=== PATIENT | female | born 1935 | race Caucasian/White ===

== ENCOUNTER 2019-11-02 12:41 | Inpatient (IN) | payer MEDICARE, MEDICAID, SELFPAY ==
[2019-11-02] VITALS (22 sets, daily range): BP systolic 107–141; BP diastolic 46–95; PULSE 81–92; RESP 18–42; TEMP 36.8–39.3; O2SAT 95–98; BMI 26.5
--- NOTE | ~2019-11-02 | XR_ITS ---
EXAMINATION: XR chest 1V portable DATE: 11/04/2019 06:08 INDICATION: Pneumonia TECHNIQUE: frontal view of the chest was obtained. COMPARISON: Chest radiograph dated 11/02/2019 FINDINGS: Airspace opacities in the right mid and lower and left lower lung zones which appear increased in ext ent on the right although this may be related to more kyphotic positioning. No pleural effusion or pn eumothorax. The cardiomediastinal silhouette is normal. Left internal jugular central venous port cat heter with distal tip at the caudal superior vena cava. IMPRESSION: 1. Bilateral airspace disease, right greater than left with possible worsening on the right which is concerning for pneumonia. Reviewed, dictated and finalized at location A.
--- NOTE | ~2019-11-02 | XR_ITS ---
XR chest 1V portable DATE: 11/02/2019 13:34 INDICATION: Fever, cough TECHNIQUE: Portable upright AP view on 11/02/2019 at 1336 hours COMPARISON: 04/07/2019 AP and lateral chest FINDINGS: There is patchy consolidating infiltrate in the right mid and lower lung zone and mild patc hy infiltrate in the left lower lung. There is minimal right pleural effusion. No left pleural effusion. No pulmonary vascular congestion o r pneumothorax. Normal heart size. Mild aortic unfolding. Left internal jugular vein Port-A-Cath catheter tip overlies the superior vena cava near the superior cavoatrial junction. No pneumothorax. Diffuse osteopenia. IMPRESSION: Patchy consolidating infiltrates in the right mid and lower lung zone and mild patchy inf iltrate in the left lower lung. The infiltrates appear to involve primarily the lower lobes Reviewed, dictated and finalized at location B. IMPRESSION: Patchy consolidating infiltrates in the right mid and lower lung zo ne and mild patchy infiltrate in the left lower lung. The infiltrates appear to involve primarily the lower lobes
--- NOTE | 2019-11-02 12:55 | ECG_ITS ---
Measurements Intervals [place] Rate: 94 P: 62 [place]: 154 QRS: 30 QRSD: 85 T: 30 QT: 346 QTc: 435 Interpretive Statements SINUS RHYTHM ATRIAL PREMATURE COMPLEX BORDERLINE ST ABNORMALITY- ANTEROLATERAL LEADS BASELINE ARTIFACT- I, II, III, AVL, AVF, V4-V6 BORDERLINE ECG Electronically Signed On 11-02-2019 13:15:29 CDT by Dwain Gonzales D.O.
[2019-11-02 13:27] LABS: Basophils Absolute Auto 0.1 K/mm3 (0.0-0.1); Basophils Percent Auto 0.3 % (0.2-1.2); Hematocrit 25.5 % (37.0-47.0); Hemoglobin 8.3 g/dL (12.0-15.0); Immature Granulocyte Percent A 0.3 % (0-0.5); Immature Platelet Fraction Pct 5.6 % (0.9-11.2); Lymphocytes Absolute Auto 26.13 K/mm3 (0.9-3.2); Lymphocytes Percent Auto 82.9 % (18.3-44.2); Mean Corpuscular HGB Conc 32.5 g/dl (32-36); Mean Corpuscular Hemoglobin 35.9 pg (26-34); Mean Corpuscular Volume 110.4 fl (80-100); Mean Platelet Volume 11.8 fl (7.4-10.4); Monocytes Absolute Auto 0.1 K/mm3 (0.1-0.6); Monocytes Percent Auto 0.4 % (2.6-8.5); Neutrophils Absolute Auto 5.1 K/mm3 (1.3-6.7); Neutrophils Percent Auto 16.1 % (45.5-73.1); Platelet Count Result 62 k/mm3 (150-375); Red Blood Count 2.31 M/mm3 (4.2-5.4); Red Cell Distribution Width 17.4 % (11.5-14.5); White Blood Count 31.5 K/mm3 (4.5-10.0)
[2019-11-02 13:36] LABS: Alanine Aminotransferase 7 U/L (4-35); Albumin Level 3.6 g/dL (3.5-5.1); Alkaline Phosphatase 73 U/L (38-126); Aspartate Amino Transferase 30 U/L (14-36); Bilirubin,Total 2.1 mg/dL (0.2-1.3); Blood Urea Nitrogen 30 mg/dL (7-17); Calcium 8.4 mg/dL (8.4-10.2); Carbon Dioxide 23 mmol/L (22-30); Chloride 96 mmol/L (98-107); Estimated CRCL calculation 29 ml/min; Estimated Glomerular Filt Rate 39; Glucose 169 mg/dL (65-105); Potassium 3.7 mmol/L (3.4-5.0); Sodium 131 mmol/L (137-145)
[2019-11-02 13:37] LABS: INR 1.2
[2019-11-02 13:38] LABS: Partial Thromboplastin Time 26.9 SECONDS (22.3-36.8)
--- NOTE | 2019-11-02 13:47 | ED.GENADULT ---
HPI - General Adult General Chief complaint: Fever Stated complaint: Fever, cough Time Seen by Provider: 11/02/19 12:47 History of Present Illness HPI narrative: Patient is a 84 y/o female complaining of fever starting last night. Fever was up to 103 at [place]. There is no known alleviating or exacerbating factor. She is not sure whether she received any antipyretics. She also has cough and SOB for 2 weeks. She has some chest pain with cough. 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 Related Data Home Medications Medication Instructions Recorded Confirmed acetaminophen 650 mg PO Q4H PRN 02/16/19 11/02/19 allopurinol 300 mg PO DAILY 02/16/19 11/02/19 carbidopa-levodopa 1 tablet PO TID 02/16/19 11/02/19 omeprazole 20 mg PO DAILY 02/16/19 10/23/19 ondansetron HCl 4 mg PO Q6H PRN 02/16/19 10/23/19 furosemide 20 mg PO DAILY 04/07/19 10/23/19 levothyroxine 50 mcg PO DAILY 04/07/19 10/23/19 lidocaine-prilocaine 1 applic TOPICAL ONCE 04/07/19 10/23/19 ferrous sulfate 325 mg PO DAILY 10/22/19 10/23/19 losartan-hydrochlorothiazide 1 tablet PO DAILY 10/22/19 10/23/19 magnesium hydroxide [Milk of 15 ml PO DAILY 11/02/19 11/02/19 Magnesia] sertraline 25 mg PO DAILY 11/02/19 11/02/19 Allergies Allergy/AdvReac Type Severity Reaction Status Date / Time quinapril Allergy Unknown Unknown Verified 04/07/19 14:59 rituximab Allergy Unknown Dyspnea / Verified 04/07/19 14:59 SOB cyclobenzaprine AdvReac Mild Unknown Verified 04/07/19 14:59 diclofenac AdvReac Mild Unknown Verified 04/07/19 14:59 zolpidem AdvReac Mild Unknown Verified 04/07/19 14:59 Review of Systems Constitutional: Constitutional: Reports chills, Reports fever(s), Denies headache(s) and Reports weakness Eyes: Eyes: Denies blurry vision ENT: Denies headache(s) and Denies neck pain Cardiovascular: Cardiovascular: Reports chest pain and Reports dyspnea Respiratory: Respiratory: Reports cough and Reports dyspnea Gastrointestinal: Gastrointestinal: Denies abdominal pain, Denies diarrhea, Denies nausea and Denies vomiting Genitourinary: Genitourinary: Denies hematuria and Denies dysuria Musculoskeletal: Musculoskeletal: Denies back pain and Denies neck pain Neurologic: Denies headache(s) and Denies weakness [facility] Past Medical History Medical History Arthritis DDD (degenerative disc disease) Dementia Depression GERD (gastroesophageal reflux disease) Gout HLD (hyperlipidemia) HTN (hypertension) Hypothyroid Leukemia Osteoporosis Pacemaker Parkinson's disease Pleural abscess Pneumonia Tuberculosis Ulcer UTI (urinary tract infection) Surgical History Surgical History H/O bilateral cataract extraction H/O: hysterectomy Family History Family History (Updated 11/02/19 @ 16:44 by Julio Wood RN) Father Heart failure Mother Unknown family medical history Social History Social History Gender identity (if verbalized by the patient): Female Exam Const: General: no acute distress, well developed, in distress and ill appearing Orientation/consciousness: oriented to person, oriented to place, oriented to time and patient oriented x3 HENMT: Head: normocephalic Ears: external ears normal General nose exam: Normal external nose present Eyes: General: appearance normal, both eyes and all related structures Conjunctivae: conjunctivae normal Neck: Neck: normal visual inspection and full ROM Chest: Chest palpation & inspection: normal inspection of the chest and no tenderness Resp: Effort & Inspection: retractions and tachypneic Cardio: Rate: regular rate Rhythm: regular rhythm GI: GI Palp: No abdominal tenderness and Yes Soft to palpation Skin: General skin exam: normal color and turgor normal Neuro: General: oriented to person, oriented to place, oriented to time and
[2019-11-02] MEDS: ACETAMINOPHEN 325 MG TABLET 650 MG PO ×2 (14:00→23:21)
[2019-11-02 14:05] LABS: Lactic Acid Reflex 1.7 mmol/L (0.7-2.1)
[2019-11-02 14:12] LABS: CRP 41.4 mg/dL (<1.0)
[2019-11-02 14:27] LABS: Troponin I 0.039 ng/mL (0.000-0.034)
[2019-11-02 14:46] LABS: Add Urine Microscopic? YES; Amorphous Sediment Urine Moderate; Appearance Urine Clear (Clear); Bacteria Urine 1+ /hpf; Bilirubin Urine Negative (Negative); Blood Urine 1+ (Negative); Color Urine Yellow (Yellow); Glucose Urine UA Negative (Negative); Ketones Urine Negative (Negative); Leukocyte Esterase Ur Negative LEU/UL (Negative); Mucus Urine Rare /lpf; Nitrate Urine Negative (Negative); Protein Urine 2+ mg/dL (Negative); RBC Urine 0-2 /hpf (0-2); Specific Grav Ur 1.015 (1.001-1.035); Urobilinogen Urine Negative mg/dL (<2.0); WBC Urine 0-3 /hpf
--- NOTE | 2019-11-02 15:20 | PC.NURSE ---
Dinner tray ordered.
[2019-11-02] MEDS: SODIUM CHLORIDE 0.9% IV 1,000 ML 125 ML IV CONT (17:21)
[2019-11-02 17:50] LABS: Troponin I 0.033 ng/mL (0.000-0.034)
[2019-11-02 20:46] LABS: Troponin I 0.023 ng/mL (0.000-0.034)
--- NOTE | 2019-11-02 22:37 | PM.IMHP ---
H&P: HPI History of Present Illness Chief complaint: pneumonia/sepsis Narrative: Diana Crawford is a 84 year old female who resides at [facility]. The patient stated that she has been coughing for many days. She stated she was not able to sleep because of her cough. Chest x-ray was read as patchy consolidating infiltrates in the right mid and lower lung zones and mild patchy infiltrate in the left lower lung. Patient has CLL. Patient was started on azithromycin and Rocephin. She has a dry nonproductive cough. Creatinine 1.3. Glucose 169. Patient was checked for covid 19. She was afebrile she had a 101.1 temperature when she came to the hospital. Tylenol for the fever. Date of service 11/02/2019 Review of Systems Review of Systems: All systems reviewed & are unremarkable except as noted in HPI and below Constitutional: Constitutional: Reports as per HPI and Reports no additional constitutional complaints Eyes: Eyes: Reports as per HPI and Reports no additional eye complaints ENT: Reports system reviewed and no additional complaints, except as documented and Reports Normal hearing present Cardiovascular: Cardiovascular: Reports no additional cardiovascular complaints Respiratory: Respiratory: Reports no additional respiratory complaints and Reports no additional respiratory complaints Gastrointestinal: Gastrointestinal: Reports as per HPI and Reports no additional gastrointestinal complaints Musculoskeletal: Musculoskeletal: Reports no additional musculoskeletal complaints Integumentary/Breasts: Skin/Breast: Reports system reviewed and no additional complaints, except as docu and Reports as per HPI Neurologic: Reports system reviewed and no additional complaints, except as documented, Reports as per HPI and Reports Normal hearing present Psychiatric: Psychiatric: Reports no additional psychiatric complaints and Reports as per HPI Endocrine: Endocrine: Reports no additional endocrine complaints Hematologic/Lymphatic: Hematologic/Lymphatic: Reports no additional hematologic/lymphatic complaints Allergic/Immunologic: Allergic/Immunologic: Reports no additional allergic/immunologic complaints [facility] Past Medical History Medical History (Updated 11/02/19 @ 23:12 by Emy Johnson NP) Arthritis DDD (degenerative disc disease) Dementia Depression GERD (gastroesophageal reflux disease) Gout HLD (hyperlipidemia) HTN (hypertension) Hypothyroid Leukemia cll Osteoporosis Parkinson's disease Pleural abscess Pneumonia Port-A-Cath in place Tuberculosis Ulcer UTI (urinary tract infection) Surgical History Surgical History H/O bilateral cataract extraction H/O: hysterectomy Family History Family History Father Heart failure Mother Unknown family medical history Social History Social History (Updated 11/02/19 @ 22:58 by Emy Johnson NP) Social History: The patient is and she is at the [employer] [facility]. She is a full code. Daina Stallworth is her child who is the durable power traffic law attorney for healthcare. Her daughter Angelo is a durable power traffic law attorney for healthcare. She never smoked. Smoking status: Never smoker Alcohol intake: never Substance use: never Substance use type: does not use Living arrangements: usp Gender identity (if verbalized by the patient): Female Spiritual care concerns: No Meds Home Medications and Allergies Home Medications Medication Instructions Recorded Confirmed Type acetaminophen 650 mg PO Q4H PRN 02/16/19 11/02/19 History allopurinol 300 mg PO DAILY 02/16/19 11/02/19 History carbidopa-levodopa 1 tablet PO TID 02/16/19 11/02/19 History omeprazole 20 mg PO DAILY 02/16/19 11/02/19 History ondansetron HCl 4 mg PO Q6H PRN 02/16/19 11/02/19 History furosemide 20 mg PO DAILY 04/07/19 11/02/19 History levothyroxine 50
[2019-11-02] MEDS: guaiFENesin/DEXTROMETHORPHAN 10 ML UDC PO (23:20)
[2019-11-03] VITALS (24 sets, daily range): BP systolic 95–161; BP diastolic 38–77; PULSE 74–179; RESP 19–41; TEMP 36.8–38.5; O2SAT 93–98
--- NOTE | 2019-11-03 | ECHO_ITS ---
Patient Info Name: Diana Crawford Age: 84 years : 1935 Gender: Female Ht: 64 in Wt: 160 lbs BSA: 1.83 m2 HR: 80 bpm BP: 116 / 54 mmHg Heart Rhythm: Sinus Rhythm Technical Quality: Good Exam Date: 11/03/2019 3:55 PM Exam Location: [facility] Patient Status: Inpatient Admit Date: 11/02/2019 Staff Ordering Physician: Mannie Rucker MD Programmer Numerical Control: Micky Dalton RDCS Attending Provider: Mannie Rucker MD Exam Type: CA echo doppler color flow Study Info Indications I47.1 - Supraventricular tachycardia Complete two-dimensional, color flow and Doppler transthoracic echocardiogram is performed. Strain analysis performed. History/Risk Factors Supraventricular tachycardia; PNA, Sepsis, HTN. Summary 1. Left ventricular systolic function is normal, estimated at 60-65%. 2. There is no increased left ventricular wall thickness. 3. The left ventricular diastolic function is grade I diastolic dysfunction. 4. Global longitudinal strain is normal at -21 %. 5. There is no aortic valve stenosis. 6. There is trace mitral valve regurgitation. 7. There is mild to moderate tricuspid valve regurgitation. 8. Moderate pulmonary hypertension, estimated pulmonary arterial systolic pressure is 50 mmHg. 9. Sinus rhythm with frequent premature atrial contractions. Left Ventricle Left ventricular chamber dimension is normal. Left ventricular systolic function is normal, estimated at 60-65%. There is no increased left ventricular wall thickness. The left ventricular diastolic function is grade I diastolic dysfunction. Global longitudinal strain is normal at -21 %. Right Ventricle Right ventricular chamber dimension is normal. Right ventricular systolic function is normal. Left Atria Left atrial chamber dimension is mildly enlarged. Right Atria Right atrial chamber dimension is mildly enlarged. Aortic Valve The aortic valve is not well visualized. There is mild aortic valve sclerosis. There is no aortic valve stenosis. There is no aortic valve regurgitation. Pulmonic Valve The pulmonic valve is not well visualized. There is trace pulmonic regurgitation. Mitral Valve The mitral valve has normal leaflets. There is trace mitral valve regurgitation. Tricuspid Valve The tricuspid valve leaflets are normal. There is mild to moderate tricuspid valve regurgitation. Moderate pulmonary hypertension, estimated pulmonary arterial systolic pressure is 50 mmHg. Pericardium/Pleural The pericardium appears normal. There is no pericardial effusion. Inferior Vena Cava Normal inferior vena cava with >50% collapse upon inspiration consistent with normal right atrial pressure, 5 mmHg. Aorta The aortic root size at the sinus of Valsalva is normal. Left Ventricular Outflow Tract Name Value Normal LVOT 2D LVOT Diameter 1.9 cm LVOT Doppler LVOT Peak Gradient 11 mmHg LVOT Mean Gradient 5 mmHg LVOT VTI 31 cm LVOT VTI/AV VTI Ratio 0.8 LVOT Stroke Volume
--- NOTE | 2019-11-03 01:08 | ECG_ITS ---
Measurements Intervals [place] Rate: 88 P: 64 [place]: 150 QRS: 28 QRSD: 85 T: 46 QT: 402 QTc: 488 Interpretive Statements SINUS RHYTHM SUPRAVENTRICULAR BIGEMINY ABNORMAL ECG Electronically Signed On 11-03-2019 7:05:29 CDT by Dwain Gonzales D.O.
[2019-11-03] MEDS: SODIUM CHLORIDE 0.9% IV 1,000 ML 125 ML IV CONT (01:11)
[2019-11-03 01:41] LABS: Blood Urea Nitrogen 29 mg/dL (7-17); Calcium 7.8 mg/dL (8.4-10.2); Carbon Dioxide 23 mmol/L (22-30); Chloride 100 mmol/L (98-107); Estimated CRCL calculation 27 ml/min; Estimated Glomerular Filt Rate 43; Glucose 152 mg/dL (65-105); Magnesium 1.8 mg/dL (1.6-2.3); Potassium 3.1 mmol/L (3.4-5.0); Sodium 132 mmol/L (137-145)
[2019-11-03] MEDS: guaiFENesin/DEXTROMETHORPHAN 10 ML UDC PO (06:11)
[2019-11-03] MEDS: LEVOTHYROXINE SODIUM 50 MCG TABLET PO (06:11)
[2019-11-03 07:00] LABS: Basophils Percent Auto 0.3 % (0.2-1.2); Eosinophils Percent Auto 0.1 % (0-4.4); Immature Granulocyte Absolute 0.11 K/mm3 (0.00-0.031); Immature Granulocyte Percent A 0.7 % (0-0.5); Immature Platelet Fraction Pct 5.8 % (0.9-11.2); Lymphocytes Absolute Auto 11.66 K/mm3 (0.9-3.2); Lymphocytes Percent Auto 76.6 % (18.3-44.2); Mean Corpuscular HGB Conc 31.9 g/dl (32-36); Mean Corpuscular Hemoglobin 35.4 pg (26-34); Mean Corpuscular Volume 111.1 fl (80-100); Mean Platelet Volume 11.7 fl (7.4-10.4); Monocytes Absolute Auto 0.1 K/mm3 (0.1-0.6); Monocytes Percent Auto 0.9 % (2.6-8.5); Neutrophils Absolute Auto 3.3 K/mm3 (1.3-6.7); Neutrophils Percent Auto 21.4 % (45.5-73.1); Platelet Count Result 44 k/mm3 (150-375); Red Blood Count 1.89 M/mm3 (4.2-5.4); Red Cell Distribution Width 17.3 % (11.5-14.5); White Blood Count 15.2 K/mm3 (4.5-10.0)
[2019-11-03 07:09] LABS: Lactic Acid 1.5 mmol/L (0.7-2.1)
[2019-11-03 07:13] LABS: Hemoglobin 6.7 g/dL (12.0-15.0)
[2019-11-03 07:15] LABS: Anisocytosis 1+ (NORMAL); Hypochromasia 1+ (NORMAL); Ovalocytes 1+ (NORMAL); Platelet Estimate Decreased (Adequate); Poikilocytosis 1+ (NORMAL)
[2019-11-03 07:20] LABS: Alanine Aminotransferase 17 U/L (4-35); Alkaline Phosphatase 74 U/L (38-126); Aspartate Amino Transferase 30 U/L (14-36); Bilirubin,Total 1.1 mg/dL (0.2-1.3); Blood Urea Nitrogen 28 mg/dL (7-17); Calcium 7.9 mg/dL (8.4-10.2); Carbon Dioxide 24 mmol/L (22-30); Chloride 100 mmol/L (98-107); Estimated CRCL calculation 31 ml/min; Estimated Glomerular Filt Rate 43; Glucose 173 mg/dL (65-105); Magnesium 1.9 mg/dL (1.6-2.3); Potassium 3.9 mmol/L (3.4-5.0); Sodium 132 mmol/L (137-145)
[2019-11-03 07:47] LABS: CRP > 45.0 mg/dL (<1.0)
[2019-11-03] MEDS: allopurinoL 300 MG TABLET PO (09:03)
[2019-11-03] MEDS: MULTIVITAMINS THERAPEUTIC TAB (*BKC) 1 TABLET PO (09:03)
[2019-11-03] MEDS: SERTRALINE HCL 25 MG TABLET PO (09:04)
[2019-11-03] MEDS: CARBIDOPA/LEVODOPA 25/100 MG CR TABLET 1 TABLET PO ×3 (09:04→18:50)
[2019-11-03] MEDS: FERROUS SULFATE 324 MG TABLET PO (09:04)
[2019-11-03] MEDS: PANTOPRAZOLE SOD SESQUIHYDRATE 20 MG TAB PO (09:04)
[2019-11-03] MEDS: FUROSEMIDE 20 MG TABLET PO (09:04)
[2019-11-03] MEDS: MAGNESIUM HYDROXIDE SUSP 30 ML UDC 15 ML PO (09:04)
[2019-11-03] MEDS: ACETAMINOPHEN 325 MG TABLET 650 MG PO (09:09)
--- NOTE | 2019-11-03 11:04 | PM.IMPN ---
Progress Note: A&P Assessment and Plan (1) Sepsis: Qualifiers: Sepsis acute organ dysfunction status: unspecified Sepsis type: sepsis due to unspecified organism Qualified Code(s): A41.9 - Sepsis, unspecified organism Code(s): A41.9 - Sepsis, unspecified organism Status: Acute Assessment and Plan: Present on admission with leukocytosis, fever, elevated CRP. Temperature improved. Continue close observation. Continue IV antibiotics. (2) Pneumonia: Qualifiers: Laterality: bilateral Lung location: unspecified part of lung Pneumonia type: due to unspecified organism Qualified Code(s): J18.9 - Pneumonia, unspecified organism Code(s): J18.9 - Pneumonia, unspecified organism Status: Acute Assessment and Plan: Chest x-ray showing bilateral lower lobe infiltrates. White count elevated with fever and cough. Blood culture No growth to date. COVID pending. Continue with a Zithromax and Rocephin. Hold on albuterol given her SVT. Check sputum culture COVID negative but concern high so will retest. Repeat CXR in the morning. (3) SVT (supraventricular tachycardia): Code(s): I47.1 - Supraventricular tachycardia Status: Acute Assessment and Plan: Episodes of regular, narrow complex tachycardia. Probably SVT but cannot exclude atrial flutter. Not on a beta-ashley at home. TSH okay. Will check echocardiogram. Hold albuterol. Give Mag IV. (4) Suspected COVID-19 virus infection: Code(s): Z20.828 - Contact with and (suspected) exposure to other viral communicable diseases Status: Acute Assessment and Plan: Chest x-ray was reviewed. Patient was tested and results are pending. The patient is on isolation. She is on room at air at this time but is tachypneic. Monitor closely. (5) Anemia: Code(s): D64.9 - Anemia, unspecified Status: Acute Assessment and Plan: Patient's hemoglobin was normal last year but has been low this year in the 9-10 range. She takes ferrous sulfate and receives B12 injections. No evidence of active bleeding. Hemoglobin dropped to 6.7 probably related to IV fluids. Given that she has leukemia, would want to avoid auto antibodies so transfusion was held. Will track H&H every 6 hours to monitor closely. Discussed with Hematology about possible transfusion Hgb drifting down. Transfusion ordered. Stool dark so will check guaiac. (6) Leukemia: Code(s): C95.90 - Leukemia, unspecified not having achieved remission Status: Chronic Assessment and Plan: Patient has refractory CLL/lymphoma with history of chemotherapy. Patient has elevated leukocytes on admission at 31K but better today. 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 Platelet count currently At baseline. No evidence of active bleeding. Hematology/oncology has been consulted. (7) Hypothyroid: Code(s): E03.9 - Hypothyroidism, unspecified Status: Chronic Assessment and Plan: TSH normal Continue with levothyroxine. (8) HTN (hypertension): Code(s): I10 - Essential (primary) hypertension Status: Chronic Assessment and Plan: Blood pressure reviewed on 11/03/2019. Blood pressure well controlled. Losartan/HCTZ on hold. She is still has Lasix ordered. Continue to monitor for now. (9) Parkinson's disease: Code(s): G20 - Parkinson's disease Status: Chronic Assessment and Plan: Stable. Continue with carbidopa levodopa. (10) Depression: Code(s): F32.9 - Major depressive disorder, single episode, unspecified Status: Chronic Assessment and Plan: Mood stable. Continue Zoloft. Subjective Date/time seen: 11/03/19 11:04 Interval history: 84yo female with leukemia here for fever and cough. Assuming care. Chart reviewed. Patient states she has been having low-grade fever prior to admission b
[2019-11-03] MEDS: MAGNESIUM SULF 1 GM/D5W 100 ML 1 GM/100 ML BAG IVPB (12:48)
[2019-11-03 12:49] LABS: Iron 24 ug/dL (37-170); Lactate Dehydrogenase 420 U/L (313-618)
[2019-11-03 12:55] LABS: Immature Reticulocyte Fraction 3.8 % (3.0-15.9); Reticulocyte Hemoglobin Conten 27.7 pg (28.2-35.7); Reticulocyte Percent 1.97 % (0.7-4.3); Reticulocytes Absolute 0.03 B/L (32.2-175.7)
[2019-11-03 12:58] LABS: Percent Iron Saturation 13 % (20-50)
[2019-11-03 13:00] LABS: Hematocrit 19.4 % (37.0-47.0); Hemoglobin 6.3 g/dL (12.0-15.0)
[2019-11-03 13:40] LABS: Vitamin B12 > 1000.0 pg/mL (239-931)
[2019-11-03] MEDS: SODIUM CHLORIDE 0.9% IV 1,000 ML 100 ML IV CONT (14:07)
[2019-11-03 14:57] LABS: SARS-CoV-2 RNA PCR Negative
--- NOTE | 2019-11-03 17:20 | PDONCCN ---
HPI - Date of Consult Date/Time: 11/03/19 17:20 Requesting Physician: Jori Rucker MD Primary Care Provider: Maurisio Vernon MD - Consult Narrative Reason for consult: Chronic lymphocytic leukemia Narrative: Diana Crawford is a 84 year old female This is the pleasant 83-year-old female with diagnosis of chronic lymphocytic leukemia in 2013. She received weekly treatment with Rituxan completed in January 2018. Rituxan treatment was restarted 2 weeks ago due to worsening of thrombocytopenia and anemia. She received week 2 of Rituxan on October 29, 2019. Patient now came into the office with cough iron shortness of breath for 3-4 days duration. She denies any fevers and chills. She has been feeling poorly and complain of tiredness and fatigue. She denies any bleeding and bruising. Denies any other new complaint. Review of Systems - Review of Systems all systems reviewed & are unremarkable except as noted in History - Neurologic Reports no additional neurologic complaints, Reports as per HPI, Denies headache(s), Denies weakness PMFSH Medical History: Medical History (Last Reviewed 11/03/19 @ 17:22 by Stephen Acosta MD) Arthritis DDD (degenerative disc disease) Dementia Depression GERD (gastroesophageal reflux disease) Gout HLD (hyperlipidemia) HTN (hypertension) Hypothyroid Leukemia cll Osteoporosis Parkinson's disease Pleural abscess Pneumonia Port-A-Cath in place Tuberculosis Ulcer UTI (urinary tract infection) Surgical History: Surgical History (Last Reviewed 11/03/19 @ 17:23 by Stephen Acosta MD) H/O bilateral cataract extraction H/O: hysterectomy Family History: Family History (Last Reviewed 11/03/19 @ 17:23 by Stephen Acosta MD) Father Heart failure Mother Unknown family medical history - Social History Social History: Social History (Last Reviewed 11/03/19 @ 17:23 by Stephen Acosta MD) Gender Identity: Gender identity (if verbalized by the patient): Female Alcohol Use: Alcohol intake: never Substance Use: Substance use: never Substance use type: does not use Others: Spiritual care concerns: No Living Arrangements: Living arrangements: intermediate Smoking Status: Smoking status: Never smoker Meds Home Medications Medication Instructions Recorded Confirmed Type acetaminophen 650 mg PO Q4H PRN 02/16/19 11/02/19 History allopurinol 300 mg PO DAILY 02/16/19 11/02/19 History carbidopa-levodopa 1 tablet PO TID 02/16/19 11/02/19 History omeprazole 20 mg PO DAILY 02/16/19 11/02/19 History ondansetron HCl 4 mg PO Q6H PRN 02/16/19 11/02/19 History furosemide 20 mg PO DAILY 04/07/19 11/02/19 History levothyroxine 50 mcg PO DAILY 04/07/19 11/02/19 History lidocaine-prilocaine 1 applic TOPICAL ONCE 04/07/19 11/02/19 History ferrous sulfate 325 mg PO DAILY 10/22/19 11/02/19 History losartan-hydrochlorothiazide 1 tablet PO DAILY 10/22/19 11/02/19 History cyanocobalamin (vitamin B-12) 1,000 mcg IM MONTHLY 11/02/19 11/02/19 History magnesium hydroxide [Milk of 15 ml PO DAILY 11/02/19 11/02/19 History Magnesia] multivitamin [Daily-Amy] 1 tablet PO DAILY 11/02/19 11/02/19 History polyvinyl alcohol [Artificial 1 drp OPHTHALMIC (EYE) TID 11/02/19 11/02/19 History Tears (polyvin alc)] sertraline 25 mg PO DAILY 11/02/19 11/02/19 History Allergies Allergy/AdvReac Type Severity Reaction Status Date / Time quinapril Allergy Unknown Unknown Verified 04/07/19 14:59 rituximab Allergy Unknown Dyspnea / Verified 04/07/19 14:59 SOB cyclobenzaprine AdvReac Mild Unknown Verified 04/07/19 14:59 diclofenac AdvReac Mild Unknown Verified 04/07/19 14:59 zolpidem AdvReac Mild Unknown Verified 04/07/19 14:59 Results - Labs CBC & Chem 7: 11/03/19 12:32 11/03/19 06:49 Labs: Short CBC 11/03/19 11/03/19 Range/Units 06:49 12:32 WBC 15.2 H (4.5-10.0) K/mm3 Hgb 6.7 L* 6.3 L* (12.0-15.0
[2019-11-03 17:54] LABS: Hematocrit 21.8 % (37.0-47.0)
[2019-11-03 18:42] LABS: Immunoglobulin A < 40 mg/dL (70-400); Immunoglobulin G < 270 mg/dL (700-1600); Immunoglobulin M < 25 mg/dL (40-230)
[2019-11-03 19:12] LABS: Immunochemical Fecal Occult Bl Negative (N)
[2019-11-03 19:13] LABS: IFOB Positive Control Positive
[2019-11-03] MEDS: METOPROLOL TARTRATE INJ 5 MG/5 ML VIAL IV PUSH (21:05)
[2019-11-04] VITALS (22 sets, daily range): BP systolic 116–146; BP diastolic 46–80; PULSE 66–132; RESP 22–33; TEMP 36.6–37.8; O2SAT 94–97
[2019-11-04] MEDS: SODIUM CHLORIDE 0.9% IV 250 ML 30 ML IV CONT (00:12)
[2019-11-04] MEDS: FUROSEMIDE INJ 40 MG/4 ML VIAL 20 MG IV PUSH ×2 (02:22)
[2019-11-04] MEDS: LEVOTHYROXINE SODIUM 50 MCG TABLET PO (05:34)
[2019-11-04 05:57] LABS: Basophils Percent Auto 0.2 % (0.2-1.2); Hematocrit 29.1 % (37.0-47.0); Hemoglobin 9.7 g/dL (12.0-15.0); Immature Granulocyte Absolute 0.11 K/mm3 (0.00-0.031); Immature Granulocyte Percent A 0.5 % (0-0.5); Immature Platelet Fraction Pct 5.7 % (0.9-11.2); Lymphocytes Absolute Auto 16.94 K/mm3 (0.9-3.2); Lymphocytes Percent Auto 77.5 % (18.3-44.2); Mean Corpuscular HGB Conc 33.3 g/dl (32-36); Mean Corpuscular Hemoglobin 33.1 pg (26-34); Mean Corpuscular Volume 99.3 fl (80-100); Mean Platelet Volume 11.6 fl (7.4-10.4); Monocytes Absolute Auto 0.1 K/mm3 (0.1-0.6); Monocytes Percent Auto 0.6 % (2.6-8.5); Neutrophils Absolute Auto 4.6 K/mm3 (1.3-6.7); Neutrophils Percent Auto 21.2 % (45.5-73.1); Platelet Count Result 54 k/mm3 (150-375); Red Blood Count 2.93 M/mm3 (4.2-5.4); Red Cell Distribution Width 22.2 % (11.5-14.5); White Blood Count 21.9 K/mm3 (4.5-10.0)
[2019-11-04 06:03] LABS: Hemoglobin A1C 6.9 % (<5.7)
[2019-11-04 06:08] LABS: Blood Urea Nitrogen 28 mg/dL (7-17); Carbon Dioxide 25 mmol/L (22-30); Chloride 101 mmol/L (98-107); Estimated CRCL calculation 31 ml/min; Estimated Glomerular Filt Rate 43; Glucose 126 mg/dL (65-105); Phosphorus 3.6 mg/dL (2.5-4.5); Potassium 3.4 mmol/L (3.4-5.0); Sodium 134 mmol/L (137-145)
[2019-11-04 06:27] LABS: Platelet Estimate Decreased (Adequate)
[2019-11-04 06:28] LABS: Anisocytosis 2+ (NORMAL)
[2019-11-04] MEDS: ACETAMINOPHEN 325 MG TABLET 650 MG PO ×2 (08:22→20:14)
[2019-11-04] MEDS: PANTOPRAZOLE SOD SESQUIHYDRATE 20 MG TAB PO (08:23)
[2019-11-04] MEDS: FUROSEMIDE 20 MG TABLET PO (08:23)
[2019-11-04] MEDS: FERROUS SULFATE 324 MG TABLET PO (08:23)
[2019-11-04] MEDS: SERTRALINE HCL 25 MG TABLET PO (08:23)
[2019-11-04] MEDS: CARBIDOPA/LEVODOPA 25/100 MG CR TABLET 1 TABLET PO ×3 (08:23→18:48)
[2019-11-04] MEDS: MULTIVITAMINS THERAPEUTIC TAB (*BKC) 1 TABLET PO (08:23)
[2019-11-04] MEDS: allopurinoL 300 MG TABLET PO (08:24)
--- NOTE | 2019-11-04 09:23 | PM.IMPN ---
Progress Note: A&P Assessment and Plan (1) Sepsis: Qualifiers: Sepsis acute organ dysfunction status: unspecified Sepsis type: sepsis due to unspecified organism Qualified Code(s): A41.9 - Sepsis, unspecified organism Code(s): A41.9 - Sepsis, unspecified organism Status: Acute Assessment and Plan: Present on admission with leukocytosis, fever, elevated CRP. Temperature improved but still with fevers. Continue close observation. Continue IV antibiotics but add flagyl for possible aspiration. Consider MRSA PNA as well. Will change to Doxy from Azithro (2) Pneumonia: Qualifiers: Laterality: bilateral Lung location: unspecified part of lung Pneumonia type: due to unspecified organism Qualified Code(s): J18.9 - Pneumonia, unspecified organism Code(s): J18.9 - Pneumonia, unspecified organism Status: Acute Assessment and Plan: Chest x-ray showing bilateral lower lobe infiltrates. White count elevated with fever and cough. Blood culture No growth to date. COVID negative. Currenlt on Zithromax and Rocephin. Hold on albuterol given her SVT/AFib. Sputum culture ordered. CXR looks worse in the right lower lobe. COnsider aspiration so sirena have ST evalate. Repeat COVID test ordered. Consider MRSA as well. MRSA nasal swab as well. Change to Levaquin and Kamrano (3) SVT (supraventricular tachycardia): Code(s): I47.1 - Supraventricular tachycardia Status: Acute Assessment and Plan: Episodes of regular, narrow complex tachycardia. Appears to have AFib. No plans for anti-coagulation. Not on a beta-ashley at home. TSH okay. Echo showing EF 60-65% with Grade I diastolic dysfunction and moderate pulmonary HTN. Albuterol on hold. Add low dose metoprolol. Cards consult (4) Suspected COVID-19 virus infection: Code(s): Z20.828 - Contact with and (suspected) exposure to other viral communicable diseases Status: Acute Assessment and Plan: Chest x-ray was reviewed. Patient was tested and results are negative. The patient is still having fevers. Will keep her on isolation and re-test. She is on room at air but is persistently tachypneic. Monitor closely. (5) Anemia: Code(s): D64.9 - Anemia, unspecified Status: Acute Assessment and Plan: Patient's hemoglobin was normal last year but has been low this year in the 9-10 range. She takes ferrous sulfate and receives B12 injections. No evidence of active bleeding with negtaive stool guaiac. Hemoglobin dropped to 6.3 probably related to IV fluids. Hem/Onc ordered transfusion and Hgb better today at 9.7. Will stop IVF. Follow H&H. (6) Leukemia: Code(s): C95.90 - Leukemia, unspecified not having achieved remission Status: Chronic Assessment and Plan: Patient has refractory CLL/lymphoma with history of chemotherapy. Patient has elevated leukocytes on admission at 31K. WBC still elevated but better today at 21K. 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 Platelet count currently at baseline. No evidence of active bleeding. Stool guaiac negative. Hematology/oncology following (7) Hypothyroid: Code(s): E03.9 - Hypothyroidism, unspecified Status: Chronic Assessment and Plan: TSH normal. Continue with levothyroxine. (8) HTN (hypertension): Code(s): I10 - Essential (primary) hypertension Status: Chronic Assessment and Plan: Blood pressure reviewed on 11/04/2019. Blood pressure well controlled. Losartan/HCTZ on hold. She is still has Lasix ordered. Continue to monitor for now. (9) Parkinson's disease: Code(s): G20 - Parkinson's disease Status: Chronic Assessment and Plan: Stable. Continue with carbidopa levodopa. (10) Depression: Code(s): F32.9 - Major depressive disorder, single episode, unspecified Status: Chronic Assessme
[2019-11-04] MEDS: SODIUM CHLORIDE 0.9% IV 1,000 ML 100 ML IV CONT (09:54)
--- NOTE | 2019-11-04 11:06 | PM.CNCAR ---
Assessment and Plan Assessment and plan (1) Paroxysmal atrial fibrillation: Code(s): I48.0 - Paroxysmal atrial fibrillation Status: Acute Assessment and Plan: Brief intermittent episodes, asymptomatic. Agree with low-dose metoprolol. Patient with isolated probable atrial flutter as well. Patient is not an anticoagulation candidate given thrombocytopenia, anemia and bleeding risk. Replete potassium. Magnesium stable. TSH within normal limits. Anticipate stabilization with regards to atrial tachyarrhythmias with further improvement in her clinical condition. Conservative management the time being. 2D echocardiogram personally reviewed EF 60-65%, trace MR, no , moderate pulmonary hypertension RVSP 50 mm Hg, [id number] tricuspid regurgitation. (2) PSVT (paroxysmal supraventricular tachycardia): Code(s): I47.1 - Supraventricular tachycardia Status: Acute Assessment and Plan: Metoprolol. Monitor tolerance. (3) Pneumonia: Qualifiers: Laterality: bilateral Lung location: unspecified part of lung Pneumonia type: due to unspecified organism Qualified Code(s): J18.9 - Pneumonia, unspecified organism Code(s): J18.9 - Pneumonia, unspecified organism Status: Acute Assessment and Plan: Per primary service. Continue intravenous antibiotics. (4) Anemia: Code(s): D64.9 - Anemia, unspecified Status: Acute Assessment and Plan: Follow H&H closely. Patient transfused by Oncology. (5) Leukemia: Code(s): C95.90 - Leukemia, unspecified not having achieved remission Status: Chronic Assessment and Plan: Per oncology. (6) Dementia: Code(s): F03.90 - Unspecified dementia without behavioral disturbance Status: Chronic Assessment and Plan: Stable. History of Present Illness History of Present Illness Consult date/time: date of service:11/04/19 11:06 This is a cardiology consultation at the request of Emy Johnson of the [facility] for our opinion regarding A.Fib and SVT. Requesting physician: Emy Johnson NP Consult reason: atrial fibrillation Reason For Visit: pneumonia/sepsis Narrative: Patient is an 84-year-old female with a resident at [facility] with past medical history significant for hypertension, dyslipidemia, CLL, Parkinson's, dementia who was admitted November 01 with incessant coughing for several days which was dry and nonproductive. Chest x-ray revealed patchy consolidation right middle and lower lung zones and patchy infiltrate left lower lung for which she was started on intravenous antibiotics. COVID-19 negative. She was admitted with a fever of 101.1. She was in sinus rhythm initially, however, overnight she had an episode of atrial fibrillation with RVR and probable transient atrial flutter. She has had occasional episodes of brief PSVT as well. She is asymptomatic in this regard. She has no prior known diagnosis history of atrial fibrillation. She has had progressive anemia and thrombocytopenia for which she received a unit of packed red blood cells by Oncology. She states she is feeling better and denies shortness of breath or chest pain. She initially stated she had experienced palpitations in the past but denies any at this time. She indicates she wants to go home today. She has been treated for sepsis and is improving on azithromycin and Rocephin. Albuterol bronchodilators have been held secondary to recurrent SVT. Review of Systems Review of Systems: All systems reviewed & are unremarkable except as noted in HPI and below Constitutional: Constitutional: Reports as per HPI, Reports no additional constitutional complaints, Reports fatigue and Reports weakness Eyes: Eyes: Reports as per HPI and Reports no additional eye complaints ENT: Reports system reviewed and no additional complaints, except as documented and Reports as per HPI Card
[2019-11-04] MEDS: METOPROLOL TARTRATE 12.5 MG TABLET PO ×2 (12:21→20:04)
[2019-11-04 13:29] LABS: SARS-CoV-2 RNA PCR Negative
--- NOTE | 2019-11-04 13:30 | PC.NURSE ---
Notified Dr. Rucker of negative Covid-19 results
--- NOTE | 2019-11-04 14:03 | PCSTNOTE ---
Please refer to the Bedside Swallow Evaluation in the EMR. ST-- bedside swallow evaluation was performed today; patient is functioning at her prior level (re swallow) thus skilled ST services are not required at this time.
[2019-11-04] MEDS: CENTRAL LINE FLUSH 10 ML IV PUSH ×2 (15:01→20:05)
--- NOTE | 2019-11-04 15:04 | PC.NURSE ---
This patient, Diana Crawford, was transferred to [ [id number]] on 11/04/19 at 1504. Personal belongings sent with patient. Belongings list checked and signed with receiving [ ]. Report given to [ VIRGINIA Jacobs @ 150]. Appropriate documentation sent with patient. Pt transferred via wheelchair w/ no issues noted.
--- NOTE | 2019-11-04 17:25 | WPDONCPN ---
Progress Note: A/P - Additional Plan Chronic lymphocytic leukemia. Will hold 3rd weekly treatment of Rituxan until next week. Multifactorial anemia. Workup for hemolytic anemia came back unremarkable. She has received 2 units of packed red blood cells with improvement in hemoglobin. She is clinically feeling much better. Right middle and lower lobe pneumonia. Patient is on antibiotic. She is afebrile. 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 I will start her on IV IgG treatment. - Time Spent With Patient Total time spent is greater than 50% in coordination of care (as documented) at patient's floor/unit and/or counseling patient: 25 - 35 minutes Subjective Interval history: Chronic lymphocytic leukemia Anemia secondary to CLL Right lower lobe pneumonia Review of Systems - Review of Systems Patient is feeling better and stronger today. She denies any bleeding and bruising. She denies any fevers and chills. Denies any other new complaints. Twelve point of systems reviewed and as above otherwise negative. - Neurologic Reports system reviewed and no additional complaints, except as documented, Denies headache(s), Denies weakness Exam Vital signs: Temp Pulse Resp BP Pulse Ox 37.0 C 75 22 H 146/80 H 97 11/04/19 16:00 11/04/19 16:00 11/04/19 16:00 11/04/19 16:00 11/04/19 16:00 Narrative: Lungs are clear to auscultation bilaterally Cardiovascular regular rate rhythm no murmurs Abdomen soft nontender nondistended bowel sounds are positive Extremities no edema PN: Objective Data - Labs CBC & Chem 7: 11/04/19 05:40 11/04/19 05:40 Labs: Laboratory Results - last 24 hr 11/03/19 11/03/19 11/03/19 17:46 17:46 18:22 WBC RBC Hgb 7.0 L Hct 21.8 L MCV MCH MCHC RDW Plt Count MPV Immature Gran % (Auto) Neut % (Auto) Lymph % (Auto) [place] % (Auto) Eos % (Auto) Baso % (Auto) Lymph # (Auto) [place] # (Auto) Eos # (Auto) Baso # (Auto) Abs Immat Gran (auto) Absolute Neuts (auto) Absolute Nucleated RBC Nucleated RBC % Platelet Estimate % Immature Plt Fraction Anisocytosis Sodium Potassium Chloride Carbon Dioxide BUN Creatinine Estim Creat Clear Calc Estimated GFR Glucose Hemoglobin A1c Calcium Phosphorus Magnesium Albumin Stl Occult Blood (IFOB) IgG < 270 L IgA < 40 L IgM < 25 L SARS-CoV-2 RNA (RT-PCR) Blood Type A Positive Antibody Screen Negative Crossmatch See Detail 11/03/19 11/03/19 11/04/19 18:47 22:10 05:40 WBC 21.9 H RBC 2.93 L Hgb 9.7 L Hct 29.1 L MCV 99.3 D MCH 33.1 D MCHC 33.3 RDW 22.2 H Plt Count 54 L MPV 11.6 H Immature Gran % (Auto) 0.5 Neut % (Auto) 21.2 L Lymph % (Auto) 77.5 H [place] % (Auto) 0.6 L Eos % (Auto) 0.0 Baso % (Auto) 0.2 Lymph # (Auto) 16.94 H [place] # (Auto) 0.1 Eos # (Auto) 0.0 Baso # (Auto) 0.0 Abs Immat Gran (auto) 0.11 H Absolute Neuts (auto) 4.6 Absolute Nucleated RBC 0.0 Nucleated RBC % 0.0 Platelet Estimate Decreased % Immature Plt Fraction 5.7 Anisocytosis 2+ Sodium Potassium Chloride Carbon Dioxide BUN Creatinine Estim Creat Clear Calc Estimated GFR Glucose Hemoglobin A1c Calcium Phosphorus Magnesium Albumin Stl Occult Blood (IFOB) Negative IgG IgA IgM SARS-CoV-2 RNA (RT-PCR) Negative Blood Type Antibody Screen Crossmatch 11/04/19 11/04/19 05:40 05:40 WBC RBC Hgb Hct MCV MCH MCHC RDW Plt Count MPV Immature Gran % (Auto) Neut % (Auto) Lymph % (Auto) [place] % (Auto) Eos % (Auto) Baso % (Auto) Lymph # (Auto) [place] # (Auto) Eos # (Auto) Baso # (Auto) Abs Immat Gran (auto) Absolute Neuts (auto)
[2019-11-04] MEDS: guaiFENesin/DEXTROMETHORPHAN 10 ML UDC PO (18:49)
[2019-11-05] VITALS (17 sets, daily range): BP systolic 111–151; BP diastolic 47–59; PULSE 62–79; RESP 12–24; TEMP 35.7–37.2; O2SAT 94–97
[2019-11-05] MEDS: CENTRAL LINE FLUSH 10 ML IV PUSH ×3 (05:49→20:59)
[2019-11-05] MEDS: LEVOTHYROXINE SODIUM 50 MCG TABLET PO (05:49)
[2019-11-05 06:02] LABS: Hematocrit 24.1 % (37.0-47.0); Immature Platelet Fraction Pct 4.1 % (0.9-11.2); Mean Corpuscular HGB Conc 33.2 g/dl (32-36); Mean Corpuscular Hemoglobin 33.2 pg (26-34); Mean Platelet Volume 11.5 fl (7.4-10.4); Platelet Count Result 41 k/mm3 (150-375); Red Blood Count 2.41 M/mm3 (4.2-5.4); White Blood Count 10.2 K/mm3 (4.5-10.0)
[2019-11-05 06:18] LABS: Albumin Level 2.6 g/dL (3.5-5.1); Blood Urea Nitrogen 29 mg/dL (7-17); Calcium 7.7 mg/dL (8.4-10.2); Carbon Dioxide 24 mmol/L (22-30); Chloride 100 mmol/L (98-107); Estimated CRCL calculation 32 ml/min; Estimated Glomerular Filt Rate 43; Glucose 120 mg/dL (65-105); Magnesium 1.9 mg/dL (1.6-2.3); Phosphorus 3.3 mg/dL (2.5-4.5); Potassium 3.4 mmol/L (3.4-5.0); Sodium 132 mmol/L (137-145)
[2019-11-05 07:09] LABS: Band Neutrophils Percent 2 % (0-6); Lymphocytes Absolute Manual 5.91 K/mm3 (1.1-4.5); Neutrophils Absolute Manual 4.28 K/mm3 (1.7-7.2); Neutrophils Percent Manual 40 % (46-73); Platelet Estimate Decreased (Adequate); Total Cells Counted 100
[2019-11-05 07:12] LABS: Atypical Lymphocytes Present; Hypochromasia 2+ (NORMAL); Ovalocytes 1+ (NORMAL); Polychromasia 1+ (NORMAL); Smudge Cells PRESENT; Tear Drop Cells 2+ (NORMAL)
[2019-11-05] MEDS: MAGNESIUM HYDROXIDE SUSP 30 ML UDC 15 ML PO (08:35)
[2019-11-05] MEDS: guaiFENesin/DEXTROMETHORPHAN 10 ML UDC PO ×3 (08:35→18:05)
[2019-11-05] MEDS: SERTRALINE HCL 25 MG TABLET PO (08:37)
[2019-11-05] MEDS: CARBIDOPA/LEVODOPA 25/100 MG CR TABLET 1 TABLET PO ×3 (08:37→18:06)
[2019-11-05] MEDS: PANTOPRAZOLE SOD SESQUIHYDRATE 20 MG TAB PO (08:37)
[2019-11-05] MEDS: METOPROLOL TARTRATE 12.5 MG TABLET PO ×2 (08:37→19:55)
[2019-11-05] MEDS: FERROUS SULFATE 324 MG TABLET PO (08:38)
[2019-11-05] MEDS: MULTIVITAMINS THERAPEUTIC TAB (*BKC) 1 TABLET PO (08:38)
[2019-11-05] MEDS: allopurinoL 300 MG TABLET PO (08:38)
[2019-11-05] MEDS: FUROSEMIDE 20 MG TABLET PO (08:38)
[2019-11-05 11:58] LABS: Haptoglobin 336 mg/dL (43-212)
--- NOTE | 2019-11-05 14:33 | PM.PNCARD ---
Progress Note: A&P Assessment and Plan (1) Paroxysmal atrial fibrillation: Code(s): I48.0 - Paroxysmal atrial fibrillation Status: Acute Assessment and Plan: Brief intermittent episodes, asymptomatic. Continue low-dose metoprolol. Also with isolated probable atrial flutter as well. No further sustained episodes. She is not an anticoagulation candidate given thrombocytopenia, anemia and bleeding risk. Replete potassium. Magnesium stable. TSH within normal limits. Conservative management the time being. 2D echocardiogram personally reviewed EF 60-65%, trace MR, no , moderate pulmonary hypertension RVSP 50 mm Hg, [id number] tricuspid regurgitation. (2) PSVT (paroxysmal supraventricular tachycardia): Code(s): I47.1 - Supraventricular tachycardia Status: Acute Assessment and Plan: Continue low-dose metoprolol. Blood pressures and heart rates have been stable. (3) Pneumonia: Qualifiers: Laterality: bilateral Lung location: unspecified part of lung Pneumonia type: due to unspecified organism Qualified Code(s): J18.9 - Pneumonia, unspecified organism Code(s): J18.9 - Pneumonia, unspecified organism Status: Acute Assessment and Plan: Per primary service. (4) Anemia: Code(s): D64.9 - Anemia, unspecified Status: Acute Assessment and Plan: Follow H&H closely. Transfused by Oncology. (5) Leukemia: Code(s): C95.90 - Leukemia, unspecified not having achieved remission Status: Chronic Assessment and Plan: Per oncology. (6) Dementia: Code(s): F03.90 - Unspecified dementia without behavioral disturbance Status: Chronic Assessment and Plan: Stable. Additional Plan No further cardiac recommendations. Will follow-up p.r.n.. Plan discussed with Dr Fleming [id number] 11/05/2019 Time Spent With Patient Time with patient: less than 15 minutes Subjective Date/time seen: 11/05/19 14:33 Interval history: Follow-up for: Paroxysmal atrial fibrillation, PSVT, pneumonia/sepsis Date of service: 11/05/2019 Subjective: Denied any discomfort. Shortness of breath with exertional activities. Lightheaded it when she first gets up. Review of Systems Review of Systems: All systems reviewed & are unremarkable except as noted in HPI and below Constitutional: Constitutional: Denies excessive sweating, Reports fatigue and Reports weakness Eyes: Eyes: Denies blurry vision ENT: Reports hearing loss and Denies epistaxis Cardiovascular: Cardiovascular: Denies chest pain, Denies leg edema, Denies lightheadedness, Denies palpitations, Reports dyspnea and Reports dyspnea on exertion Respiratory: Respiratory: Reports cough, Reports dyspnea and Reports dyspnea on exertion Gastrointestinal: Gastrointestinal: Denies abdominal pain and Denies nausea Genitourinary: Genitourinary: Denies hematuria and Denies dysuria Musculoskeletal: Musculoskeletal: Reports no additional musculoskeletal complaints and Reports as per HPI Integumentary/Breasts: Skin/Breast: Denies rash Neurologic: Denies Abnormal speech present and Reports weakness Psychiatric: Psychiatric: Denies anxiety Endocrine: Endocrine: Denies excessive sweating, Reports fatigue and Denies palpitations Hematologic/Lymphatic: Hematologic/Lymphatic: Denies easy bleeding Allergic/Immunologic: Allergic/Immunologic: Denies GI upset with certain foods Exam Narrative: Exam Narrative: General: Elderly female lying in bed, Well developed, alert and oriented x2-3. No apparent distress, comfortable, pleasant, and cooperative. Head: atraumatic, normocephalic Eyes: EOM intact, sclerae anicteric, conjunctivae unremarkable Ears/Nose: external inspection of e
--- NOTE | 2019-11-05 16:30 | PM.IMPN ---
Progress Note: A&P Assessment and Plan (1) Sepsis: Qualifiers: Sepsis acute organ dysfunction status: unspecified Sepsis type: sepsis due to unspecified organism Qualified Code(s): A41.9 - Sepsis, unspecified organism Code(s): A41.9 - Sepsis, unspecified organism Status: Acute Assessment and Plan: Present on admission with leukocytosis, fever, elevated CRP. Fever resolving. Continue close observation. Continue IV antibiotics with Levaquin and vancomycin. (2) Pneumonia: Qualifiers: Laterality: bilateral Lung location: unspecified part of lung Pneumonia type: due to unspecified organism Qualified Code(s): J18.9 - Pneumonia, unspecified organism Code(s): J18.9 - Pneumonia, unspecified organism Status: Acute Assessment and Plan: Chest x-ray showing bilateral lower lobe infiltrates. White count elevated with fever and cough. Blood culture No growth to date. COVID negative. Currenlt on Zithromax and Rocephin. Hold on albuterol given her SVT/AFib. Sputum culture ordered. CXR looks worse in the right lower lobe. Speech therapy evaluated patietn and low risk for aspiration. MRSA nasal swab as well. Fever resolving. Continue Levaquin and Vanco. (3) SVT (supraventricular tachycardia): Code(s): I47.1 - Supraventricular tachycardia Status: Acute Assessment and Plan: Episodes of regular, narrow complex tachycardia. Appears to have AFib. Discussed with Cardiology. No plans for anti-coagulation. Not on a beta-ashley at home but added here. TSH okay. Echo showing EF 60-65% with Grade I diastolic dysfunction and moderate pulmonary HTN. Albuterol on hold. Appreciate Cardiology input. (4) Paroxysmal atrial fibrillation: Code(s): I48.0 - Paroxysmal atrial fibrillation Status: Acute Assessment and Plan: As above. (5) Anemia: Code(s): D64.9 - Anemia, unspecified Status: Acute Assessment and Plan: Patient's hemoglobin was normal last year but has been low this year in the 9-10 range. She takes ferrous sulfate and receives B12 injections. No evidence of active bleeding with negative stool guaiac. Hemoglobin dropped to 6.3 on 11/03/2019 probably related to IV fluids. Hem/Onc ordered transfusion and Hgb climbed to 9.7. Repeat Hgb 8.0 this morning. Continue to follow H&H. (6) Leukemia: Code(s): C95.90 - Leukemia, unspecified not having achieved remission Status: Chronic Assessment and Plan: Patient has refractory CLL/lymphoma with history of chemotherapy. Patient has elevated leukocytes on admission at 31K. WBC much better at 10K today. 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 Platelet count currently at baseline. No evidence of active bleeding. Stool guaiac negative. Discussed with Hematology/oncology and they plan to hold her Rituxan treatment for now. Her immunoglobulins are very low. Plan for IVIG therapy while hospitalized. Appreciate Hematology/Oncology input. (7) Hypothyroid: Code(s): E03.9 - Hypothyroidism, unspecified Status: Chronic Assessment and Plan: TSH normal. Continue with levothyroxine. (8) HTN (hypertension): Code(s): I10 - Essential (primary) hypertension Status: Chronic Assessment and Plan: Blood pressure reviewed on 11/05/2019. Blood pressure well controlled. Losartan/HCTZ on hold. She is still has Lasix ordered. Metoprolol ordered. Continue to monitor for now. (9) Parkinson's disease: Code(s): G20 - Parkinson's disease Status: Chronic Assessment and Plan: Stable. Continue with carbidopa levodopa. (10) Depression: Code(s): F32.9 - Major depressive disorder, single episode, unspecified Status: Chronic Assessment and Plan: Patient with crying episode the other day but modd stable today. Continue Zoloft. Continue to monitor. (11
--- NOTE | 2019-11-05 17:41 | WPDONCPN ---
Progress Note: A/P - Additional Plan Chronic lymphocytic leukemia. Plan to resume Rituxan therapy as an outpatient next week. Multifactorial anemia. Hemoglobin has improved. No need for blood transfusion. Clinically patient is feeling better. Continue vitamin B12 and iron. Right middle and lower lobe pneumonia. Patient is on Levaquin. She is afebrile. Atrial fibrillation. Due to thrombocytopenia we would not recommend anticoagulation therapy.Cardiology is following. Immunoglobulin deficiency. Patient is on IV IgG infusion. - Time Spent With Patient Total time spent is greater than 50% in coordination of care (as documented) at patient's floor/unit and/or counseling patient: 15 - 25 minutes Subjective Interval history: Chronic lymphocytic leukemia Anemia secondary to CLL Right lower lobe pneumonia Review of Systems - Review of Systems Patient looks much more comfortable. She denies any bleeding and bruising. Denies any fevers and chills. No other new complaints. - Neurologic Reports system reviewed and no additional complaints, except as documented, Reports weakness, Denies abnormal speech, Denies headache(s) Exam Narrative: Lungs are clear to auscultation bilaterally Cardiovascular regular rate rhythm no murmurs Abdomen soft nontender nondistended bowel sounds are positive Extremities mild edema PN: Objective Data - Labs CBC & Chem 7: 11/05/19 05:54 11/05/19 05:54 Labs: Laboratory Results - last 24 hr 11/03/19 11/05/19 11/05/19 06:49 05:54 05:54 WBC 10.2 H RBC 2.41 L Hgb 8.0 L Hct 24.1 L MCV 100.0 MCH 33.2 MCHC 33.2 RDW 22.0 H Plt Count 41 L MPV 11.5 H Immature Gran % (Auto) Not Reportable Neut % (Auto) Not Reportable Lymph % (Auto) Not Reportable [place] % (Auto) Not Reportable Eos % (Auto) Not Reportable Baso % (Auto) Not Reportable Lymph # (Auto) Not Reportable [place] # (Auto) Not Reportable Eos # (Auto) Not Reportable Baso # (Auto) Not Reportable Abs Immat Gran (auto) Not Reportable Absolute Neuts (auto) Not Reportable Absolute Nucleated RBC Not Reportable Total Counted 100 Neutrophils % (Manual) 40 L Band Neutrophils % 2 Lymphocytes % (Manual) 58.0 H Nucleated RBC % Not Reportable Abs Neuts (Manual) 4.28 Abs Lymphs (Manual) 5.91 H Atypical Lymphocytes Present Smudge Cells Present Platelet Estimate Decreased % Immature Plt Fraction 4.1 Polychromasia 1+ Hypochromasia 2+ Tear Drop Cells 2+ Ovalocytes 1+ Haptoglobin 336 H Sodium 132 L Potassium 3.4 Chloride 100 Carbon Dioxide 24 BUN 29 H Creatinine 1.20 H Estim Creat Clear Calc 32 Estimated GFR 43 L Glucose 120 H Calcium 7.7 L Phosphorus 3.3 Magnesium 1.9 Albumin 2.6 L
[2019-11-05] MEDS: POTASSIUM CHLORIDE 20 MEQ TABLET 40 MEQ PO (18:10)
[2019-11-05] MEDS: ACETAMINOPHEN 325 MG TABLET 650 MG PO (19:54)
[2019-11-05 22:40] LABS: Pneumococcal Antigen Urine Not Detected (Not Detected)
[2019-11-06] VITALS (12 sets, daily range): BP systolic 125–147; BP diastolic 52–68; PULSE 62–74; RESP 12–20; TEMP 36.2–36.7; O2SAT 95–97
[2019-11-06] MEDS: guaiFENesin/DEXTROMETHORPHAN 10 ML UDC PO (00:41)
[2019-11-06] MEDS: CENTRAL LINE FLUSH 10 ML IV PUSH ×2 (05:46→13:49)
[2019-11-06] MEDS: LEVOTHYROXINE SODIUM 50 MCG TABLET PO (05:47)
[2019-11-06 06:00] LABS: Basophils Percent Auto 0.1 % (0.2-1.2); Eosinophils Percent Auto 0.1 % (0-4.4); Hematocrit 24.4 % (37.0-47.0); Hemoglobin 8.1 g/dL (12.0-15.0); Immature Granulocyte Absolute 0.04 K/mm3 (0.00-0.031); Immature Granulocyte Percent A 0.4 % (0-0.5); Immature Platelet Fraction Pct 4.8 % (0.9-11.2); Lymphocytes Absolute Auto 7.13 K/mm3 (0.9-3.2); Lymphocytes Percent Auto 79.2 % (18.3-44.2); Mean Corpuscular HGB Conc 33.2 g/dl (32-36); Mean Corpuscular Hemoglobin 33.5 pg (26-34); Mean Corpuscular Volume 100.8 fl (80-100); Mean Platelet Volume 11.7 fl (7.4-10.4); Monocytes Absolute Auto 0.1 K/mm3 (0.1-0.6); Monocytes Percent Auto 1.1 % (2.6-8.5); Neutrophils Absolute Auto 1.7 K/mm3 (1.3-6.7); Neutrophils Percent Auto 19.1 % (45.5-73.1); Platelet Count Result 40 k/mm3 (150-375); Red Blood Count 2.42 M/mm3 (4.2-5.4); Red Cell Distribution Width 21.2 % (11.5-14.5)
[2019-11-06 06:13] LABS: Albumin Level 2.6 g/dL (3.5-5.1); Blood Urea Nitrogen 31 mg/dL (7-17); Carbon Dioxide 24 mmol/L (22-30); Chloride 101 mmol/L (98-107); Estimated CRCL calculation 38 ml/min; Estimated Glomerular Filt Rate 53; Glucose 111 mg/dL (65-105); Magnesium 2.1 mg/dL (1.6-2.3); Phosphorus 3.6 mg/dL (2.5-4.5); Potassium 3.6 mmol/L (3.4-5.0); Sodium 130 mmol/L (137-145)
[2019-11-06 06:33] LABS: Platelet Estimate Decreased (Adequate)
[2019-11-06 06:34] LABS: Anisocytosis 2+ (NORMAL)
--- NOTE | 2019-11-06 09:30 | PM.PNCARD ---
Progress Note: A&P Assessment and Plan (1) Paroxysmal atrial fibrillation: Code(s): I48.0 - Paroxysmal atrial fibrillation Status: Acute Assessment and Plan: Brief intermittent episodes, asymptomatic. Continue low-dose metoprolol. Also with isolated probable atrial flutter as well. No further sustained episodes. She is not an anticoagulation candidate given thrombocytopenia, anemia and bleeding risk. TSH normal. Potassium and magnesium supplemented Conservative management. 2D echocardiogram personally reviewed EF 60-65%, trace MR, no , moderate pulmonary hypertension RVSP 50 mm Hg, [id number] tricuspid regurgitation. (2) PSVT (paroxysmal supraventricular tachycardia): Code(s): I47.1 - Supraventricular tachycardia Status: Acute Assessment and Plan: Continue low-dose metoprolol. Blood pressures and heart rates have been stable. (3) Pneumonia: Qualifiers: Laterality: bilateral Lung location: unspecified part of lung Pneumonia type: due to unspecified organism Qualified Code(s): J18.9 - Pneumonia, unspecified organism Code(s): J18.9 - Pneumonia, unspecified organism Status: Acute Assessment and Plan: Per primary service. (4) Anemia: Code(s): D64.9 - Anemia, unspecified Status: Acute Assessment and Plan: H&H stable (5) Leukemia: Code(s): C95.90 - Leukemia, unspecified not having achieved remission Status: Chronic Assessment and Plan: Per oncology. (6) Dementia: Code(s): F03.90 - Unspecified dementia without behavioral disturbance Status: Chronic Assessment and Plan: Stable. Additional Plan No further cardiac recommendations. Cardiology signing off. Please do not hesitate to call if we can be of further assistance. Plan discussed with Dr. Chavarria 0915 11/06/2019 Subjective Date/time seen: 11/06/19 09:30 Interval history: Follow-up for: Paroxysmal atrial fibrillation, PSVT, pneumonia/sepsis Date of service: 11/06/2019 Subjective: Denied any discomfort. Shortness of breath with exertional activities. Bothered by a cough. No lightheadedness or palpitations. Review of Systems Review of Systems: All systems reviewed & are unremarkable except as noted in HPI and below Constitutional: Constitutional: Denies excessive sweating, Reports fatigue and Reports weakness Eyes: Eyes: Denies blurry vision ENT: Reports hearing loss and Denies epistaxis Cardiovascular: Cardiovascular: Denies chest pain, Denies leg edema, Denies lightheadedness, Denies palpitations, Reports dyspnea and Reports dyspnea on exertion Respiratory: Respiratory: Reports cough, Reports dyspnea and Reports dyspnea on exertion Gastrointestinal: Gastrointestinal: Denies abdominal pain and Denies nausea Genitourinary: Genitourinary: Denies hematuria and Denies dysuria Musculoskeletal: Musculoskeletal: Reports no additional musculoskeletal complaints and Reports as per HPI Integumentary/Breasts: Skin/Breast: Denies rash Neurologic: Denies Abnormal speech present and Reports weakness Psychiatric: Psychiatric: Denies anxiety Endocrine: Endocrine: Denies excessive sweating, Reports fatigue and Denies palpitations Hematologic/Lymphatic: Hematologic/Lymphatic: Denies easy bleeding Allergic/Immunologic: Allergic/Immunologic: Denies GI upset with certain foods Exam Narrative: Exam Narrative: General: Elderly female working with PT. Up in chair. Walked in [place]. Well developed, alert and oriented x2-3. No apparent distress. comfortable, pleasant, and cooperative. Head: atraumatic, normocephalic Eyes: EOM intact, sclerae anicteric, conjunctivae unremarkable Ears/Nose: external inspection of ears and nose
[2019-11-06] MEDS: METOPROLOL TARTRATE 12.5 MG TABLET PO (09:40)
[2019-11-06] MEDS: PANTOPRAZOLE SOD SESQUIHYDRATE 20 MG TAB PO (09:40)
[2019-11-06] MEDS: allopurinoL 300 MG TABLET PO (09:41)
[2019-11-06] MEDS: FERROUS SULFATE 324 MG TABLET PO (09:41)
[2019-11-06] MEDS: CARBIDOPA/LEVODOPA 25/100 MG CR TABLET 1 TABLET PO ×3 (09:41→18:12)
[2019-11-06] MEDS: MULTIVITAMINS THERAPEUTIC TAB (*BKC) 1 TABLET PO (09:41)
[2019-11-06] MEDS: SERTRALINE HCL 25 MG TABLET PO (09:42)
[2019-11-06] MEDS: FUROSEMIDE 20 MG TABLET PO (09:42)
--- NOTE | 2019-11-06 16:19 | WPDONCPN ---
Progress Note: A/P - Additional Plan Chronic lymphocytic leukemia. WBC count has improved after Rituxan therapy. Plan is to resume Rituxan therapy as an outpatient hopefully next week. Multifactorial anemia. Hemoglobin is stable. No need for blood transfusion. Continue oral vitamin B12 and iron. Right middle and lower lobe pneumonia. Patient is afebrile on Levaquin. Immunoglobulin deficiency. Patient has completed IVIG infusion. Atrial fibrillation. Cardiology input noted. Patient is to follow up with me next week to resume treatment with Rituxan. 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 She denies any bleeding and bruising. She denies any fevers and chills. She wanted to go home today. She has no other new complaints. - Neurologic Reports system reviewed and no additional complaints, except as documented, Reports weakness, Denies abnormal speech, Denies headache(s) Exam Vital signs: [place]. Assessment of coma and impaired consciousness. A practical scale. Lancet 1974; 2:81-4. Narrative: Lungs are clear to auscultation bilaterally Cardiovascular regular rate rhythm no murmurs Abdomen soft nontender nondistended bowel sounds are positive Extremities mild bilateral lower extremity edema PN: Objective Data - Labs CBC & Chem 7: 11/06/19 05:46 11/06/19 05:46 Labs: Laboratory Results - last 24 hr 11/03/19 11/06/19 11/06/19 22:10 05:46 05:46 WBC 9.0 RBC 2.42 L Hgb 8.1 L Hct 24.4 L MCV 100.8 H MCH 33.5 MCHC 33.2 RDW 21.2 H Plt Count 40 L MPV 11.7 H Immature Gran % (Auto) 0.4 Neut % (Auto) 19.1 L Lymph % (Auto) 79.2 H [place] % (Auto) 1.1 L Eos % (Auto) 0.1 Baso % (Auto) 0.1 L Lymph # (Auto) 7.13 H [place] # (Auto) 0.1 Eos # (Auto) 0.0 Baso # (Auto) 0.0 Abs Immat Gran (auto) 0.04 H Absolute Neuts (auto) 1.7 Absolute Nucleated RBC 0.0 Nucleated RBC % 0.0 Platelet Estimate Decreased % Immature Plt Fraction 4.8 Anisocytosis 2+ Sodium 130 L Potassium 3.6 Chloride 101 Carbon Dioxide 24 BUN 31 H Creatinine 1.00 Estim Creat Clear Calc 38 Estimated GFR 53 L Glucose 111 H Calcium 8.0 L Phosphorus 3.6 Magnesium 2.1 Albumin 2.6 L Urine Pneumococcal Ag Not detected
--- NOTE | 2019-11-06 16:27 | PM.DS ---
DS: Admitting Diagnosis Admitting Diagnosis Admitting Diagnosis: Sepsis, unspecified organism DS: Discharge Diagnosis Discharge Diagnosis (1) Sepsis: Qualifiers: Sepsis acute organ dysfunction status: unspecified Sepsis type: sepsis due to unspecified organism Qualified Code(s): A41.9 - Sepsis, unspecified organism Code(s): A41.9 - Sepsis, unspecified organism Status: Acute Assessment and Plan: Present on admission with leukocytosis, fever, elevated CRP. Related to her PNA. Fever resolved. WBC normalized. Treated with IV antibiotics with Levaquin and vancomycin. (2) Pneumonia: Qualifiers: Laterality: bilateral Lung location: unspecified part of lung Pneumonia type: due to unspecified organism Qualified Code(s): J18.9 - Pneumonia, unspecified organism Code(s): J18.9 - Pneumonia, unspecified organism Status: Acute Assessment and Plan: Chest x-ray showing bilateral lower lobe infiltrates. White count elevated to 31K with fever and cough. Blood culture No growth to date. COVID negative. Was on Zithromax and Rocephin but clinically not improving so abx adjusted to Vancomycin and Levaquin. CXR also looked worse in the right lower lobe. We held albuterol given her SVT/AFib. Sputum culture ordered but not collected. Speech therapy evaluated patient and low risk for aspiration. MRSA nasal swab returned positive. Fever resolved. (3) SVT (supraventricular tachycardia): Code(s): I47.1 - Supraventricular tachycardia Status: Acute Assessment and Plan: Episodes of regular, narrow complex tachycardia. Appears to have AFib as well. Discussed with Cardiology. No plans for anti-coagulation. Not on a beta-ashley at home but added here. TSH okay. Echo showing EF 60-65% with Grade I diastolic dysfunction and moderate pulmonary HTN. Albuterol on hold. (4) Paroxysmal atrial fibrillation: Code(s): I48.0 - Paroxysmal atrial fibrillation Status: Acute Assessment and Plan: As above. (5) Anemia: Code(s): D64.9 - Anemia, unspecified Status: Acute Assessment and Plan: Patient's hemoglobin was normal last year but has been low this year in the 9-10 range. She takes ferrous sulfate and receives B12 injections. No evidence of active bleeding with negative stool guaiac. Hemoglobin dropped to 6.3 on 11/03/2019 probably related to IV fluids. Hem/Onc ordered transfusion and Hgb climbed to 9.7. Repeat Hgb 8.01 this morning and stable. (6) Leukemia: Code(s): C95.90 - Leukemia, unspecified not having achieved remission Status: Chronic Assessment and Plan: Patient has refractory CLL/lymphoma with history of chemotherapy. Patient has elevated leukocytes on admission at 31K. WBC normal today. 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 Platelet count currently at baseline. No evidence of active bleeding. Stool guaiac negative. Discussed with Hematology/oncology and they plan to hold her Rituxan treatment for now. Her immunoglobulins are very low. She did receive IVIG therapy while hospitalized. She will follow up with Heme/Onc as outpatient (7) Hypothyroid: Code(s): E03.9 - Hypothyroidism, unspecified Status: Chronic Assessment and Plan: TSH normal. We continued with levothyroxine. (8) HTN (hypertension): Code(s): I10 - Essential (primary) hypertension Status: Chronic Assessment and Plan: Blood pressure monitored and it well controlled. Losartan/HCTZ was kept on hold. She is still has Lasix ordered. Metoprolol ordered. (9) Parkinson's disease: Code(s): G20 - Parkinson's disease Status: Chronic Assessment and Plan: Stable. We continued with carbidopa levodopa. (10) Depression: Code(s): F32.9 - Major depressive disorder, single episode, unspecified Status: Chronic
[2019-11-06] MEDS: HEPARIN SOD FLUSH 500 UNITS/5 ML SYRINGE IV PUSH (17:46)
== END 2019-11-06 18:08 | DRG 871 ==
LOC: ANHED 15:22 → ANHICU 11-03 01:31 → ANHIMU 11-05 09:47 → ANHICU 11-10 14:49 → ANHIMU 11-10 14:49
PROVIDERS: Family Medicine; Internal Medicine Hematology & Oncology; Nurse Practitioner; Admitting Provider Family Medicine; Emergency Provider Emergency Medicine; PCP Family Medicine Adolescent Medicine; Visit Provider Internal Medicine
DX: A41.9 Sepsis, unspecified organism (principal); J18.9 Pneumonia, unspecified organism; I47.1 Supraventricular tachycardia; C91.10 Chronic lymphocytic leukemia of B-cell type not having achieved remission; Z20.828 Contact with and (suspected) exposure to other viral communicable diseases; I48.0 Paroxysmal atrial fibrillation; E03.9 Hypothyroidism, unspecified; I10 Essential (primary) hypertension; G20 Parkinson's disease; F32.9 Major depressive disorder, single episode, unspecified; M19.90 Unspecified osteoarthritis, unspecified site; F03.90 Unspecified dementia, unspecified severity, without behavioral disturbance, psychotic disturbance, mood disturbance, and anxiety; K21.9 Gastro-esophageal reflux disease without esophagitis; D63.1 Anemia in chronic kidney disease; D63.0 Anemia in neoplastic disease; D69.59 Other secondary thrombocytopenia; M10.9 Gout, unspecified; M81.0 Age-related osteoporosis without current pathological fracture; Z22.322 Carrier or suspected carrier of Methicillin resistant Staphylococcus aureus; Z95.0 Presence of cardiac pacemaker; Z86.11 Personal history of tuberculosis; Z98.42 Cataract extraction status, left eye; Z98.41 Cataract extraction status, right eye; Z90.710 Acquired absence of both cervix and uterus
CPT/HCPCS: 36415; 36430; 51701; 71045; 80048; 80053; 80069; 81001; 82274; 82607; 82728; 82784; 83010; 83036; 83540; 83550; 83605; 83615; 83735; 84443; 84484; 85014; 85018; 85025; 85046; 85055; 85610; 85730; 86140; 86850; 86880; 86900; 86901; 86920; 87040; 87081; 87086; 87635; 87899; 92610; 93005; 93306; 96365; 96367; 97110; 97116; 97161; 97165; 97535; 99285; A9270; C9803; J0153; J0456; J0696; J1459; J1940; J1956; J3370; J3475; J3480; J7030; J7050; P9016; U0003

== ENCOUNTER 2020-08-23 11:48 | Emergency (ER) | payer MEDICARE, MEDICAID, SELFPAY ==
[2020-08-23] VITALS (26 sets, daily range): BP systolic 103–157; BP diastolic 52–110; PULSE 52–60; RESP 14–25; TEMP 36.2; O2SAT 95–100
--- NOTE | ~2020-08-23 | XR_ITS ---
EXAMINATION: XR chest 2V EXAM DATE: 08/23/2020 12:42 INDICATION: Midsternal chest pain. TECHNIQUE: Frontal and lateral projections of the chest obtained and reviewed. Comparison is made to prior examination from 11/04/2019. FINDINGS: Left-sided portacatheter with intact line. Resolution of previously seen bilateral airspac e disease except for small amount of right midlung zone scarring. The lungs are otherwise clear. The re are no pleural effusions. The cardiomediastinal silhouette is within normal limits. There is no pneumothorax suspected. There are mild bony degenerative changes. IMPRESSION: No acute cardiopulmonary findings. Reviewed, dictated and finalized at location A.
--- NOTE | 2020-08-23 11:51 | ECG_ITS ---
Measurements Intervals [place] Rate: 54 P: 50 [place]: 170 QRS: 54 QRSD: 90 T: 39 QT: 428 QTc: 409 Interpretive Statements SINUS BRADYCARDIA BASELINE ARTIFACT- I, II, III, AVR, AVL, AVF BORDERLINE ECG Electronically Signed On 08-23-2020 12:20:19 CDT by Dwain Gonzales D.O.
[2020-08-23 12:12] LABS: Hematocrit 38.2 % (37.0-47.0); Hemoglobin 12.9 g/dL (12.0-15.0); Immature Platelet Fraction Pct 5.3 % (0.9-11.2); Mean Corpuscular HGB Conc 33.8 g/dl (32-36); Mean Corpuscular Hemoglobin 35.8 pg (26-34); Mean Corpuscular Volume 106.1 fl (80-100); Mean Platelet Volume 10.5 fl (7.4-10.4); Platelet Count Result 39 k/mm3 (150-375); Red Cell Distribution Width 15.4 % (11.5-14.5); White Blood Count 19.7 K/mm3 (4.5-10.0)
[2020-08-23 12:20] LABS: INR 0.9; Prothrombin Time 13.2 Seconds (11.1-14.7)
[2020-08-23 12:21] LABS: Partial Thromboplastin Time 23.4 SECONDS (22.3-36.8)
[2020-08-23 12:24] LABS: Anion Gap 7 mmol/L (8-16); Blood Urea Nitrogen 27 mg/dL (7-17); Calcium 9.2 mg/dL (8.4-10.2); Carbon Dioxide 25 mmol/L (22-30); Chloride 108 mmol/L (98-107); Estimated CRCL calculation 35 ml/min; Estimated Glomerular Filt Rate 47; Glucose 102 mg/dL (65-105); Potassium 4.1 mmol/L (3.4-5.0); Sodium 140 mmol/L (137-145)
[2020-08-23 12:26] LABS: Lymphocytes Absolute Manual 17.53 K/mm3 (1.1-4.5); Monocytes Absolute Manual 0.19 K/mm3 (0.1-0.90); Monocytes Percent Manual 1 % (3-9); Neutrophils Percent Manual 10 % (46-73); Platelet Estimate Decreased (Adequate); Total Cells Counted 100
[2020-08-23 12:27] LABS: Smudge Cells FEW
[2020-08-23 12:36] LABS: Troponin I < 0.012 ng/mL (0.000-0.034)
--- NOTE | 2020-08-23 13:11 | ED.GENADULT ---
HPI - General Adult General Chief complaint: Chest Pain Stated complaint: chest pain Time Seen by Provider: 08/23/20 12:47 Source: patient History of Present Illness HPI narrative: Patient is a 85 y/o female complaining of intermittent chest pain starting a few days ago. She describes her chest pain as sharp with no radiation. She rates her pain as 5-6/10 when it occurs. However, she has no chest pain at this time. She states that staff at her assisted living facility were concerned and wanted her to come here for evaluation. Related Data Home Medications Medication Instructions Recorded Confirmed acetaminophen 650 mg PO Q4H PRN 02/16/19 05/20/20 allopurinol 300 mg PO DAILY 02/16/19 05/20/20 carbidopa-levodopa 1 tablet PO TID 02/16/19 05/20/20 omeprazole 20 mg PO DAILY 02/16/19 05/20/20 ondansetron HCl 4 mg PO Q6H PRN 02/16/19 05/20/20 furosemide 20 mg PO DAILY 04/07/19 05/20/20 levothyroxine 50 mcg PO DAILY 04/07/19 05/20/20 lidocaine-prilocaine 1 applic TOPICAL ONCE 04/07/19 05/20/20 ferrous sulfate 325 mg PO DAILY 10/22/19 05/20/20 cyanocobalamin (vitamin B-12) 1,000 mcg IM MONTHLY 11/02/19 05/20/20 magnesium hydroxide [Milk of 15 ml PO DAILY 11/02/19 05/20/20 Magnesia] multivitamin [Daily-Amy] 1 tablet PO DAILY 11/02/19 05/20/20 polyvinyl alcohol [Artificial 1 drp OPHTHALMIC (EYE) TID 11/02/19 05/20/20 Tears (polyvin alc)] sertraline 25 mg PO DAILY 11/02/19 05/20/20 losartan-hydrochlorothiazide 1 tablet PO DAILY 12/18/19 05/20/20 simvastatin 40 mg PO DAILY 12/18/19 05/20/20 tramadol 50 mg PO Q6H PRN 12/18/19 05/20/20 Allergies Allergy/AdvReac Type Severity Reaction Status Date / Time quinapril Allergy Unknown Unknown Verified 08/23/20 12:48 rituximab AdvReac Intermediate Dyspnea / Verified 08/23/20 12:48 SOB cyclobenzaprine AdvReac Mild Unknown Verified 08/23/20 12:48 diclofenac AdvReac Mild Unknown Verified 08/23/20 12:48 zolpidem AdvReac Mild Unknown Verified 08/23/20 12:48 Review of Systems Constitutional: Constitutional: Denies chills, Denies fever(s), Denies headache(s) and Denies weakness Eyes: Eyes: Denies blurry vision ENT: Denies headache(s) and Denies neck pain Cardiovascular: Cardiovascular: Reports chest pain and Denies dyspnea Respiratory: Respiratory: Denies cough and Denies dyspnea Gastrointestinal: Gastrointestinal: Denies abdominal pain, Denies diarrhea, Denies nausea and Denies vomiting Genitourinary: Genitourinary: Denies hematuria and Denies dysuria Musculoskeletal: Musculoskeletal: Denies back pain and Denies neck pain Neurologic: Denies headache(s) and Denies weakness [facility] Past Medical History Medical History (Updated 08/23/20 @ 16:27 by Lorene Camp MD) Arthritis DDD (degenerative disc disease) Dementia Depression GERD (gastroesophageal reflux disease) Gout HLD (hyperlipidemia) HTN (hypertension) Hypothyroid Leukemia cll Osteoporosis Parkinson's disease Pleural abscess Pneumonia Port-A-Cath in place Tuberculosis Ulcer UTI (urinary tract infection) Surgical History Surgical History H/O bilateral cataract extraction H/O: hysterectomy Family History Family History Father Heart failure Mother Unknown family medical history Social History Social History Social History: The patient is and she is at the [employer]. She is a full code. Diana Stallworth is her child who is the durable power litigation attorney for healthcare. Her daughter Angelo is a durable power litigation attorney for healthcare. She never smoked. Smoking status: Never smoker Alcohol intake: never Substance use: never Substance use type: does not use Gender identity (if verbalized by the patient): Female Spiritual care concerns: No Exam Const: General: no acute distress and well developed Orientation/consciousnes
[2020-08-23 15:23] LABS: Troponin I < 0.012 ng/mL (0.000-0.034)
== END 2020-08-23 16:45 ==
PROVIDERS: Emergency Medicine; Emergency Provider Emergency Medicine; PCP Family Medicine Adolescent Medicine
DX: R07.9 Chest pain, unspecified (principal); C91.10 Chronic lymphocytic leukemia of B-cell type not having achieved remission; F03.90 Unspecified dementia, unspecified severity, without behavioral disturbance, psychotic disturbance, mood disturbance, and anxiety; G20 Parkinson's disease; K21.9 Gastro-esophageal reflux disease without esophagitis; E78.5 Hyperlipidemia, unspecified; I10 Essential (primary) hypertension; E03.9 Hypothyroidism, unspecified; M10.9 Gout, unspecified; M19.90 Unspecified osteoarthritis, unspecified site; M81.0 Age-related osteoporosis without current pathological fracture; F32.9 Major depressive disorder, single episode, unspecified; Z87.440 Personal history of urinary (tract) infections; Z86.11 Personal history of tuberculosis; Z98.42 Cataract extraction status, left eye; Z98.41 Cataract extraction status, right eye; R00.1 Bradycardia, unspecified
CPT/HCPCS: 36415; 71046; 80048; 84484; 85025; 85055; 85610; 85730; 93005; 99284

== ENCOUNTER → 2021-01-05 10:50 | Outpatient (CLI) | payer MEDICARE, MEDICAID, SELFPAY ==
--- NOTE | ~2021-01-05 | XR_ITS ---
EXAMINATION: XR chest 2V EXAM DATE: 01/05/2021 11:37 INDICATION: Dyspnea. TECHNIQUE: Frontal and lateral projections of the chest obtained and reviewed. Comparison is made to prior examination from 08/23/2020. FINDINGS: There is a left-sided portacatheter. Some ill-defined prominent bilateral reticulation with out confluent consolidation. There are no pleural effusions. The cardiomediastinal silhouette is wi thin normal limits. There is no pneumothorax suspected. The bones and soft tissues are unremarkable . IMPRESSION: Prominent interstitial markings could indicate developing edema or infection. No confluen t consolidation. Reviewed, dictated and finalized at location A. IMPRESSION: Prominent interstitial markings could indicate developing edema or infection. No confluent consolidation.
== END ==
PROVIDERS: PCP Family Medicine Adolescent Medicine; Visit Provider Family Medicine Adolescent Medicine
DX: R06.00 Dyspnea, unspecified (principal); R91.8 Other nonspecific abnormal finding of lung field
CPT/HCPCS: 71046

== ENCOUNTER 2021-03-25 20:14 | Inpatient (IN) | payer MEDICARE, MEDICAID, SELFPAY ==
[2021-03-25] VITALS (16 sets, daily range): BP systolic 121–150; BP diastolic 45–61; PULSE 57–66; RESP 18–28; TEMP 36.1–36.2; O2SAT 95–98; BMI 27.1
--- NOTE | ~2021-03-25 | XR_ITS ---
XR chest 1V portable 03/25/2021 20:36 Indication: Shortness of breath. Generalized weakness. Hypertension. Procedure: AP portable chest Comparison: Comparison to multiple prior studies sequentially, with oldest reviewed study dated 09/2019. Findings: Borderline heart size. Portacatheter tip in the SVC. Mild interstitial edema. Small right p leural effusion. No pneumothorax. No acute osseous abnormality. Impression: 1: Mild interstitial edema. 2: Small right pleural effusion. Reviewed, dictated and finalized at location A. HEMICAL DEVELOPMENT ENGINEER Impression: 1: Mild interstitial edema. 2: Small right pleural effusion.
--- NOTE | 2021-03-25 20:17 | ECG_ITS ---
Measurements Intervals [place] Rate: 62 P: 59 CT: 175 QRS: 16 QRSD: 86 T: 40 QT: 434 QTc: 441 Interpretive Statements SINUS RHYTHM EARLY PRECORDIAL R/S TRANSITION BASELINE ARTIFACT- II, III, AVF, V3-V6 BORDERLINE ECG Electronically Signed On 03-26-2021 9:26:12 [employer] by Dwain Gonzales D.O.
--- NOTE | 2021-03-25 20:26 | ED.GENADULT ---
HPI - General Adult General Chief complaint: Weakness Stated complaint: SOB WITH GEN WEAKNESS Time Seen by Provider: 03/25/21 20:17 History of Present Illness HPI narrative: Patient 85-year-old female presents the emergency department with chief complaint of shortness of breath. Patient reports she has history of water on her lungs reports she also has history of leukemia and reports that she is scheduled for treatment on Saturday. The patient reports that this evening she had her blood pressure checked and it read in the 200s and they suggested that she come to the emergency department. The patient states that currently she does not feel bad reports she was a little short of breath but states around her normal level of shortness of breath at this time the patient denies chest pain. Related Data Home Medications Medication Instructions Recorded Confirmed acetaminophen 650 mg PO Q4H PRN 02/16/19 01/27/21 allopurinol 300 mg PO DAILY 02/16/19 01/27/21 carbidopa-levodopa 1 tablet PO TID 02/16/19 01/27/21 omeprazole 20 mg PO DAILY 02/16/19 01/27/21 ondansetron HCl 4 mg PO Q6H PRN 02/16/19 01/27/21 furosemide 20 mg PO DAILY 04/07/19 01/27/21 levothyroxine 50 mcg PO DAILY 04/07/19 01/27/21 lidocaine-prilocaine 1 applic TOPICAL ONCE 04/07/19 01/27/21 ferrous sulfate 325 mg PO DAILY 10/22/19 01/27/21 cyanocobalamin (vitamin B-12) 1,000 mcg IM MONTHLY 11/02/19 01/27/21 magnesium hydroxide [Milk of 15 ml PO DAILY 11/02/19 01/27/21 Magnesia] multivitamin [Daily-Amy] 1 tablet PO DAILY 11/02/19 01/27/21 polyvinyl alcohol [Artificial 1 drp OPHTHALMIC (EYE) TID 11/02/19 01/27/21 Tears (polyvin alc)] sertraline 25 mg PO DAILY 11/02/19 01/27/21 losartan-hydrochlorothiazide 1 tablet PO DAILY 12/18/19 01/27/21 simvastatin 40 mg PO DAILY 12/18/19 01/27/21 tramadol 50 mg PO Q6H PRN 12/18/19 01/27/21 Allergies Allergy/AdvReac Type Severity Reaction Status Date / Time quinapril Allergy Unknown Unknown Verified 02/16/21 12:41 rituximab AdvReac Intermediate Dyspnea / Verified 02/16/21 12:41 SOB cyclobenzaprine AdvReac Mild Unknown Verified 02/16/21 12:41 diclofenac AdvReac Mild Unknown Verified 02/16/21 12:41 zolpidem AdvReac Mild Unknown Verified 02/16/21 12:41 Review of Systems Review of Systems: A 10 system review of systems was completed on the patient and is negative except for what is stated in the HPI. Nursing and ancillary documentation was reviewed. [facility] Past Medical History Medical History Arthritis DDD (degenerative disc disease) Dementia Depression GERD (gastroesophageal reflux disease) Gout HLD (hyperlipidemia) HTN (hypertension) Hypothyroid Leukemia cll Osteoporosis Parkinson's disease Pleural abscess Pneumonia Port-A-Cath in place Tuberculosis Ulcer UTI (urinary tract infection) Surgical History Surgical History H/O bilateral cataract extraction H/O: hysterectomy Family History Family History Father Heart failure Mother Unknown family medical history Social History Social History Social History: The patient is and she is at the [facility]. She is a full code. Diana Stallworth is her child who is the durable power trial attorney for healthcare. Her daughter Angelo is a durable power trial attorney for healthcare. She never smoked. Smoking status: Never smoker Alcohol intake: never Substance use: never Substance use type: does not use Gender identity (if verbalized by the patient): Female Spiritual care concerns: No Exam Narrative: GENERAL: Well-appearing, well-nourished, and in no acute distress. HEAD: Normocephalic, atraumatic. EYES: PERRLA and EOMI. ENT: Nares clear, no rhinorrhea or epistaxis. Mucous membranes moist. NECK:
[2021-03-25] MEDS: FUROSEMIDE INJ 40 MG/4 ML VIAL IV PUSH (21:00)
[2021-03-25 21:05] LABS: Immature Platelet Fraction Pct 9.6 % (0.9-11.2); Mean Corpuscular HGB Conc 33.7 g/dl (32-36); Mean Corpuscular Hemoglobin 42.6 pg (26-34); Mean Corpuscular Volume 126.5 fl (80-100); Mean Platelet Volume 12.2 fl (7.4-10.4); Red Blood Count 1.62 M/mm3 (4.2-5.4); Red Cell Distribution Width 16.3 % (11.5-14.5); White Blood Count 36.6 K/mm3 (4.5-10.0)
[2021-03-25 21:12] LABS: Prothrombin Time 12.8 Seconds (11.1-14.7)
[2021-03-25 21:13] LABS: Partial Thromboplastin Time 24.6 SECONDS (22.3-36.8)
[2021-03-25 21:17] LABS: Alanine Aminotransferase 7 U/L (4-35); Albumin Level 4.2 g/dL (3.5-5.1); Alkaline Phosphatase 68 U/L (38-126); Anion Gap 6 mmol/L (8-16); Aspartate Amino Transferase 26 U/L (14-36); Bilirubin,Total 0.9 mg/dL (0.2-1.3); Blood Urea Nitrogen 34 mg/dL (7-17); Calcium 9.1 mg/dL (8.4-10.2); Carbon Dioxide 27 mmol/L (22-30); Chloride 101 mmol/L (98-107); Estimated CRCL calculation 28 ml/min; Estimated Glomerular Filt Rate 36; Glucose 119 mg/dL (65-110); Sodium 134 mmol/L (137-145)
[2021-03-25 21:29] LABS: NT Pro B Type Natriuretic Pept 1030 pg/mL (5-100); Troponin I < 0.012 ng/mL (0.000-0.034)
[2021-03-25 21:32] LABS: Hematocrit 20.5 % (37.0-47.0); Hemoglobin 6.9 g/dL (12.0-15.0)
[2021-03-25 21:33] LABS: Platelet Count Result 16 k/mm3 (150-375)
[2021-03-25 21:36] LABS: Monocytes Absolute Manual 0.73 K/mm3 (0.1-0.90); Monocytes Percent Manual 2 % (3-9); Neutrophils Percent Manual 1 % (46-73); Total Cells Counted 100
[2021-03-25 21:37] LABS: Anisocytosis 2+ (NORMAL); Platelet Estimate Decreased (Adequate)
[2021-03-25 21:38] LABS: Hypochromasia 1+ (NORMAL)
--- NOTE | 2021-03-25 22:17 | PM.IMHP ---
H&P: HPI History of Present Illness Date/Time: 03/25/21 22:17 Chief Complaint: Fatigue Narrative: This is an 85-year-old female with past medical history significant for chronic lymphocytic leukemia, hypertension, GERD, dyslipidemia, paroxysmal supraventricular tachycardia, chronic kidney disease, degenerative disc disease, osteoporosis, Parkinson's disease. Patient has been started on Rituxan however patient has not been tolerating it well. Most of the history has been obtained from reviewing medical records and daughter who is at bedside patient was brought in today from [facility] after she was found to have a low pulse ox and she has been complaining about fatigue, blood pressure was checked and he was in the 200 she was brought in for further evaluation. In emergency room preliminary workup was significant for CBC with a hemoglobin of 6 hematocrit of 20,a platelet count of 16,000 a chest x-ray shows a right small pleural effusion and interstitial edema. Upon further questioning the patient states that she has been very fatigued has been having shortness of breath, palpitations, denies any lightheadedness dizziness syncope or near syncope. Patient has been admitted for further evaluation management and treatment. Review of Systems Review of Systems: Been a very fatigue, palpitations, shortness of breath, epistaxis. Constitutional: Constitutional: Denies chills, Reports fatigue, Denies fever(s), Reports lethargy and Denies malaise Eyes: Eyes: Denies change in vision ENT: Denies dysphagia, Denies nasal congestion, Denies nasal discharge, Denies nasal obstruction and Denies odynophagia Cardiovascular: Cardiovascular: Denies irregular heart rhythm, Denies claudication, Denies leg edema, Denies lightheadedness, Denies radiating jaw, neck or arm pain, Reports palpitations, Denies dyspnea, Reports dyspnea on exertion and Denies orthopnea Respiratory: Respiratory: Denies cough and Denies excessive phlegm production Gastrointestinal: Gastrointestinal: Denies abdominal pain, Denies dyspepsia, Denies heartburn, Denies diarrhea, Denies nausea and Denies vomiting Genitourinary: Genitourinary: Denies dysuria Musculoskeletal: Musculoskeletal: Denies arthralgias and Denies joint swelling Integumentary/Breasts: Skin/Breast: Denies rash Neurologic: Denies vertigo, Denies syncope, Denies focal weakness and Denies Sensory deficit (Neuro) Psychiatric: Psychiatric: Reports no additional psychiatric complaints and Reports as per HPI Endocrine: Endocrine: Reports no additional endocrine complaints and Reports as per HPI Hematologic/Lymphatic: Hematologic/Lymphatic: Reports no additional hematologic/lymphatic complaints and Reports as per HPI Allergic/Immunologic: Allergic/Immunologic: Reports no additional allergic/immunologic complaints and Reports as per HPI [facility] Past Medical History Medical History (Updated 03/26/21 @ 00:55 by Corin Lovett MD) Arthritis DDD (degenerative disc disease) Dementia Depression GERD (gastroesophageal reflux disease) Gout HLD (hyperlipidemia) HTN (hypertension) Hypothyroid Leukemia cll Osteoporosis Parkinson's disease Pleural abscess Pneumonia Port-A-Cath in place Tuberculosis Ulcer UTI (urinary tract infection) Surgical History Surgical History H/O bilateral cataract extraction H/O: hysterectomy Family History Family History Father Heart failure Mother Unknown family medical history Social History Social History Social History: The patient is and she is at the [employer]. She is a full code. Diana Stallworth is her child who is the durable power patent attorney for healthcare. Her daughter Angelo is a durable power patent attorney for healthcare. She never smoked. Smoking status: Never smoker
[2021-03-26] VITALS (21 sets, daily range): BP systolic 115–150; BP diastolic 42–66; PULSE 55–83; RESP 16–24; TEMP 36.4–36.8; O2SAT 92–97
[2021-03-26 00:57] LABS: Troponin I < 0.012 ng/mL (0.000-0.034)
--- NOTE | 2021-03-26 03:40 | ADMGEN ---
This patient, Diana Castano, was admitted to [facility] Surg Room 317-02. Patient/family oriented to hospital policies and general routines including ID bracelet, bed and alarms, visiting hours, pain management, procedures, bathroom and other care routines, personal items, smoking policy, room service/diet, and visiting hours. Information on how to activate the Rapid Response Team has been discussed. Patient/Family are encouraged to report perceived risks to care and to ask questions if they do not understand what they are told or what they should do.
[2021-03-26 06:50] LABS: Basophils Percent Auto 0.1 % (0.2-1.2); Eosinophils Percent Auto 0.1 % (0-4.4); Immature Granulocyte Absolute 0.04 K/mm3 (0.00-0.031); Immature Granulocyte Percent A 0.1 % (0-0.5); Immature Platelet Fraction Pct 4.9 % (0.9-11.2); Lymphocytes Absolute Auto 24.93 K/mm3 (0.9-3.2); Lymphocytes Percent Auto 81.2 % (18.3-44.2); Mean Corpuscular HGB Conc 33.3 g/dl (32-36); Mean Corpuscular Hemoglobin 41.1 pg (26-34); Mean Corpuscular Volume 123.2 fl (80-100); Mean Platelet Volume 10.9 fl (7.4-10.4); Monocytes Absolute Auto 4.9 K/mm3 (0.1-0.6); Neutrophils Absolute Auto 0.8 K/mm3 (1.3-6.7); Neutrophils Percent Auto 2.5 % (45.5-73.1); Platelet Count Result 30 k/mm3 (150-375); Red Blood Count 1.51 M/mm3 (4.2-5.4); White Blood Count 30.7 K/mm3 (4.5-10.0)
--- NOTE | 2021-03-26 07:30 | P.PNIM_ITS ---
Progress Note: A&P Assessment and Plan (1) Megaloblastic anemia: Code(s): D53.1 - Other megaloblastic anemias, not elsewhere classified Status: Acute Assessment and Plan: * Acute on chronic * H/H 6.2/18.7, 8.5/24.9 after transfusion * MCV 123.7 * 1 unit PRBCs transfused * Trend labs * transfuse if hemoglobin less than 7 (2) Thrombocytopenia: Code(s): D69.6 - Thrombocytopenia, unspecified Status: Acute Assessment and Plan: * Acute on chronic * platelets 13535 on labs, 91127 after transfusion * 2 units of platelets ordered * trend labs * transfuse as needed (3) CLL (chronic lymphocytic leukemia): Code(s): C91.10 - Chronic lymphocytic leukemia of B-cell type not having achieved remission Status: Acute Assessment and Plan: * Patient is undergoing treatment with Rituxan * Hematology-Oncology has been consulted * probably why her white count is greater than 30,000 * continue to trend labs (4) CKD (chronic kidney disease) stage 3, GFR 30-59 ml/min: Code(s): N18.30 - Chronic kidney disease, stage 3 unspecified Status: Acute Assessment and Plan: * BUN/Cr 34/1.40 * Continue to monitor * BUN and creatinine patient's baseline * avoid nephrotoxic medications (5) Paroxysmal atrial fibrillation: Code(s): I48.0 - Paroxysmal atrial fibrillation Status: Acute Assessment and Plan: * Rate controlled * continue home metoprolol 12.5 mg q.12 * Trend rate * adjust medications as needed (6) GERD (gastroesophageal reflux disease): Code(s): K21.9 - Gastro-esophageal reflux disease without esophagitis Status: Chronic Assessment and Plan: * Continue PPI (7) Parkinson's disease: Code(s): G20 - Parkinson's disease Status: Chronic Assessment and Plan: * Continue carbidopa levodopa * PT OT (8) Hypothyroid: Code(s): E03.9 - Hypothyroidism, unspecified Status: Chronic Assessment and Plan: * Continue levothyroxine (9) CHF (congestive heart failure): Code(s): I50.9 - Heart failure, unspecified Status: Acute Assessment and Plan: * chest x-ray indicates interstitial edema * blood pressure is elevated * echo from 2019 shows grade 1 diastolic function with an EF of 60 65% * 1 dose IV Lasix 40 mg * do not think this is acute think it is more chronic diastolic heart failure * will repeat echo * BNP elevated at 1030 * monitor urine output (10) Leukocytosis: Code(s): D72.829 - Elevated white blood cell count, unspecified Status: Acute Assessment and Plan: * WBC elevated currently 35.2 * Could be from rituximab, could be from CLL * Need to trend * Hematology and oncology consulted thank you for your help * Might need antibiotics await oncology for further recommendations (11) Hypertension: Code(s): I10 - Essential (primary) hypertension Status: Acute Assessment and Plan: * BP 146/62 * Probably contributed to fluid overload * Echo in the am * lasix 40mg IV once * Trend BP * Continue losartan and hydrochlorothiazide, and metoprolol * Adjust therapy as indicated Time Spent With Patient Time with patient: Greater than 35 minute
--- NOTE | 2021-03-26 07:30 | PM.IMPN ---
Progress Note: A&P Assessment and Plan (1) Megaloblastic anemia: Code(s): D53.1 - Other megaloblastic anemias, not elsewhere classified Status: Acute Assessment and Plan: Acute on chronic H/H 6.2/18.7, 8.5/24.9 after transfusion MCV 123.7 1 unit PRBCs transfused Trend labs transfuse if hemoglobin less than 7 (2) Thrombocytopenia: Code(s): D69.6 - Thrombocytopenia, unspecified Status: Acute Assessment and Plan: Acute on chronic platelets 74813 on labs, 07326 after transfusion 2 units of platelets ordered trend labs transfuse as needed (3) CLL (chronic lymphocytic leukemia): Code(s): C91.10 - Chronic lymphocytic leukemia of B-cell type not having achieved remission Status: Acute Assessment and Plan: Patient is undergoing treatment with Rituxan Hematology-Oncology has been consulted probably why her white count is greater than 30,000 continue to trend labs (4) CKD (chronic kidney disease) stage 3, GFR 30-59 ml/min: Code(s): N18.30 - Chronic kidney disease, stage 3 unspecified Status: Acute Assessment and Plan: BUN/Cr 34/1.40 Continue to monitor BUN and creatinine patient's baseline avoid nephrotoxic medications (5) Paroxysmal atrial fibrillation: Code(s): I48.0 - Paroxysmal atrial fibrillation Status: Acute Assessment and Plan: Rate controlled continue home metoprolol 12.5 mg q.12 Trend rate adjust medications as needed (6) GERD (gastroesophageal reflux disease): Code(s): K21.9 - Gastro-esophageal reflux disease without esophagitis Status: Chronic Assessment and Plan: Continue PPI (7) Parkinson's disease: Code(s): G20 - Parkinson's disease Status: Chronic Assessment and Plan: Continue carbidopa levodopa PT OT (8) Hypothyroid: Code(s): E03.9 - Hypothyroidism, unspecified Status: Chronic Assessment and Plan: Continue levothyroxine (9) CHF (congestive heart failure): Code(s): I50.9 - Heart failure, unspecified Status: Acute Assessment and Plan: chest x-ray indicates interstitial edema blood pressure is elevated echo from 2019 shows grade 1 diastolic function with an EF of 60 65% 1 dose IV Lasix 40 mg do not think this is acute think it is more chronic diastolic heart failure will repeat echo BNP elevated at 1030 monitor urine output (10) Leukocytosis: Code(s): D72.829 - Elevated white blood cell count, unspecified Status: Acute Assessment and Plan: WBC elevated currently 35.2 Could be from rituximab, could be from CLL Need to trend Hematology and oncology consulted thank you for your help Might need antibiotics await oncology for further recommendations (11) Hypertension: Code(s): I10 - Essential (primary) hypertension Status: Acute Assessment and Plan: BP 146/62 Probably contributed to fluid overload Echo in the am lasix 40mg IV once Trend BP Continue losartan and hydrochlorothiazide, and metoprolol Adjust therapy as indicated Time Spent With Patient Time with patient: Greater than 35 minutes Subjective Date/time seen: 03/26/21 07:30 Interval history: Date/Time: 03/25/21 22:17 Narrative: This is an 85-year-old female with past medical history significant for chronic lymphocytic leukemia, hypertension, GERD, dyslipidemia, paroxysmal supraventricular tachycardia, chronic kidney disease, degenerative disc disease, osteoporosis, Parkinson's disease. Patient has been started on Rituxan however patient has not been tolerating it well. Most of the history has been obtained from reviewing medical records and daughter who is at bedside patient was brought in today from [facility] after she was found to have a low pulse ox and she
[2021-03-26 08:21] LABS: Hematocrit 18.6 % (37.0-47.0)
[2021-03-26 08:25] LABS: Hemoglobin 6.2 g/dL (12.0-15.0)
[2021-03-26 08:26] LABS: Anisocytosis 2+ (NORMAL); Platelet Estimate Decreased (Adequate); Smudge Cells PRESENT
[2021-03-26] MEDS: SODIUM CHLORIDE 0.9% IV 250 ML 30 ML IV CONT (09:37)
[2021-03-26] MEDS: TUBING, BLOOD PLUM PUMP TUBING 1 EACH XX (09:37)
[2021-03-26 09:47] LABS: Hematocrit 18.7 % (37.0-47.0); Hemoglobin 6.2 g/dL (12.0-15.0)
[2021-03-26 14:35] LABS: Basophils Absolute Auto 0.1 K/mm3 (0.0-0.1); Basophils Percent Auto 0.2 % (0.2-1.2); Hematocrit 24.9 % (37.0-47.0); Hemoglobin 8.5 g/dL (12.0-15.0); Immature Granulocyte Absolute 0.03 K/mm3 (0.00-0.031); Immature Granulocyte Percent A 0.1 % (0-0.5); Immature Platelet Fraction Pct 5.3 % (0.9-11.2); Lymphocytes Absolute Auto 25.91 K/mm3 (0.9-3.2); Lymphocytes Percent Auto 73.6 % (18.3-44.2); Mean Corpuscular HGB Conc 34.1 g/dl (32-36); Mean Corpuscular Hemoglobin 38.8 pg (26-34); Mean Corpuscular Volume 113.7 fl (80-100); Mean Platelet Volume 11.4 fl (7.4-10.4); Monocytes Absolute Auto 8.2 K/mm3 (0.1-0.6); Monocytes Percent Auto 23.3 % (2.6-8.5); Neutrophils Percent Auto 2.8 % (45.5-73.1); Nucleated Red Blood Cells Perc 0.1 % (0.0-0.2); Platelet Count Result 58 k/mm3 (150-375); Red Blood Count 2.19 M/mm3 (4.2-5.4); White Blood Count 35.2 K/mm3 (4.5-10.0)
[2021-03-26 14:44] LABS: Alanine Aminotransferase 16 U/L (4-35); Albumin Level 4.4 g/dL (3.5-5.1); Alkaline Phosphatase 71 U/L (38-126); Anion Gap 8 mmol/L (8-16); Aspartate Amino Transferase 28 U/L (14-36); Bilirubin,Total 0.9 mg/dL (0.2-1.3); Blood Urea Nitrogen 27 mg/dL (7-17); Calcium 9.6 mg/dL (8.4-10.2); Carbon Dioxide 27 mmol/L (22-30); Chloride 104 mmol/L (98-107); Estimated CRCL calculation 26 ml/min; Estimated Glomerular Filt Rate 39; Glucose 113 mg/dL (65-110); Potassium 3.8 mmol/L (3.4-5.0); Sodium 139 mmol/L (137-145)
[2021-03-26] MEDS: FUROSEMIDE INJ 40 MG/4 ML VIAL IV PUSH (16:19)
[2021-03-26 16:36] LABS: Hematocrit 23.5 % (37.0-47.0); Hemoglobin 8.1 g/dL (12.0-15.0)
[2021-03-27] VITALS (9 sets, daily range): BP systolic 139–168; BP diastolic 42–61; PULSE 60–69; RESP 14–18; TEMP 36.7–36.9; O2SAT 95–99
--- NOTE | 2021-03-27 | ECHO_ITS ---
Patient Info Name: Diana Castano Age: 85 years : 1935 Gender: Female Ht: 65 in Wt: 163 lbs BSA: 1.86 m2 HR: 62 bpm BP: 147 / 42 mmHg Heart Rhythm: Sinus Rhythm Technical Quality: Good Exam Date: 03/27/2021 9:47 AM Exam Location: [facility] Exam Room: 317 Patient Status: Inpatient Admit Date: 03/26/2021 Staff Ordering Physician: Blake Garduno Bookbinder Apprentice: Ly Maxwell RDCS Attending Provider: Corin Lovett MD Referring Physician: Cassidy Farah ; Exam Type: CA echo doppler color flow Study Info Indications - fluid status Complete two-dimensional, color flow and Doppler transthoracic echocardiogram is performed. Summary 1. Complete two-dimensional, color flow and Doppler transthoracic echocardiogram is performed. 2. Left ventricular chamber dimension is normal. 3. Left ventricular systolic function is normal, estimated at 65-70%. 4. There is mild aortic valve sclerosis. 5. There is trace mitral valve regurgitation. 6. Compared to exam from October of last year there are no changes. Left Ventricle Left ventricular chamber dimension is normal. Left ventricular systolic function is normal, estimated at 65-70%. The left ventricular diastolic function is grade I diastolic dysfunction. Right Ventricle Right ventricular chamber dimension is normal. Left Atria Left atrial chamber dimension is mildly enlarged. Right Atria Right atrial chamber dimension is mildly enlarged. Aortic Valve The aortic valve is trileaflet. There is mild aortic valve sclerosis. Pulmonic Valve The pulmonic valve is not well visualized. Mitral Valve The mitral valve has normal leaflets. There is trace mitral valve regurgitation. Tricuspid Valve The tricuspid valve leaflets are normal. Pericardium/Pleural The pericardium appears normal. Aorta The aortic root size at the sinus of Valsalva is normal. Left Ventricular Outflow Tract Name Value Normal LVOT 2D LVOT Diameter 2.0 cm LVOT Doppler LVOT Peak Gradient 7 mmHg LVOT Mean Gradient 4 mmHg LVOT VTI 30 cm LVOT VTI/AV VTI Ratio 0.9 LVOT Stroke Volume 91 ml LVOT CO 17.0 l/min LVOT CI 9.2 l/min/m2 Pulmonic Valve Name Value Normal PV Doppler PV Peak Gradient 4 mmHg Mitral Valve Name Value Normal MV Doppler MV [place]el [place] 234 cm/s2 MV PHT
[2021-03-27 07:52] LABS: Basophils Absolute Auto 0.1 K/mm3 (0.0-0.1); Basophils Percent Auto 0.2 % (0.2-1.2); Hematocrit 28.7 % (37.0-47.0); Hemoglobin 9.6 g/dL (12.0-15.0); Immature Granulocyte Absolute 0.08 K/mm3 (0.00-0.031); Immature Granulocyte Percent A 0.2 % (0-0.5); Immature Platelet Fraction Pct 6.1 % (0.9-11.2); Lymphocytes Absolute Auto 38.82 K/mm3 (0.9-3.2); Lymphocytes Percent Auto 78.5 % (18.3-44.2); Mean Corpuscular HGB Conc 33.4 g/dl (32-36); Mean Corpuscular Hemoglobin 38.6 pg (26-34); Mean Corpuscular Volume 115.3 fl (80-100); Mean Platelet Volume 11.3 fl (7.4-10.4); Monocytes Absolute Auto 9.1 K/mm3 (0.1-0.6); Monocytes Percent Auto 18.3 % (2.6-8.5); Neutrophils Absolute Auto 1.4 K/mm3 (1.3-6.7); Neutrophils Percent Auto 2.8 % (45.5-73.1); Platelet Count Result 45 k/mm3 (150-375); Red Blood Count 2.49 M/mm3 (4.2-5.4); White Blood Count 49.4 K/mm3 (4.5-10.0)
[2021-03-27 07:59] LABS: Alanine Aminotransferase 18 U/L (4-35); Albumin Level 4.6 g/dL (3.5-5.1); Alkaline Phosphatase 85 U/L (38-126); Anion Gap 8 mmol/L (8-16); Aspartate Amino Transferase 39 U/L (14-36); Bilirubin,Total 1.7 mg/dL (0.2-1.3); Blood Urea Nitrogen 27 mg/dL (7-17); Calcium 9.8 mg/dL (8.4-10.2); Carbon Dioxide 25 mmol/L (22-30); Chloride 104 mmol/L (98-107); Estimated CRCL calculation 26 ml/min; Estimated Glomerular Filt Rate 39; Glucose 102 mg/dL (65-110); Magnesium 2.1 mg/dL (1.6-2.3); Potassium 4.2 mmol/L (3.4-5.0); Sodium 137 mmol/L (137-145)
[2021-03-27 08:16] LABS: Anisocytosis 2+ (NORMAL); Atypical Lymphocytes Present; Platelet Estimate Decreased (Adequate)
--- NOTE | 2021-03-27 08:20 | P.PNIM_ITS ---
Progress Note: A&P Assessment and Plan (1) Megaloblastic anemia: Code(s): D53.1 - Other megaloblastic anemias, not elsewhere classified Status: Acute Assessment and Plan: * Acute on chronic * H/H current 9.6/28.7 * MCV 115.3 * 1 unit PRBCs transfused 03/26/21 * Trend labs * transfuse if hemoglobin less than 7 (2) Thrombocytopenia: Code(s): D69.6 - Thrombocytopenia, unspecified Status: Acute Assessment and Plan: * Acute on chronic * platelets current 45 * 2 units of platelets transfused 03/26/21 * trend labs * transfuse as needed (3) CLL (chronic lymphocytic leukemia): Code(s): C91.10 - Chronic lymphocytic leukemia of B-cell type not having achieved remission Status: Acute Assessment and Plan: * Patient is undergoing treatment with Rituxan * Hematology-Oncology has been consulted * probably why her white count is greater than 30,000, [place] [address] today * looks like this has been trending up since January * Was being treated with Rituxan outpatient with Dr. Acosta * continue to trend labs (4) CKD (chronic kidney disease) stage 3, GFR 30-59 ml/min: Code(s): N18.30 - Chronic kidney disease, stage 3 unspecified Status: Acute Assessment and Plan: * BUN/Cr * Continue to monitor * BUN and creatinine patient's baseline * avoid nephrotoxic medications (5) Paroxysmal atrial fibrillation: Code(s): I48.0 - Paroxysmal atrial fibrillation Status: Acute Assessment and Plan: * Rate controlled * continue home metoprolol 12.5 mg q.12 * Trend rate * adjust medications as needed (6) GERD (gastroesophageal reflux disease): Code(s): K21.9 - Gastro-esophageal reflux disease without esophagitis Status: Chronic Assessment and Plan: * Continue PPI (7) Parkinson's disease: Code(s): G20 - Parkinson's disease Status: Chronic Assessment and Plan: * Continue carbidopa levodopa * PT OT (8) Hypothyroid: Code(s): E03.9 - Hypothyroidism, unspecified Status: Chronic Assessment and Plan: * Continue levothyroxine (9) CHF (congestive heart failure): Code(s): I50.9 - Heart failure, unspecified Status: Acute Assessment and Plan: * chest x-ray indicates interstitial edema * blood pressure is elevated * echo from 2019 shows grade 1 diastolic function with an EF of 60 65% * 1 dose IV Lasix 40 mg * do not think this is acute think it is more chronic diastolic heart failure * will repeat echo * BNP elevated at 1030 * monitor urine output (10) Leukocytosis: Code(s): D72.829 - Elevated white blood cell count, unspecified Status: Acute Assessment and Plan: * WBC elevated and trending up is 49.4 today * Could be from rituximab, could be from CLL * Need to trend * Hematology and oncology consulted thank you for your help * Might need antibiotics await oncology for further recommendations (11) Hypertension: Code(s): I10 - Essential (primary) hypertension Status: Acute Assessment and Plan: * BP 147/42 * Probably contributed to fluid overload * Echo in the am * lasix 40mg IV once 03/26/21 * Trend BP * Continue losartan and hydroc
--- NOTE | 2021-03-27 08:20 | PM.IMPN ---
Progress Note: A&P Assessment and Plan (1) Megaloblastic anemia: Code(s): D53.1 - Other megaloblastic anemias, not elsewhere classified Status: Acute Assessment and Plan: Acute on chronic H/H current 9.6/28.7 MCV 115.3 1 unit PRBCs transfused 03/26/21 Trend labs transfuse if hemoglobin less than 7 (2) Thrombocytopenia: Code(s): D69.6 - Thrombocytopenia, unspecified Status: Acute Assessment and Plan: Acute on chronic platelets current 45 2 units of platelets transfused 03/26/21 trend labs transfuse as needed (3) CLL (chronic lymphocytic leukemia): Code(s): C91.10 - Chronic lymphocytic leukemia of B-cell type not having achieved remission Status: Acute Assessment and Plan: Patient is undergoing treatment with Rituxan Hematology-Oncology has been consulted probably why her white count is greater than 30,000, [place] [address] today looks like this has been trending up since January Was being treated with Rituxan outpatient with Dr. Acosta continue to trend labs (4) CKD (chronic kidney disease) stage 3, GFR 30-59 ml/min: Code(s): N18.30 - Chronic kidney disease, stage 3 unspecified Status: Acute Assessment and Plan: BUN/Cr 25/05.30 Continue to monitor BUN and creatinine patient's baseline avoid nephrotoxic medications (5) Paroxysmal atrial fibrillation: Code(s): I48.0 - Paroxysmal atrial fibrillation Status: Acute Assessment and Plan: Rate controlled continue home metoprolol 12.5 mg q.12 Trend rate adjust medications as needed (6) GERD (gastroesophageal reflux disease): Code(s): K21.9 - Gastro-esophageal reflux disease without esophagitis Status: Chronic Assessment and Plan: Continue PPI (7) Parkinson's disease: Code(s): G20 - Parkinson's disease Status: Chronic Assessment and Plan: Continue carbidopa levodopa PT OT (8) Hypothyroid: Code(s): E03.9 - Hypothyroidism, unspecified Status: Chronic Assessment and Plan: Continue levothyroxine (9) CHF (congestive heart failure): Code(s): I50.9 - Heart failure, unspecified Status: Acute Assessment and Plan: chest x-ray indicates interstitial edema blood pressure is elevated echo from 2019 shows grade 1 diastolic function with an EF of 60 65% 1 dose IV Lasix 40 mg do not think this is acute think it is more chronic diastolic heart failure will repeat echo BNP elevated at 1030 monitor urine output (10) Leukocytosis: Code(s): D72.829 - Elevated white blood cell count, unspecified Status: Acute Assessment and Plan: WBC elevated and trending up is 49.4 today Could be from rituximab, could be from CLL Need to trend Hematology and oncology consulted thank you for your help Might need antibiotics await oncology for further recommendations (11) Hypertension: Code(s): I10 - Essential (primary) hypertension Status: Acute Assessment and Plan: BP 147/42 Probably contributed to fluid overload Echo in the am lasix 40mg IV once 03/26/21 Trend BP Continue losartan and hydrochlorothiazide, and metoprolol Adjust therapy as indicated Home medications need to be restarted still awaiting list to be updated Time Spent With Patient Time with patient: 25 - 35 minutes Subjective Date/time seen: 03/27/21 0820 Interval history: Date/Time: 03/25/21 22:17 Narrative: This is an 85-year-old female with past medical history significant for chronic lymphocytic leukemia, hypertension, GERD, dyslipidemia, paroxysmal supraventricular tachycardia, chronic kidney disease, degenerative disc disease, osteoporosis, Parkinson's disease. Patient has been started on Rituxan however patient has not been tolerating
--- NOTE | 2021-03-27 09:53 | PC.NURSE ---
[facility] called for medication list this morning, awaiting fax.
--- NOTE | 2021-03-27 12:45 | PDONCCN ---
HPI - Date of Consult Date/Time: 03/27/21 12:45 Requesting Physician: Corin Lovett MD Primary Care Provider: Maurisio Vernon MD - Consult Narrative Reason for consult: Chronic lymphocytic leukemia Narrative: Diana Castano is a 85 year old female with diagnosis of chronic lymphocytic leukemia, hypertension GERD, dyslipidemia and paroxysmal supraventricular tachycardia came into the hospital with generalized tiredness and fatigue. Labs showed hemoglobin of 6.2 [place] [address]. Patient received 1 unit of packed red blood cell and 1 unit of platelet with improvement in hemoglobin. She is feeling better with more energy. She denies any bleeding including melena hematochezia. She has been eating better. Denies any fever chills. No other new complaints. Review of Systems - Review of Systems All systems reviewed & are unremarkable except as noted in HPI and bel - Neurologic Denies vertigo, Denies syncope, Denies focal weakness, Denies sensory deficit PMFSH Medical History: Medical History (Last Reviewed 03/25/21 @ 20:29 by Mannie Rothman MD) Arthritis DDD (degenerative disc disease) Dementia Depression GERD (gastroesophageal reflux disease) Gout HLD (hyperlipidemia) HTN (hypertension) Hypothyroid Leukemia cll Osteoporosis Parkinson's disease Pleural abscess Pneumonia Port-A-Cath in place Tuberculosis Ulcer UTI (urinary tract infection) Surgical History: Surgical History (Last Reviewed 03/25/21 @ 20:29 by Mannie Rothman MD) H/O bilateral cataract extraction H/O: hysterectomy Family History: Family History (Last Reviewed 03/25/21 @ 20:29 by Mannie Rothman MD) Father Heart failure Mother Unknown family medical history - Social History Social History: Social History (Last Reviewed 03/25/21 @ 20:29 by Mannie Rothman MD) Gender Identity: Gender identity (if verbalized by the patient): Female Alcohol Use: Alcohol intake: unknown Substance Use: Substance use: unknown Substance use type: does not use Others: Spiritual care concerns: No Smoking Status: Smoking status: Never smoker Second hand tobacco smoke exposure: No Meds Home Medications Medication Instructions Recorded Confirmed Type acetaminophen 650 mg PO Q4H PRN 02/16/19 03/27/21 History allopurinol 300 mg PO DAILY 02/16/19 03/27/21 History carbidopa-levodopa 1 tablet PO TID 02/16/19 03/27/21 History omeprazole 20 mg PO DAILY 02/16/19 03/27/21 History ondansetron HCl 4 mg PO Q6H PRN 02/16/19 03/27/21 History furosemide 20 mg PO DAILY 04/07/19 01/27/21 History levothyroxine 50 mcg PO DAILY 04/07/19 03/27/21 History lidocaine-prilocaine 1 applic TOPICAL ONCE 04/07/19 03/27/21 History ferrous sulfate 325 mg PO DAILY 10/22/19 03/27/21 History cyanocobalamin (vitamin B-12) 1,000 mcg IM MONTHLY 11/02/19 03/27/21 History magnesium hydroxide [Milk of 15 ml PO DAILY 11/02/19 03/27/21 History Magnesia] multivitamin [Daily-Amy] 1 tablet PO DAILY 11/02/19 03/27/21 History polyvinyl alcohol [Artificial 1 drp OPHTHALMIC (EYE) TID 11/02/19 03/27/21 History Tears (polyvin alc)] sertraline 25 mg PO DAILY 11/02/19 03/27/21 History doxycycline hyclate 100 mg PO BID #8 cap 11/06/19 01/27/21 Rx metoprolol tartrate 12.5 mg PO Q12HR #30 tablet 11/06/19 03/27/21 Rx losartan-hydrochlorothiazide 1 tablet PO DAILY 12/18/19 01/27/21 History simvastatin 40 mg PO DAILY 12/18/19 01/27/21 History tramadol 50 mg PO Q6H PRN 12/18/19 01/27/21 History donepezil 10 mg PO HS 03/27/21 03/27/21 History Allergies Allergy/AdvReac Type Severity Reaction Status Date / Time quinapril Allergy Unknown Unknown Verified 03/25/21 21:03 rituximab AdvReac Intermediate Dyspnea / Verified 03/25/21 21:03 SOB cyclobenzaprine AdvReac Mild Unknown Verified 03/25/21 21:03 diclofenac AdvReac Mild Unknown Verified 03/25/21 21:03 zolpidem AdvReac Mild Unkn
[2021-03-27 15:07] LABS: Folic Acid > 20.0 ng/mL (2.76->20)
--- NOTE | 2021-03-27 16:01 | PCOTNOTE ---
On 03/27/21, the student, [Barbara OLEA ], provided care and completed [facility] documentation on this patient. I have reviewed the student's documentation and agree with the findings.
[2021-03-28] VITALS: PULSE 69
[2021-03-28 04:00] VITALS: PULSE 67
[2021-03-28 06:00] VITALS: BP 143/41; PULSE 66; RESP 18; TEMP 36.9; O2SAT 93
[2021-03-28 06:49] LABS: Basophils Absolute Auto 0.1 K/mm3 (0.0-0.1); Basophils Percent Auto 0.2 % (0.2-1.2); Hematocrit 26.7 % (37.0-47.0); Immature Granulocyte Absolute 0.06 K/mm3 (0.00-0.031); Immature Granulocyte Percent A 0.1 % (0-0.5); Immature Platelet Fraction Pct 5.7 % (0.9-11.2); Lymphocytes Absolute Auto 35.76 K/mm3 (0.9-3.2); Lymphocytes Percent Auto 73.3 % (18.3-44.2); Mean Corpuscular HGB Conc 33.7 g/dl (32-36); Mean Corpuscular Hemoglobin 38.6 pg (26-34); Mean Corpuscular Volume 114.6 fl (80-100); Mean Platelet Volume 11.1 fl (7.4-10.4); Monocytes Absolute Auto 11.2 K/mm3 (0.1-0.6); Monocytes Percent Auto 23.1 % (2.6-8.5); Neutrophils Absolute Auto 1.6 K/mm3 (1.3-6.7); Neutrophils Percent Auto 3.3 % (45.5-73.1); Platelet Count Result 46 k/mm3 (150-375); Red Blood Count 2.33 M/mm3 (4.2-5.4); Red Cell Distribution Width 25.5 % (11.5-14.5); White Blood Count 48.8 K/mm3 (4.5-10.0)
[2021-03-28 06:57] LABS: Alanine Aminotransferase 17 U/L (4-35); Albumin Level 4.4 g/dL (3.5-5.1); Alkaline Phosphatase 79 U/L (38-126); Anion Gap 10 mmol/L (8-16); Aspartate Amino Transferase 29 U/L (14-36); Bilirubin,Total 1.2 mg/dL (0.2-1.3); Blood Urea Nitrogen 32 mg/dL (7-17); Calcium 9.6 mg/dL (8.4-10.2); Carbon Dioxide 23 mmol/L (22-30); Chloride 104 mmol/L (98-107); Estimated CRCL calculation 24 ml/min; Estimated Glomerular Filt Rate 36; Glucose 112 mg/dL (65-110); Magnesium 1.9 mg/dL (1.6-2.3); Potassium 4.2 mmol/L (3.4-5.0); Sodium 137 mmol/L (137-145)
[2021-03-28 08:00] VITALS: PULSE 73; O2SAT 94
--- NOTE | 2021-03-28 08:40 | PM.DS ---
DS: Admitting Diagnosis Discharge Date Date of service 03/28/2021 at 8:40 a.m. Admitting Diagnosis Megaloblastic anemia/ CLL exacerbation DS: Discharge Diagnosis Discharge Diagnosis (1) Megaloblastic anemia: Code(s): D53.1 - Other megaloblastic anemias, not elsewhere classified Status: Acute Assessment and Plan: Acute on chronic H/H current 9.0/26.7 MCV 115.3 1 unit PRBCs transfused 03/26/21 Trend labs transfuse if hemoglobin less than 7 (2) Thrombocytopenia: Code(s): D69.6 - Thrombocytopenia, unspecified Status: Acute Assessment and Plan: Acute on chronic platelets current 45 2 units of platelets transfused 03/26/21 trend labs transfuse as needed (3) CLL (chronic lymphocytic leukemia): Code(s): C91.10 - Chronic lymphocytic leukemia of B-cell type not having achieved remission Status: Acute Assessment and Plan: Patient is undergoing treatment with Rituxan Hematology-Oncology has been consulted probably why her white count is greater than 30,000, [place] [address] today looks like this has been trending up since January Was being treated with Rituxan outpatient with Dr. Acosta continue to trend labs. Probably acute exacerbation Will need to follow up with Dr. Acosta and 3 4 weeks (4) CKD (chronic kidney disease) stage 3, GFR 30-59 ml/min: Code(s): N18.30 - Chronic kidney disease, stage 3 unspecified Status: Acute Assessment and Plan: BUN/Cr 32/1.40 Continue to monitor BUN and creatinine patient's baseline avoid nephrotoxic medications (5) Paroxysmal atrial fibrillation: Code(s): I48.0 - Paroxysmal atrial fibrillation Status: Acute Assessment and Plan: Rate controlled continue home metoprolol 12.5 mg q.12 Trend rate adjust medications as needed (6) GERD (gastroesophageal reflux disease): Code(s): K21.9 - Gastro-esophageal reflux disease without esophagitis Status: Chronic Assessment and Plan: Continue PPI (7) Parkinson's disease: Code(s): G20 - Parkinson's disease Status: Chronic Assessment and Plan: Continue carbidopa levodopa PT OT (8) Hypothyroid: Code(s): E03.9 - Hypothyroidism, unspecified Status: Chronic Assessment and Plan: Continue levothyroxine (9) CHF (congestive heart failure): Code(s): I50.9 - Heart failure, unspecified Status: Acute Assessment and Plan: chest x-ray indicates interstitial edema blood pressure is elevated echo from 2019 shows grade 1 diastolic function with an EF of 60 65% 1 dose IV Lasix 40 mg do not think this is acute think it is more chronic diastolic heart failure will repeat echo BNP elevated at 1030 monitor urine output (10) Leukocytosis: Code(s): D72.829 - Elevated white blood cell count, unspecified Status: Acute Assessment and Plan: WBC elevated and trending up is 48.8 today Could be from rituximab, could be from CLL Need to trend Hematology and oncology consulted thank you for your help Might need antibiotics await oncology for further recommendations (11) Hypertension: Code(s): I10 - Essential (primary) hypertension Status: Acute Assessment and Plan: BP 143/41 Probably contributed to fluid overload Echo in the am lasix 40mg IV once 03/26/21 Trend BP Continue losartan and hydrochlorothiazide, and metoprolol Adjust therapy as indicated Home medications need to be restarted still awaiting list to be updated DS: Summary Hospital Course Hospital Course: Patient is a 5-year-old female with a past medical history of Parkinson's, CLL, hypertension who presented to the hospital with low phos ox a and fatigue at [facility]. Upon admission to the ED patient was noted to keyshawn
--- NOTE | 2021-03-28 08:40 | P.DS_ITS ---
DS: Admitting Diagnosis Discharge Date Date of service 03/28/2021 at 8:40 a.m. Admitting Diagnosis Megaloblastic anemia/ CLL exacerbation DS: Discharge Diagnosis Discharge Diagnosis (1) Megaloblastic anemia: Code(s): D53.1 - Other megaloblastic anemias, not elsewhere classified Status: Acute Assessment and Plan: * Acute on chronic * H/H current 9.0/26.7 * MCV 115.3 * 1 unit PRBCs transfused 03/26/21 * Trend labs * transfuse if hemoglobin less than 7 (2) Thrombocytopenia: Code(s): D69.6 - Thrombocytopenia, unspecified Status: Acute Assessment and Plan: * Acute on chronic * platelets current 45 * 2 units of platelets transfused 03/26/21 * trend labs * transfuse as needed (3) CLL (chronic lymphocytic leukemia): Code(s): C91.10 - Chronic lymphocytic leukemia of B-cell type not having achieved remission Status: Acute Assessment and Plan: * Patient is undergoing treatment with Rituxan * Hematology-Oncology has been consulted * probably why her white count is greater than 30,000, [place] [address] [place] * looks like this has been trending up since January * Was being treated with Rituxan outpatient with Dr. Acosta * continue to trend labs. * Probably acute exacerbation Will need to follow up with Dr. Acosta and 3 4 weeks (4) CKD (chronic kidney disease) stage 3, GFR 30-59 ml/min: Code(s): N18.30 - Chronic kidney disease, stage 3 unspecified Status: Acute Assessment and Plan: * BUN/Cr 32/1.40 * Continue to monitor * BUN and creatinine patient's baseline * avoid nephrotoxic medications (5) Paroxysmal atrial fibrillation: Code(s): I48.0 - Paroxysmal atrial fibrillation Status: Acute Assessment and Plan: * Rate controlled * continue home metoprolol 12.5 mg q.12 * Trend rate * adjust medications as needed (6) GERD (gastroesophageal reflux disease): Code(s): K21.9 - Gastro-esophageal reflux disease without esophagitis Status: Chronic Assessment and Plan: * Continue PPI (7) Parkinson's disease: Code(s): G20 - Parkinson's disease Status: Chronic Assessment and Plan: * Continue carbidopa levodopa * PT OT (8) Hypothyroid: Code(s): E03.9 - Hypothyroidism, unspecified Status: Chronic Assessment and Plan: * Continue levothyroxine (9) CHF (congestive heart failure): Code(s): I50.9 - Heart failure, unspecified Status: Acute Assessment and Plan: * chest x-ray indicates interstitial edema * blood pressure is elevated * echo from 2019 shows grade 1 diastolic function with an EF of 60 65% * 1 dose IV Lasix 40 mg * do not think this is acute think it is more chronic diastolic heart failure * will repeat echo * BNP elevated at 1030 * monitor urine output (10) Leukocytosis: Code(s): D72.829 - Elevated white blood cell count, unspecified Status: Acute Assessment and Plan: * WBC elevated and trending up is 48.8 today * Could be from rituximab, could be from CLL * Need to trend * Hematology and oncology consulted thank you for your help * Might need antibiotics await oncology for further recommendations (11) Hypertension: Cod
== END 2021-03-28 11:10 | DRG 812 ==
LOC: ANHED 22:24 → ANH3MEDSUR 22:51
PROVIDERS: Internal Medicine Hematology & Oncology; Admitting Provider Internal Medicine; Emergency Provider Emergency Medicine; PCP Family Medicine Adolescent Medicine; Visit Provider Nurse Practitioner
DX: D53.1 Other megaloblastic anemias, not elsewhere classified (principal); C91.10 Chronic lymphocytic leukemia of B-cell type not having achieved remission; I13.0 Hypertensive heart and chronic kidney disease with heart failure and stage 1 through stage 4 chronic kidney disease, or unspecified chronic kidney disease; I50.32 Chronic diastolic (congestive) heart failure; I47.1 Supraventricular tachycardia; N18.30 Chronic kidney disease, stage 3 unspecified; I48.0 Paroxysmal atrial fibrillation; G20 Parkinson's disease; F02.80 Dementia in other diseases classified elsewhere, unspecified severity, without behavioral disturbance, psychotic disturbance, mood disturbance, and anxiety; M10.9 Gout, unspecified; D69.6 Thrombocytopenia, unspecified; E03.9 Hypothyroidism, unspecified; K21.9 Gastro-esophageal reflux disease without esophagitis; E78.5 Hyperlipidemia, unspecified; Z28.21 Immunization not carried out because of patient refusal; Z79.899 Other long term (current) drug therapy; Z98.42 Cataract extraction status, left eye; Z98.41 Cataract extraction status, right eye
CPT/HCPCS: 36415; 36430; 71045; 80053; 82607; 82746; 83605; 83735; 83880; 84443; 84484; 85014; 85018; 85025; 85055; 85610; 85730; 86850; 86900; 86901; 86920; 93005; 93306; 96374; 97110; 97161; 97165; 97530; 97535; 99285; G0378; J1940; J7050; P9016; P9034

== ENCOUNTER 2021-05-04 07:32 | Outpatient (RCR) | payer OTHER, SELFPAY ==
[2021-05-04] VITALS (12 sets, daily range): BP systolic 122–143; BP diastolic 40–52; PULSE 55–72; RESP 16–24; TEMP 36.9–37.6; O2SAT 93–97
[2021-05-04] MEDS: ACETAMINOPHEN 325 MG TABLET 650 MG PO (08:28)
[2021-05-04] MEDS: diphenhydrAMINE HCl CAP 25 MG CAPSULE PO (08:29)
[2021-05-04] MEDS: SODIUM CHLORIDE 0.9% IV 250 ML 30 ML IV CONT (08:35)
[2021-05-04] MEDS: FUROSEMIDE INJ 40 MG/4 ML VIAL 20 MG IV PUSH (12:02)
[2021-05-04] MEDS: HEPARIN SODIUM LOCK FLUSH 500 UNITS/5 ML VIAL (14:51)
== END 2021-08-02 23:59 | disposition home or self-care (01) ==
LOC: ANHCPCTRAN 07:32
PROVIDERS: PCP Family Medicine Adolescent Medicine; Visit Provider Internal Medicine Hematology & Oncology
DX: C91.12 Chronic lymphocytic leukemia of B-cell type in relapse (principal); D63.8 Anemia in other chronic diseases classified elsewhere
CPT/HCPCS: 36415; 36430; 86850; 86900; 86901; 86920; 96374; A9270; J1642; J1940; J7050; P9016

== ENCOUNTER 2021-10-06 10:05 | Outpatient (CLI) | payer OTHER, SELFPAY ==
--- NOTE | ~2021-10-06 | XR_ITS ---
XR chest 2V 10/06/2021 10:34 Indication: Pleural effusion. Procedure: 2 view chest Comparison: 03/25/2021 Findings: Heart size normal. Portacatheter tip in the SVC. There is right basilar atelectasis. No foc al pneumonia, edema, pleural effusion or pneumothorax. There is atherosclerosis. Impression: 1: Right basilar atelectasis. Reviewed, dictated and finalized at location B. Impression: 1: Right basilar atelectasis.
== END 2021-10-06 10:06 | disposition home or self-care (01) ==
PROVIDERS: PCP Family Medicine Adolescent Medicine; Visit Provider Family Medicine Adolescent Medicine
DX: J90 Pleural effusion, not elsewhere classified (principal); J98.11 Atelectasis
CPT/HCPCS: 71046

== ENCOUNTER 2022-04-19 20:58 | Inpatient (IN) | payer OTHER, SELFPAY ==
--- NOTE | ~2022-04-19 | XR_ITS ---
EXAMINATION: XR chest 1V portable DATE: 04/21/2022 09:32 INDICATION: Pneumonia TECHNIQUE: frontal view of the chest was obtained. COMPARISON: Chest radiograph dated 04/19/2022 FINDINGS: Mild airspace opacities in the bilateral mid and lower lung zones. Small bilateral pleural effusions. No pneumothorax. The heart size is normal. Left internal jugular central venous port catheter with d istal tip at the caudal superior vena cava. Bilateral rotator cuff calcific tendinitis. IMPRESSION: 1. Persistent mild opacities in the bilateral mid and lower lung zones which could be due to pneumoni a or mild pulmonary edema. 2. Small bilateral pleural effusions. Reviewed, dictated and finalized at location A. NOOR OPERATOR IMPRESSION: 1. Persistent mild opacities in the bilateral mid and lower lung zones which co uld be due to pneumonia or mild pulmonary edema. 2. Small bilateral pleural effusions.
--- NOTE | ~2022-04-19 | XR_ITS ---
XR chest 1V portable DATE: 04/19/2022 21:25 INDICATION: Cough, shortness of breath TECHNIQUE: Portable AP chest on 04/19/2022 at 2112 hours COMPARISON: 10/06/2021 PA and lateral chest FINDINGS: Left Port-A-Cath catheter is again noted. Heart size appears within normal range. Is mild aortic unfolding. There is patchy infiltrate in the right mid and lower lung zones and to a lesser extent left lower keisha ng, suggesting bilateral pneumonia. Small right pleural effusion. Diffuse osteopenia. IMPRESSION: New patchy bilateral infiltrates, right greater than left, since 10/06/2021 Reviewed, dictated and finalized at location A. STICS TEAM LEAD IMPRESSION: New patchy bilateral infiltrates, right greater than left, since 01/2022
[2022-04-19 21:01] VITALS: BP 164/37; PULSE 75; RESP 24; TEMP 36.8; O2SAT 95
--- NOTE | 2022-04-19 21:01 | ECG_ITS ---
Measurements Intervals [place] Rate: 71 P: 51 TX: 163 QRS: 28 QRSD: 85 T: 38 QT: 407 QTc: 443 Interpretive Statements SINUS RHYTHM NONSPECIFIC ST DEPRESSION [0.05+ mV ST DEPRESSION] BORDERLINE ECG COMPARED TO ECG 03/25/2021 20:19:41 NO SIGNIFICANT CHANGE Electronically Signed On 04-20-2022 19:56:51 PAPER BALING MACHINE OPERATOR by Adria Chavarria M.D.
[2022-04-19 21:14] LABS: Basophils Percent Auto 0.1 % (0.2-1.2); Immature Granulocyte Absolute 0.02 K/mm3 (0.00-0.031); Immature Granulocyte Percent A 0.1 % (0-0.5); Lymphocytes Absolute Auto 30.73 K/mm3 (0.9-3.2); Lymphocytes Percent Auto 90.6 % (18.3-44.2); Mean Corpuscular Hemoglobin 40.7 pg (26-34); Mean Corpuscular Volume 127.1 fl (80-100); Mean Platelet Volume 10.9 fl (7.4-10.4); Monocytes Absolute Auto 2.7 K/mm3 (0.1-0.6); Monocytes Percent Auto 8.1 % (2.6-8.5); Neutrophils Absolute Auto 0.4 K/mm3 (1.3-6.7); Neutrophils Percent Auto 1.1 % (45.5-73.1); Platelet Count Result 27 k/mm3 (150-375); Red Blood Count 1.18 M/mm3 (4.2-5.4); Red Cell Distribution Width 19.4 % (11.5-14.5); White Blood Count 33.9 K/mm3 (4.5-10.0)
[2022-04-19 21:22] LABS: Alanine Aminotransferase 9 U/L (6-35); Albumin Level 3.8 g/dL (3.5-5.1); Alkaline Phosphatase 74 U/L (38-126); Anion Gap 9 mmol/L (8-16); Aspartate Amino Transferase 23 U/L (14-36); Bilirubin,Total 2.1 mg/dL (0.2-1.3); Blood Urea Nitrogen 35 mg/dL (7-17); Calcium 8.6 mg/dL (8.4-10.2); Carbon Dioxide 21 mmol/L (22-30); Chloride 108 mmol/L (98-107); Estimated CRCL calculation 26 ml/min; Estimated Glomerular Filt Rate 39; Glucose 114 mg/dL (65-110); Potassium 3.9 mmol/L (3.4-5.0); Sodium 138 mmol/L (137-145)
[2022-04-19 21:28] VITALS: PULSE 69
[2022-04-19 21:29] VITALS: O2SAT 99
[2022-04-19 21:33] LABS: Hemoglobin 4.8 g/dL (12.0-15.0)
[2022-04-19 21:34] LABS: Macrocytosis 2+ (NORMAL); Platelet Estimate Decreased (Adequate)
[2022-04-19 21:35] LABS: Anisocytosis 1+ (NORMAL); Schistocytes None Seen (NORMAL); Smudge Cells PRESENT
[2022-04-19 21:43] LABS: INR 1.2; Prothrombin Time 14.6 Seconds (11.1-14.7)
[2022-04-19 21:44] LABS: Partial Thromboplastin Time 30.4 SECONDS (22.3-36.8)
--- NOTE | 2022-04-19 21:44 | ED.WEAKNESS ---
HPI - Weakness General Chief complaint: Weakness Stated complaint: SOB, WEAKNESS Time Seen by Provider: 04/19/22 21:44 Source: patient and EMS Mode of arrival: EMS History of Present Illness HPI Narrative: 86 years old white female came from senior living with a increased weakness over the last few days/weeks. Patient tested positive for COVID 1 week ago and been on Paxilovid. History of CLL, Lewy body dementia, CHF, CKD, hypertension, Parkinson. Patient on iron supplement, patient does not have her hearing aids, severe hearing impairment. Patient is DNR Related Data Home Medications Medication Instructions Recorded Confirmed acetaminophen 650 mg 650 mg PO Q4H PRN Pain 02/16/19 09/27/21 tablet,extended release carbidopa ER 50 mg-levodopa 200 mg 1 tablet PO TID 02/16/19 09/27/21 tablet,extended release ondansetron HCl 4 mg tablet 4 mg PO Q6H PRN Nausea And Vomiting 02/16/19 09/27/21 levothyroxine 50 mcg capsule 50 mcg PO DAILY 04/07/19 09/27/21 lidocaine-prilocaine 2.5 %-2.5 % 1 applic topical ONCE 04/07/19 09/27/21 topical cream ferrous sulfate 325 mg (65 mg 325 mg PO DAILY 10/22/19 09/27/21 iron) tablet magnesium hydroxide 400 mg/5 mL 15 ml PO DAILY 11/02/19 09/27/21 oral suspension (Milk of Magnesia) multivitamin (Daily-Amy tablet) 1 tablet PO DAILY 11/02/19 09/27/21 polyvinyl alcohol 1.4 % eye drops 1 drp ophthalmic (eye) TID 11/02/19 09/27/21 (Artificial Tears (polyvinyl alcohol)) sertraline 25 mg tablet 25 mg PO DAILY 11/02/19 09/27/21 donepezil 10 mg tablet 10 mg PO HS 03/27/21 09/27/21 Allergies Allergy/AdvReac Type Severity Reaction Status Date / Time quinapril Allergy Unknown Unknown Verified 12/13/21 09:37 rituximab AdvReac Intermediate Dyspnea / Verified 12/13/21 09:37 SOB cyclobenzaprine AdvReac Mild Unknown Verified 12/13/21 09:37 diclofenac AdvReac Mild Unknown Verified 12/13/21 09:37 zolpidem AdvReac Mild Unknown Verified 12/13/21 09:37 Review of Systems Review of Systems: ROS unobtainable: Yes unobtainable due to medical condition [facility] Past Medical History Medical History (Updated 04/19/22 @ 22:25 by Ashly Win MD) Aortic atherosclerosis Arthritis Benign hypertension with CKD (chronic kidney disease) stage IV Chronic anemia CKD (chronic kidney disease) stage 4, GFR 15-29 ml/min CLL (chronic lymphocytic leukemia) DDD (degenerative disc disease) Dementia Depression DJD (degenerative joint disease) Generalized anxiety disorder GERD (gastroesophageal reflux disease) GERD (gastroesophageal reflux disease) Gout HLD (hyperlipidemia) HTN (hypertension) Hypothyroid Hypothyroidism, unspecified Leukemia cll Lewy body dementia Major depressive disorder, recurrent, moderate Osteoporosis Parkinson's disease Parkinsons disease Peripheral neuropathy Pleural abscess Pneumonia Port-A-Cath in place Pure hypercholesterolemia, unspecified Thrombocytopenia 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 She is a full code. Diana Stallworth is her child who is the durable power insurance attorney for healthcare. Her daughter Angelo is a durable power insurance attorney for healthcare. She never smoked. Smoking status: Never smoker Second hand tobacco smoke exposure: No Alcohol intake: unknown Substance use: unknown Substance use type: does not use Gender identity (if verbalized by the patient): Female
[2022-04-19] MEDS: SODIUM CHLORIDE 0.9% IV 250 ML 30 ML IV CONT (22:27)
[2022-04-19 23:32] LABS: Lactate Dehydrogenase 230 U/L (120-246)
[2022-04-19 23:36] LABS: SARS-CoV-2 RNA PCR Positive
[2022-04-19 23:44] LABS: Iron 126 ug/dL (37-170)
[2022-04-20] VITALS (96 sets, daily range): BP systolic 118–162; BP diastolic 37–118; PULSE 59–87; RESP 12–40; TEMP 36.1–37.7; O2SAT 36–100; BMI 23.3; BMI 28.4
[2022-04-20 00:25] LABS: Vitamin B12 > 1000.0 pg/mL (239-931)
--- NOTE | 2022-04-20 00:46 | PC.NURSE ---
Pt's respiratory rate 38-42. Dr. Win notified.
[2022-04-20 00:50] LABS: Hematocrit 13.9 % (37.0-47.0); Hemoglobin 4.4 g/dL (12.0-15.0)
[2022-04-20 01:19] LABS: Influenza A QL RT-PCR Negative (Negative); Influenza B QL RT-PCR Negative (Negative); SARS-CoV-2 RNA PCR Positive
--- NOTE | 2022-04-20 01:44 | PM.IMHP ---
H&P: HPI History of Present Illness Date/Time: 04/20/22 01:30 Chief Complaint: Increasing weakness Narrative: 86-year-old female with past medical history of Lewy body dementia, Parkinson's disease, hypothyroidism, CLL and essential hypertension who presented to the ER from [facility] via EMS due to increased weakness and cough. The patient tested positive for COVID 1 week ago. The patient is oriented to self but I am otherwise unable to get a review of systems from the patient. She is severely hard of hearing and has dementia. Was at the bedside the patient is actively coughing. She has a dry mouth noted on exam. She had a T-max of 99.9? in the ER. She as marked work of breathing at the time of my evaluation with a respiratory rate in the mid 30s. She has 2 L nasal cannula in place that the nurse states she placed on the patient for comfort. The patient has marked wheezing on exam and had not received any nebulizers prior to my evaluation. The patient was evaluated in the ER as she is being boarded in the ER due to critical census. CBC demonstrated [place] [address] and hemoglobin of 4.4 down from a prior value of 11.3 and December and 9.1 in February. The patient was noted to have black diarrheal stools in the ER. Guaiac was positive but patient is unknown iron supplementation. Patient has chronic [place] [address]. After an hour long nebulizer with albuterol and Atrovent patient's respiratory rate decreased down to 19. She also received Decadron and Remdesivir after my evaluation. Review of Systems Review of Systems: ROS unobtainable: Yes unobtainable due to medical condition (Hearing loss and dementia) and unobtainable due to mental status [facility] Past Medical History Medical History (Updated 04/20/22 @ 04:38 by Jasmyne Espinal DO) Aortic atherosclerosis Arthritis Chronic anemia CKD (chronic kidney disease) stage 4, GFR 15-29 ml/min CLL (chronic lymphocytic leukemia) DDD (degenerative disc disease) Depression DJD (degenerative joint disease) Essential hypertension Generalized anxiety disorder GERD (gastroesophageal reflux disease) Gout HLD (hyperlipidemia) Hypothyroid Lewy body dementia Osteoporosis Parkinson's disease Peripheral neuropathy Pleural abscess Pneumonia Port-A-Cath in place Pure hypercholesterolemia, unspecified 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 Diana Stallworth is her child who is the durable power privacy attorney for healthcare. She never smoked. Code status: DNR/DNI Smoking status: Never smoker Second hand tobacco smoke exposure: No Alcohol intake: unknown Substance use: unknown Substance use type: does not use Gender identity (if verbalized by the patient): Female Spiritual care concerns: No Meds Home Medications and Allergies Home Medications Medication Instructions Recorded Confirmed Type acetaminophen 650 mg 650 mg PO Q4H PRN Pain 02/16/19 09/27/21 History tablet,extended release carbidopa ER 50 mg-levodopa 200 mg 1 tablet PO TID 02/16/19 09/27/21 History tablet,extended release ondansetron HCl 4 mg tablet 4 mg PO Q6H PRN Nausea And Vomiting 02/16/19 09/27/21 History levothyroxine 50 mcg capsule 50 mcg PO DAILY 04/07/19 09/27/21 History lidocaine-prilocaine 2.5 %-2.5 % 1 appli
[2022-04-20] MEDS: SODIUM CHLORIDE 0.9% IV 500 ML 125 ML (02:52)
[2022-04-20] MEDS: TUBING, BLOOD PLUM PUMP TUBING 1 EACH XX ×4 (02:52→13:38)
--- NOTE | 2022-04-20 02:53 | PC.NURSE ---
Addendum entered by Alejandra Concepcion RN 04/20/22 03:07: Dr. Espinal notified of intense itching. She gave telephone order to stop azithromycin. Original Note: Pt c/o intense itching to right forearm while azithromycin is infusing. Azithromycin stopped and IV flushed. Dr. Win notified.
--- NOTE | 2022-04-20 03:07 | PC.NURSE ---
Nurse report given to Marcy COLEMAN
[2022-04-20] MEDS: REMDESIVIR 200 MG/NS 250 ML 200 MG/250 ML BAG 250 MG IVPB (03:41)
[2022-04-20] MEDS: FUROSEMIDE INJ 40 MG/4 ML VIAL IV PUSH (05:02)
[2022-04-20] MEDS: IPRATROPIUM BR 0.02% INH SOLN 0.5 MG/2.5 ML VIAL 1.5 MG INHALATION (05:07)
[2022-04-20] MEDS: ALBUTEROL SULFATE NEB 2.5 MG/3 ML INH 1.25 MG INHALATION (05:08)
[2022-04-20] MEDS: SODIUM CHLORIDE 0.9% IV 250 ML (06:13)
[2022-04-20] MEDS: DOXYCYCLINE 100 MG/NS 100 ML 100 MG/100 ML BAG IVPB ×2 (06:31→18:09)
[2022-04-20 06:34] LABS: Basophils Percent Auto 0.1 % (0.2-1.2); Hematocrit 21.6 % (37.0-47.0); Immature Granulocyte Absolute 0.04 K/mm3 (0.00-0.031); Immature Granulocyte Percent A 0.3 % (0-0.5); Immature Platelet Fraction Pct 5.9 % (0.9-11.2); Lymphocytes Absolute Auto 12.58 K/mm3 (0.9-3.2); Lymphocytes Percent Auto 91.2 % (18.3-44.2); Mean Corpuscular HGB Conc 32.9 g/dl (32-36); Mean Corpuscular Hemoglobin 33.6 pg (26-34); Mean Corpuscular Volume 102.4 fl (80-100); Mean Platelet Volume 10.5 fl (7.4-10.4); Neutrophils Absolute Auto 0.2 K/mm3 (1.3-6.7); Neutrophils Percent Auto 1.4 % (45.5-73.1); Red Blood Count 2.11 M/mm3 (4.2-5.4); Red Cell Distribution Width 26.5 % (11.5-14.5); White Blood Count 13.8 K/mm3 (4.5-10.0)
[2022-04-20 06:46] LABS: Hemoglobin 7.1 g/dL (12.0-15.0)
[2022-04-20 06:47] LABS: Platelet Count Result 15 k/mm3 (150-375)
--- NOTE | 2022-04-20 09:08 | PC.NURSE ---
Fran Castano-primary contact [phone].
--- NOTE | 2022-04-20 09:16 | PM.IMPN ---
Progress Note: A&P Assessment and Plan (1) Megaloblastic anemia: Code(s): D53.1 - Other megaloblastic anemias, not elsewhere classified Status: Acute (2) Thrombocytopenia: Code(s): D69.6 - Thrombocytopenia, unspecified Status: Acute Assessment and Plan: Acute on chronic platelets currently worsening 27->15->13. Most recently 2 units of platelets transfused 03/26/21 Transfuse single donor 2 units platelets (3) CLL (chronic lymphocytic leukemia): Code(s): C91.10 - Chronic lymphocytic leukemia of B-cell type not having achieved remission Status: Acute Assessment and Plan: Patient is undergoing treatment with Rituxan Hematology-Oncology has been consulted Was being treated with Rituxan outpatient with Dr. Acosta continue to trend labs (4) CKD (chronic kidney disease) stage 3, GFR 30-59 ml/min: Code(s): N18.30 - Chronic kidney disease, stage 3 unspecified Status: Acute Assessment and Plan: Creatinine in the 1.2-1.3 went which appear to be are baseline. Avoid nephrotoxic medication. Monitor electrolytes. (5) Paroxysmal atrial fibrillation: Code(s): I48.0 - Paroxysmal atrial fibrillation Status: Acute Assessment and Plan: Rate controlled continue home metoprolol 12.5 mg q.12 Trend rate adjust medications as needed (6) GERD (gastroesophageal reflux disease): Code(s): K21.9 - Gastro-esophageal reflux disease without esophagitis Status: Chronic Assessment and Plan: Continue PPI (7) Parkinson's disease: Code(s): G20 - Parkinson's disease Status: Chronic Assessment and Plan: Continue carbidopa levodopa PT OT (8) Hypothyroid: Code(s): E03.9 - Hypothyroidism, unspecified Status: Chronic Assessment and Plan: Continue levothyroxine (9) CHF (congestive heart failure): Code(s): I50.9 - Heart failure, unspecified Status: Acute Assessment and Plan: Currently asymptomatic; patient is a able to lay flat. Avoid fluid overload. Monitor respiratory status. Patchy infiltrate on chest x-ray suggests bilateral pneumonia. Antibiotics were ordered. (10) Leukocytosis: Code(s): D72.829 - Elevated white blood cell count, unspecified Status: Acute Assessment and Plan: Likely related to heal her pneumonia; may be sequela of CLL. (11) Hypertension: Code(s): I10 - Essential (primary) hypertension Status: Acute Assessment and Plan: BP 145/50 Continue losartan and hydrochlorothiazide, and metoprolol (12) Healthcare-associated pneumonia: Code(s): J18.9 - Pneumonia, unspecified organism Status: Acute Assessment and Plan: Patient will really started on ceftriaxone and azithromycin on admission. Continue same regimen. Time Spent With Patient Time with patient: 15 - 25 minutes Subjective Date/time seen: 04/20/22 18:32 Interval history: Narrative: Diana Castano is a 86 year old female with history of chronic lymphocytic leukemia diagnosed in 2013 and hypogammaglobulinemia.? She came into the hospital with generalized weakness.? She is a [facility] assisted living resident.? She was tested positive for COVID week prior to the ER visit.? She has been getting more forgetful.? She denies any bleeding including melena hematochezia.? Patient was noted to have black diarrheal stool in the ER and guaiac was positive.? Patient received last weekly treatment with Rituxan in June 2021 due to worsening of thrombocytopenia and anemia.? Plan was to restart another round of Rituxan due to worsening of thrombocytopenia and anemia as she was evaluated last in March 12, 2022 in the office.? Rituxan was not approved by her insurance.? She was also getting vitamin B12 injection at a monthly basis as assisted living. S:Diego
--- NOTE | 2022-04-20 09:16 | P.PNIM_ITS ---
Progress Note: A&P Assessment and Plan (1) Megaloblastic anemia: Code(s): D53.1 - Other megaloblastic anemias, not elsewhere classified Status: Acute (2) Thrombocytopenia: Code(s): D69.6 - Thrombocytopenia, unspecified Status: Acute Assessment and Plan: * Acute on chronic * platelets currently worsening 27->15->13. Most recently 2 units of platelets transfused 03/26/21 Transfuse single donor 2 units platelets * (3) CLL (chronic lymphocytic leukemia): Code(s): C91.10 - Chronic lymphocytic leukemia of B-cell type not having achieved remission Status: Acute Assessment and Plan: * Patient is undergoing treatment with Rituxan * Hematology-Oncology has been consulted * Was being treated with Rituxan outpatient with Dr. Acosta * continue to trend labs (4) CKD (chronic kidney disease) stage 3, GFR 30-59 ml/min: Code(s): N18.30 - Chronic kidney disease, stage 3 unspecified Status: Acute Assessment and Plan: Creatinine in the 1.2-1.3 went which appear to be are baseline. Avoid nephrotoxic medication. Monitor electrolytes. (5) Paroxysmal atrial fibrillation: Code(s): I48.0 - Paroxysmal atrial fibrillation Status: Acute Assessment and Plan: * Rate controlled * continue home metoprolol 12.5 mg q.12 * Trend rate * adjust medications as needed (6) GERD (gastroesophageal reflux disease): Code(s): K21.9 - Gastro-esophageal reflux disease without esophagitis Status: Chronic Assessment and Plan: * Continue PPI (7) Parkinson's disease: Code(s): G20 - Parkinson's disease Status: Chronic Assessment and Plan: * Continue carbidopa levodopa * PT OT (8) Hypothyroid: Code(s): E03.9 - Hypothyroidism, unspecified Status: Chronic Assessment and Plan: * Continue levothyroxine (9) CHF (congestive heart failure): Code(s): I50.9 - Heart failure, unspecified Status: Acute Assessment and Plan: * Currently asymptomatic; patient is a able to lay flat. Avoid fluid overload. Monitor respiratory status. Patchy infiltrate on chest x-ray suggests bilateral pneumonia. Antibiotics were ordered. (10) Leukocytosis: Code(s): D72.829 - Elevated white blood cell count, unspecified Status: Acute Assessment and Plan: * Likely related to heal her pneumonia; may be sequela of CLL. (11) Hypertension: Code(s): I10 - Essential (primary) hypertension Status: Acute Assessment and Plan: * BP 145/50 * Continue losartan and hydrochlorothiazide, and metoprolol * (12) Healthcare-associated pneumonia: Code(s): J18.9 - Pneumonia, unspecified organism Status: Acute Assessment and Plan: Patient will really started on ceftriaxone and azithromycin on admission. Continue same regimen. Time Spent With Patient Time with patient: 15 - 25 minutes Subjective Date/time seen: 04/20/22 18:32 Interval history: Narrative: Diana Castano is a 86 year old female with history of chronic lymphocytic leukemia diagnosed in 2013 and hypogammaglobulinemia.? She came into the hospital with generalized weakness.? She is a [facility] assisted living resident.? She was tested positive for COVID week prior to the ER visit.?
[2022-04-20 09:18] LABS: Platelet Estimate Decreased (Adequate)
[2022-04-20 09:19] LABS: Anisocytosis 2+ (NORMAL); Hypochromasia 2+ (NORMAL); Schistocytes None Seen (NORMAL)
--- NOTE | 2022-04-20 09:51 | PC.NURSE ---
Breakfast tray ordered.
[2022-04-20 10:10] LABS: Platelet Count Result 13 k/mm3 (150-375)
[2022-04-20] MEDS: ALBUTEROL SULFATE NEB 2.5 MG/3 ML INH 5 MG INHALATION ×3 (10:13→20:00)
[2022-04-20] MEDS: IPRATROPIUM BR 0.02% INH SOLN 0.5 MG/2.5 ML VIAL INHALATION ×3 (10:13→20:00)
[2022-04-20 10:47] LABS: Uric Acid 5.4 mg/dL (2.5-7.5)
[2022-04-20 11:10] LABS: Alanine Aminotransferase 14 U/L (6-35); Albumin Level 3.5 g/dL (3.5-5.1); Alkaline Phosphatase 66 U/L (38-126); Anion Gap 9 mmol/L (8-16); Bilirubin,Total 1.2 mg/dL (0.2-1.3); Blood Urea Nitrogen 34 mg/dL (7-17); Carbon Dioxide 21 mmol/L (22-30); Chloride 109 mmol/L (98-107); Estimated CRCL calculation 26 ml/min; Estimated Glomerular Filt Rate 39; Glucose 191 mg/dL (65-110); Potassium 3.7 mmol/L (3.4-5.0); Sodium 139 mmol/L (137-145)
[2022-04-20 11:12] LABS: Aspartate Amino Transferase 22 U/L (14-36)
--- NOTE | 2022-04-20 12:10 | PC.NURSE ---
Dr. Win made the two consults he ordered, GI and Hematology on 04.19.22 at 2220 per his report.
[2022-04-20] MEDS: FAMOTIDINE 20 MG/2 ML VIAL IV PUSH ×2 (13:38→22:21)
--- NOTE | 2022-04-20 13:40 | PC.NURSE ---
pt. given Heart health tray with ensure supplement
--- NOTE | 2022-04-20 16:14 | PDONCCN ---
HPI - Date of Consult Date/Time: 04/20/22 16:14 Requesting Physician: Jasmyne Espinal DO Primary Care Provider: Stephen Acosta MD - Consult Narrative Reason for consult: Chronic lymphocytic leukemia Narrative: Diana Castano is a 86 year old female with history of chronic lymphocytic leukemia diagnosed in 2013 and hypogammaglobulinemia. She came into the hospital with generalized weakness. She is a [facility] assisted living resident. She was tested positive for COVID week prior to the ER visit. She has been getting more forgetful. She denies any bleeding including melena hematochezia. Patient was noted to have black diarrheal stool in the ER and guaiac was positive. Patient received last weekly treatment with Rituxan in June 2021 due to worsening of thrombocytopenia and anemia. Plan was to restart another round of Rituxan due to worsening of thrombocytopenia and anemia as she was evaluated last in March 12, 2022 in the office. Rituxan was not approved by her insurance. She was also getting vitamin B12 injection at a monthly basis as assisted living. Review of Systems - Review of Systems All systems reviewed & are unremarkable except as noted in HPI and [facility] Medical History: Medical History (Last Updated 04/20/22 @ 04:38 by Jasmyne Espinal DO) Aortic atherosclerosis Arthritis Chronic anemia CKD (chronic kidney disease) stage 4, GFR 15-29 ml/min CLL (chronic lymphocytic leukemia) DDD (degenerative disc disease) Depression DJD (degenerative joint disease) Essential hypertension Generalized anxiety disorder GERD (gastroesophageal reflux disease) Gout HLD (hyperlipidemia) Hypothyroid Lewy body dementia Osteoporosis Parkinson's disease Peripheral neuropathy Pleural abscess Pneumonia Port-A-Cath in place Pure hypercholesterolemia, unspecified 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 Tuberculosis Ulcer Urge incontinence UTI (urinary tract infection) Surgical History: Surgical History (Last Updated 04/20/22 @ 04:38 by Jasmyne Espinal DO) H/O bilateral cataract extraction History of total hysterectomy with bilateral salpingo-oophorectomy (BSO) Family History: Family History (Last Reviewed 04/20/22 @ 04:38 by Jasmyen Espinal DO) Father Heart failure Mother Unknown family medical history - Social History Social History: Social History (Last Updated 04/20/22 @ 04:54 by Jasmyne Espinal DO) Gender Identity: Gender identity (if verbalized by the patient): Female Alcohol Use: Alcohol intake: unknown Substance Use: Substance use: unknown Substance use type: does not use Others: Spiritual care concerns: No Smoking Status: Smoking status: Never smoker Second hand tobacco smoke exposure: No Social Determinants of Health: Has the Lack of Transportation Kept You From Medical Appointments or From Getting Medications?: No Within the Past 12 Months, Were You Worried Whether Your Food Would Run Out Before You Got Money to Buy More?: Never True What is Your Housing Situation Today?: I Have Housing Are You Worried That in the Next 2 Months, You May Not Have Your Own Housing to Live In?: No Do You Have Trouble Paying Your Heating Or Electricity Bill?: No Do You Have Trouble Paying For Medicines?: No Are You Currently Unemployed and Looking for Work?: No Highest Level of Education Completed: High School Diploma/GED Do You Have Trouble With Childcare or the Care of a Family Member?: No Exam - Vital Signs Vital Signs - 24 hr 04/19/22 21:01 04/19/22 21:28 04/19/22 21:29 Temperature 36.8 C Pulse Rate 75 69 Respiratory Rate 24 H Blood Pressure 164/37 H Pulse Oximetry 95 99 Oxygen Delivery Room Air Nasal Cannula Oxygen Flow Rate 2 04/20/22 00:24 04/20/22 00:33 04/20/22 00:43 Temperature 37.6 C H 37.6 C H 37.7 C H Pulse Rate 70 68 70 Respiratory Rate 28 H 38 H 4
--- NOTE | 2022-04-20 16:53 | ADMGEN ---
This patient, Diana Castano, was admitted to IMU Room 203-01. Patient/family oriented to hospital policies and general routines including ID bracelet, bed and alarms, visiting hours, pain management, procedures, bathroom and other care routines, personal items, smoking policy, room service/diet, and visiting hours. Information on how to activate the Rapid Response Team has been discussed. Patient/Family are encouraged to report perceived risks to care and to ask questions if they do not understand what they are told or what they should do.
[2022-04-20 17:04] LABS: Hematocrit 21.6 % (37.0-47.0); Hemoglobin 7.2 g/dL (12.0-15.0)
[2022-04-20] MEDS: CENTRAL LINE FLUSH 10 ML IV PUSH ×2 (17:12→21:56)
[2022-04-20 19:28] LABS: Immature Platelet Fraction Pct 3.5 % (0.9-11.2); Platelet Count Result 42 k/mm3 (150-375)
[2022-04-20] MEDS: methylPREDNISolone SOD SUCC 125 MG VIAL IV PUSH (21:56)
[2022-04-21] VITALS (30 sets, daily range): BP systolic 141–156; BP diastolic 40–89; PULSE 60–85; RESP 14–26; TEMP 36.1–36.8; O2SAT 95–98
[2022-04-21] MEDS: IPRATROPIUM BR 0.02% INH SOLN 0.5 MG/2.5 ML VIAL INHALATION ×4 (03:05→20:53)
[2022-04-21] MEDS: ALBUTEROL SULFATE NEB 2.5 MG/3 ML INH 5 MG INHALATION ×4 (03:05→20:53)
[2022-04-21] MEDS: DOXYCYCLINE 100 MG/NS 100 ML 100 MG/100 ML BAG IVPB ×2 (05:35→17:31)
[2022-04-21] MEDS: methylPREDNISolone SOD SUCC 125 MG VIAL IV PUSH ×3 (05:37→21:52)
[2022-04-21] MEDS: CENTRAL LINE FLUSH 10 ML IV PUSH ×3 (05:38→21:52)
[2022-04-21 06:07] LABS: Mean Corpuscular HGB Conc 32.2 g/dl (32-36); Mean Corpuscular Hemoglobin 32.5 pg (26-34); Mean Platelet Volume 10.3 fl (7.4-10.4); Platelet Count Result 33 k/mm3 (150-375); Red Blood Count 2.03 M/mm3 (4.2-5.4); Red Cell Distribution Width 26.9 % (11.5-14.5); White Blood Count 8.5 K/mm3 (4.5-10.0)
[2022-04-21 06:18] LABS: Hemoglobin 6.6 g/dL (12.0-15.0)
[2022-04-21 06:19] LABS: Hematocrit 20.5 % (37.0-47.0); INR 1.3; Prothrombin Time 15.4 Seconds (11.1-14.7)
[2022-04-21 06:24] LABS: Alanine Aminotransferase 18 U/L (6-35); Anion Gap 8 mmol/L (8-16); Blood Urea Nitrogen 44 mg/dL (7-17); Calcium 8.3 mg/dL (8.4-10.2); Carbon Dioxide 23 mmol/L (22-30); Chloride 108 mmol/L (98-107); Estimated CRCL calculation 26 ml/min; Estimated Glomerular Filt Rate 39; Glucose 170 mg/dL (65-110); Potassium 3.7 mmol/L (3.4-5.0); Sodium 139 mmol/L (137-145)
--- NOTE | 2022-04-21 08:23 | P.PNIM_ITS ---
Progress Note: A&P Assessment and Plan (1) Megaloblastic anemia: Code(s): D53.1 - Other megaloblastic anemias, not elsewhere classified Status: Acute Assessment and Plan: severe microcytic normochromic anemia with hemoglobin at 6.6 today. Plan to transfuse 1 unit PRBC today. Repeat CBC after transfusion. (2) Thrombocytopenia: Code(s): D69.6 - Thrombocytopenia, unspecified Status: Acute Assessment and Plan: * Acute on chronic * platelets currently Improving 13-> 42->33. Most recently 2 units of platelets transfused 04/20/2022. Transfuse single donor 1 units platelets if platelets less than 30. * (3) CLL (chronic lymphocytic leukemia): Code(s): C91.10 - Chronic lymphocytic leukemia of B-cell type not having achieved remission Status: Acute Assessment and Plan: * Patient is undergoing treatment with Rituxan * Hematology-Oncology has been consulted * Was being treated with Rituxan outpatient with Dr. Acosta . Did not receive her last dose of Rituxan due to Insurance denial. * continue to trend labs . Interestingly white count normal at 8.5 today. (4) CKD (chronic kidney disease) stage 3, GFR 30-59 ml/min: Code(s): N18.30 - Chronic kidney disease, stage 3 unspecified Status: Acute Assessment and Plan: Creatinine in the 1.2-1.3 went which appear to be are baseline. Avoid nephrotoxic medication. Monitor electrolytes. (5) Paroxysmal atrial fibrillation: Code(s): I48.0 - Paroxysmal atrial fibrillation Status: Acute Assessment and Plan: * Rate controlled * continue home metoprolol 12.5 mg q.12 * Trend rate * adjust medications as needed (6) GERD (gastroesophageal reflux disease): Code(s): K21.9 - Gastro-esophageal reflux disease without esophagitis Status: Chronic Assessment and Plan: * Continue PPI (7) Parkinson's disease: Code(s): G20 - Parkinson's disease Status: Chronic Assessment and Plan: * Continue carbidopa levodopa * PT OT (8) Hypothyroid: Code(s): E03.9 - Hypothyroidism, unspecified Status: Chronic Assessment and Plan: * Continue levothyroxine Supplementation. (9) CHF (congestive heart failure): Code(s): I50.9 - Heart failure, unspecified Status: Acute Assessment and Plan: * Currently asymptomatic; patient is a able to lay flat. Avoid fluid overload. Monitor respiratory status. Patchy infiltrate on chest x-ray suggests bilateral pneumonia. Continue ceftriaxone and Zithromax. (10) Leukocytosis: Code(s): D72.829 - Elevated white blood cell count, unspecified Status: Acute Assessment and Plan: Resolved. (11) Hypertension: Code(s): I10 - Essential (primary) hypertension Status: Acute Assessment and Plan: * BP Moderately controlled. 141/47-156/79 * Continue losartan and hydrochlorothiazide, and metoprolol * (12) Healthcare-associated pneumonia: Code(s): J18.9 - Pneumonia, unspecified organism Status: Acute Assessment and Plan: continue ceftriaxone and azithromycin on admission. Time Spent With Patient Time with patient: 15 - 25 minutes Subjective Date/time seen: 04/21/22 08:23 Interval history: Patient was seen
--- NOTE | 2022-04-21 08:23 | PM.IMPN ---
Progress Note: A&P Assessment and Plan (1) Megaloblastic anemia: Code(s): D53.1 - Other megaloblastic anemias, not elsewhere classified Status: Acute Assessment and Plan: severe microcytic normochromic anemia with hemoglobin at 6.6 today. Plan to transfuse 1 unit PRBC today. Repeat CBC after transfusion. (2) Thrombocytopenia: Code(s): D69.6 - Thrombocytopenia, unspecified Status: Acute Assessment and Plan: Acute on chronic platelets currently Improving 13-> 42->33. Most recently 2 units of platelets transfused 04/20/2022. Transfuse single donor 1 units platelets if platelets less than 30. (3) CLL (chronic lymphocytic leukemia): Code(s): C91.10 - Chronic lymphocytic leukemia of B-cell type not having achieved remission Status: Acute Assessment and Plan: Patient is undergoing treatment with Rituxan Hematology-Oncology has been consulted Was being treated with Rituxan outpatient with Dr. Acosta . Did not receive her last dose of Rituxan due to Insurance denial. continue to trend labs . Interestingly white count normal at 8.5 today. (4) CKD (chronic kidney disease) stage 3, GFR 30-59 ml/min: Code(s): N18.30 - Chronic kidney disease, stage 3 unspecified Status: Acute Assessment and Plan: Creatinine in the 1.2-1.3 went which appear to be are baseline. Avoid nephrotoxic medication. Monitor electrolytes. (5) Paroxysmal atrial fibrillation: Code(s): I48.0 - Paroxysmal atrial fibrillation Status: Acute Assessment and Plan: Rate controlled continue home metoprolol 12.5 mg q.12 Trend rate adjust medications as needed (6) GERD (gastroesophageal reflux disease): Code(s): K21.9 - Gastro-esophageal reflux disease without esophagitis Status: Chronic Assessment and Plan: Continue PPI (7) Parkinson's disease: Code(s): G20 - Parkinson's disease Status: Chronic Assessment and Plan: Continue carbidopa levodopa PT OT (8) Hypothyroid: Code(s): E03.9 - Hypothyroidism, unspecified Status: Chronic Assessment and Plan: Continue levothyroxine Supplementation. (9) CHF (congestive heart failure): Code(s): I50.9 - Heart failure, unspecified Status: Acute Assessment and Plan: Currently asymptomatic; patient is a able to lay flat. Avoid fluid overload. Monitor respiratory status. Patchy infiltrate on chest x-ray suggests bilateral pneumonia. Continue ceftriaxone and Zithromax. (10) Leukocytosis: Code(s): D72.829 - Elevated white blood cell count, unspecified Status: Acute Assessment and Plan: Resolved. (11) Hypertension: Code(s): I10 - Essential (primary) hypertension Status: Acute Assessment and Plan: BP Moderately controlled. 141/47-156/79 Continue losartan and hydrochlorothiazide, and metoprolol (12) Healthcare-associated pneumonia: Code(s): J18.9 - Pneumonia, unspecified organism Status: Acute Assessment and Plan: continue ceftriaxone and azithromycin on admission. Time Spent With Patient Time with patient: 15 - 25 minutes Subjective Date/time seen: 04/21/22 08:23 Interval history: Patient was seen examined at bedside. She looks very weak. She denies any complaints. Review of Systems Review of Systems: ROS unobtainable: Yes unobtainable due to medical condition and unobtainable due to mental status Exam Narrative: Weight 63.6 kg BMI 23.3 Const: Other: Acutely ill-appearing, elderly, respiratory distress HENMT: Other: Mucous membranes are dry, tongue is peeling and cracked Eyes: Other: Pupils are equal and reactive, marked conjunctival pallor, mild scleral icterus Neck: Other: Supple, nontender, trachea midline Resp: Other: Coarse breath sounds
[2022-04-21] MEDS: SODIUM CHLORIDE 0.9% IV 250 ML 30 ML IV CONT ×2 (08:42→12:17)
[2022-04-21] MEDS: TUBING, BLOOD PLUM PUMP TUBING 1 EACH XX (08:43)
[2022-04-21] MEDS: FAMOTIDINE 20 MG/2 ML VIAL IV PUSH ×2 (08:43→21:51)
[2022-04-21] MEDS: REMDESIVIR 100 MG/NS 250 ML 100 MG/250 ML BAG 250 MG IVPB (08:47)
--- NOTE | 2022-04-21 11:05 | WPDGICN ---
Assessment and Plan Assessment and plan (1) Acute on chronic anemia: Code(s): D64.9 - Anemia, unspecified Status: Acute Assessment and Plan: I think anemia could be from underlying CLL and hematological condition, also severe thrombocytopenia (patient did not get rituxan because insurance denial) I prefer conservative approach since she had respiratory symptoms with covid, will be risky to undergo anesthesia monitor for any obvious sign of bleeding (RN says that no BM since arrival) trend h/h hem-oncology on board (2) COVID: Code(s): U07.1 - COVID-19 Status: Acute Assessment and Plan: by primary team (3) Thrombocytopenia: Code(s): D69.6 - Thrombocytopenia, unspecified Status: Acute Assessment and Plan: this probably also is driving anemia (4) CLL (chronic lymphocytic leukemia): Code(s): C91.10 - Chronic lymphocytic leukemia of B-cell type not having achieved remission Status: Acute (5) Dementia: Code(s): F03.90 - Unspecified dementia, unspecified severity, without behavioral disturbance, psychotic disturbance, mood disturbance, and anxiety Status: Chronic (6) Dark stools: Code(s): R19.5 - Other fecal abnormalities Status: Acute GI Consult Note Consult date/time: 04/21/22 11:05 Reason for consult: acute on chronic anemia, CLL HPI: Diana Castano is a 86 year old female with history of chronic lymphocytic leukemia diagnosed in 2013 and hypogammaglobulinemia seeing hematology-oncology. Also history of Parkinson, dementia from a local alf. History is obtained from records because she can not participate in history due to confusion. She also was tested positive for COVID few days ago. Dr Acosta saw her in March 12, 2022 in the office when noticed worsening thrombocytopenia and anemia, he ordered Rituxan however was not approved by her insurance. She came here with worsening anemia, fatigue, cough and more shortness of breath, also noted dark stool but she is on iron. She has not had any bowel movement since admission based on nurse.?She received Decadron and Remdesivir because of COVID and respiratory status. Review of Systems Review of Systems: ROS unobtainable: Yes unobtainable due to mental status PMFSH Past Medical History Medical History (Updated 04/21/22 @ 11:11 by Tone Xiao MD) Acute on chronic anemia Aortic atherosclerosis Arthritis Chronic anemia CKD (chronic kidney disease) stage 4, GFR 15-29 ml/min CLL (chronic lymphocytic leukemia) COVID Dark stools DDD (degenerative disc disease) Depression DJD (degenerative joint disease) Essential hypertension Generalized anxiety disorder GERD (gastroesophageal reflux disease) Gout HLD (hyperlipidemia) Hypothyroid Lewy body dementia Osteoporosis Parkinson's disease Peripheral neuropathy Pleural abscess Pneumonia Port-A-Cath in place Pure hypercholesterolemia, unspecified 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. Diana Stallworth is her child who is the durable power immigration attorney for healthcare. She never smoked. Code status: DNR/DNI Smoking status: Never smoker Second hand tobacco smoke exposure: No Alcohol intake: unknown Substance use: unknown Substance use type: does not use Lack of Transportation: No Lack of Food: Never True
[2022-04-21 15:25] LABS: Basophils Percent Auto 0.1 % (0.2-1.2); Hematocrit 29.8 % (37.0-47.0); Hemoglobin 10.1 g/dL (12.0-15.0); Immature Granulocyte Absolute 0.01 K/mm3 (0.00-0.031); Immature Granulocyte Percent A 0.1 % (0-0.5); Immature Platelet Fraction Pct 3.5 % (0.9-11.2); Lymphocytes Absolute Auto 11.08 K/mm3 (0.9-3.2); Lymphocytes Percent Auto 88.8 % (18.3-44.2); Mean Corpuscular HGB Conc 33.9 g/dl (32-36); Mean Corpuscular Hemoglobin 32.6 pg (26-34); Mean Corpuscular Volume 96.1 fl (80-100); Mean Platelet Volume 10.1 fl (7.4-10.4); Monocytes Percent Auto 7.9 % (2.6-8.5); Neutrophils Absolute Auto 0.4 K/mm3 (1.3-6.7); Neutrophils Percent Auto 3.1 % (45.5-73.1); Platelet Count Result 37 k/mm3 (150-375); Red Cell Distribution Width 23.9 % (11.5-14.5); White Blood Count 12.5 K/mm3 (4.5-10.0)
[2022-04-22] VITALS (20 sets, daily range): BP systolic 142–154; BP diastolic 49–76; PULSE 68–100; RESP 18–28; TEMP 36.2–36.9; O2SAT 90–97
[2022-04-22] MEDS: ALBUTEROL SULFATE NEB 2.5 MG/3 ML INH 5 MG INHALATION ×4 (02:26→21:41)
[2022-04-22] MEDS: IPRATROPIUM BR 0.02% INH SOLN 0.5 MG/2.5 ML VIAL INHALATION ×4 (02:26→21:41)
[2022-04-22] MEDS: DOXYCYCLINE 100 MG/NS 100 ML 100 MG/100 ML BAG IVPB ×2 (06:33→17:35)
[2022-04-22] MEDS: methylPREDNISolone SOD SUCC 125 MG VIAL IV PUSH ×3 (06:33→21:09)
[2022-04-22] MEDS: CENTRAL LINE FLUSH 10 ML IV PUSH ×3 (06:34→21:09)
[2022-04-22 06:48] LABS: Hematocrit 28.8 % (37.0-47.0); Hemoglobin 9.7 g/dL (12.0-15.0); Immature Platelet Fraction Pct 4.4 % (0.9-11.2); Mean Corpuscular HGB Conc 33.7 g/dl (32-36); Mean Corpuscular Hemoglobin 31.6 pg (26-34); Mean Corpuscular Volume 93.8 fl (80-100); Mean Platelet Volume 10.3 fl (7.4-10.4); Red Blood Count 3.07 M/mm3 (4.2-5.4); Red Cell Distribution Width 24.2 % (11.5-14.5); White Blood Count 9.8 K/mm3 (4.5-10.0)
[2022-04-22 06:53] LABS: Platelet Count Result 25 k/mm3 (150-375)
[2022-04-22 06:56] LABS: INR 1.3; Prothrombin Time 15.5 Seconds (11.1-14.7)
[2022-04-22 07:10] LABS: Alanine Aminotransferase 24 U/L (6-35); Anion Gap 10 mmol/L (8-16); Blood Urea Nitrogen 49 mg/dL (7-17); Calcium 8.4 mg/dL (8.4-10.2); Carbon Dioxide 19 mmol/L (22-30); Chloride 113 mmol/L (98-107); Estimated CRCL calculation 28 ml/min; Estimated Glomerular Filt Rate 43; Glucose 179 mg/dL (65-110); Potassium 3.5 mmol/L (3.4-5.0); Sodium 142 mmol/L (137-145)
[2022-04-22 08:31] LABS: Phosphorus 4.8 mg/dL (2.5-4.5)
[2022-04-22] MEDS: POTASSIUM CHLORIDE 20 MEQ PACKET (FOR LIQUID) PO (08:34)
[2022-04-22] MEDS: FAMOTIDINE 20 MG/2 ML VIAL IV PUSH (08:34)
[2022-04-22] MEDS: REMDESIVIR 100 MG/NS 250 ML 100 MG/250 ML BAG 250 MG IVPB (09:58)
--- NOTE | 2022-04-22 13:37 | WPDGIPROGNO ---
Progress Note: A&P Assessment and Plan (1) Acute on chronic anemia: Code(s): D64.9 - Anemia, unspecified Status: Acute Assessment and Plan: probably multifactorial and from underlying CLL (also thrombocytopenia) continue medical treatment, iv protonix conservative treatment unless obvious overt GIB (2) Thrombocytopenia: Code(s): D69.6 - Thrombocytopenia, unspecified Status: Acute Assessment and Plan: hematology on board (3) Dark stools: Code(s): R19.5 - Other fecal abnormalities Status: Acute Assessment and Plan: continue to monitor iv protonix (4) CLL (chronic lymphocytic leukemia): Code(s): C91.10 - Chronic lymphocytic leukemia of B-cell type not having achieved remission Status: Acute (5) COVID: Code(s): U07.1 - COVID-19 Status: Acute Assessment and Plan: on supportive care and s/p remdesivir (6) Healthcare-associated pneumonia: Code(s): J18.9 - Pneumonia, unspecified organism Status: Acute (7) Dementia: Code(s): F03.90 - Unspecified dementia, unspecified severity, without behavioral disturbance, psychotic disturbance, mood disturbance, and anxiety Status: Chronic Subjective Date/time seen: 04/22/22 13:37 Interval history: she is participating more in conversation but she is confused and poor historian, she is eating. No overt gib per nurse Review of Systems Review of Systems: All systems reviewed & are unremarkable except as noted in HPI and below Exam Const: Other: Acutely ill-appearing, elderly, more comfortable today HENMT: Other: Mucous membranes are dry Eyes: Other: Pupils are equal and reactive Neck: Other: Supple, nontender Resp: Other: more clear today, no distress Cardio: Other: Regular rate, regular rhythm GI: Other: Soft, nontender, nondistended, positive bowel sounds : Other: Incontinent of urine Skin: Other: no jaundice Neuro: Other: Alert oriented to self, exam limited due to the patient's severe hearing loss,confused Extrem: Other: No cyanosis, no clubbing Psych: Other: Pleasantly confused, cooperative Objective Data Vital Signs Vital Signs: Vital Signs - 24 hr 04/21/22 14:16 04/21/22 14:43 04/21/22 15:02 Temperature 98.2 F Pulse Rate 73 73 74 Respiratory Rate 18 20 20 Blood Pressure 148/62 H Pulse Oximetry 95 Oxygen Delivery 04/21/22 16:00 04/21/22 14:00 04/21/22 16:00 Temperature 97 F L Pulse Rate 74 75 75 Respiratory Rate 26 H Blood Pressure 153/50 H Pulse Oximetry 97 Oxygen Delivery 04/21/22 16:00 04/21/22 18:00 04/21/22 20:00 Temperature 98.0 F Pulse Rate 69 75 77 Respiratory Rate 22 H 22 H Blood Pressure 151/57 H Pulse Oximetry 95 95 Oxygen Delivery Room Air 04/21/22 20:53 04/21/22 20:55 04/21/22 21:09 Temperature Pulse Rate 70 72 Respiratory Rate 18 18 Blood Pressure Pulse Oximetry 95 Oxygen Delivery Room Air 04/21/22 20:00 04/21/22 20:00 04/21/22 22:00 Temperature Pulse Rate 72 79 84 Respiratory Rate 18 Blood Pressure Pulse Oximetry 95 Oxygen Delivery Room Air 04/22/22 00:00 04/22/22 00:00 04/22/22 00:00 Temperature 98.2 F Pulse Rate 83 83 73 Respiratory Rate 18 20 Blood Pressure 143/65 H Pulse Oximetry 95 95 Oxygen Delivery Room Air 04/22/22 02:26 04/22/22 02:39 04/22/22 02:00 Temperature Pulse Rate 71 73 79 Respiratory Rate 18 18 Blood Pressure Pulse Oximetry Oxygen Delivery 04/22/22 04:00 04/22/22 04:00 04/22/22 04:00 Temperature 98.5 F Pulse Rate 74 74 77 Respiratory Rate 18 20 Blood Pressure 154/51 H Pulse Oximetry 95 95 Oxygen Delivery Room Air 04/22/22 06:00 04/22/22 07:46 04/22/22 08:02 Temperature Pulse Rate 76 78 79 Respiratory Rate 24 H 24 H Blood Pressure Pulse Oximetry Oxygen Delivery 04/22/22 08:00 04/22/22 08:00 04/22/22 08:00
--- NOTE | 2022-04-22 13:47 | P.PNIM_ITS ---
Progress Note: A&P Assessment and Plan (1) Megaloblastic anemia: Code(s): D53.1 - Other megaloblastic anemias, not elsewhere classified Status: Acute Assessment and Plan: severe microcytic normochromic anemia with hemoglobin at 6.6 today. Plan to transfuse 1 unit PRBC today. Repeat CBC after transfusion. (2) Thrombocytopenia: Code(s): D69.6 - Thrombocytopenia, unspecified Status: Acute Assessment and Plan: * Acute on chronic * platelets currently Improving 13-> 42->33. Most recently 2 units of platelets transfused 04/20/2022. Transfuse single donor 1 units platelets if platelets less than 30. * (3) CLL (chronic lymphocytic leukemia): Code(s): C91.10 - Chronic lymphocytic leukemia of B-cell type not having achieved remission Status: Acute Assessment and Plan: * Patient is undergoing treatment with Rituxan * Hematology-Oncology has been consulted * Was being treated with Rituxan outpatient with Dr. Acosta . Did not receive her last dose of Rituxan due to Insurance denial. * continue to trend labs . Interestingly white count normal at 8.5 today. (4) CKD (chronic kidney disease) stage 3, GFR 30-59 ml/min: Code(s): N18.30 - Chronic kidney disease, stage 3 unspecified Status: Acute Assessment and Plan: Creatinine in the 1.2-1.3 went which appear to be are baseline. Avoid nephrotoxic medication. Monitor electrolytes. (5) Paroxysmal atrial fibrillation: Code(s): I48.0 - Paroxysmal atrial fibrillation Status: Acute Assessment and Plan: * Rate controlled * continue home metoprolol 12.5 mg q.12 * Trend rate * adjust medications as needed (6) GERD (gastroesophageal reflux disease): Code(s): K21.9 - Gastro-esophageal reflux disease without esophagitis Status: Chronic Assessment and Plan: * Continue PPI (7) Parkinson's disease: Code(s): G20 - Parkinson's disease Status: Chronic Assessment and Plan: * Continue carbidopa levodopa * PT OT (8) Hypothyroid: Code(s): E03.9 - Hypothyroidism, unspecified Status: Chronic Assessment and Plan: * Continue levothyroxine Supplementation. (9) CHF (congestive heart failure): Code(s): I50.9 - Heart failure, unspecified Status: Acute Assessment and Plan: * Currently asymptomatic; patient is a able to lay flat. Avoid fluid overload. Monitor respiratory status. Patchy infiltrate on chest x-ray suggests bilateral pneumonia. Continue ceftriaxone and Zithromax. (10) Leukocytosis: Code(s): D72.829 - Elevated white blood cell count, unspecified Status: Acute Assessment and Plan: Resolved. (11) Hypertension: Code(s): I10 - Essential (primary) hypertension Status: Acute Assessment and Plan: * BP Moderately controlled. 141/47-156/79 * Continue losartan and hydrochlorothiazide, and metoprolol * (12) Healthcare-associated pneumonia: Code(s): J18.9 - Pneumonia, unspecified organism Status: Acute Assessment and Plan: continue ceftriaxone and azithromycin on admission. Subjective Date/time seen: 04/22/22 13:47 Breathing better. No chest pain. Exam Narrative: Weight 63.6 kg BMI 23.3 C
--- NOTE | 2022-04-22 13:47 | PM.IMPN ---
Progress Note: A&P Assessment and Plan (1) Megaloblastic anemia: Code(s): D53.1 - Other megaloblastic anemias, not elsewhere classified Status: Acute Assessment and Plan: severe microcytic normochromic anemia with hemoglobin at 6.6 today. Plan to transfuse 1 unit PRBC today. Repeat CBC after transfusion. (2) Thrombocytopenia: Code(s): D69.6 - Thrombocytopenia, unspecified Status: Acute Assessment and Plan: Acute on chronic platelets currently Improving 13-> 42->33. Most recently 2 units of platelets transfused 04/20/2022. Transfuse single donor 1 units platelets if platelets less than 30. (3) CLL (chronic lymphocytic leukemia): Code(s): C91.10 - Chronic lymphocytic leukemia of B-cell type not having achieved remission Status: Acute Assessment and Plan: Patient is undergoing treatment with Rituxan Hematology-Oncology has been consulted Was being treated with Rituxan outpatient with Dr. Acosta . Did not receive her last dose of Rituxan due to Insurance denial. continue to trend labs . Interestingly white count normal at 8.5 today. (4) CKD (chronic kidney disease) stage 3, GFR 30-59 ml/min: Code(s): N18.30 - Chronic kidney disease, stage 3 unspecified Status: Acute Assessment and Plan: Creatinine in the 1.2-1.3 went which appear to be are baseline. Avoid nephrotoxic medication. Monitor electrolytes. (5) Paroxysmal atrial fibrillation: Code(s): I48.0 - Paroxysmal atrial fibrillation Status: Acute Assessment and Plan: Rate controlled continue home metoprolol 12.5 mg q.12 Trend rate adjust medications as needed (6) GERD (gastroesophageal reflux disease): Code(s): K21.9 - Gastro-esophageal reflux disease without esophagitis Status: Chronic Assessment and Plan: Continue PPI (7) Parkinson's disease: Code(s): G20 - Parkinson's disease Status: Chronic Assessment and Plan: Continue carbidopa levodopa PT OT (8) Hypothyroid: Code(s): E03.9 - Hypothyroidism, unspecified Status: Chronic Assessment and Plan: Continue levothyroxine Supplementation. (9) CHF (congestive heart failure): Code(s): I50.9 - Heart failure, unspecified Status: Acute Assessment and Plan: Currently asymptomatic; patient is a able to lay flat. Avoid fluid overload. Monitor respiratory status. Patchy infiltrate on chest x-ray suggests bilateral pneumonia. Continue ceftriaxone and Zithromax. (10) Leukocytosis: Code(s): D72.829 - Elevated white blood cell count, unspecified Status: Acute Assessment and Plan: Resolved. (11) Hypertension: Code(s): I10 - Essential (primary) hypertension Status: Acute Assessment and Plan: BP Moderately controlled. 141/47-156/79 Continue losartan and hydrochlorothiazide, and metoprolol (12) Healthcare-associated pneumonia: Code(s): J18.9 - Pneumonia, unspecified organism Status: Acute Assessment and Plan: continue ceftriaxone and azithromycin on admission. Subjective Date/time seen: 04/22/22 13:47 Breathing better. No chest pain. Exam Narrative: Weight 63.6 kg BMI 23.3 Const: Other: Acutely ill-appearing, elderly, respiratory distress HENMT: Other: Mucous membranes are dry, tongue is peeling and cracked Eyes: Other: Pupils are equal and reactive, marked conjunctival pallor, mild scleral icterus Neck: Other: Supple, nontender, trachea midline Resp: Other: Coarse breath sounds with diffuse wheezing, respiratory rate 30 to 40, accessory muscle use, frequent cough Cardio: Other: Regular rate, regular rhythm, distant heart sounds GI: Other: Soft, nontender, nondistended, positive bowel sounds : Other: Incontinent of urine Skin: Other:
[2022-04-23] VITALS (28 sets, daily range): BP systolic 130–172; BP diastolic 40–93; PULSE 58–140; RESP 16–35; TEMP 36.2–36.6; O2SAT 92–97
--- NOTE | 2022-04-23 00:31 | ECG_ITS ---
Measurements Intervals Carlotta Rate: 78 P: 37 AL: 140 QRS: 25 QRSD: 86 T: 53 QT: 413 QTc: 471 Interpretive Statements SINUS RHYTHM NORMAL ECG COMPARED TO ECG 04/19/2022 21:17:00 NO SIGNIFICANT CHANGES Electronically Signed On 04-23-2022 16:50:16 TASTE TESTER by Bo Fleming M.D.
[2022-04-23] MEDS: METOPROLOL TARTRATE 12.5 MG TABLET PO ×3 (00:56→22:11)
[2022-04-23] MEDS: IPRATROPIUM BR 0.02% INH SOLN 0.5 MG/2.5 ML VIAL INHALATION ×4 (03:00→20:07)
[2022-04-23] MEDS: ALBUTEROL SULFATE NEB 2.5 MG/3 ML INH 5 MG INHALATION ×4 (03:00→20:08)
[2022-04-23] MEDS: DOXYCYCLINE 100 MG/NS 100 ML 100 MG/100 ML BAG IVPB ×2 (05:22→18:16)
[2022-04-23] MEDS: methylPREDNISolone SOD SUCC 125 MG VIAL IV PUSH ×3 (05:22→22:11)
[2022-04-23] MEDS: CENTRAL LINE FLUSH 10 ML IV PUSH ×3 (05:23→22:12)
[2022-04-23] MEDS: LEVOTHYROXINE SODIUM 50 MCG TABLET PO (05:23)
[2022-04-23 05:39] LABS: Hemoglobin 9.2 g/dL (12.0-15.0); Immature Platelet Fraction Pct 5.4 % (0.9-11.2); Mean Corpuscular HGB Conc 32.9 g/dl (32-36); Mean Corpuscular Hemoglobin 32.3 pg (26-34); Mean Corpuscular Volume 98.2 fl (80-100); Mean Platelet Volume 10.7 fl (7.4-10.4); Red Blood Count 2.85 M/mm3 (4.2-5.4); Red Cell Distribution Width 24.1 % (11.5-14.5); White Blood Count 4.8 K/mm3 (4.5-10.0)
[2022-04-23 05:44] LABS: Alanine Aminotransferase 25 U/L (6-35)
[2022-04-23 05:48] LABS: Platelet Count Result 20 k/mm3 (150-375)
[2022-04-23 05:51] LABS: INR 1.5; Prothrombin Time 17.3 Seconds (11.1-14.7)
[2022-04-23 05:56] LABS: Anion Gap 8 mmol/L (8-16); Blood Urea Nitrogen 51 mg/dL (7-17); Calcium 8.6 mg/dL (8.4-10.2); Carbon Dioxide 19 mmol/L (22-30); Chloride 116 mmol/L (98-107); Estimated CRCL calculation 31 ml/min; Estimated Glomerular Filt Rate 47; Glucose 240 mg/dL (65-110); Potassium 3.7 mmol/L (3.4-5.0); Sodium 143 mmol/L (137-145)
[2022-04-23] MEDS: allopurinoL 300 MG TABLET PO (08:16)
[2022-04-23] MEDS: SIMVASTATIN 20 MG TABLET 40 MG PO (08:16)
[2022-04-23] MEDS: SERTRALINE HCL 25 MG TABLET PO (08:16)
[2022-04-23] MEDS: FERROUS SULFATE 324 MG TABLET PO (08:17)
[2022-04-23] MEDS: PANTOPRAZOLE 40 MG TABLET PO (08:17)
[2022-04-23] MEDS: MULTIVITAMINS THERAPEUTIC TAB (*BKC) 1 TABLET PO (08:17)
[2022-04-23] MEDS: FUROSEMIDE 20 MG TABLET PO (08:19)
[2022-04-23] MEDS: CARBIDOPA/LEVODOPA 25/100 MG CR TABLET 1 TABLET PO ×3 (08:19→18:15)
--- NOTE | 2022-04-23 08:38 | WPDGIPROGNO ---
Progress Note: A&P Assessment and Plan (1) Acute on chronic anemia: Code(s): D64.9 - Anemia, unspecified Status: Acute Assessment and Plan: probably multifactorial and from underlying CLL (also thrombocytopenia) continue medical treatment, ok to switch to oral protonix conservative treatment unless obvious overt GIB h/h responded to blood transfusion will follow from [place], call if questions (2) Thrombocytopenia: Code(s): D69.6 - Thrombocytopenia, unspecified Status: Acute Assessment and Plan: hematology on board (3) Dark stools: Code(s): R19.5 - Other fecal abnormalities Status: Acute Assessment and Plan: continue to monitor on protonix (4) CLL (chronic lymphocytic leukemia): Code(s): C91.10 - Chronic lymphocytic leukemia of B-cell type not having achieved remission Status: Acute (5) COVID: Code(s): U07.1 - COVID-19 Status: Acute Assessment and Plan: on supportive care and s/p remdesivir (6) Healthcare-associated pneumonia: Code(s): J18.9 - Pneumonia, unspecified organism Status: Acute (7) Dementia: Code(s): F03.90 - Unspecified dementia, unspecified severity, without behavioral disturbance, psychotic disturbance, mood disturbance, and anxiety Status: Chronic Subjective Date/time seen: 04/23/22 08:39 Interval history: she has not had a BM, she is confused but eating breakfast, no report of GIB by industrial staff nurse Review of Systems Review of Systems: All systems reviewed & are unremarkable except as noted in HPI and below Exam Const: Other: comfortable, chronically ill appearing, elderly HENMT: Face/Nose/Sinus: Normal nares present Eyes: Other: Pupils are equal and reactive Neck: Other: Supple, nontender Resp: Other: no distress Cardio: Other: Regular rate, regular rhythm GI: Other: Soft, nontender, nondistended, positive bowel sounds : Other: Incontinent of urine Skin: Other: no jaundice Neuro: Other: Alert oriented to self, exam limited due to the patient's severe hearing loss,confused Extrem: Other: No cyanosis, no clubbing Psych: Other: Pleasantly confused, cooperative Objective Data Vital Signs Vital Signs: Vital Signs - 24 hr 04/22/22 10:00 04/22/22 12:00 04/22/22 12:00 Temperature Pulse Rate 79 69 Respiratory Rate Blood Pressure Pulse Oximetry Oxygen Delivery Room Air 04/22/22 12:00 04/22/22 13:21 04/22/22 13:34 Temperature 97.1 F L Pulse Rate 69 71 72 Respiratory Rate 28 H 24 H 24 H Blood Pressure 146/49 H Pulse Oximetry 96 Oxygen Delivery 04/22/22 14:00 04/22/22 16:00 04/22/22 16:00 Temperature 97.8 F Pulse Rate 70 74 Respiratory Rate 24 H Blood Pressure 149/76 H Pulse Oximetry 95 Oxygen Delivery Room Air 04/22/22 16:00 04/22/22 18:00 04/22/22 20:00 Temperature 97.7 F Pulse Rate 69 77 73 Respiratory Rate 20 Blood Pressure 142/68 H Pulse Oximetry 90 Oxygen Delivery 04/22/22 20:00 04/22/22 21:48 04/22/22 21:49 Temperature Pulse Rate 73 73 Respiratory Rate 20 18 Blood Pressure Pulse Oximetry 90 92 Oxygen Delivery Room Air Room Air 04/22/22 22:00 04/22/22 20:00 04/22/22 22:00 Temperature Pulse Rate 77 68 81 Respiratory Rate 18 Blood Pressure Pulse Oximetry Oxygen Delivery 04/23/22 00:00 04/23/22 00:00 04/23/22 00:56 Temperature 97.6 F Pulse Rate 134 H 139 H 66 Respiratory Rate 18 20 Blood Pressure 152/71 H Pulse Oximetry 92 94 Oxygen Delivery Room Air 04/23/22 00:00 04/23/22 00:30 04/23/22 02:00 Temperature Pulse Rate 140 H 78 80 Respiratory Rate Blood Pressure Pulse Oximetry Oxygen Delivery 04/23/22 03:04 04/23/22 03:20 04/23/22 04:00 Temperature Pulse Rate 82 71 71 Respiratory Rate 18 18 18 Blood Pressure Pulse Oximetry 94 Oxygen Delivery Room Air 04/23/22 04:00
[2022-04-23] MEDS: REMDESIVIR 100 MG/NS 250 ML 100 MG/250 ML BAG 250 MG IVPB (10:41)
--- NOTE | 2022-04-23 12:46 | PM.IMPN ---
Progress Note: A&P Assessment and Plan (1) Megaloblastic anemia: Code(s): D53.1 - Other megaloblastic anemias, not elsewhere classified Status: Acute Assessment and Plan: severe microcytic normochromic anemia with hemoglobin at 6.6 in past. Hemoglobin stable at 9.2 today. (2) Thrombocytopenia: Code(s): D69.6 - Thrombocytopenia, unspecified Status: Acute Assessment and Plan: Platelet count did drop again today. Transfuse 2units. Continue methylprednisolone. hematology following (3) CLL (chronic lymphocytic leukemia): Code(s): C91.10 - Chronic lymphocytic leukemia of B-cell type not having achieved remission Status: Acute Assessment and Plan: Patient is undergoing treatment with Rituxan Hematology-Oncology has been consulted Was being treated with Rituxan outpatient with Dr. Acosta . Did not receive her last dose of Rituxan due to Insurance denial. continue to trend labs . Monitor labs. (4) CKD (chronic kidney disease) stage 3, GFR 30-59 ml/min: Code(s): N18.30 - Chronic kidney disease, stage 3 unspecified Status: Acute Assessment and Plan: Creatinine 1.1. Stable. (5) Paroxysmal atrial fibrillation: Code(s): I48.0 - Paroxysmal atrial fibrillation Status: Acute Assessment and Plan: Rate controlled continue home metoprolol 12.5 mg q.12 Trend rate adjust medications as needed (6) GERD (gastroesophageal reflux disease): Code(s): K21.9 - Gastro-esophageal reflux disease without esophagitis Status: Chronic Assessment and Plan: Continue PPI (7) Parkinson's disease: Code(s): G20 - Parkinson's disease Status: Chronic Assessment and Plan: Continue carbidopa levodopa PT OT (8) Hypothyroid: Code(s): E03.9 - Hypothyroidism, unspecified Status: Chronic Assessment and Plan: Continue levothyroxine Supplementation. (9) CHF (congestive heart failure): Code(s): I50.9 - Heart failure, unspecified Status: Acute Assessment and Plan: Currently asymptomatic; patient is a able to lay flat. Avoid fluid overload. Monitor respiratory status. Patchy infiltrate on chest x-ray suggests bilateral pneumonia. Continue ceftriaxone and Zithromax. (10) Leukocytosis: Code(s): D72.829 - Elevated white blood cell count, unspecified Status: Acute Assessment and Plan: Resolved. (11) Hypertension: Code(s): I10 - Essential (primary) hypertension Status: Acute Assessment and Plan: BP Moderately controlled. 141/47-156/79 Continue losartan and hydrochlorothiazide, and metoprolol (12) Healthcare-associated pneumonia: Code(s): J18.9 - Pneumonia, unspecified organism Status: Acute Assessment and Plan: continue ceftriaxone and azithromycin on admission. Subjective Date/time seen: 04/23/22 12:46 No new complaints. Exam Narrative: Weight 63.6 kg BMI 23.3 Const: Other: Acutely ill-appearing, elderly, respiratory distress HENMT: Other: Mucous membranes are dry, tongue is peeling and cracked Eyes: Other: Pupils are equal and reactive, marked conjunctival pallor, mild scleral icterus Neck: Other: Supple, nontender, trachea midline Resp: Other: Coarse breath sounds with diffuse wheezing, respiratory rate 30 to 40, accessory muscle use, frequent cough Cardio: Other: Regular rate, regular rhythm, distant heart sounds GI: Other: Soft, nontender, nondistended, positive bowel sounds : Other: Incontinent of urine Skin: Other: Marked pallor, non jaundice, warm to touch Neuro: Other: Alert oriented to self, exam limited due to the patient's severe hearing loss, no obvious facial asymmetry, patient has difficulty following commands due to hearing loss Extrem: Other: No cyanosis, no
[2022-04-23] MEDS: TUBING, BLOOD PLUM PUMP TUBING 1 EACH XX (17:43)
[2022-04-23] MEDS: SODIUM CHLORIDE 0.9% IV 250 ML 30 ML IV CONT (17:43)
[2022-04-23] MEDS: DONEPEZIL HCL 10 MG TABLET PO (22:10)
[2022-04-24] VITALS (27 sets, daily range): BP systolic 108–160; BP diastolic 41–81; PULSE 52–89; RESP 16–24; TEMP 36.1–37.1; O2SAT 94–96
[2022-04-24] MEDS: IPRATROPIUM BR 0.02% INH SOLN 0.5 MG/2.5 ML VIAL INHALATION ×4 (01:53→20:00)
[2022-04-24] MEDS: ALBUTEROL SULFATE NEB 2.5 MG/3 ML INH 5 MG INHALATION ×4 (01:53→20:00)
[2022-04-24] MEDS: DOXYCYCLINE 100 MG/NS 100 ML 100 MG/100 ML BAG IVPB ×2 (05:48→18:18)
[2022-04-24] MEDS: CENTRAL LINE FLUSH 10 ML IV PUSH ×3 (05:49→20:20)
[2022-04-24] MEDS: methylPREDNISolone SOD SUCC 125 MG VIAL IV PUSH ×3 (05:49→22:12)
[2022-04-24] MEDS: LEVOTHYROXINE SODIUM 50 MCG TABLET PO (05:49)
[2022-04-24 06:05] LABS: Hematocrit 29.5 % (37.0-47.0); Hemoglobin 9.5 g/dL (12.0-15.0); Immature Granulocyte Absolute 0.01 K/mm3 (0.00-0.031); Immature Granulocyte Percent A 0.1 % (0-0.5); Immature Platelet Fraction Pct 5.6 % (0.9-11.2); Lymphocytes Absolute Auto 6.24 K/mm3 (0.9-3.2); Lymphocytes Percent Auto 91.1 % (18.3-44.2); Mean Corpuscular HGB Conc 32.2 g/dl (32-36); Mean Corpuscular Hemoglobin 32.1 pg (26-34); Mean Corpuscular Volume 99.7 fl (80-100); Mean Platelet Volume 11.8 fl (7.4-10.4); Monocytes Absolute Auto 0.1 K/mm3 (0.1-0.6); Monocytes Percent Auto 1.5 % (2.6-8.5); Neutrophils Absolute Auto 0.5 K/mm3 (1.3-6.7); Neutrophils Percent Auto 7.3 % (45.5-73.1); Platelet Count Result 38 k/mm3 (150-375); Red Blood Count 2.96 M/mm3 (4.2-5.4); White Blood Count 6.9 K/mm3 (4.5-10.0)
[2022-04-24 06:13] LABS: INR 1.5; Prothrombin Time 17.3 Seconds (11.1-14.7)
[2022-04-24 06:14] LABS: Alanine Aminotransferase 13 U/L (6-35); Anion Gap 8 mmol/L (8-16); Blood Urea Nitrogen 53 mg/dL (7-17); Calcium 8.9 mg/dL (8.4-10.2); Carbon Dioxide 22 mmol/L (22-30); Chloride 115 mmol/L (98-107); Estimated CRCL calculation 26 ml/min; Estimated Glomerular Filt Rate 47; Glucose 201 mg/dL (65-110); Potassium 4.6 mmol/L (3.4-5.0); Sodium 145 mmol/L (137-145)
[2022-04-24 06:54] LABS: Anisocytosis 1+ (NORMAL); Atypical Lymphocytes Present; Macrocytosis 2+ (NORMAL); Platelet Estimate Decreased (Adequate); Schistocytes None Seen (NORMAL)
[2022-04-24 06:55] LABS: Ovalocytes 1+ (NORMAL)
[2022-04-24 07:00] LABS: Poikilocytosis 1+ (NORMAL)
[2022-04-24] MEDS: SIMVASTATIN 20 MG TABLET 40 MG PO (09:40)
[2022-04-24] MEDS: PANTOPRAZOLE 40 MG TABLET PO (09:41)
[2022-04-24] MEDS: SERTRALINE HCL 25 MG TABLET PO (09:41)
[2022-04-24] MEDS: MULTIVITAMINS THERAPEUTIC TAB (*BKC) 1 TABLET PO (09:42)
[2022-04-24] MEDS: FUROSEMIDE 20 MG TABLET PO (09:42)
[2022-04-24] MEDS: METOPROLOL TARTRATE 12.5 MG TABLET PO ×2 (09:42→20:19)
[2022-04-24] MEDS: FERROUS SULFATE 324 MG TABLET PO (09:43)
[2022-04-24] MEDS: CARBIDOPA/LEVODOPA 25/100 MG CR TABLET 1 TABLET PO ×3 (09:43→17:28)
[2022-04-24] MEDS: allopurinoL 300 MG TABLET PO (09:43)
[2022-04-24] MEDS: REMDESIVIR 100 MG/NS 250 ML 100 MG/250 ML BAG 250 MG IVPB (10:11)
[2022-04-24 10:42] LABS: Haptoglobin 163 mg/dL (43-212)
--- NOTE | 2022-04-24 10:51 | P.PNIM_ITS ---
Progress Note: A&P Assessment and Plan (1) Megaloblastic anemia: Code(s): D53.1 - Other megaloblastic anemias, not elsewhere classified Status: Acute Assessment and Plan: severe microcytic normochromic anemia with hemoglobin at 6.6 in past. Hemoglobin stable today. (2) Thrombocytopenia: Code(s): D69.6 - Thrombocytopenia, unspecified Status: Acute Assessment and Plan: Platelet count did drop again today. Transfuse 2units. Continue methylprednisolone. hematology following (3) CLL (chronic lymphocytic leukemia): Code(s): C91.10 - Chronic lymphocytic leukemia of B-cell type not having achieved remission Status: Acute Assessment and Plan: * Patient is undergoing treatment with Rituxan * Hematology-Oncology has been consulted * Was being treated with Rituxan outpatient with Dr. Acosta . Did not receive her last dose of Rituxan due to Insurance denial. * continue to trend labs . Monitor labs. (4) CKD (chronic kidney disease) stage 3, GFR 30-59 ml/min: Code(s): N18.30 - Chronic kidney disease, stage 3 unspecified Status: Acute Assessment and Plan: Creatinine 1.1. Stable. (5) Paroxysmal atrial fibrillation: Code(s): I48.0 - Paroxysmal atrial fibrillation Status: Acute Assessment and Plan: * Rate controlled * continue home metoprolol 12.5 mg q.12 * Trend rate * adjust medications as needed (6) GERD (gastroesophageal reflux disease): Code(s): K21.9 - Gastro-esophageal reflux disease without esophagitis Status: Chronic Assessment and Plan: * Continue PPI (7) Parkinson's disease: Code(s): G20 - Parkinson's disease Status: Chronic Assessment and Plan: * Continue carbidopa levodopa * PT OT (8) Hypothyroid: Code(s): E03.9 - Hypothyroidism, unspecified Status: Chronic Assessment and Plan: * Continue levothyroxine Supplementation. (9) CHF (congestive heart failure): Code(s): I50.9 - Heart failure, unspecified Status: Acute Assessment and Plan: * Currently asymptomatic; patient is a able to lay flat. Avoid fluid overload. Monitor respiratory status. Patchy infiltrate on chest x-ray suggests bilateral pneumonia. Continue ceftriaxone and Zithromax. (10) Leukocytosis: Code(s): D72.829 - Elevated white blood cell count, unspecified Status: Acute Assessment and Plan: Resolved. (11) Hypertension: Code(s): I10 - Essential (primary) hypertension Status: Acute Assessment and Plan: * BP Moderately controlled. 141/47-156/79 * Continue losartan and hydrochlorothiazide, and metoprolol * (12) Healthcare-associated pneumonia: Code(s): J18.9 - Pneumonia, unspecified organism Status: Acute Assessment and Plan: continue ceftriaxone and azithromycin on admission. Subjective Date/time seen: 04/24/22 10:51 No New complaints Exam Narrative: Weight 63.6 kg BMI 23.3 Const: Other: Acutely ill-appearing, elderly, respiratory distress HENMT: Other: Mucous membranes are dry, tongue is peeling and cracked Eyes: Other: Pupils are equal and reactive, marked conjunctival pallor, mild scleral icterus Neck:
[2022-04-24 13:42] LABS: Heparin Induced Platelet Antib Negative (Negative)
[2022-04-24 17:18] LABS: Soluble Transferrin Receptor 2.06 mg/L (0.76-1.76)
[2022-04-24] MEDS: DONEPEZIL HCL 10 MG TABLET PO (20:19)
[2022-04-24] MEDS: traMADol HCL (*CRX) 50 MG TABLET PO (20:40)
--- NOTE | 2022-04-24 22:02 | PC.NURSE ---
This patient, Diana Castano, was transferred to [facility] from [facility] on 04/24/22 at 2100. Personal belongings sent with patient. Report given to VIRGINIA Glez. Appropriate documentation sent with patient.
--- NOTE | 2022-04-24 22:08 | PC.NURSE ---
2100 PT RECEIVED PER BED FROM IMU
[2022-04-25] VITALS (13 sets, daily range): BP systolic 137–148; BP diastolic 44–73; PULSE 62–124; RESP 16–24; TEMP 36.3–37.1; O2SAT 92–95
[2022-04-25] MEDS: IPRATROPIUM BR 0.02% INH SOLN 0.5 MG/2.5 ML VIAL INHALATION ×3 (02:14→22:22)
[2022-04-25] MEDS: ALBUTEROL SULFATE NEB 2.5 MG/3 ML INH 5 MG INHALATION ×3 (02:14→22:22)
[2022-04-25 04:54] LABS: Hematocrit 28.2 % (37.0-47.0); Hemoglobin 9.1 g/dL (12.0-15.0); Immature Platelet Fraction Pct 4.5 % (0.9-11.2); Mean Corpuscular HGB Conc 32.3 g/dl (32-36); Mean Corpuscular Hemoglobin 32.5 pg (26-34); Mean Corpuscular Volume 100.7 fl (80-100); Mean Platelet Volume 10.4 fl (7.4-10.4); Platelet Count Result 45 k/mm3 (150-375); Red Cell Distribution Width 23.6 % (11.5-14.5); White Blood Count 5.3 K/mm3 (4.5-10.0)
[2022-04-25 05:04] LABS: Anion Gap 8 mmol/L (8-16); Blood Urea Nitrogen 49 mg/dL (7-17); Calcium 8.8 mg/dL (8.4-10.2); Carbon Dioxide 21 mmol/L (22-30); Chloride 115 mmol/L (98-107); Estimated CRCL calculation 26 ml/min; Estimated Glomerular Filt Rate 47; Glucose 307 mg/dL (65-110); Potassium 4.4 mmol/L (3.4-5.0); Sodium 144 mmol/L (137-145)
[2022-04-25] MEDS: methylPREDNISolone SOD SUCC 125 MG VIAL IV PUSH ×3 (05:54→21:08)
[2022-04-25] MEDS: DOXYCYCLINE 100 MG/NS 100 ML 100 MG/100 ML BAG IVPB ×2 (05:55→17:32)
[2022-04-25] MEDS: CENTRAL LINE FLUSH 10 ML IV PUSH ×3 (05:55→21:09)
[2022-04-25] MEDS: LEVOTHYROXINE SODIUM 50 MCG TABLET PO (05:59)
[2022-04-25] MEDS: CARBIDOPA/LEVODOPA 25/100 MG CR TABLET 1 TABLET PO ×3 (08:33→17:32)
[2022-04-25] MEDS: FERROUS SULFATE 324 MG TABLET PO (08:33)
[2022-04-25] MEDS: FUROSEMIDE 20 MG TABLET PO (08:33)
[2022-04-25] MEDS: SIMVASTATIN 20 MG TABLET 40 MG PO (08:33)
[2022-04-25] MEDS: SERTRALINE HCL 25 MG TABLET PO (08:33)
[2022-04-25] MEDS: MULTIVITAMINS THERAPEUTIC TAB (*BKC) 1 TABLET PO (08:33)
[2022-04-25] MEDS: METOPROLOL TARTRATE 12.5 MG TABLET PO ×2 (08:33→21:06)
[2022-04-25] MEDS: allopurinoL 300 MG TABLET PO (08:33)
[2022-04-25] MEDS: PANTOPRAZOLE 40 MG TABLET PO (08:33)
--- NOTE | 2022-04-25 11:09 | PM.IMPN ---
Progress Note: A&P Assessment and Plan (1) Megaloblastic anemia: Code(s): D53.1 - Other megaloblastic anemias, not elsewhere classified Status: Acute Assessment and Plan: severe microcytic normochromic anemia with hemoglobin at 6.6 in past. Hemoglobin stable today. (2) Thrombocytopenia: Code(s): D69.6 - Thrombocytopenia, unspecified Status: Acute Assessment and Plan: Platelet count did drop again today. Transfuse 2units. Continue methylprednisolone. hematology following (3) CLL (chronic lymphocytic leukemia): Code(s): C91.10 - Chronic lymphocytic leukemia of B-cell type not having achieved remission Status: Acute Assessment and Plan: Patient is undergoing treatment with Rituxan Hematology-Oncology has been consulted Was being treated with Rituxan outpatient with Dr. Acosta . Did not receive her last dose of Rituxan due to Insurance denial. continue to trend labs . Monitor labs. (4) CKD (chronic kidney disease) stage 3, GFR 30-59 ml/min: Code(s): N18.30 - Chronic kidney disease, stage 3 unspecified Status: Acute Assessment and Plan: Creatinine 1.1. Stable. (5) Paroxysmal atrial fibrillation: Code(s): I48.0 - Paroxysmal atrial fibrillation Status: Acute Assessment and Plan: Rate controlled continue home metoprolol 12.5 mg q.12 Trend rate adjust medications as needed (6) GERD (gastroesophageal reflux disease): Code(s): K21.9 - Gastro-esophageal reflux disease without esophagitis Status: Chronic Assessment and Plan: Continue PPI (7) Parkinson's disease: Code(s): G20 - Parkinson's disease Status: Chronic Assessment and Plan: Continue carbidopa levodopa PT OT (8) Hypothyroid: Code(s): E03.9 - Hypothyroidism, unspecified Status: Chronic Assessment and Plan: Continue levothyroxine Supplementation. (9) CHF (congestive heart failure): Code(s): I50.9 - Heart failure, unspecified Status: Acute Assessment and Plan: Currently asymptomatic; patient is a able to lay flat. Avoid fluid overload. Monitor respiratory status. Patchy infiltrate on chest x-ray suggests bilateral pneumonia. Continue ceftriaxone and Zithromax. (10) Leukocytosis: Code(s): D72.829 - Elevated white blood cell count, unspecified Status: Acute Assessment and Plan: Resolved. (11) Hypertension: Code(s): I10 - Essential (primary) hypertension Status: Acute Assessment and Plan: BP Moderately controlled. 141/47-156/79 Continue losartan and hydrochlorothiazide, and metoprolol (12) Healthcare-associated pneumonia: Code(s): J18.9 - Pneumonia, unspecified organism Status: Acute Assessment and Plan: continue ceftriaxone and azithromycin on admission. Subjective Date/time seen: 04/25/22 11:09 Patient denies any new complaints Exam Narrative: Weight 63.6 kg BMI 23.3 Const: Other: Acutely ill-appearing, elderly, respiratory distress HENMT: Other: Mucous membranes are dry, tongue is peeling and cracked Eyes: Other: Pupils are equal and reactive, marked conjunctival pallor, mild scleral icterus Neck: Other: Supple, nontender, trachea midline Resp: Other: Coarse breath sounds with diffuse wheezing, respiratory rate 30 to 40, accessory muscle use, frequent cough Cardio: Other: Regular rate, regular rhythm, distant heart sounds GI: Other: Soft, nontender, nondistended, positive bowel sounds : Other: Incontinent of urine Skin: Other: Marked pallor, non jaundice, warm to touch Neuro: Other: Alert oriented to self, exam limited due to the patient's severe hearing loss, no obvious facial asymmetry, patient has difficulty following commands due to hearing loss Extrem: Other: No cyan
--- NOTE | 2022-04-25 16:05 | PDONCFUV ---
Follow Up Note - Date/Time 04/25/22 16:05 - Interval History CBC is stable on Steroids would consider d/c of steroids and follow plt count H&P - Exam - Vital Signs Vital Signs - 24 hr 04/24/22 16:20 04/24/22 16:50 04/24/22 17:50 Temperature 36.3 C L 36.4 C L 36.5 C Pulse Rate 66 64 63 Respiratory Rate 20 20 20 Blood Pressure 145/41 H 148/50 H 153/54 H Pulse Oximetry 96 96 94 Oxygen Delivery 04/24/22 20:19 04/24/22 20:00 04/24/22 20:00 Temperature Pulse Rate 74 74 88 Respiratory Rate 20 18 Blood Pressure Pulse Oximetry 94 Oxygen Delivery Room Air 04/24/22 20:15 04/24/22 20:00 04/25/22 02:13 Temperature Pulse Rate 89 67 Respiratory Rate 20 16 Blood Pressure 160/50 H Pulse Oximetry Oxygen Delivery 04/25/22 04:12 04/25/22 06:00 04/25/22 08:33 Temperature 36.3 C L Pulse Rate 70 124 H 70 Respiratory Rate 16 16 Blood Pressure 145/73 H Pulse Oximetry 95 Oxygen Delivery 04/25/22 08:46 04/25/22 08:40 04/25/22 09:42 Temperature 37.1 C Pulse Rate 68 65 Respiratory Rate 24 H 18 Blood Pressure 148/52 H Pulse Oximetry 95 Oxygen Delivery Room Air 04/25/22 10:06 04/25/22 15:27 04/25/22 15:24 Temperature 37.1 C Pulse Rate 67 62 Respiratory Rate 16 20 Blood Pressure 137/44 L Pulse Oximetry 95 Oxygen Delivery Room Air - Exam HEENT: EOMI Lungs: decrease breath sounds Abdomen: abdomen soft - Lab Results Laboratory Last Values WBC 5.3 K/mm3 (4.5-10.0) 04/25/22 04:42 RBC 2.80 M/mm3 (4.2-5.4) L 04/25/22 04:42 Hgb 9.1 g/dL (12.0-15.0) L 04/25/22 04:42 Hct 28.2 % (37.0-47.0) L 04/25/22 04:42 MCV 100.7 fl (80-100) H 04/25/22 04:42 MCH 32.5 pg (26-34) 04/25/22 04:42 MCHC 32.3 g/dl (32-36) 04/25/22 04:42 RDW 23.6 % (11.5-14.5) H 04/25/22 04:42 Plt Count 45 k/mm3 (150-375) L 04/25/22 04:42 MPV 10.4 fl (7.4-10.4) 04/25/22 04:42 Immature Gran % (Auto) 0.1 % (0-0.5) 04/24/22 05:47 Neut % (Auto) 7.3 % (45.5-73.1) L 04/24/22 05:47 Lymph % (Auto) 91.1 % (18.3-44.2) H 04/24/22 05:47 Davie % (Auto) 1.5 % (2.6-8.5) L 04/24/22 05:47 Eos % (Auto) 0.0 % (0-4.4) 04/24/22 05:47 Baso % (Auto) 0.0 % (0.2-1.2) L 04/24/22 05:47 Lymph # (Auto) 6.24 K/mm3 (0.9-3.2) H 04/24/22 05:47 Davie # (Auto) 0.1 K/mm3 (0.1-0.6) 04/24/22 05:47 Eos # (Auto) 0.0 K/mm3 (0-0.3) 04/24/22 05:47 Baso # (Auto) 0.0 K/mm3 (0.0-0.1) 04/24/22 05:47 Abs Immat Gran (auto) 0.01 K/mm3 (0.00-0.031) 04/24/22 05:47 Absolute Neuts (auto) 0.5 K/mm3 (1.3-6.7) L 04/24/22 05:47 Absolute Nucleated RBC 0.0 K/mm3 (0.0-0.012) 04/24/22 05:47 Nucleated RBC % 0.0 % (0.0-0.2) 04/24/22 05:47 Atypical Lymphocytes Present 04/24/22 05:47 Smudge Cells Present 04/19/22 21:06 Platelet Estimate Decreased (Adequate) 04/24/22 05:47 % Immature Plt Fraction 4.5 % (0.9-11.2) 04/25/22 04:42 Hypochromasia 2+ (NORMAL) 04/20/22 06:28 Poikilocytosis 1+ (NORMAL) 04/24/22 05:47 Anisocytosis 1+ (NORMAL) 04/24/22 05:47 Macrocytosis 2+ (NORMAL) 04/24/22 05:47 Ovalocytes 1+ (NORMAL) 04/24/22 05:47 Schistocytes None seen (NORMAL) 04/24/22 05:47 Haptoglobin 163 mg/dL (43-212) 04/19/22 23:13 PT 17.3 Seconds (11.1-14.7) H 04/24/22 05:47 INR 1.5 04/24/22 05:47 APTT 30.4 SECONDS (22.3-36.8) 04/19/22 21:06 Sodium 144 mmol/L (137-145) 04/25/22 04:42 Potassium 4.4 mmol/L (3.4-5.0) 04/25/22 04:42 Chloride 115 mmol/L (98-107) H 04/25/22 04:42 Carbon Dioxide 21 mmol/L (22-30) L 04/25/22 04:42 Anion Gap 8 mmol/L (8-16) 04/25/22 04:42 BUN 49 mg/dL (7-17) H 04/25/22 04:42 Creatinine 1.10 mg/dL (0.7-1.0) H 04/25/22 04:42 Estim Creat Clear Calc 26 ml/min 04/25/22 04:42 Estimate
[2022-04-25] MEDS: BENZONATATE 100 MG CAPSULE PO (17:52)
[2022-04-25] MEDS: DONEPEZIL HCL 10 MG TABLET PO (21:05)
[2022-04-25 23:52] LABS: Platelet Antibody, Direct IgG NEGATIVE (NEGATIVE)
[2022-04-26] VITALS (11 sets, daily range): BP systolic 129–152; BP diastolic 51–78; PULSE 64–98; RESP 16–23; TEMP 36.5–36.6; O2SAT 92–94
[2022-04-26] MEDS: BENZONATATE 100 MG CAPSULE PO (00:20)
[2022-04-26] MEDS: IPRATROPIUM BR 0.02% INH SOLN 0.5 MG/2.5 ML VIAL INHALATION ×3 (02:50→13:41)
[2022-04-26] MEDS: ALBUTEROL SULFATE NEB 2.5 MG/3 ML INH 5 MG INHALATION ×3 (02:50→13:41)
[2022-04-26] MEDS: DOXYCYCLINE 100 MG/NS 100 ML 100 MG/100 ML BAG IVPB ×2 (05:32→17:13)
[2022-04-26] MEDS: LEVOTHYROXINE SODIUM 50 MCG TABLET PO (05:33)
[2022-04-26] MEDS: methylPREDNISolone SOD SUCC 125 MG VIAL IV PUSH ×2 (05:33→13:14)
[2022-04-26] MEDS: CENTRAL LINE FLUSH 10 ML IV PUSH ×2 (05:33→13:15)
[2022-04-26] MEDS: SALINE LOCK FLUSH 2 ML IV PUSH (05:33)
[2022-04-26 05:37] LABS: Hematocrit 27.8 % (37.0-47.0); Immature Platelet Fraction Pct 5.1 % (0.9-11.2); Mean Corpuscular HGB Conc 32.4 g/dl (32-36); Mean Corpuscular Hemoglobin 32.3 pg (26-34); Mean Corpuscular Volume 99.6 fl (80-100); Mean Platelet Volume 10.7 fl (7.4-10.4); Platelet Count Result 32 k/mm3 (150-375); Red Blood Count 2.79 M/mm3 (4.2-5.4); Red Cell Distribution Width 23.1 % (11.5-14.5); White Blood Count 4.9 K/mm3 (4.5-10.0)
[2022-04-26 05:46] LABS: Anion Gap 3 mmol/L (8-16); Blood Urea Nitrogen 40 mg/dL (7-17); Calcium 8.4 mg/dL (8.4-10.2); Carbon Dioxide 24 mmol/L (22-30); Chloride 108 mmol/L (98-107); Estimated CRCL calculation 37 ml/min; Estimated Glomerular Filt Rate 60; Glucose 271 mg/dL (65-110); Sodium 135 mmol/L (137-145)
[2022-04-26] MEDS: allopurinoL 300 MG TABLET PO (10:03)
[2022-04-26] MEDS: PANTOPRAZOLE 40 MG TABLET PO (10:04)
[2022-04-26] MEDS: METOPROLOL TARTRATE 12.5 MG TABLET PO (10:04)
[2022-04-26] MEDS: MULTIVITAMINS THERAPEUTIC TAB (*BKC) 1 TABLET PO (10:04)
[2022-04-26] MEDS: FERROUS SULFATE 324 MG TABLET PO (10:05)
[2022-04-26] MEDS: CARBIDOPA/LEVODOPA 25/100 MG CR TABLET 1 TABLET PO ×3 (10:06→16:22)
[2022-04-26] MEDS: SERTRALINE HCL 25 MG TABLET PO (10:06)
[2022-04-26] MEDS: SIMVASTATIN 20 MG TABLET 40 MG PO (10:06)
[2022-04-26] MEDS: FUROSEMIDE 20 MG TABLET PO (10:06)
--- NOTE | 2022-04-26 12:39 | PCNFU ---
Nutrition Follow-Up Complete: Increased Energy Needs as related to COVID + as evidenced by energy needs 1500. Meet estimanted nutritional needs - progressing toward goal Goal: Pt current nutrition is heart healthy diet. Average intakes 50%. Ensure Compact ordered BID. Nutrition recommendation: Continue current diet and supplement orders. Agree with orders Last recorded weight is 72 kg. Bowel Motility: +1 BM 04/25 Labs Reviewed: Hgb 9.0, Hct 27.8, Na 135, BUN 40, Glu 179-271 Meds Noted: Rocephin, Lasix, protonix, Solumedrol (steroid induced hyperglycemia) Skin: WNL Additional Notes: Intakes have improved to 50-75% Will monitor every 5 days.
--- NOTE | 2022-04-26 12:43 | PM.DS ---
DS: Admitting Diagnosis Discharge Date April 26, 2022 Admitting Diagnosis Pneumonia, ITP DS: Discharge Diagnosis Discharge Diagnosis (1) Megaloblastic anemia: Code(s): D53.1 - Other megaloblastic anemias, not elsewhere classified Status: Acute Assessment and Plan: severe microcytic normochromic anemia with hemoglobin at 6.6 in past. Hemoglobin stable today. (2) Thrombocytopenia: Code(s): D69.6 - Thrombocytopenia, unspecified Status: Acute Assessment and Plan: Platelet count did drop again today. Transfuse 2units. Continue methylprednisolone. hematology following (3) CLL (chronic lymphocytic leukemia): Code(s): C91.10 - Chronic lymphocytic leukemia of B-cell type not having achieved remission Status: Acute Assessment and Plan: Patient is undergoing treatment with Rituxan Hematology-Oncology has been consulted Was being treated with Rituxan outpatient with Dr. Acosta . Did not receive her last dose of Rituxan due to Insurance denial. continue to trend labs . Monitor labs. (4) CKD (chronic kidney disease) stage 3, GFR 30-59 ml/min: Code(s): N18.30 - Chronic kidney disease, stage 3 unspecified Status: Acute Assessment and Plan: Creatinine 1.1. Stable. (5) Paroxysmal atrial fibrillation: Code(s): I48.0 - Paroxysmal atrial fibrillation Status: Acute Assessment and Plan: Rate controlled continue home metoprolol 12.5 mg q.12 Trend rate adjust medications as needed (6) GERD (gastroesophageal reflux disease): Code(s): K21.9 - Gastro-esophageal reflux disease without esophagitis Status: Chronic Assessment and Plan: Continue PPI (7) Parkinson's disease: Code(s): G20 - Parkinson's disease Status: Chronic Assessment and Plan: Continue carbidopa levodopa PT OT (8) Hypothyroid: Code(s): E03.9 - Hypothyroidism, unspecified Status: Chronic Assessment and Plan: Continue levothyroxine Supplementation. (9) CHF (congestive heart failure): Code(s): I50.9 - Heart failure, unspecified Status: Acute Assessment and Plan: Currently asymptomatic; patient is a able to lay flat. Avoid fluid overload. Monitor respiratory status. Patchy infiltrate on chest x-ray suggests bilateral pneumonia. Continue ceftriaxone and Zithromax. (10) Leukocytosis: Code(s): D72.829 - Elevated white blood cell count, unspecified Status: Acute Assessment and Plan: Resolved. (11) Hypertension: Code(s): I10 - Essential (primary) hypertension Status: Acute Assessment and Plan: BP Moderately controlled. 141/47-156/79 Continue losartan and hydrochlorothiazide, and metoprolol (12) Healthcare-associated pneumonia: Code(s): J18.9 - Pneumonia, unspecified organism Status: Acute Assessment and Plan: continue ceftriaxone and azithromycin on admission. DS: Summary Hospital Course Hospital Course: Patient is a 6-year-old female came in with pneumonia anemia and low platelet count. Oncology and Hematology were consulted recommended treatment for ITP. She will be discharged on prednisone taper. Will need follow-up with Hematology-Oncology. Otherwise she treated for 7 days of doxy and ceftriaxone for pneumonia. She did have a drop in hemoglobin required transfusion hemoglobin has remained stable. No GI workup recommended Time Spent with Patient Time attestation: Total time spent providing and/or coordinating discharge services: Exam Narrative: Weight 63.6 kg BMI 23.3 Const: Other: Acutely ill-appearing, elderly, respiratory distress HENMT: Other: Mucous membranes are dry, tongue is peeling and cracked Eyes: Other: Pupils are equal and reactive, marked conjunctival pallor, mild scleral icterus Neck:
--- NOTE | 2022-04-26 14:42 | PCOTNOTE ---
Attempted occupational therapy evaluation, patient refused at this time. RN notified and reports she is being discharged around 18:00. Following.
== END 2022-04-26 19:10 | DRG 811 ==
LOC: ANHED 22:25 → ANHIMU 04-20 16:11 → ANH2MED 04-26 12:43 → ANHIMU 04-27 12:19
PROVIDERS: Emergency Medicine; Internal Medicine; Admitting Provider Internal Medicine; Emergency Provider Emergency Medicine; PCP Internal Medicine Hematology & Oncology; Visit Provider Chiropractor
DX: D53.1 Other megaloblastic anemias, not elsewhere classified (principal); J18.9 Pneumonia, unspecified organism; U07.1 COVID-19; C91.10 Chronic lymphocytic leukemia of B-cell type not having achieved remission; I13.0 Hypertensive heart and chronic kidney disease with heart failure and stage 1 through stage 4 chronic kidney disease, or unspecified chronic kidney disease; D80.1 Nonfamilial hypogammaglobulinemia; D63.0 Anemia in neoplastic disease; D69.6 Thrombocytopenia, unspecified; I48.0 Paroxysmal atrial fibrillation; I50.9 Heart failure, unspecified; N18.30 Chronic kidney disease, stage 3 unspecified; E80.6 Other disorders of bilirubin metabolism; E78.00 Pure hypercholesterolemia, unspecified; I70.0 Atherosclerosis of aorta; L27.1 Localized skin eruption due to drugs and medicaments taken internally; T36.3X5A Adverse effect of macrolides, initial encounter; E78.5 Hyperlipidemia, unspecified; E03.9 Hypothyroidism, unspecified; K21.9 Gastro-esophageal reflux disease without esophagitis; M10.9 Gout, unspecified; M19.90 Unspecified osteoarthritis, unspecified site; M81.0 Age-related osteoporosis without current pathological fracture; Y95 Nosocomial condition; G62.9 Polyneuropathy, unspecified; G20 Parkinson's disease; G31.83 Neurocognitive disorder with Lewy bodies; F02.80 Dementia in other diseases classified elsewhere, unspecified severity, without behavioral disturbance, psychotic disturbance, mood disturbance, and anxiety; F32.A Depression, unspecified; F41.1 Generalized anxiety disorder; Z86.11 Personal history of tuberculosis
CPT/HCPCS: 36415; 36430; 71045; 80048; 80053; 82607; 83010; 83540; 83615; 83735; 84100; 84238; 84460; 84550; 85014; 85018; 85025; 85027; 85049; 85055; 85610; 85730; 86022; 86023; 86850; 86880; 86900; 86901; 86923; 87636; 93005; 94640; 97161; 99285; A9270; J0248; J0456; J0696; J1100; J1642; J1940; J2930; J7040; J7050; P9016; P9034; U0003; U0005

== ENCOUNTER 2022-04-27 11:08 | Inpatient (IN) | payer OTHER, SELFPAY ==
[2022-04-27] VITALS (13 sets, daily range): BP systolic 122–141; BP diastolic 49–72; PULSE 62–67; RESP 15–34; TEMP 36–36.4; O2SAT 95–100; BMI 29.5
--- NOTE | ~2022-04-27 | CT_ITS ---
CT Abdomen and Pelvis with contrast. History: Abdominal pain. Spiral CT of the abdomen and pelvis was performed after the administration of intravenous contrast. 1 00 cc of Omnipaque 350 was administered intravenously without complication. Dose reduction technique was used on this scan by utilizing automated exposure control and iterative reconstruction technique. The dose-length product (DLP) was 831.40 mGy-cm. COMPARISON: 12/30/2018 Findings: Scans through the lung bases demonstrate partially imaged [id number] left pleural ef fusion with left basilar atelectatic change. The liver, pancreas, adrenals and kidneys are within normal limits. Small gallstones are present. Spl een is enlarged, several probable small inferior splenic cysts. No evidence of aortic aneurysm. No l ymphadenopathy is seen. There is no evidence of bowel obstruction. There is no evidence to suggest acute appendicitis or dive rticulitis. Images through the pelvis were performed. Urinary bladder unremarkable. Patient is post hysterectomy. No pelvic mass identified. Trace free fluid present in the pelvis. No ascites is seen. Impression: [id number] left pleural effusion with left basilar atelectatic change. Splenomegaly, similar to prior exam. Cholelithiasis. Trace ascites. Reviewed, dictated and finalized at location . ICATION MANAGER Impression: [id number] left pleural effusion with left basilar atelectatic change. Splenomegaly, similar to prior exam. Cholelithiasis. Trace ascites.
--- NOTE | ~2022-04-27 | CT_ITS ---
EXAMINATION: CT brain wo con DATE: 04/27/2022 13:23 INDICATION: Altered mental status. TECHNIQUE: Computed tomography (CT) of the head was performed without intravenous contrast. Sagittal and coronal reconstructions were performed. The mA was adjusted according to patient size. Iterative reconstruction technique was employed. The dose-length product was 605.33 mGy-cm. COMPARISON: head CT and brain MR dated 08/02/2018 FINDINGS: No interval change in size of a 2.1 x 1.3 x 1.1 cm extra-axial dural based mass overlying the anterio r left frontal lobe which is of high attenuation in the adjacent fischer matter and most consistent with a meningioma. There is moderate scattered white matter hypoattenuation consistent with chronic small vessel ischemic disease. No acute intracranial hemorrhage, acute infarction or abnormal extra axial fluid collection. Symmetric prominence of the sulci and ventricles consistent with mild age-appropri ate diffuse cerebral volume loss. Changes of bilateral intraocular lens replacement. The orbits and m astoid air cells are normal. Mucosal thickening throughout the paranasal sinuses with dependently lay ering air-fluid levels in the right maxillary, bilateral sphenoid and bilateral ethmoid sinuses consi stent with acute sinusitis. Intracranial calcified cerebral atherosclerosis is noted. IMPRESSION: 1. No acute intracranial process. 2. No interval change in a 2.1 x 1.3 x 1.1 cm extra-axial dural based mass overlying the anterior lef t frontal lobe most consistent with a meningioma. 3. Chronic age-related changes including mild diffuse volume loss and moderate scattered white matter hypoattenuation consistent with chronic small vessel ischemic disease. 4. Dependently layering fluid throughout the paranasal sinuses which can be seen with acute sinusitis . Reviewed, dictated and finalized at location A. OENGRAVING APPRENTICE IMPRESSION: 1. No acute intracranial process. 2. No interval change in a 2.1 x 1.3 x 1.1 cm extra-axial dural based mass over lying the anterior left frontal lobe most consistent with a meningioma. 3. Chronic age-related changes including mild diffuse volume loss and moderate scattered white matter hypoattenuation consistent with chronic small vessel isc hemic disease. 4. Dependently layering fluid throughout the paranasal sinuses which can be see n with acute sinusitis.
--- NOTE | ~2022-04-27 | XR_ITS ---
EXAMINATION: XR chest 1V portable DATE: 04/27/2022 14:02 INDICATION: Pneumonia. Cough. TECHNIQUE: A single frontal view of the chest was obtained. COMPARISON: Chest single view 04/21/2022, CT abdomen and pelvis 04/27/2022 FINDINGS: There are airspace opacities in the mid and lower lung zones. There is a small left pleural effusion. No pneumothorax. Cardiomegaly is noted. There is a left internal jugular port with tip at superior cavoatrial junction. IMPRESSION: 1. Small left pleural effusion. 2. Airspace opacities in the mid and lower lung zones, consistent with atelectasis versus pneumonia. 3. Cardiomegaly. Reviewed, dictated and finalized at location A. Y DEPARTMENT MANAGER IMPRESSION: 1. Small left pleural effusion. 2. Airspace opacities in the mid and lower lung zones, consistent with atelecta sis versus pneumonia. 3. Cardiomegaly.
--- NOTE | 2022-04-27 11:15 | ECG_ITS ---
Measurements Intervals [place] Rate: 65 P: 43 FL: 140 QRS: 34 QRSD: 89 T: 59 QT: 413 QTc: 431 Interpretive Statements SINUS RHYTHM NORMAL ELECTROCARDIOGRAM COMPARED TO ECG 04/23/2022 00:31:25 NO SIGNIFICANT CHANGES Electronically Signed On 04-27-2022 14:59:19 SURVEY COORDINATOR by Adria Chavarria M.D.
--- NOTE | 2022-04-27 11:29 | ED.AMS ---
HPI - Altered Mental Status General Chief Complaint: Altered Mental Status <Mirna Dukes PA-C - Last Filed: 04/27/22 16:43> Stated Complaint: multiple complaints <Mirna Dukes PA-C - Last Filed: 04/27/22 16:43> Time Seen by Provider: 04/27/22 11:17 <Mirna Dukes PA-C - Last Filed: 04/27/22 16:43> History of Present Illness HPI narrative: Patient is a 86-year-old female with a history of CLL, recent hospitalization for pneumonia and ITP here for evaluation from [facility] for altered mental status, cough, and abdominal pain. Patient states that the symptoms began after she was discharged from the hospital. She states her abdominal pain is in her lower abdomen, denies history of previous similar sensation, although she is a poor historian. She is being treated for pneumonia as an outpatient with antibiotics. She is also being treated for ITP with steroids and is scheduled to follow-up with hematology. Patient is currently ANO x2, unclear what her baseline is. <Mirna Dukes PA-C - Last Filed: 04/27/22 16:43> Related Data Home Medications: Home Medications Medication Instructions Recorded Confirmed acetaminophen 650 mg 650 mg PO Q4H PRN Pain 02/16/19 04/27/22 tablet,extended release carbidopa ER 50 mg-levodopa 200 mg 1 tablet PO TID 02/16/19 04/27/22 tablet,extended release ondansetron HCl 4 mg tablet 4 mg PO Q6H PRN Nausea And Vomiting 02/16/19 04/27/22 levothyroxine 50 mcg capsule 50 mcg PO DAILY 04/07/19 04/27/22 lidocaine-prilocaine 2.5 %-2.5 % 1 applic topical ONCE 04/07/19 04/27/22 topical cream ferrous sulfate 325 mg (65 mg 325 mg PO DAILY constipation 10/22/19 04/27/22 iron) tablet magnesium hydroxide 400 mg/5 mL 15 ml PO DAILY PRN Indigestion 11/02/19 04/27/22 oral suspension (Milk of Magnesia) multivitamin (Daily-Amy tablet) 1 tablet PO DAILY 11/02/19 04/27/22 polyvinyl alcohol 1.4 % eye drops 1 drp ophthalmic (eye) TID PRN Dry 11/02/19 04/27/22 (Artificial Tears (polyvinyl Eyes alcohol)) sertraline 25 mg tablet 25 mg PO DAILY 11/02/19 04/27/22 donepezil 10 mg tablet 10 mg PO HS 03/27/21 04/27/22 cyanocobalamin (vitamin B-12) 1,000 mcg IM MONTHLY 04/22/22 04/27/22 1,000 mcg/mL injection solution Milk of Magnesia 15 ml PO DAILY 04/27/22 04/27/22 <Mirna Dukes PA-C - Last Filed: 04/27/22 16:43> Allergies/Adverse Reactions: Allergies Allergy/AdvReac Type Severity Reaction Status Date / Time quinapril Allergy Unknown Unknown Verified 04/27/22 11:22 rituximab AdvReac Intermediate Dyspnea / Verified 04/27/22 11:22 SOB cyclobenzaprine AdvReac Mild Unknown Verified 04/27/22 11:22 diclofenac AdvReac Mild Unknown Verified 04/27/22 11:22 zolpidem AdvReac Mild Unknown Verified 04/27/22 11:22 <Mirna Dukes PA-C - Last Filed: 04/27/22 16:43> Review of Systems Review of Systems: Gen.: Reports confusion. Denies fevers or chills Eyes: Denies eye pain or visual change ENT: Denies congestion Respiratory: Reports cough CV: Denies chest pain or palpitations GI: Reports abdominal pain. Denies nausea, emesis or diarrhea reports urinary urgency. Denies burning, urgency, frequency or hematuria Musculoskeletal: Denies back pain or muscle pain Neuro: Denies numbness, tingling, weakness or focal weakness Skin: Denies rash Except as documented, all other systems reviewed and negative <Mirna Dukes PA-C - Last Filed: 04/27/22 16:43> [facility] Past Medical History Medical History: Medical History (Updated 04/27/22 @ 13:53 by Mirna Dukes PA-C) Acute on chronic anemia Aortic atherosclerosis Arthritis Chronic anemia CKD (chronic kidney disease) stage 4, GFR 15-29 ml/min CLL (chronic lymphocytic leukemia) COVID Dark stools DDD (degenerative disc disease) Depression DJD (degenerative joint disease) Essential hypertension Generalized anxiety disorder GERD (gastroesophageal reflux di
[2022-04-27 12:32] LABS: Basophils Percent Auto 0.1 % (0.2-1.2); Hematocrit 30.7 % (37.0-47.0); Immature Granulocyte Absolute 0.06 K/mm3 (0.00-0.031); Immature Granulocyte Percent A 0.5 % (0-0.5); Lymphocytes Absolute Auto 9.36 K/mm3 (0.9-3.2); Mean Corpuscular HGB Conc 32.6 g/dl (32-36); Mean Corpuscular Hemoglobin 32.6 pg (26-34); Monocytes Absolute Auto 0.1 K/mm3 (0.1-0.6); Monocytes Percent Auto 0.9 % (2.6-8.5); Neutrophils Absolute Auto 1.6 K/mm3 (1.3-6.7); Neutrophils Percent Auto 14.5 % (45.5-73.1); Platelet Count Result 36 k/mm3 (150-375); Red Blood Count 3.07 M/mm3 (4.2-5.4); Red Cell Distribution Width 23.3 % (11.5-14.5); White Blood Count 11.1 K/mm3 (4.5-10.0)
[2022-04-27 12:40] LABS: Alanine Aminotransferase 11 U/L (6-35); Alkaline Phosphatase 44 U/L (38-126); Anion Gap 5 mmol/L (8-16); Aspartate Amino Transferase 23 U/L (14-36); Bilirubin,Total 1.7 mg/dL (0.2-1.3); Blood Urea Nitrogen 37 mg/dL (7-17); Calcium 8.5 mg/dL (8.4-10.2); Carbon Dioxide 26 mmol/L (22-30); Chloride 105 mmol/L (98-107); Estimated Glomerular Filt Rate 60; Glucose 137 mg/dL (65-110); Potassium 3.9 mmol/L (3.4-5.0); Sodium 136 mmol/L (137-145)
[2022-04-27 12:42] LABS: INR 1.3; Prothrombin Time 15.8 Seconds (11.1-14.7)
[2022-04-27 12:43] LABS: Partial Thromboplastin Time 23.2 SECONDS (22.3-36.8)
[2022-04-27 12:50] LABS: Anisocytosis 1+ (NORMAL); Ovalocytes 1+ (NORMAL); Platelet Estimate Decreased (Adequate); Schistocytes None Seen (NORMAL)
[2022-04-27 12:54] LABS: Add Urine Microscopic? YES; Appearance Urine Clear (Clear); Bilirubin Urine Negative (Negative); Blood Urine 3+ (Negative); Color Urine Yellow (Yellow); Glucose Urine UA Negative (Negative); Ketones Urine Negative (Negative); Leukocyte Esterase Ur Negative LEU/UL (Negative); Nitrate Urine Negative (Negative); Protein Urine 2+ mg/dL (Negative); Urobilinogen Urine 0.2 mg/dL (<2.0); pH Urine 5.5 (5.0-9.0)
--- NOTE | 2022-04-27 12:58 | PC.NURSE ---
Pt's son is at bedside. He states patient had covid a few weeks ago and developed pneumonia which is what she was admitted for. Son states patient has had a general decline in condition since getting sick. Pt states she currently resides in assisted living and he feels she needs shelter placement. Per son, there is no significant change in her condition today than when he saw her last night.
[2022-04-27 13:07] LABS: RBC Urine >75 /hpf (0-2); Squamous Epithelial Cell Urine Occasional /hpf (Few); WBC Urine >75 /hpf
--- NOTE | 2022-04-27 13:17 | PC.NURSE ---
Pt to CT.
[2022-04-27 13:53] LABS: Influenza A QL RT-PCR Negative (Negative); Influenza B QL RT-PCR Negative (Negative); SARS-CoV-2 RNA PCR Positive
--- NOTE | 2022-04-27 20:50 | PC.NURSE ---
Pt incontinent of urine. Brief and linen changed. Skin cleansed. Pt repositioned for comfort.
--- NOTE | 2022-04-27 21:27 | ADMGEN ---
This patient, Diana Castano, was admitted to [facility] Surg Room 303-01. Patient/family oriented to hospital policies and general routines including ID bracelet, bed and alarms, visiting hours, pain management, procedures, bathroom and other care routines, personal items, smoking policy, room service/diet, and visiting hours. Information on how to activate the Rapid Response Team has been discussed. Patient/Family are encouraged to report perceived risks to care and to ask questions if they do not understand what they are told or what they should do. arrived at 2052
[2022-04-28] VITALS (10 sets, daily range): BP systolic 129–154; BP diastolic 44–53; PULSE 63–71; RESP 18–24; TEMP 36.2–36.8; O2SAT 95–99
--- NOTE | 2022-04-28 00:08 | PM.IMHP ---
H&P: HPI History of Present Illness Date/Time: 04/27/22 2100 Chief Complaint: Confusion Narrative: This is an 86-year-old female patient who was discharged from this hospital yesterday. She has a history of CLL and was recently hospitalized with pneumonia and ITP. The patient is coming from [facility] for evaluation of altered mental status. The patient is on outpatient antibiotics for the treatment of her pneumonia. She is also being treated for her ITP with steroids. Her WBCs are 11.1. H&H is 10.0 and 30.7 which is above her baseline. The patient is positive for COVID and has been since the . Chest x-ray was read as small left pleural effusion. Airspace opacities in mid and lower lung zones consistent with atelectasis versus pneumonia. Cardiomegaly. The patient was started on Rocephin for abnormal urine with wbc's greater than 75. The patient is being admitted to observation status on the date of service of 04/27/2022. Review of Systems Review of Systems: See HPI All systems reviewed & are unremarkable except as noted in HPI and below Constitutional: Constitutional: Reports as per HPI and Reports no additional constitutional complaints Eyes: Eyes: Reports as per HPI and Reports no additional eye complaints ENT: Reports system reviewed and no additional complaints, except as documented and Reports Normal hearing present Cardiovascular: Cardiovascular: Reports no additional cardiovascular complaints Respiratory: Respiratory: Reports no additional respiratory complaints and Reports no additional respiratory complaints Gastrointestinal: Gastrointestinal: Reports as per HPI and Reports no additional gastrointestinal complaints Musculoskeletal: Musculoskeletal: Reports no additional musculoskeletal complaints Integumentary/Breasts: Skin/Breast: Reports system reviewed and no additional complaints, except as docu and Reports as per HPI Neurologic: Reports system reviewed and no additional complaints, except as documented, Reports as per HPI and Reports Normal hearing present Psychiatric: Psychiatric: Reports no additional psychiatric complaints and Reports as per HPI Endocrine: Endocrine: Reports no additional endocrine complaints Hematologic/Lymphatic: Hematologic/Lymphatic: Reports no additional hematologic/lymphatic complaints Allergic/Immunologic: Allergic/Immunologic: Reports no additional allergic/immunologic complaints [facility] Past Medical History Medical History Acute on chronic anemia Aortic atherosclerosis Arthritis Chronic anemia CKD (chronic kidney disease) stage 4, GFR 15-29 ml/min CLL (chronic lymphocytic leukemia) COVID Dark stools DDD (degenerative disc disease) Depression DJD (degenerative joint disease) Essential hypertension Generalized anxiety disorder GERD (gastroesophageal reflux disease) Gout HLD (hyperlipidemia) Hypothyroid Lewy body dementia Osteoporosis Parkinson's disease Peripheral neuropathy Pleural abscess Pneumonia Port-A-Cath in place Pure hypercholesterolemia, unspecified 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 She never smoked. Code status: DNR/DNI Smoking status: Never smoker Second hand tobacco smoke exposure: No Alcohol intak
[2022-04-28] MEDS: DONEPEZIL HCL 10 MG TABLET PO ×2 (01:16→20:10)
[2022-04-28] MEDS: METOPROLOL TARTRATE 12.5 MG TABLET PO ×3 (01:16→20:10)
[2022-04-28] MEDS: guaiFENesin 200 MG/10 ML UDC PO (02:25)
[2022-04-28] MEDS: LEVOTHYROXINE SODIUM 50 MCG TABLET PO (05:18)
--- NOTE | 2022-04-28 07:07 | PC.NURSE ---
called Md Acosta message left about consult r/t ITP plt [phone]
[2022-04-28 07:27] LABS: Magnesium 2.1 mg/dL (1.6-2.3)
[2022-04-28 07:27] LABS: Lactic Acid Reflex 0.8 mmol/L (0.7-2.0)
[2022-04-28] MEDS: SIMVASTATIN 20 MG TABLET 40 MG PO (09:10)
[2022-04-28] MEDS: FERROUS SULFATE 324 MG TABLET PO (09:10)
[2022-04-28] MEDS: PANTOPRAZOLE 40 MG TABLET PO (09:10)
[2022-04-28] MEDS: allopurinoL 300 MG TABLET PO (09:10)
[2022-04-28] MEDS: MULTIVITAMINS THERAPEUTIC TAB (*BKC) 1 TABLET PO (09:10)
[2022-04-28] MEDS: SERTRALINE HCL 25 MG TABLET PO (09:10)
[2022-04-28] MEDS: CARBIDOPA/LEVODOPA 25/100 MG CR TABLET 2 TABLET PO ×3 (09:10→16:57)
[2022-04-28] MEDS: FUROSEMIDE 20 MG TABLET PO (09:10)
--- NOTE | 2022-04-28 11:02 | PC.NURSE ---
Cassidy faxed over proof of initial positive COVID test showing she was positive 04/10/2022. The faxed copy is in the pt's chart.
[2022-04-28 11:59] LABS: Basophils Percent Auto 0.1 % (0.2-1.2); Hematocrit 30.6 % (37.0-47.0); Hemoglobin 9.9 g/dL (12.0-15.0); Immature Granulocyte Absolute 0.04 K/mm3 (0.00-0.031); Immature Granulocyte Percent A 0.6 % (0-0.5); Immature Platelet Fraction Pct 5.5 % (0.9-11.2); Mean Corpuscular HGB Conc 32.4 g/dl (32-36); Mean Corpuscular Hemoglobin 32.9 pg (26-34); Mean Corpuscular Volume 101.7 fl (80-100); Mean Platelet Volume 12.9 fl (7.4-10.4); Monocytes Percent Auto 0.6 % (2.6-8.5); Neutrophils Absolute Auto 1.6 K/mm3 (1.3-6.7); Neutrophils Percent Auto 23.7 % (45.5-73.1); Nucleated Red Blood Cells Perc 0.4 % (0.0-0.2); Platelet Count Result 38 k/mm3 (150-375); Red Blood Count 3.01 M/mm3 (4.2-5.4); Red Cell Distribution Width 23.8 % (11.5-14.5); White Blood Count 6.9 K/mm3 (4.5-10.0)
--- NOTE | 2022-04-28 12:32 | PM.IMPN ---
Progress Note: A&P Assessment and Plan (1) Urinary tract infection: Code(s): N39.0 - Urinary tract infection, site not specified Status: Acute Assessment and Plan: -awaiting results of cultures. -tailor antibiotics to culture sensitivities. -the patient was started on ceftriaxone. -the patient is having some confusion and it is thought to be related to the UTI. -there was some abnormalities in her urinalysis however the results are not very convincing for UTI (2) Altered mental status: Code(s): R41.82 - Altered mental status, unspecified Status: Acute Assessment and Plan: -it is thought that her altered mental status is related to her urinary tract infection. -head CT was negative. Only chronic disease noted -the patient also has dementia and Parkinson's. (3) COVID: Code(s): U07.1 - COVID-19 Status: Acute Assessment and Plan: -supportive care -patient was diagnosed about a week ago. (4) Thrombocytopenia: Code(s): D69.6 - Thrombocytopenia, unspecified Status: Acute Assessment and Plan: -consult Hematology -the patient had been on a prednisone taper -may consider platelet transfusion (5) CLL (chronic lymphocytic leukemia): Code(s): C91.10 - Chronic lymphocytic leukemia of B-cell type not having achieved remission Status: Acute Assessment and Plan: -oncology has been consulted. 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 She had also received platelets her last admission. -hematology consultation greatly be appreciated. (10) Parkinson's disease: Code(s): G20 - Parkinson's disease Status: Chronic Assessment and Plan: -continue levodopa carbidopa (11) Dementia: Code(s): F03.90 - Unspecified dementia, unspecified severity, without behavioral disturbance, psychotic disturbance, mood disturbance, and anxiety Status: Chronic Assessment and Plan: -continue with Aricept (12) HLD (hyperlipidemia): Code(s): E78.5 - Hyperlipidemia, unspecified Status: Chronic Assessment and Plan: -continue simvastatin (13) HTN (hypertension): Code(s): I10 - Essential (primary) hypertension Status: Chronic Assessment and Plan: -continue with metoprolol -continue with Lasix Plan psych coordinator consult for long term placement. Unsure if the patient's family is willing to talk about hospice as there was no family members at her bedside when I saw her. Her health has declined significantly this past year. Subjective Date/time seen: 04/28/22 12:32 No complaints Exam Const: General: cooperative, comfortable, no acute distress, well developed, alert, awake, Physically active, ill appearing, tired appearing, average body habitus and well nourished Nutritional Appearance: average body habitus and well nourished Orientation/consciousness: oriented to person, oriented to place, oriented to time and patient oriented x3 Limitations: no limitations HENMT: Head: normal to inspection, No palpable skull fracture present, normocephalic, atraumatic and abrasion Ears: hearing grossly normal bilaterally and external ears normal Face/Nose/Sinus: Normal juice standardizer
[2022-04-28 12:38] LABS: Anisocytosis 1+ (NORMAL); Hypochromasia 1+ (NORMAL); Ovalocytes 1+ (NORMAL); Platelet Estimate Decreased (Adequate); Tear Drop Cells 1+ (NORMAL)
[2022-04-28 12:39] LABS: Schistocytes None Seen (NORMAL)
[2022-04-29] VITALS (7 sets, daily range): BP systolic 133–142; BP diastolic 34–53; PULSE 64–70; RESP 20–22; TEMP 36.1–36.6; O2SAT 98–99
[2022-04-29] MEDS: LEVOTHYROXINE SODIUM 50 MCG TABLET PO (05:21)
[2022-04-29] MEDS: METOPROLOL TARTRATE 12.5 MG TABLET PO ×2 (08:31→20:24)
[2022-04-29] MEDS: allopurinoL 300 MG TABLET PO (08:33)
[2022-04-29] MEDS: PANTOPRAZOLE 40 MG TABLET PO (08:33)
[2022-04-29] MEDS: CARBIDOPA/LEVODOPA 25/100 MG CR TABLET 2 TABLET PO ×3 (08:33→17:15)
[2022-04-29] MEDS: MULTIVITAMINS THERAPEUTIC TAB (*BKC) 1 TABLET PO (08:33)
[2022-04-29] MEDS: CYANOCOBALAMIN INJ 1,000 MCG/ML VIAL 1000 MCG IM (08:33)
[2022-04-29] MEDS: SIMVASTATIN 20 MG TABLET 40 MG PO (08:33)
[2022-04-29] MEDS: SERTRALINE HCL 25 MG TABLET PO (08:33)
[2022-04-29] MEDS: FUROSEMIDE 20 MG TABLET PO (08:33)
[2022-04-29] MEDS: FERROUS SULFATE 324 MG TABLET PO (08:34)
--- NOTE | 2022-04-29 08:37 | PCOTNOTE ---
Attempted OT evaluation, patient refuses evaluation at this time stating she is too weak and continues to fall back asleep. Asked patient if she would like to change positions and sit up in a chair although patient refuses. RN aware and in room.
--- NOTE | 2022-04-29 09:04 | PCPTNOTE ---
Attempted to see for physical therapy initial evaluation, when asked if willing to participate pt shook her head no on multiple attempts. Will continue to follow.
--- NOTE | 2022-04-29 10:59 | PM.IMPN ---
Progress Note: A&P Assessment and Plan (1) Urinary tract infection: Code(s): N39.0 - Urinary tract infection, site not specified Status: Acute Assessment and Plan: -awaiting results of cultures. -tailor antibiotics to culture sensitivities. -the patient was started on ceftriaxone. -the patient is having some confusion and it is thought to be related to the UTI. -there was some abnormalities in her urinalysis however the results are not very convincing for UTI (2) Altered mental status: Code(s): R41.82 - Altered mental status, unspecified Status: Acute Assessment and Plan: -it is thought that her altered mental status is related to her urinary tract infection. -head CT was negative. Only chronic disease noted -the patient also has dementia and Parkinson's. (3) COVID: Code(s): U07.1 - COVID-19 Status: Acute Assessment and Plan: -supportive care -patient was diagnosed about a week ago. (4) Thrombocytopenia: Code(s): D69.6 - Thrombocytopenia, unspecified Status: Acute Assessment and Plan: -consult Hematology -the patient had been on a prednisone taper -may consider platelet transfusion (5) CLL (chronic lymphocytic leukemia): Code(s): C91.10 - Chronic lymphocytic leukemia of B-cell type not having achieved remission Status: Acute Assessment and Plan: -oncology has been consulted. 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 She had also received platelets her last admission. -hematology consultation greatly be appreciated. (10) Parkinson's disease: Code(s): G20 - Parkinson's disease Status: Chronic Assessment and Plan: -continue levodopa carbidopa (11) Dementia: Code(s): F03.90 - Unspecified dementia, unspecified severity, without behavioral disturbance, psychotic disturbance, mood disturbance, and anxiety Status: Chronic Assessment and Plan: -continue with Aricept (12) HLD (hyperlipidemia): Code(s): E78.5 - Hyperlipidemia, unspecified Status: Chronic Assessment and Plan: -continue simvastatin (13) HTN (hypertension): Code(s): I10 - Essential (primary) hypertension Status: Chronic Assessment and Plan: -continue with metoprolol -continue with Lasix Plan wedding coordinator consult for detention placement. Unsure if the patient's family is willing to talk about hospice as there was no family members at her bedside when I saw her. Her health has declined significantly this past year. Subjective Date/time seen: 04/29/22 10:59 No new complaints Exam Const: General: cooperative, comfortable, no acute distress, well developed, alert, awake, Physically active, ill appearing, tired appearing, average body habitus and well nourished Nutritional Appearance: average body habitus and well nourished Orientation/consciousness: oriented to person, oriented to place, oriented to time and patient oriented x3 Limitations: no limitations HENMT: Head: normal to inspection, No palpable skull fracture present, normocephalic, atraumatic and abrasion Ears: hearing grossly normal bilaterally and external ears normal Face/Nose/Sinus: Normal ex
[2022-04-29] MEDS: BENZONATATE 100 MG CAPSULE PO (13:40)
[2022-04-29] MEDS: guaiFENesin 200 MG/10 ML UDC PO ×2 (13:57→20:24)
[2022-04-29] MEDS: ACETAMINOPHEN 325 MG TABLET 650 MG PO (20:24)
[2022-04-29] MEDS: DONEPEZIL HCL 10 MG TABLET PO (20:24)
[2022-04-30] MEDS: LEVOTHYROXINE SODIUM 50 MCG TABLET PO (05:50)
[2022-04-30 06:00] VITALS: BP 134/51; PULSE 66; RESP 19; TEMP 36.3; O2SAT 94
--- NOTE | 2022-04-30 09:22 | PCSTNOTE ---
Please refer to the Bedside Swallow Evaluation in the EMR. Please note, silent aspiration cannot be ruled out at bedside.
[2022-04-30] MEDS: METOPROLOL TARTRATE 12.5 MG TABLET PO ×2 (10:20→21:17)
[2022-04-30] MEDS: SIMVASTATIN 20 MG TABLET 40 MG PO (10:20)
[2022-04-30] MEDS: CARBIDOPA/LEVODOPA 25/100 MG CR TABLET 2 TABLET PO ×3 (10:20→17:30)
[2022-04-30] MEDS: FERROUS SULFATE 324 MG TABLET PO (10:20)
[2022-04-30] MEDS: BENZONATATE 100 MG CAPSULE PO (10:20)
[2022-04-30] MEDS: MULTIVITAMINS THERAPEUTIC TAB (*BKC) 1 TABLET PO (10:21)
[2022-04-30] MEDS: allopurinoL 300 MG TABLET PO (10:21)
[2022-04-30] MEDS: PANTOPRAZOLE 40 MG TABLET PO (10:21)
[2022-04-30] MEDS: SERTRALINE HCL 25 MG TABLET PO (10:21)
[2022-04-30] MEDS: FUROSEMIDE 20 MG TABLET PO (10:21)
--- NOTE | 2022-04-30 12:22 | PM.IMPN ---
Progress Note: A&P Assessment and Plan (1) Urinary tract infection: Code(s): N39.0 - Urinary tract infection, site not specified Status: Acute Assessment and Plan: -awaiting results of cultures. -tailor antibiotics to culture sensitivities. -the patient was started on ceftriaxone. -the patient is having some confusion and it is thought to be related to the UTI. -there was some abnormalities in her urinalysis however the results are not very convincing for UTI (2) Altered mental status: Code(s): R41.82 - Altered mental status, unspecified Status: Acute Assessment and Plan: -it is thought that her altered mental status is related to her urinary tract infection. -head CT was negative. Only chronic disease noted -the patient also has dementia and Parkinson's. (3) COVID: Code(s): U07.1 - COVID-19 Status: Acute Assessment and Plan: -supportive care -patient was diagnosed about a week ago. (4) Thrombocytopenia: Code(s): D69.6 - Thrombocytopenia, unspecified Status: Acute Assessment and Plan: -consult Hematology -the patient had been on a prednisone taper -may consider platelet transfusion (5) CLL (chronic lymphocytic leukemia): Code(s): C91.10 - Chronic lymphocytic leukemia of B-cell type not having achieved remission Status: Acute Assessment and Plan: -oncology has been consulted. 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 She had also received platelets her last admission. -hematology consultation greatly be appreciated. (10) Parkinson's disease: Code(s): G20 - Parkinson's disease Status: Chronic Assessment and Plan: -continue levodopa carbidopa (11) Dementia: Code(s): F03.90 - Unspecified dementia, unspecified severity, without behavioral disturbance, psychotic disturbance, mood disturbance, and anxiety Status: Chronic Assessment and Plan: -continue with Aricept (12) HLD (hyperlipidemia): Code(s): E78.5 - Hyperlipidemia, unspecified Status: Chronic Assessment and Plan: -continue simvastatin (13) HTN (hypertension): Code(s): I10 - Essential (primary) hypertension Status: Chronic Assessment and Plan: -continue with metoprolol -continue with Lasix Plan staff development coordinator rn consult for fpc placement. Unsure if the patient's family is willing to talk about hospice as there was no family members at her bedside when I saw her. Her health has declined significantly this past year. Subjective Date/time seen: 04/30/22 12:22 No new complaints Exam Const: General: cooperative, comfortable, no acute distress, well developed, alert, awake, Physically active, ill appearing, tired appearing, average body habitus and well nourished Nutritional Appearance: average body habitus and well nourished Orientation/consciousness: oriented to person, oriented to place, oriented to time and patient oriented x3 Limitations: no limitations HENMT: Head: normal to inspection, No palpable skull fracture present, normocephalic, atraumatic and abrasion Ears: hearing grossly normal bilaterally and external ears normal Face/Nose/Sinus: Normal ex
[2022-04-30 14:00] VITALS: BP 126/42; PULSE 63; RESP 16; TEMP 36.1; O2SAT 100
[2022-04-30 20:00] VITALS: PULSE 64; RESP 20; O2SAT 97
[2022-04-30 21:17] VITALS: PULSE 63
[2022-04-30] MEDS: DONEPEZIL HCL 10 MG TABLET PO (21:17)
[2022-04-30 22:20] VITALS: BP 125/44; PULSE 64; RESP 20; TEMP 36.6; O2SAT 97
[2022-05-01] VITALS (11 sets, daily range): BP systolic 122–140; BP diastolic 48–69; PULSE 57–69; RESP 16–20; TEMP 36.4–37.1; O2SAT 94–98
[2022-05-01] MEDS: LEVOTHYROXINE SODIUM 50 MCG TABLET PO (05:52)
[2022-05-01] MEDS: FUROSEMIDE 20 MG TABLET PO (08:36)
[2022-05-01] MEDS: CARBIDOPA/LEVODOPA 25/100 MG CR TABLET 2 TABLET PO ×3 (08:36→16:07)
[2022-05-01] MEDS: SIMVASTATIN 20 MG TABLET 40 MG PO (08:36)
[2022-05-01] MEDS: PANTOPRAZOLE 40 MG TABLET PO (08:36)
[2022-05-01] MEDS: MULTIVITAMINS THERAPEUTIC TAB (*BKC) 1 TABLET PO (08:36)
[2022-05-01] MEDS: SERTRALINE HCL 25 MG TABLET PO (08:36)
[2022-05-01] MEDS: allopurinoL 300 MG TABLET PO (08:36)
[2022-05-01] MEDS: FERROUS SULFATE 324 MG TABLET PO (08:36)
[2022-05-01] MEDS: METOPROLOL TARTRATE 12.5 MG TABLET PO ×2 (08:36→20:19)
--- NOTE | 2022-05-01 11:45 | PM.IMPN ---
Progress Note: A&P Assessment and Plan (1) Urinary tract infection: Code(s): N39.0 - Urinary tract infection, site not specified Status: Acute Assessment and Plan: - results of cultures noted -continue abx -? true uti (2) Altered mental status: Code(s): R41.82 - Altered mental status, unspecified Status: Acute Assessment and Plan: improved (3) COVID: Code(s): U07.1 - COVID-19 Status: Acute Assessment and Plan: -supportive care -patient was diagnosed about over a week ago. (4) Thrombocytopenia: Code(s): D69.6 - Thrombocytopenia, unspecified Status: Acute Assessment and Plan: -consult Hematology -the patient had been on a prednisone taper -may consider platelet transfusion (5) CLL (chronic lymphocytic leukemia): Code(s): C91.10 - Chronic lymphocytic leukemia of B-cell type not having achieved remission Status: Acute Assessment and Plan: -oncology has been consulted. 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 She had also received platelets her last admission. -hematology consultation greatly be appreciated. (10) Parkinson's disease: Code(s): G20 - Parkinson's disease Status: Chronic Assessment and Plan: -continue levodopa carbidopa (11) Dementia: Code(s): F03.90 - Unspecified dementia, unspecified severity, without behavioral disturbance, psychotic disturbance, mood disturbance, and anxiety Status: Chronic Assessment and Plan: -continue with Aricept (12) HLD (hyperlipidemia): Code(s): E78.5 - Hyperlipidemia, unspecified Status: Chronic Assessment and Plan: -continue simvastatin (13) HTN (hypertension): Code(s): I10 - Essential (primary) hypertension Status: Chronic Assessment and Plan: monitor continue current regimen Plan awaiting placement Subjective Date/time seen: 05/01/22 11:45 no new complaints eating and drinking very weak Exam Const: General: cooperative, comfortable, no acute distress, well developed, alert, awake, Physically active, ill appearing, tired appearing, average body habitus and well nourished Nutritional Appearance: average body habitus and well nourished Orientation/consciousness: oriented to person, oriented to place, oriented to time and patient oriented x3 Limitations: no limitations HENMT: Head: normal to inspection, No palpable skull fracture present, normocephalic, atraumatic and abrasion Ears: hearing grossly normal bilaterally and external ears normal Face/Nose/Sinus: Normal external nose present and Normal nares present Eyes: General: appearance normal, both eyes and all related structures Alignment and Position: alignment normal Periorbital: periorbital findings normal Eyelids: eyelids normal Sclera: sclerae normal Pupils: Equal, round and reactive pupils present EOM: EOMs intact bilaterally Neck: Neck: normal visual inspection, full ROM, no lymphadenopathy, trachea midline and supple Chest: Chest palpation & inspection: normal inspection of the chest Resp: Effort & Inspection: normal respiratory effort Auscultation: rales, rhonchi and wheezes Cardio: Palpation: n
[2022-05-01] MEDS: ACETAMINOPHEN 325 MG TABLET 650 MG PO (16:08)
[2022-05-01] MEDS: guaiFENesin 200 MG/10 ML UDC PO (16:20)
[2022-05-01] MEDS: DONEPEZIL HCL 10 MG TABLET PO (20:19)
[2022-05-01] MEDS: BENZONATATE 100 MG CAPSULE PO (20:24)
[2022-05-02 05:14] VITALS: BP 144/50; PULSE 65; RESP 16; TEMP 36.7; O2SAT 96
[2022-05-02] MEDS: LEVOTHYROXINE SODIUM 50 MCG TABLET PO (06:21)
[2022-05-02] MEDS: CARBIDOPA/LEVODOPA 25/100 MG CR TABLET 2 TABLET PO ×2 (08:54→12:39)
[2022-05-02 08:55] VITALS: PULSE 65
[2022-05-02] MEDS: CEFDINIR 300 MG CAPSULE PO (08:55)
[2022-05-02] MEDS: allopurinoL 300 MG TABLET PO (08:55)
[2022-05-02] MEDS: SERTRALINE HCL 25 MG TABLET PO (08:55)
[2022-05-02] MEDS: FUROSEMIDE 20 MG TABLET PO (08:55)
[2022-05-02] MEDS: MULTIVITAMINS THERAPEUTIC TAB (*BKC) 1 TABLET PO (08:55)
[2022-05-02] MEDS: PANTOPRAZOLE 40 MG TABLET PO (08:55)
[2022-05-02] MEDS: METOPROLOL TARTRATE 12.5 MG TABLET PO (08:55)
[2022-05-02] MEDS: FERROUS SULFATE 324 MG TABLET PO (08:55)
[2022-05-02] MEDS: SIMVASTATIN 20 MG TABLET 40 MG PO (08:55)
--- NOTE | 2022-05-28 12:24 | PM.DS ---
DS: Admitting Diagnosis Discharge Date 05/02/22 Admitting Diagnosis UTI DS: Discharge Diagnosis Discharge Diagnosis (1) Urinary tract infection: Code(s): N39.0 - Urinary tract infection, site not specified Status: Acute Assessment and Plan: - results of cultures noted -continue abx -? true uti (2) Altered mental status: Code(s): R41.82 - Altered mental status, unspecified Status: Acute Assessment and Plan: improved (3) COVID: Code(s): U07.1 - COVID-19 Status: Acute Assessment and Plan: -supportive care -patient was diagnosed about over a week ago. (4) Thrombocytopenia: Code(s): D69.6 - Thrombocytopenia, unspecified Status: Acute Assessment and Plan: -consult Hematology -the patient had been on a prednisone taper -may consider platelet transfusion (5) CLL (chronic lymphocytic leukemia): Code(s): C91.10 - Chronic lymphocytic leukemia of B-cell type not having achieved remission Status: Acute Assessment and Plan: -oncology has been consulted. 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 She had also received platelets her last admission. -hematology consultation greatly be appreciated. (10) Parkinson's disease: Code(s): G20 - Parkinson's disease Status: Chronic Assessment and Plan: -continue levodopa carbidopa (11) Dementia: Code(s): F03.90 - Unspecified dementia, unspecified severity, without behavioral disturbance, psychotic disturbance, mood disturbance, and anxiety Status: Chronic Assessment and Plan: -continue with Aricept (12) HLD (hyperlipidemia): Code(s): E78.5 - Hyperlipidemia, unspecified Status: Chronic Assessment and Plan: -continue simvastatin (13) HTN (hypertension): Code(s): I10 - Essential (primary) hypertension Status: Chronic Assessment and Plan: monitor continue current regimen Plan awaiting placement DS: Summary Hospital Course Hospital Course: Patient is 87-year-old female came with urinary tract infection. Was started on IV antibiotics improved significantly. Patient can be discharged. Time Spent with Patient Time attestation: Total time spent providing and/or coordinating discharge services: Exam Const: General: cooperative, comfortable, no acute distress, well developed, alert, awake, Physically active, ill appearing, tired appearing, average body habitus and well nourished Nutritional Appearance: average body habitus and well nourished Orientation/consciousness: oriented to person, oriented to place, oriented to time and patient oriented x3 Limitations: no limitations HENMT: Head: normal to inspection, No palpable skull fracture present, normocephalic, atraumatic and abrasion Ears: hearing grossly normal bilaterally and external ears normal Face/Nose/Sinus: Normal external nose present and Normal nares present Eyes: General: appearance normal, both eyes and all related structures Alignment and Position: alignment normal Periorbital: periorbital findings normal Eyelids: eyelids normal Sclera: sclerae normal Pupils: Equal, round and reactive pupils present EOM: EOMs intact b
== END 2022-05-02 14:08 | DRG 689 ==
LOC: ANHED 14:10 → ANH3MEDSUR 16:42
PROVIDERS: Family Medicine; Nurse Practitioner; Physician Assistant; Admitting Provider Family Medicine; Emergency Provider Emergency Medicine; PCP Internal Medicine Hematology & Oncology; Visit Provider Hospitalist
DX: U07.1 COVID-19; N39.0 Urinary tract infection, site not specified; C91.10 Chronic lymphocytic leukemia of B-cell type not having achieved remission; D69.3 Immune thrombocytopenic purpura; N18.4 Chronic kidney disease, stage 4 (severe); F33.1 Major depressive disorder, recurrent, moderate; I13.10 Hypertensive heart and chronic kidney disease without heart failure, with stage 1 through stage 4 chronic kidney disease, or unspecified chronic kidney disease; D63.0 Anemia in neoplastic disease; D69.6 Thrombocytopenia, unspecified; E78.00 Pure hypercholesterolemia, unspecified; E03.9 Hypothyroidism, unspecified; F41.1 Generalized anxiety disorder; F02.80 Dementia in other diseases classified elsewhere, unspecified severity, without behavioral disturbance, psychotic disturbance, mood disturbance, and anxiety; G31.83 Neurocognitive disorder with Lewy bodies; G20 Parkinson's disease; G62.9 Polyneuropathy, unspecified; I70.0 Atherosclerosis of aorta; K21.9 Gastro-esophageal reflux disease without esophagitis; M10.9 Gout, unspecified; M19.90 Unspecified osteoarthritis, unspecified site; M81.0 Age-related osteoporosis without current pathological fracture; R41.82 Altered mental status, unspecified; Z86.11 Personal history of tuberculosis; Z98.41 Cataract extraction status, right eye; Z98.42 Cataract extraction status, left eye; Z90.710 Acquired absence of both cervix and uterus; Z66 Do not resuscitate; Z23 Encounter for immunization
CPT/HCPCS: 36415; 51701; 70450; 71045; 74177; 80053; 81001; 82728; 83605; 83735; 85025; 85055; 85610; 85730; 87086; 87088; 87636; 90471; 90694; 92610; 93005; 96365; 97110; 97161; 97166; 97530; 97535; 99285; A9270; G0008; G0378; G0379; J0696; J3420; Q9967

== ENCOUNTER 2022-05-11 13:06 | Emergency (ER) | payer OTHER, SELFPAY ==
[2022-05-11] VITALS (24 sets, daily range): BP systolic 133–159; BP diastolic 45–66; PULSE 67–76; RESP 10–70; TEMP 36.6–37.1; O2SAT 97–100
--- NOTE | ~2022-05-11 | XR_ITS ---
EXAMINATION: XR chest 1V portable DATE: 05/11/2022 13:20 INDICATION: Cough and weakness TECHNIQUE: frontal view of the chest was obtained. COMPARISON: Chest radiograph dated 04/27/2022 FINDINGS: Left internal jugular central venous port catheter with distal tip at the caudal superior vena cava. Persistent hazy opacities in the left lower lung zone with retrocardiac consolidation and obscuration of the diaphragm suggesting a small posterior layering left pleural effusion and associated atelecta sis or pneumonia. Right lung is clear. No pneumothorax or right-sided pleural effusion. Heart size is normal. IMPRESSION: 1. Small left pleural effusion with left basilar atelectasis and/or pneumonia. Reviewed, dictated and finalized at location A. OGRAPHIC AIDE
[2022-05-11 13:52] LABS: Immature Platelet Fraction Pct 7.4 % (0.9-11.2); Mean Corpuscular HGB Conc 32.2 g/dl (32-36); Mean Corpuscular Hemoglobin 31.3 pg (26-34); Mean Corpuscular Volume 97.1 fl (80-100); Mean Platelet Volume 11.7 fl (7.4-10.4); Platelet Count Result 46 k/mm3 (150-375); Red Blood Count 2.08 M/mm3 (4.2-5.4); Red Cell Distribution Width 25.1 % (11.5-14.5); White Blood Count 3.3 K/mm3 (4.5-10.0)
[2022-05-11 13:58] LABS: Alanine Aminotransferase 17 U/L (6-35); Albumin Level 2.9 g/dL (3.5-5.1); Alkaline Phosphatase 69 U/L (38-126); Anion Gap 3 mmol/L (8-16); Aspartate Amino Transferase 18 U/L (14-36); Bilirubin,Total 1.8 mg/dL (0.2-1.3); Blood Urea Nitrogen 13 mg/dL (7-17); Calcium 7.9 mg/dL (8.4-10.2); Carbon Dioxide 29 mmol/L (22-30); Chloride 100 mmol/L (98-107); Estimated Glomerular Filt Rate 53; Glucose 135 mg/dL (65-110); Sodium 132 mmol/L (137-145)
[2022-05-11 14:00] LABS: Appearance Urine Clear (Clear); Bilirubin Urine 1+ (Negative); Blood Urine Negative (Negative); Color Urine Dark Yellow (Yellow); Glucose Urine UA Negative (Negative); Ketones Urine Trace mg/dL (Negative); Leukocyte Esterase Ur Negative LEU/UL (Negative); Nitrate Urine Negative (Negative); Protein Urine 2+ mg/dL (Negative); Urobilinogen Urine 0.2 mg/dL (<2.0)
--- NOTE | 2022-05-11 14:03 | ED.GENADULT ---
HPI - General Adult General Chief complaint: Recheck/Abnormal Lab/Rx Stated complaint: low hemoglobin Time Seen by Provider: 05/11/22 13:42 History of Present Illness HPI narrative: 87-year-old female with history of CLL, thrombocytopenia, anemia and dark stools presented to the emergency department for evaluation of a low hemoglobin that was found on outpatient labs. Patient denies any complaints at this time. Patient does have a prior history of anemia and has had previous work-ups for this. Anemia was thought to be anemia of chronic disease. Patient also does have history of CLL. Patient does have history of dark stools but is taking iron supplements. Patient was previously scheduled for a blood transfusion today but was sent to the emergency department for low hemoglobin. Related Data Home Medications Medication Instructions Recorded Confirmed acetaminophen 650 mg 650 mg PO Q4H PRN Pain 02/16/19 04/27/22 tablet,extended release carbidopa ER 50 mg-levodopa 200 mg 1 tablet PO TID 02/16/19 04/27/22 tablet,extended release ondansetron HCl 4 mg tablet 4 mg PO Q6H PRN Nausea And Vomiting 02/16/19 04/27/22 levothyroxine 50 mcg capsule 50 mcg PO DAILY 04/07/19 04/27/22 lidocaine-prilocaine 2.5 %-2.5 % 1 applic topical ONCE 04/07/19 04/27/22 topical cream ferrous sulfate 325 mg (65 mg 325 mg PO DAILY constipation 10/22/19 04/27/22 iron) tablet magnesium hydroxide 400 mg/5 mL 15 ml PO DAILY PRN Indigestion 11/02/19 04/27/22 oral suspension (Milk of Magnesia) multivitamin (Daily-Amy tablet) 1 tablet PO DAILY 11/02/19 04/27/22 polyvinyl alcohol 1.4 % eye drops 1 drp ophthalmic (eye) TID PRN Dry 11/02/19 04/27/22 (Artificial Tears (polyvinyl Eyes alcohol)) sertraline 25 mg tablet 25 mg PO DAILY 11/02/19 04/27/22 donepezil 10 mg tablet 10 mg PO HS 03/27/21 04/27/22 cyanocobalamin (vitamin B-12) 1,000 mcg IM MONTHLY 04/22/22 04/27/22 1,000 mcg/mL injection solution Milk of Magnesia 15 ml PO DAILY 04/27/22 04/27/22 Allergies Allergy/AdvReac Type Severity Reaction Status Date / Time quinapril Allergy Unknown Unknown Verified 04/27/22 11:22 rituximab AdvReac Intermediate Dyspnea / Verified 04/27/22 11:22 SOB cyclobenzaprine AdvReac Mild Unknown Verified 04/27/22 11:22 diclofenac AdvReac Mild Unknown Verified 04/27/22 11:22 zolpidem AdvReac Mild Unknown Verified 04/27/22 11:22 Review of Systems Review of Systems: CONSTITUTIONAL: Denies fever, chills, or sweats. EYES: Denies visual changes, redness, or discharge. ENT: Denies rhinorrhea, congestion, sore throat, or otalgia. CARDIOVASCULAR: Denies chest pain, palpitations, or edema. RESPIRATORY: Denies cough or dyspnea. GASTROINTESTINAL: Denies abdominal pain, nausea, vomiting, or diarrhea. GENITOURINARY: Denies dysuria or hematuria. SKIN: Denies rash or itching. MUSCULOSKELETAL: Denies back pain, joint pain, or myalgia. NEUROLOGIC: Denies headache, numbness, or weakness. 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
[2022-05-11 14:08] LABS: Mucus Urine Rare /lpf; RBC Urine 0-2 /hpf (0-2); WBC Urine 0-3 /hpf
[2022-05-11 14:21] LABS: Add Urine Microscopic? YES
[2022-05-11 14:32] LABS: Influenza A QL RT-PCR Negative (Negative); Influenza B QL RT-PCR Negative (Negative); SARS-CoV-2 RNA PCR Positive
[2022-05-11 14:57] LABS: Hematocrit 20.2 % (37.0-47.0); Hemoglobin 6.5 g/dL (12.0-15.0)
[2022-05-11 15:02] LABS: Band Neutrophils Percent 3 % (0-6); Lymphocytes Absolute Manual 2.87 K/mm3 (1.1-4.5); Monocytes Absolute Manual 0.03 K/mm3 (0.1-0.90); Monocytes Percent Manual 1 % (3-9); Neutrophils Absolute Manual 0.39 K/mm3 (1.7-7.2); Neutrophils Percent Manual 9 % (46-73); Platelet Estimate Decreased (Adequate); Total Cells Counted 100
[2022-05-11 15:03] LABS: Anisocytosis 3+ (NORMAL); Schistocytes None Seen (NORMAL)
[2022-05-11] MEDS: TUBING, BLOOD SET 1 EACH XX ×2 (16:29→18:10)
[2022-05-11] MEDS: SODIUM CHLORIDE 0.9% IV 250 ML 30 ML IV CONT (16:29)
[2022-05-11] MEDS: SODIUM CHLORIDE 0.9% IV 250 ML 50 ML (18:10)
[2022-05-11] MEDS: POTASSIUM CHLORIDE 20 MEQ PACKET (FOR LIQUID) 40 MEQ (19:21)
[2022-05-11] MEDS: HEPARIN SODIUM LOCK FLUSH 500 UNITS/5 ML VIAL (19:22)
--- NOTE | 2022-05-11 19:34 | PC.NURSE ---
port flushed per protocol and deaccessed
== END 2022-05-11 19:50 ==
PROVIDERS: Emergency Provider Emergency Medicine; PCP Internal Medicine Hematology & Oncology
DX: D64.9 Anemia, unspecified (principal); U07.1 COVID-19; C91.10 Chronic lymphocytic leukemia of B-cell type not having achieved remission; I12.9 Hypertensive chronic kidney disease with stage 1 through stage 4 chronic kidney disease, or unspecified chronic kidney disease; N18.4 Chronic kidney disease, stage 4 (severe); I70.0 Atherosclerosis of aorta; E78.00 Pure hypercholesterolemia, unspecified; G31.83 Neurocognitive disorder with Lewy bodies; F02.80 Dementia in other diseases classified elsewhere, unspecified severity, without behavioral disturbance, psychotic disturbance, mood disturbance, and anxiety; G20 Parkinson's disease; E03.9 Hypothyroidism, unspecified; M10.9 Gout, unspecified; M81.0 Age-related osteoporosis without current pathological fracture; K21.9 Gastro-esophageal reflux disease without esophagitis; G62.9 Polyneuropathy, unspecified; F41.1 Generalized anxiety disorder; F32.A Depression, unspecified; Z86.16 Personal history of COVID-19; Z87.01 Personal history of pneumonia (recurrent); Z87.440 Personal history of urinary (tract) infections; Z98.42 Cataract extraction status, left eye; Z98.41 Cataract extraction status, right eye; Z90.710 Acquired absence of both cervix and uterus; Z90.722 Acquired absence of ovaries, bilateral; Z90.79 Acquired absence of other genital organ(s); Z66 Do not resuscitate
CPT/HCPCS: 36415; 36430; 51701; 71045; 80053; 81001; 85025; 85055; 86850; 86900; 86901; 86923; 87040; 87636; 96361; 96374; 99285; A9270; J1642; J7050; P9016

== ENCOUNTER 2023-03-14 19:29 | Inpatient (IN) | payer MEDICARE, MEDICAID, SELFPAY ==
--- NOTE | ~2023-03-14 | XR_ITS ---
EXAMINATION: XR chest 1V portable DATE: 03/14/2023 22:52 INDICATION: Cough TECHNIQUE: AP view of the chest was obtained. COMPARISON: Chest radiograph dated 05/11/2022 FINDINGS: Left internal jugular central venous port catheter with distal tip at the superior cavoatrial junctio n. Mild increased interstitial pattern at the bilateral lower lung zones. No pleural effusion or pneu mothorax. Mild cardiomegaly. IMPRESSION: 1. Mild increased interstitial pattern at the bilateral lower lung zones which could represent mild p ulmonary edema versus atelectasis or pneumonia. 2. Mild cardiomegaly. Reviewed, dictated and finalized at location A. GER IMPRESSION: 1. Mild increased interstitial pattern at the bilateral lower lung zones which could represent mild pulmonary edema versus atelectasis or pneumonia. 2. Mild cardiomegaly.
--- NOTE | ~2023-03-14 | CT_ITS ---
EXAMINATION:CT diagnostic chest wo con DATE: 03/18/2023 10:49 INDICATION: Shortness of breath. Fever. TECHNIQUE: Computed tomography (CT) of the chest was performed without intravenous contrast. Automate d exposure control and iterative reconstruction technique were employed. The dose-length product (DLP ) was 274.68 mGy-cm. COMPARISON: CT abdomen and pelvis 04/27/2022 FINDINGS: There are small right and moderate-sized left pleural effusions. There is dependent atelect asis bilaterally. There is a left internal jugular port with tip in proximal right atrium. Cardiomega ly is noted. There are coronary artery calcifications. No pericardial effusion. There is mild mediast inal lymphadenopathy, likely reactive. There is a 2.5 cm cyst in left kidney. There is severe cervica l spondylosis and moderate thoracic spondylosis. IMPRESSION: 1. Small right and moderate-sized left pleural effusions. Reviewed, dictated and finalized at location E. [employer]
--- NOTE | ~2023-03-14 | US_ITS ---
EXAMINATION: US renal BI DATE: 03/19/2023 08:21 INDICATION: Increasing creatinine. TECHNIQUE: Multiple ultrasound grayscale images of the kidneys were obtained. COMPARISON: CT abdomen and pelvis 04/27/2022 FINDINGS: The right kidney measures 10.1 x 4.1 x 4.1 cm. The left kidney measures 10.8 x 4.2 x 4.1 cm. The kidn eys demonstrate normal parenchymal echogenicity. There is a 3.1 cm cyst of left kidney. There is no h ydronephrosis. The bladder is decompressed by a Lema catheter. There is a small volume of ascites. IMPRESSION: 1. Normal kidney sizes. No hydronephrosis. 2. Small volume of ascites. Reviewed, dictated and finalized at location E. LESS OPERATOR
--- NOTE | ~2023-03-14 | XR_ITS ---
EXAMINATION: XR chest 1V portable DATE: 03/16/2023 22:09 INDICATION: Fever and cough. Tachypnea. TECHNIQUE: A single frontal view of the chest was obtained. COMPARISON: Chest single view 03/14/2023, CT abdomen and pelvis 04/27/2022 FINDINGS: There are small pleural effusions. There is a diffuse interstitial pattern, consistent with mild pulmonary edema. No pneumothorax. Cardiomegaly is noted. There is a left internal jugular port with tip at superior cavoatrial junction. IMPRESSION: 1. Small pleural effusions. 2. Mild pulmonary edema. 3. Cardiomegaly. Reviewed, dictated and finalized at location E. [employer]
[2023-03-14 19:39] VITALS: BP 128/47; PULSE 65; RESP 20; TEMP 36.6; O2SAT 99
[2023-03-14 21:30] LABS: Immature Platelet Fraction Pct 9.6 % (0.9-11.2); Mean Corpuscular HGB Conc 29.7 g/dl (32-36); Mean Corpuscular Hemoglobin 41.1 pg (26-34); Mean Corpuscular Volume 138.3 fl (80-100); Mean Platelet Volume 12.2 fl (7.4-10.4); Platelet Count Result 45 k/mm3 (150-375); Red Blood Count 1.07 M/mm3 (4.2-5.4); Red Cell Distribution Width 16.4 % (11.5-14.5); White Blood Count 4.9 K/mm3 (4.5-10.0)
[2023-03-14 21:36] LABS: Alanine Aminotransferase 9 U/L (6-35); Alkaline Phosphatase 82 U/L (38-126); Anion Gap 10 mmol/L (8-16); Aspartate Amino Transferase 23 U/L (14-36); Bilirubin,Total 0.7 mg/dL (0.2-1.3); Blood Urea Nitrogen 32 mg/dL (7-17); Calcium 8.3 mg/dL (8.4-10.2); Carbon Dioxide 23 mmol/L (22-30); Chloride 101 mmol/L (98-107); Estimated CRCL calculation 27 ml/min; Estimated Glomerular Filt Rate 43; Glucose 140 mg/dL (65-110); Potassium 3.9 mmol/L (3.4-5.0); Sodium 134 mmol/L (137-145)
[2023-03-14 21:39] LABS: INR 1.1; Prothrombin Time 14.7 Seconds (11.1-14.7)
[2023-03-14 21:51] LABS: Hematocrit 14.8 % (37.0-47.0); Hemoglobin 4.4 g/dL (12.0-15.0)
[2023-03-14 21:52] LABS: Atypical Lymphocytes Present; Band Neutrophils Percent 1 % (0-6); Lymphocytes Percent Manual 92 % (18-44); Macrocytosis 2+ (NORMAL); Monocytes Absolute Manual 0.04 K/mm3 (0.1-0.90); Monocytes Percent Manual 1 % (3-9); Neutrophils Absolute Manual 0.34 K/mm3 (1.7-7.2); Neutrophils Percent Manual 6 % (46-73); Platelet Estimate Decreased (Adequate); Schistocytes None Seen (NORMAL); Smudge Cells FEW; Total Cells Counted 100
--- NOTE | 2023-03-14 21:55 | ED.RECABL ---
HPI - Recheck/Abnormal Lab/Rx General Chief Complaint: Recheck/Abnormal Lab/Rx Stated Complaint: low h&h Time Seen by Provider: 03/14/23 21:20 History of Present Illness HPI narrative: This is an 87-year-old female, with history of CKD and CLL with history of anemia, but emergency department from her snf for significant anemia. The patient has no acute complaints though has had chronic cough. She denies bleeding from any source, including melena. Related Data Home Medications Medication Instructions Recorded Confirmed acetaminophen 650 mg 650 mg PO Q4H PRN Pain 02/16/19 09/25/22 tablet,extended release carbidopa ER 50 mg-levodopa 200 mg 1 tablet PO TID 02/16/19 09/25/22 tablet,extended release ondansetron HCl 4 mg tablet 4 mg PO Q6H PRN Nausea And Vomiting 02/16/19 09/25/22 levothyroxine 50 mcg capsule 50 mcg PO DAILY 04/07/19 09/25/22 lidocaine-prilocaine 2.5 %-2.5 % 1 applic topical ONCE 04/07/19 09/25/22 topical cream ferrous sulfate 325 mg (65 mg 325 mg PO DAILY constipation 10/22/19 09/25/22 iron) tablet magnesium hydroxide 400 mg/5 mL 15 ml PO DAILY PRN Indigestion 11/02/19 09/25/22 oral suspension (Milk of Magnesia) multivitamin (Daily-Amy tablet) 1 tablet PO DAILY 11/02/19 09/25/22 polyvinyl alcohol 1.4 % eye drops 1 drp ophthalmic (eye) TID PRN Dry 11/02/19 09/25/22 (Artificial Tears (polyvinyl Eyes alcohol)) sertraline 25 mg tablet 25 mg PO DAILY 11/02/19 09/25/22 donepezil 10 mg tablet 10 mg PO HS 03/27/21 09/25/22 cyanocobalamin (vitamin B-12) 1,000 mcg IM MONTHLY 04/22/22 09/25/22 1,000 mcg/mL injection solution Milk of Magnesia 15 ml PO DAILY 04/27/22 09/25/22 Allergies Allergy/AdvReac Type Severity Reaction Status Date / Time quinapril Allergy Unknown Unknown Verified 09/25/22 09:55 rituximab AdvReac Intermediate Dyspnea / Verified 09/25/22 09:55 SOB cyclobenzaprine AdvReac Mild Unknown Verified 09/25/22 09:55 diclofenac AdvReac Mild Unknown Verified 09/25/22 09:55 zolpidem AdvReac Mild Unknown Verified 09/25/22 09:55 Review of Systems Review of Systems: CONSTITUTIONAL: Chronic fatigue denies fever, chills, or sweats. CARDIOVASCULAR: Denies chest pain, palpitations, or edema. RESPIRATORY: Chronic nonproductive cough denies dyspnea. GASTROINTESTINAL: Denies abdominal pain, nausea, vomiting, or diarrhea. GENITOURINARY: Denies dysuria or hematuria. SKIN: Denies rash or itching. MUSCULOSKELETAL: Denies back pain, joint pain, or myalgia. NEUROLOGIC: Denies headache, numbness, dizziness, or weakness. PSYCHIATRIC: Denies anxiety or depression. [facility] Past Medical History Medical History Acute on chronic anemia Aortic atherosclerosis Arthritis Chronic anemia CKD (chronic kidney disease) stage 4, GFR 15-29 ml/min CLL (chronic lymphocytic leukemia) COVID Dark stools DDD (degenerative disc disease) Depression DJD (degenerative joint disease) Essential hypertension Generalized anxiety disorder GERD (gastroesophageal reflux disease) Gout HLD (hyperlipidemia) Hypothyroid Lewy body dementia Osteoporosis Parkinson's disease Peripheral neuropathy Pleural abscess Pneumonia Port-A-Cath in place Pure hypercholesterolemia, unspecified 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 Diana Stallworth is her child who is the durabl
[2023-03-14 22:04] VITALS: BP 121/44; PULSE 66; RESP 18; O2SAT 97
[2023-03-14 22:37] LABS: Iron 78 ug/dL (37-170)
[2023-03-14 22:46] LABS: Percent Iron Saturation 33 % (20-50)
--- NOTE | 2023-03-14 23:17 | PM.IMHP ---
H&P: HPI History of Present Illness Date/Time: 03/14/23 23:17 Chief Complaint: fatigue Narrative: This is an 87-year-old female with past medical history significant for CLL, chronic anemia, chronic kidney disease, degenerative joint disease, GERD, generalized anxiety disorder, Lewy body dementia. Patient was brought for due to fatigue S of breath. Patient was unable to provide any history due to being hard of hearing. Preliminary workup was significant for hemoglobin of 4. Patient is been admitted for blood transfusion. Review of Systems Review of Systems: ROS unobtainable: Yes unobtainable due to medical condition (Hard of hearing) [facility] Past Medical History Medical History Acute on chronic anemia Aortic atherosclerosis Arthritis Chronic anemia CKD (chronic kidney disease) stage 4, GFR 15-29 ml/min CLL (chronic lymphocytic leukemia) COVID Dark stools DDD (degenerative disc disease) Depression DJD (degenerative joint disease) Essential hypertension Generalized anxiety disorder GERD (gastroesophageal reflux disease) Gout HLD (hyperlipidemia) Hypothyroid Lewy body dementia Osteoporosis Parkinson's disease Peripheral neuropathy Pleural abscess Pneumonia Port-A-Cath in place Pure hypercholesterolemia, unspecified 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 Diana Stallworth is her child who is the durable power civil attorney for healthcare. She never smoked. Code status: DNR/DNI Smoking status: Never smoker Second hand tobacco smoke exposure: No Alcohol intake: never Substance use: never Substance use type: does not use Lack of Transportation: No Lack of Food: Never True Current Housing: I Have Housing Concerned About Future Housing: No Difficulty Paying Gas/Electric Bills: No Difficulty Paying for Meds: No Currently Unemployed: No Education: High School Diploma/GED Difficulty w/ Childcare or Family Care: No Living arrangements: long-term Gender identity (if verbalized by the patient): Female Spiritual care concerns: No Meds Home Medications and Allergies Home Medications Medication Instructions Recorded Confirmed Type acetaminophen 650 mg 650 mg PO Q4H PRN Pain 02/16/19 09/25/22 History tablet,extended release carbidopa ER 50 mg-levodopa 200 mg 1 tablet PO TID 02/16/19 09/25/22 History tablet,extended release ondansetron HCl 4 mg tablet 4 mg PO Q6H PRN Nausea And Vomiting 02/16/19 09/25/22 History levothyroxine 50 mcg capsule 50 mcg PO DAILY 04/07/19 09/25/22 History lidocaine-prilocaine 2.5 %-2.5 % 1 applic topical ONCE 04/07/19 09/25/22 History topical cream ferrous sulfate 325 mg (65 mg 325 mg PO DAILY constipation 10/22/19 09/25/22 History iron) tablet magnesium hydroxide 400 mg/5 mL 15 ml PO DAILY PRN Indigestion 11/02/19 09/25/22 History oral suspension (Milk of Magnesia) multivitamin (Daily-Amy tablet) 1 tablet PO DAILY 11/02/19 09/25/22 History polyvinyl alcohol 1.4 % eye drops 1 drp ophthalmic (eye) TID PRN Dry 11/02/19 09/25/22 History (Artificial Tears (polyvinyl Eyes alcohol)) sertraline 25 mg tablet 25 mg PO DAILY 11/02/19 09/25/22 History metoprolol tartrate 25 mg tablet 12.5 mg PO Q12HR #30 tabs 11/06/19 09/25/22 Rx donepezil 10 mg tablet 10 mg PO HS 03/27/21 09/25/22 Hist
[2023-03-15] VITALS (20 sets, daily range): BP systolic 118–152; BP diastolic 36–60; PULSE 62–82; RESP 16–28; TEMP 36.2–37.2; O2SAT 94–98
[2023-03-15 00:10] LABS: Vitamin B12 > 1000.0 pg/mL (239-931)
--- NOTE | 2023-03-15 00:57 | PC.NURSE ---
Patient taken upstairs by RN at 0040
[2023-03-15] MEDS: SODIUM CHLORIDE 0.9% IV 250 ML 30 ML IV CONT (04:10)
--- NOTE | 2023-03-15 05:31 | ADMGEN ---
This patient, Diana Castano, was admitted to [facility] Surg Room 321-02. Patient/family oriented to hospital policies and general routines including ID bracelet, bed and alarms, visiting hours, pain management, procedures, bathroom and other care routines, personal items, smoking policy, room service/diet, and visiting hours. Information on how to activate the Rapid Response Team has been discussed. Patient/Family are encouraged to report perceived risks to care and to ask questions if they do not understand what they are told or what they should do.
[2023-03-15] MEDS: guaiFENesin 200 MG/10 ML UDC PO ×3 (06:18→21:02)
--- NOTE | 2023-03-15 07:55 | PM.IMPN ---
Progress Note: A&P Assessment and Plan (1) Acute on chronic anemia: Code(s): D64.9 - Anemia, unspecified Status: Acute Assessment and Plan: Place in observation and regular medical floor Transfuse as needed 03/15: Patient with hgb to 7.2 post transfusion. Goal hgb >=7, would prefer to see 12-24 hours of clinical and lab stability prior to discharge. Repeat labs this afternoon and in the am. This is a chronic problem for this patient (CLL dx) and has outpatient f/u in place, plan to receive procrit in near future. 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 (5) Parkinsons disease: Code(s): G20 - Parkinson's disease Status: Acute Assessment and Plan: Continue home meds 03/15: Family at bedsise and patient is at approximate baseline. (6) GERD (gastroesophageal reflux disease): Code(s): K21.9 - Gastro-esophageal reflux disease without esophagitis Status: Acute Assessment and Plan: PPI 03/15: Stable. (7) CLL (chronic lymphocytic leukemia): Code(s): C91.10 - Chronic lymphocytic leukemia of B-cell type not having achieved remission Status: Acute Assessment and Plan: Follow-up in outpatient setting 03/15: Follows Dr. Acosta. Plan Serial monitoring hgb, transfuse <7. Hold vte proph d/t thrombocytopenia, anemia. Diet regular. Time Spent With Patient Time: >30 minutes spent in patient examination, order selector, documentation and meeting with family at bedside. Subjective Date/time seen: 03/15/23 07:55 Interval history: 87 year old female with known CLL and chronic anemia presenting with hgb of 4 on 03/14/23. Follows with Dr. Acosta, had plan for procrit but has not had injection as of yet. 03/15: Diana is doing well this morning, denies any shortness of breath. Denies any hematochezia. Review of Systems Review of Systems: ROS negative unless as noted above in HPI. Exam Narrative: GENERAL APPEARANCE: Appears to be in no acute distress. Pale. HEAD: normocephalic atraumatic EYES: PERRL, EOMI. Vision grossly intact. Pale conjunctiva. ENT: Hearing markedly decreased, no nasal discharge NECK: Neck supple, trachea midline. CARDIAC: Normal S1/S2. Rhythm is regular. No murmurs, rubs, or gallops. No cyanosis or pallor. Extremities are warm and well perfused. LUNGS: Clear to auscultation without rales, rhonchi, wheezing or diminished breath sounds. Respirations even and unlabored. ABDOMEN: BS positive x 4 quadrants. Soft, nondistended, nontender. No guarding or rebound. MSK: No joint tenderness/swelling, fair strength in all extremities. PERIPHERAL VASCULAR: Peripheral pulses palpable. Normal perfusion, cap refill <2 seconds. No edema. NEURO: Follows commands. No focal deficits. SKIN: [place] without lesions or eruptions. PSYCH: Stable, no paranoia or delusional thinking. Objective Data Vital Signs Vital Signs: Vital Signs - 24 hr 03/14/23 19:39 03/14/23 22:04 03/15/23 00:01 Temperature 97.9 F 98.9 F Pulse Rate 65 66 66 Respiratory Rate 20 18 28 H Blood Pressure 128/47 L 121/44 L 120/40 L Pulse Oximetry 99 97 96 Oxygen Delivery Room Air 03/15/23 00:07 03/15/23 00:10 03/15/23 00:15 Temperature 98.3 F 98.5 F 98.5 F Pulse Rate 67 65 67 Respiratory Rate 20 21 H 18 Blood Pressure 120/42 L 122/41 L 119/41 L Pulse Oximetry 95 96 96
[2023-03-15 09:21] LABS: Hematocrit 22.6 % (37.0-47.0); Hemoglobin 7.2 g/dL (12.0-15.0); Immature Platelet Fraction Pct 8.1 % (0.9-11.2); Mean Corpuscular HGB Conc 31.9 g/dl (32-36); Mean Corpuscular Volume 109.7 fl (80-100); Mean Platelet Volume 11.6 fl (7.4-10.4); Platelet Count Result 44 k/mm3 (150-375); Red Blood Count 2.06 M/mm3 (4.2-5.4); White Blood Count 4.9 K/mm3 (4.5-10.0)
[2023-03-15 09:36] LABS: Anion Gap 8 mmol/L (8-16); Blood Urea Nitrogen 27 mg/dL (7-17); Calcium 8.2 mg/dL (8.4-10.2); Carbon Dioxide 21 mmol/L (22-30); Chloride 107 mmol/L (98-107); Estimated CRCL calculation 29 ml/min; Estimated Glomerular Filt Rate 47; Glucose 103 mg/dL (65-110); Potassium 3.9 mmol/L (3.4-5.0); Sodium 136 mmol/L (137-145)
[2023-03-15 10:03] LABS: Lymphocytes Absolute Manual 3.67 K/mm3 (1.1-4.5); Lymphocytes Percent Manual 75 % (18-44); Monocytes Absolute Manual 0.09 K/mm3 (0.1-0.90); Monocytes Percent Manual 2 % (3-9); Neutrophils Percent Manual 15 % (46-73); Total Cells Counted 100
[2023-03-15 10:04] LABS: Band Neutrophils Percent 8 % (0-6); Neutrophils Absolute Manual 1.12 K/mm3 (1.7-7.2); Platelet Estimate Decreased (Adequate); Smudge Cells FEW
[2023-03-15 10:05] LABS: Anisocytosis 2+ (NORMAL); Macrocytosis 1+ (NORMAL); Ovalocytes 1+ (NORMAL); Schistocytes None Seen (NORMAL)
[2023-03-15] MEDS: FUROSEMIDE 20 MG TABLET PO (10:10)
[2023-03-15] MEDS: PANTOPRAZOLE 40 MG TABLET PO (10:10)
[2023-03-15] MEDS: POTASSIUM CHLORIDE 10 MEQ ER TABLET PO (10:10)
[2023-03-15] MEDS: allopurinoL 300 MG TABLET PO (10:11)
[2023-03-15] MEDS: METOPROLOL TARTRATE 12.5 MG TABLET PO ×2 (10:11→21:00)
[2023-03-15] MEDS: CARBIDOPA/LEVODOPA 25/100 MG CR TABLET 2 TABLET PO ×3 (10:11→18:13)
[2023-03-15] MEDS: SERTRALINE HCL 25 MG TABLET PO (10:11)
[2023-03-15] MEDS: SIMVASTATIN 20 MG TABLET 40 MG PO (10:11)
[2023-03-15] MEDS: CENTRAL LINE FLUSH 10 ML IV PUSH ×2 (14:36→22:37)
[2023-03-15] MEDS: LEVOTHYROXINE SODIUM 50 MCG TABLET PO (14:36)
[2023-03-15 15:11] LABS: IFOB Positive Control Positive; Immunochemical Fecal Occult Bl Negative (N)
[2023-03-15 16:38] LABS: Appearance Urine Clear (Clear); Bacteria Urine Rare /hpf; Bilirubin Urine Negative (Negative); Blood Urine Negative (Negative); Color Urine Yellow (Yellow); Glucose Urine UA Negative (Negative); Ketones Urine Negative (Negative); Leukocyte Esterase Ur 1+ LEU/UL (Negative); Nitrate Urine Negative (Negative); Non Pathogenic Casts 0-2; Protein Urine 1+ mg/dL (Negative); RBC Urine 0-2 /hpf (0-2); Specific Grav Ur 1.012 (1.001-1.035); Squamous Epithelial Cell Urine None seen /hpf (Few); WBC Urine 21-50 /hpf; pH Urine 6.5 (5.0-9.0)
[2023-03-15 16:45] LABS: Add Urine Microscopic? YES
[2023-03-15 16:58] LABS: Hematocrit 23.3 % (37.0-47.0); Hemoglobin 7.4 g/dL (12.0-15.0); Immature Platelet Fraction Pct 7.5 % (0.9-11.2); Mean Corpuscular HGB Conc 31.8 g/dl (32-36); Mean Corpuscular Hemoglobin 35.1 pg (26-34); Mean Corpuscular Volume 110.4 fl (80-100); Mean Platelet Volume 11.1 fl (7.4-10.4); Platelet Count Result 47 k/mm3 (150-375); Red Blood Count 2.11 M/mm3 (4.2-5.4); White Blood Count 5.1 K/mm3 (4.5-10.0)
--- NOTE | 2023-03-15 17:42 | PDONCCN ---
HPI - Date of Consult Date/Time: 03/15/23 17:42 Requesting Physician: Corin Lovett MD Primary Care Provider: Stephen Acosta MD - Consult Narrative Reason for consult: Chronic lymphocytic leukemia and profound anemia Narrative: Diana Castano is a 87 year old female with diagnosis of chronic lymphocytic leukemia status post weekly Rituxan treatment type 4 completed June 2021. She was office in December 2022. Patient also has history of immunoglobulin deficiency. Plan was to start her on treatment with Procrit due to anemia of chronic kidney disease. Patient now came into the hospital with generalized weakness and found to have hemoglobin of 4. She received 2 units of packed red blood cell with improvement in hemoglobin now up to 7.4. She is a poor historian.. She has been eating poorly. Denies any fevers and chills. Iron of 78 with iron saturation of 33%. Vitamin B12 was more than 1000. Creatinine was 1.1 with GFR of 29. Chest x-ray showed finding represent atelectasis/pulmonary edema or pneumonia. Review of Systems - Review of Systems All systems reviewed & are unremarkable except as noted in HPI and [facility] Medical History: Medical History (Last Reviewed 03/15/23 @ 03:51 by Rober Gotti MD) Acute on chronic anemia Aortic atherosclerosis Arthritis Chronic anemia CKD (chronic kidney disease) stage 4, GFR 15-29 ml/min CLL (chronic lymphocytic leukemia) COVID Dark stools DDD (degenerative disc disease) Depression DJD (degenerative joint disease) Essential hypertension Generalized anxiety disorder GERD (gastroesophageal reflux disease) Gout HLD (hyperlipidemia) Hypothyroid Lewy body dementia Osteoporosis Parkinson's disease Peripheral neuropathy Pleural abscess Pneumonia Port-A-Cath in place Pure hypercholesterolemia, unspecified 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 Tuberculosis Ulcer Urge incontinence UTI (urinary tract infection) Surgical History: Surgical History (Last Reviewed 03/15/23 @ 03:51 by Rober Gotti MD) H/O bilateral cataract extraction History of total hysterectomy with bilateral salpingo-oophorectomy (BSO) Family History: Family History (Last Reviewed 03/15/23 @ 03:51 by Rober Gotti MD) Father Heart failure Mother Unknown family medical history - Social History Social History: Social History (Last Reviewed 03/15/23 @ 03:51 by Rober Gotti MD) Gender Identity: Gender identity (if verbalized by the patient): Female Alcohol Use: Alcohol intake: never Substance Use: Substance use: never Substance use type: does not use Others: Spiritual care concerns: No Living Arrangements: Living arrangements: correction Smoking Status: Smoking status: Never smoker Second hand tobacco smoke exposure: No Social Determinants of Health: Has the Lack of Transportation Kept You From Medical Appointments or From Getting Medications?: No Within the Past 12 Months, Were You Worried Whether Your Food Would Run Out Before You Got Money to Buy More?: Never True What is Your Housing Situation Today?: I Have Housing Are You Worried That in the Next 2 Months, You May Not Have Your Own Housing to Live In?: No Do You Have Trouble Paying Your Heating Or Electricity Bill?: No Do You Have Trouble Paying For Medicines?: No Are You Currently Unemployed and Looking for Work?: No Highest Level of Education Completed: High School Diploma/GED Do You Have Trouble With Childcare or the Care of a Family Member?: No Exam - Vital Signs Vital Signs - 24 hr 03/14/23 19:39 03/14/23 22:04 03/15/23 00:01 Temperature 36.6 C 37.2 C Pulse Rate 65 66 66 Respiratory Rate 20 18 28 H Blood Pressure 128/47 L 121/44 L 120/40 L Pulse Oximetry 99 97 96 Oxygen Delivery Room Air 03/15/23 00:07 03/15/23 00:10 03/15/23 00:15 Temperature 36.8 C 36.9 C 36.9 C Pu
[2023-03-15] MEDS: EPOETIN ALFA-EPBX 20,000 UNITS/ML VIAL 20000 UNITS SUB-Q (18:18)
[2023-03-15 20:14] LABS: Immunoglobulin A < 40 mg/dL (70-400); Immunoglobulin G < 270 mg/dL (700-1600); Immunoglobulin M < 25 mg/dL (40-230)
[2023-03-15 20:21] LABS: Lactate Dehydrogenase 181 U/L (120-246)
[2023-03-15] MEDS: ACETAMINOPHEN 325 MG TABLET 650 MG PO (20:59)
[2023-03-15] MEDS: DONEPEZIL HCL 10 MG TABLET PO (21:00)
[2023-03-15 21:07] LABS: Reticulocyte Hemoglobin Conten 37.5 pg (28.2-35.7); Reticulocyte Percent 2.53 % (0.7-4.3); Reticulocytes Absolute 0.04 M/mm3 (0.02-0.1)
[2023-03-16] VITALS (11 sets, daily range): BP systolic 127–179; BP diastolic 45–92; PULSE 50–68; RESP 14–20; TEMP 36.6–38.9; O2SAT 94–99
[2023-03-16] MEDS: CENTRAL LINE FLUSH 10 ML IV PUSH ×3 (06:30→22:29)
[2023-03-16] MEDS: LEVOTHYROXINE SODIUM 50 MCG TABLET PO (06:30)
[2023-03-16] MEDS: guaiFENesin 200 MG/10 ML UDC PO ×2 (06:30→20:40)
[2023-03-16 07:02] LABS: Anion Gap 10 mmol/L (8-16); Blood Urea Nitrogen 22 mg/dL (7-17); Calcium 8.5 mg/dL (8.4-10.2); Carbon Dioxide 22 mmol/L (22-30); Chloride 105 mmol/L (98-107); Estimated CRCL calculation 32 ml/min; Estimated Glomerular Filt Rate 53; Glucose 99 mg/dL (65-110); Potassium 3.8 mmol/L (3.4-5.0); Sodium 137 mmol/L (137-145)
[2023-03-16 07:04] LABS: Hematocrit 21.8 % (37.0-47.0); Immature Platelet Fraction Pct 7.6 % (0.9-11.2); Mean Corpuscular HGB Conc 31.7 g/dl (32-36); Mean Corpuscular Hemoglobin 35.4 pg (26-34); Mean Corpuscular Volume 111.8 fl (80-100); Mean Platelet Volume 12.1 fl (7.4-10.4); Platelet Count Result 41 k/mm3 (150-375); Red Blood Count 1.95 M/mm3 (4.2-5.4); White Blood Count 3.7 K/mm3 (4.5-10.0)
[2023-03-16 07:17] LABS: Hemoglobin 6.9 g/dL (12.0-15.0)
[2023-03-16] MEDS: METOPROLOL TARTRATE 12.5 MG TABLET PO ×2 (08:31→20:41)
[2023-03-16] MEDS: SIMVASTATIN 20 MG TABLET 40 MG PO (08:31)
[2023-03-16] MEDS: FUROSEMIDE 20 MG TABLET PO (08:32)
[2023-03-16] MEDS: POTASSIUM CHLORIDE 10 MEQ ER TABLET PO (08:32)
[2023-03-16] MEDS: SERTRALINE HCL 25 MG TABLET PO (08:33)
[2023-03-16] MEDS: allopurinoL 300 MG TABLET PO (08:33)
[2023-03-16] MEDS: PANTOPRAZOLE 40 MG TABLET PO (08:33)
[2023-03-16] MEDS: SODIUM CHLORIDE 0.9% IV 250 ML 30 ML IV CONT (09:39)
[2023-03-16] MEDS: CARBIDOPA/LEVODOPA 25/100 MG CR TABLET 2 TABLET PO ×3 (09:55→16:33)
--- NOTE | 2023-03-16 11:31 | PM.IMPN ---
Progress Note: A&P Assessment and Plan (1) Acute on chronic anemia: Code(s): D64.9 - Anemia, unspecified Status: Acute Assessment and Plan: Place in observation and regular medical floor Transfuse as needed 03/15: Patient with hgb to 7.2 post transfusion. Goal hgb >=7, would prefer to see 12-24 hours of clinical and lab stability prior to discharge. Repeat labs this afternoon and in the am. This is a chronic problem for this patient (CLL dx) and has outpatient f/u in place, plan to receive procrit in near future. 03/16: Hgb 6.9 this am. Receiving [address] Acosta has been consulted and rec's are appreciated. LDH normal, haptoglobin pending, immature retic fraction 39.0, retic hgb 37.5. May need steroids per oncology. 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 03/16: plt 41, stable. no s/s of bleeding. (5) Parkinsons disease: Code(s): G20 - Parkinson's disease Status: Acute Assessment and Plan: Continue home meds 03/15: Family at bedsise and patient is at approximate baseline. (6) GERD (gastroesophageal reflux disease): Code(s): K21.9 - Gastro-esophageal reflux disease without esophagitis Status: Acute Assessment and Plan: PPI 03/15: Stable. (7) CLL (chronic lymphocytic leukemia): Code(s): C91.10 - Chronic lymphocytic leukemia of B-cell type not having achieved remission Status: Acute Assessment and Plan: Follow-up in outpatient setting 03/15: Follows Dr. Acosta. Plan Serial monitoring hgb, transfuse <7. Hold vte proph d/t thrombocytopenia, anemia. Diet regular. Subjective Date/time seen: 03/16/23 11:31 Interval history: This is an 87-year-old female with past medical history significant for CLL, chronic anemia, chronic kidney disease, degenerative joint disease, GERD, generalized anxiety disorder, Lewy body dementia.? Patient was brought for due to fatigue S of breath.? Patient was unable to provide any history due to being hard of hearing.? Preliminary workup was significant for hemoglobin of 4.? Patient is been admitted for blood transfusion. 03/15: Diana is doing well this morning, denies any shortness of breath.? Denies any hematochezia. 03/16: Patient is very hard of hearing. She says she is feeling okay, just tired. She denies SOB or chest pain. Says she has a cough but is not producing anything. Review of Systems Review of Systems: All systems reviewed & are unremarkable except as noted in HPI and below ROS unobtainable: Yes unobtainable due to medical condition (Hard of hearing) Exam Narrative: General: fraile, thin, pale, appears stated age. HEENT: normocephalic, atraumatic. Mucous membranes moist. EOMI, PERRLA, bilateral sclera anicteric, no conjunctival injection. Neck supple without JVD, lymphadenopathy, or bruit. [place]. Respiratory: clear to auscultation bilaterally. No rales/rhonic/wheezes. Cardiovascular: Regular rate and rhythm, normal S1-S2 upon auscultation. No murmurs, rubs, or clicks. PMI is nondisplaced, capillary re-fill less than 3 second. Abdomen: Soft, flat, no pulsatile masses, non-distended and non-tender. No rebound, no guarding. No CVA tenderness, no hepatosplenomegaly. Bowel sounds present to all four quadrants. No high pitch or tinkling sounds, resonant to percussion. Extremities: No cyanosis, clubbing, or
[2023-03-16 17:25] LABS: Basophils Percent Auto 0.4 % (0.2-1.2); Hematocrit 28.3 % (37.0-47.0); Hemoglobin 8.9 g/dL (12.0-15.0); Immature Granulocyte Absolute 0.02 K/mm3 (0.00-0.031); Immature Granulocyte Percent A 0.4 % (0-0.5); Immature Platelet Fraction Pct 7.3 % (0.9-11.2); Lymphocytes Absolute Auto 4.15 K/mm3 (0.9-3.2); Lymphocytes Percent Auto 80.9 % (18.3-44.2); Mean Corpuscular HGB Conc 31.4 g/dl (32-36); Mean Platelet Volume 11.6 fl (7.4-10.4); Monocytes Absolute Auto 0.4 K/mm3 (0.1-0.6); Monocytes Percent Auto 7.8 % (2.6-8.5); Neutrophils Absolute Auto 0.5 K/mm3 (1.3-6.7); Neutrophils Percent Auto 10.5 % (45.5-73.1); Platelet Count Result 48 k/mm3 (150-375); Red Blood Count 2.62 M/mm3 (4.2-5.4); White Blood Count 5.1 K/mm3 (4.5-10.0)
[2023-03-16 17:36] LABS: Platelet Estimate Decreased (Adequate)
[2023-03-16 17:37] LABS: Macrocytosis 1+ (NORMAL); Ovalocytes 1+ (NORMAL); Schistocytes None Seen (NORMAL)
[2023-03-16] MEDS: ACETAMINOPHEN 325 MG TABLET 650 MG PO (20:41)
[2023-03-16] MEDS: DONEPEZIL HCL 10 MG TABLET PO (20:41)
[2023-03-16] MEDS: ONDANSETRON INJ 4 MG/2 ML VIAL IV PUSH (22:27)
[2023-03-16] MEDS: diphenhydrAMINE HCl INJ 50 MG/ML VIAL 25 MG IV PUSH (22:27)
[2023-03-16 22:44] LABS: Basophils Percent Auto 0.6 % (0.2-1.2); Hematocrit 28.8 % (37.0-47.0); Hemoglobin 9.2 g/dL (12.0-15.0); Immature Granulocyte Absolute 0.06 K/mm3 (0.00-0.031); Immature Granulocyte Percent A 1.7 % (0-0.5); Immature Platelet Fraction Pct 7.3 % (0.9-11.2); Lymphocytes Absolute Auto 2.83 K/mm3 (0.9-3.2); Lymphocytes Percent Auto 82.5 % (18.3-44.2); Mean Corpuscular HGB Conc 31.9 g/dl (32-36); Mean Corpuscular Hemoglobin 33.9 pg (26-34); Mean Corpuscular Volume 106.3 fl (80-100); Mean Platelet Volume 11.1 fl (7.4-10.4); Monocytes Absolute Auto 0.2 K/mm3 (0.1-0.6); Monocytes Percent Auto 4.7 % (2.6-8.5); Neutrophils Absolute Auto 0.4 K/mm3 (1.3-6.7); Neutrophils Percent Auto 10.5 % (45.5-73.1); Nucleated Red Blood Cells Perc 0.6 % (0.0-0.2); Platelet Count Result 55 k/mm3 (150-375); Red Blood Count 2.71 M/mm3 (4.2-5.4); Red Cell Distribution Width 27.9 % (11.5-14.5); White Blood Count 3.4 K/mm3 (4.5-10.0)
[2023-03-16 22:56] LABS: Anion Gap 11 mmol/L (8-16); Blood Urea Nitrogen 23 mg/dL (7-17); Calcium 8.5 mg/dL (8.4-10.2); Carbon Dioxide 20 mmol/L (22-30); Chloride 104 mmol/L (98-107); Estimated CRCL calculation 29 ml/min; Estimated Glomerular Filt Rate 47; Glucose 158 mg/dL (65-110); Lactic Acid Reflex 1.4 mmol/L (0.7-2.0); Sodium 135 mmol/L (137-145)
[2023-03-16 23:18] LABS: Large Platelets Present; Platelet Estimate Decreased (Adequate); Smudge Cells FEW
[2023-03-16 23:19] LABS: Anisocytosis 2+ (NORMAL); Hypochromasia 2+ (NORMAL); Macrocytosis 1+ (NORMAL); Microcytosis 2+ (NORMAL)
[2023-03-16 23:24] LABS: Ovalocytes 1+ (NORMAL)
[2023-03-16 23:25] LABS: Schistocytes None Seen (NORMAL)
[2023-03-16 23:29] LABS: Tear Drop Cells 1+ (NORMAL)
[2023-03-17] MEDS: AZITHROMYCIN 250 MG TABLET 500 MG PO (01:23)
[2023-03-17] MEDS: CEFEPIME 1 GM/NS 50 ML 1 GM/50 ML BAG IVPB ×2 (01:24→23:50)
[2023-03-17] MEDS: CENTRAL LINE FLUSH 10 ML IV PUSH ×3 (05:12→21:06)
[2023-03-17 05:16] LABS: Basophils Percent Auto 0.4 % (0.2-1.2); Hematocrit 26.1 % (37.0-47.0); Hemoglobin 8.4 g/dL (12.0-15.0); Immature Granulocyte Absolute 0.18 K/mm3 (0.00-0.031); Immature Granulocyte Percent A 2.5 % (0-0.5); Immature Platelet Fraction Pct 8.5 % (0.9-11.2); Lymphocytes Absolute Auto 5.52 K/mm3 (0.9-3.2); Lymphocytes Percent Auto 77.4 % (18.3-44.2); Mean Corpuscular HGB Conc 32.2 g/dl (32-36); Mean Corpuscular Hemoglobin 34.4 pg (26-34); Monocytes Absolute Auto 0.2 K/mm3 (0.1-0.6); Monocytes Percent Auto 3.4 % (2.6-8.5); Neutrophils Absolute Auto 1.2 K/mm3 (1.3-6.7); Neutrophils Percent Auto 16.3 % (45.5-73.1); Platelet Count Result 52 k/mm3 (150-375); Red Blood Count 2.44 M/mm3 (4.2-5.4); Red Cell Distribution Width 27.5 % (11.5-14.5); White Blood Count 7.1 K/mm3 (4.5-10.0)
[2023-03-17 05:27] LABS: Anion Gap 8 mmol/L (8-16); Blood Urea Nitrogen 28 mg/dL (7-17); Carbon Dioxide 23 mmol/L (22-30); Chloride 102 mmol/L (98-107); Estimated CRCL calculation 22 ml/min; Estimated Glomerular Filt Rate 33; Glucose 176 mg/dL (65-110); Potassium 3.9 mmol/L (3.4-5.0); Sodium 133 mmol/L (137-145)
[2023-03-17 05:55] LABS: Large Platelets Present; Platelet Estimate Decreased (Adequate)
[2023-03-17 05:56] LABS: Anisocytosis 2+ (NORMAL); Poikilocytosis 1+ (NORMAL)
[2023-03-17 05:57] VITALS: BP 108/57; PULSE 71; RESP 13; TEMP 36.4; O2SAT 94
[2023-03-17 05:57] LABS: Ovalocytes 1+ (NORMAL); Schistocytes None Seen (NORMAL); Tear Drop Cells 1+ (NORMAL)
[2023-03-17 05:58] LABS: Hypersegmented Neutrophils Present
[2023-03-17 05:59] LABS: Hypochromasia 1+ (NORMAL)
--- NOTE | 2023-03-17 06:37 | PC.NURSE ---
Pt. had a fever (102.0),cough and was tachypnea at about 22:00 the night of 03/16/23. Called hospitalist labs ordered, chest X-ray taken cefepime, azithromycin and vancomycin all started.
[2023-03-17] MEDS: LEVOTHYROXINE SODIUM 50 MCG TABLET PO (06:49)
--- NOTE | 2023-03-17 07:51 | PM.IMPN ---
Progress Note: A&P Assessment and Plan (1) Acute on chronic anemia: Code(s): D64.9 - Anemia, unspecified Status: Acute Assessment and Plan: Place in observation and regular medical floor Transfuse as needed 03/15: Patient with hgb to 7.2 post transfusion. Goal hgb >=7, would prefer to see 12-24 hours of clinical and lab stability prior to discharge. Repeat labs this afternoon and in the am. This is a chronic problem for this patient (CLL dx) and has outpatient f/u in place, plan to receive procrit in near future. 03/16: Hgb 6.9 this am. Receiving [address] Acosta has been consulted and rec's are appreciated. LDH normal, haptoglobin pending, immature retic fraction 39.0, retic hgb 37.5. May need steroids per oncology. 03/17:Hgb stable 8.4. (2) Febrile: Code(s): R50.9 - Fever, unspecified Status: Acute Assessment and Plan: Fever overnight 03/16 of 102.4, drowsy placed on broad spectrum abx: vanco, cefe, azithromycin pneumonia vs UTI? U/A today has 2+ leuks, WBC 51-100; Cr increased due to poor intake. Add on procal BP low. Holding PO agents. Giving 1 L NS bolus and maintenance fluids at 100 ml per hour. 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 03/16: plt 41, stable. no s/s of bleeding. 03/17: Plt 52. (5) Parkinsons disease: Code(s): G20 - Parkinson's disease Status: Acute Assessment and Plan: Continue home meds 03/15: Family at bedsise and patient is at approximate baseline. (6) GERD (gastroesophageal reflux disease): Code(s): K21.9 - Gastro-esophageal reflux disease without esophagitis Status: Acute Assessment and Plan: PPI 03/15: Stable. (7) CLL (chronic lymphocytic leukemia): Code(s): C91.10 - Chronic lymphocytic leukemia of B-cell type not having achieved remission Status: Acute Assessment and Plan: Follow-up in outpatient setting 03/15: Follows Dr. Acosta. Plan Serial monitoring hgb, transfuse <7. Hold vte proph d/t thrombocytopenia, anemia. Diet regular. Subjective Date/time seen: 03/17/23 07:51 Interval history: This is an 87-year-old female with past medical history significant for CLL, chronic anemia, chronic kidney disease, degenerative joint disease, GERD, generalized anxiety disorder, Lewy body dementia.? Patient was brought for due to fatigue S of breath.? Patient was unable to provide any history due to being hard of hearing.? Preliminary workup was significant for hemoglobin of 4.? Patient is been admitted for blood transfusion. 03/15: Diana is doing well this morning, denies any shortness of breath.? Denies any hematochezia. 03/16: Patient is very hard of hearing. She says she is feeling okay, just tired. She denies SOB or chest pain. Says she has a cough but is not producing anything. 03/17: Diana appears to not be feel well today. She is pale, withdrawn, and drowsy. She was febrile overnight of 102.0. She was started on broad spectrum antibiotics with concerns for pneumonia vs TRALI; chest xr reveals mild pulmonary edema and small pleural effusions. Blood and urine cultures are pending. She has a congested cough but no oxygen requirements. Review of Systems Review of Systems: ROS unobtainable: Yes unobtainable due to medical condition (Hard of hearing) Exam Narrative: General: frail, thin, pale, appears stated age. HEENT: normocephalic, atraumatic. Mucous membranes moist. EOMI, PERRLA, bilateral sclera anicteric, no conjunctival injection. Neck supple without JVD, lymphadeno
[2023-03-17] MEDS: traMADol HCL (*CRX) 50 MG TABLET PO (08:59)
[2023-03-17] MEDS: FUROSEMIDE 20 MG TABLET PO (09:00)
[2023-03-17] MEDS: guaiFENesin 200 MG/10 ML UDC PO ×2 (09:00→12:53)
[2023-03-17] MEDS: POTASSIUM CHLORIDE 10 MEQ ER TABLET PO (09:00)
[2023-03-17] MEDS: SIMVASTATIN 20 MG TABLET 40 MG PO (09:00)
[2023-03-17] MEDS: CARBIDOPA/LEVODOPA 25/100 MG CR TABLET 2 TABLET PO ×3 (09:00→17:39)
[2023-03-17] MEDS: METOPROLOL TARTRATE 12.5 MG TABLET PO (09:00)
[2023-03-17] MEDS: SERTRALINE HCL 25 MG TABLET PO (09:01)
[2023-03-17] MEDS: PANTOPRAZOLE 40 MG TABLET PO (09:01)
[2023-03-17] MEDS: allopurinoL 300 MG TABLET PO (09:01)
[2023-03-17 14:00] VITALS: BP 96/52; PULSE 63; RESP 16; TEMP 36.7; O2SAT 96
[2023-03-17] MEDS: SODIUM CHLORIDE 0.9% IV 1,000 ML 999 ML IV CONT (15:03)
[2023-03-17] MEDS: SODIUM CHLORIDE 0.9% IV 1,000 ML 100 ML IV CONT (15:07)
[2023-03-17 15:53] LABS: Appearance Urine Turbid (Clear); Bacteria Urine None Seen /hpf; Bilirubin Urine 1+ (Negative); Blood Urine Negative (Negative); Color Urine Dark Yellow (Yellow); Glucose Urine UA Negative (Negative); Hyaline Casts Urine Present /lpf; Ketones Urine Trace mg/dL (Negative); Leukocyte Esterase Ur 2+ LEU/UL (Negative); Mucus Urine Present /lpf; Need Manual Microscopic Reviewed; Nitrate Urine Negative (Negative); Non Pathogenic Casts >20; Protein Urine 3+ mg/dL (Negative); Squamous Epithelial Cell Urine Moderate /hpf (Few); WBC Urine 51-100 /hpf
[2023-03-17 15:55] LABS: Add Urine Microscopic? YES
[2023-03-17 16:00] LABS: Lactic Acid Reflex 1.1 mmol/L (0.7-2.0)
[2023-03-17 16:56] VITALS: BP 102/56
[2023-03-17] MEDS: BENZONATATE 100 MG CAPSULE 200 MG PO (17:39)
[2023-03-17] MEDS: LIDOCAINE 5% PATCH 1 PATCH TRANSDERM (17:39)
[2023-03-17 20:00] VITALS: RESP 16; O2SAT 96
[2023-03-17] MEDS: DONEPEZIL HCL 10 MG TABLET PO (21:06)
[2023-03-17] MEDS: CENTRAL LINE FLUSH 20 ML IV PUSH (21:06)
[2023-03-17 21:48] LABS: Procalcitonin 52.4 ng/mL
[2023-03-17 21:57] VITALS: BP 93/59; PULSE 62; RESP 20; TEMP 36.5; O2SAT 91
[2023-03-18] VITALS (10 sets, daily range): BP systolic 104–124; BP diastolic 56–60; PULSE 61–72; RESP 15–20; TEMP 36.2–36.5; O2SAT 94–100
[2023-03-18] MEDS: SODIUM CHLORIDE 0.9% IV 1,000 ML 100 ML IV CONT ×2 (02:42→12:48)
[2023-03-18] MEDS: CENTRAL LINE FLUSH 10 ML IV PUSH ×3 (04:55→20:42)
[2023-03-18] MEDS: LEVOTHYROXINE SODIUM 50 MCG TABLET PO (04:56)
[2023-03-18] MEDS: CENTRAL LINE FLUSH 20 ML IV PUSH (04:56)
[2023-03-18 05:12] LABS: Basophils Percent Auto 0.4 % (0.2-1.2); Hematocrit 24.8 % (37.0-47.0); Hemoglobin 7.7 g/dL (12.0-15.0); Immature Granulocyte Absolute 0.08 K/mm3 (0.00-0.031); Immature Granulocyte Percent A 1.1 % (0-0.5); Immature Platelet Fraction Pct 8.8 % (0.9-11.2); Lymphocytes Absolute Auto 5.37 K/mm3 (0.9-3.2); Lymphocytes Percent Auto 76.7 % (18.3-44.2); Mean Corpuscular Hemoglobin 33.9 pg (26-34); Mean Corpuscular Volume 109.3 fl (80-100); Mean Platelet Volume 11.4 fl (7.4-10.4); Monocytes Absolute Auto 0.4 K/mm3 (0.1-0.6); Monocytes Percent Auto 5.9 % (2.6-8.5); Neutrophils Absolute Auto 1.1 K/mm3 (1.3-6.7); Neutrophils Percent Auto 15.9 % (45.5-73.1); Platelet Count Result 40 k/mm3 (150-375); Red Blood Count 2.27 M/mm3 (4.2-5.4); Red Cell Distribution Width 27.8 % (11.5-14.5)
[2023-03-18 05:32] LABS: Alanine Aminotransferase 7 U/L (6-35); Albumin Level 2.7 g/dL (3.5-5.1); Alkaline Phosphatase 82 U/L (38-126); Anion Gap 6 mmol/L (8-16); Aspartate Amino Transferase 26 U/L (14-36); Blood Urea Nitrogen 43 mg/dL (7-17); Calcium 7.5 mg/dL (8.4-10.2); Carbon Dioxide 21 mmol/L (22-30); Chloride 107 mmol/L (98-107); Estimated CRCL calculation 17 ml/min; Estimated Glomerular Filt Rate 24; Glucose 106 mg/dL (65-110); Potassium 4.2 mmol/L (3.4-5.0); Sodium 134 mmol/L (137-145)
[2023-03-18 05:50] LABS: Platelet Estimate Decreased (Adequate); Polychromasia 1+ (NORMAL)
[2023-03-18 05:51] LABS: Anisocytosis 2+ (NORMAL); Schistocytes Rare (NORMAL)
--- NOTE | 2023-03-18 08:56 | PM.IMPN ---
Progress Note: A&P Assessment and Plan (1) Acute on chronic anemia: Code(s): D64.9 - Anemia, unspecified Status: Acute Assessment and Plan: Place in observation and regular medical floor Transfuse as needed 03/15: Patient with hgb to 7.2 post transfusion. Goal hgb >=7, would prefer to see 12-24 hours of clinical and lab stability prior to discharge. Repeat labs this afternoon and in the am. This is a chronic problem for this patient (CLL dx) and has outpatient f/u in place, plan to receive procrit in near future. 03/16: Hgb 6.9 this am. Receiving [address] Acosta has been consulted and rec's are appreciated. LDH normal, haptoglobin pending, immature retic fraction 39.0, retic hgb 37.5. May need steroids per oncology. 03/17:Hgb stable 8.4. 03/18: Hgb 7.7/24.8. No s/s of bleeding. (2) Febrile: Code(s): R50.9 - Fever, unspecified Status: Acute Assessment and Plan: Fever overnight 03/16 of 102.4, drowsy placed on broad spectrum abx: vanco, cefe, azithromycin pneumonia vs UTI? U/A today has 2+ leuks, WBC 51-100; Cr increased due to poor intake. Add on procal BP low. Holding PO agents. Giving 1 L NS bolus and maintenance fluids at 100 ml per hour. 03/18: Procal was 52.4, lactic normal, WBC is still normal, Repeat U/a not convincing of UTI, no new oxygen requirements. Will obtain CT chest. Given her cough I suspect her infection is bacterial pneumonia. Add on pulmozyme 2.5 mg nebs Q 12 hours to help with congestion. Started on mucinex BID. 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 03/16: plt 41, stable. no s/s of bleeding. 03/17: Plt 52. 11/20: Plt 40, stable. no s/s of bleeding. (5) Parkinsons disease: Code(s): G20 - Parkinson's disease Status: Acute Assessment and Plan: Continue home meds 03/15: Family at bedsise and patient is at approximate baseline. (6) GERD (gastroesophageal reflux disease): Code(s): K21.9 - Gastro-esophageal reflux disease without esophagitis Status: Acute Assessment and Plan: PPI 03/15: Stable. (7) CLL (chronic lymphocytic leukemia): Code(s): C91.10 - Chronic lymphocytic leukemia of B-cell type not having achieved remission Status: Acute Assessment and Plan: Follow-up in outpatient setting 03/15: Follows Dr. Acosta. Plan Serial monitoring hgb, transfuse <7. Hold vte proph d/t thrombocytopenia, anemia. Diet regular. Subjective Date/time seen: 03/18/23 08:56 Interval history: This is an 87-year-old female with past medical history significant for CLL, chronic anemia, chronic kidney disease, degenerative joint disease, GERD, generalized anxiety disorder, Lewy body dementia.? Patient was brought for due to fatigue S of breath.? Patient was unable to provide any history due to being hard of hearing.? Preliminary workup was significant for hemoglobin of 4.? Patient is been admitted for blood transfusion. 03/15: Diana is doing well this morning, denies any shortness of breath.? Denies any hematochezia. 03/16: Patient is very hard of hearing. She says she is feeling okay, just tired. She denies SOB or chest pain. Says she has a cough but is not producing anything. 03/17: Diana appears to not be feel well today. She is pale, withdrawn, and drowsy. She was febrile overnight of 102.0. She was started on broad spectrum antibiotics with concerns for pneumonia vs TRALI; chest xr reveals mild pulmonary edema and small pleural effusions. Blood and urine cultures are pending. She has a congested
[2023-03-18] MEDS: guaiFENesin 200 MG/10 ML UDC PO (09:17)
[2023-03-18] MEDS: SERTRALINE HCL 25 MG TABLET PO (09:18)
[2023-03-18] MEDS: AZITHROMYCIN 250 MG TABLET 500 MG PO (09:18)
[2023-03-18] MEDS: BENZONATATE 100 MG CAPSULE 200 MG PO ×3 (09:19→17:11)
[2023-03-18] MEDS: allopurinoL 300 MG TABLET PO (09:19)
[2023-03-18] MEDS: SIMVASTATIN 20 MG TABLET 40 MG PO (09:19)
[2023-03-18] MEDS: CARBIDOPA/LEVODOPA 25/100 MG CR TABLET 2 TABLET PO ×3 (09:19→17:11)
[2023-03-18] MEDS: polyethylene glycoL 3350 17 GM POWD.PACK PO (09:19)
[2023-03-18] MEDS: PANTOPRAZOLE 40 MG TABLET PO (09:19)
[2023-03-18] MEDS: POTASSIUM CHLORIDE 10 MEQ ER TABLET PO (09:19)
[2023-03-18] MEDS: LIDOCAINE 5% PATCH 1 PATCH TRANSDERM (09:20)
[2023-03-18] MEDS: guaiFENesin 600 MG/DEXTROMETHORPHAN 30 MG SR TAB 12 HR 1 TAB PO ×2 (12:50→20:42)
[2023-03-18 12:52] LABS: Vancomycin Random 10.4 ug/mL (10-20)
[2023-03-18] MEDS: IPRATROPIUM BR 0.02% INH SOLN 0.5 MG/2.5 ML VIAL INHALATION ×2 (14:00→20:55)
[2023-03-18] MEDS: ALBUTEROL SULFATE NEB 2.5 MG/3 ML INH INHALATION ×2 (14:01→20:54)
[2023-03-18] MEDS: VANCOMYCIN 1,250 MG/NS 250 ML 1,250 MG/250 ML BAG 166.67 MG IVPB (17:10)
[2023-03-18] MEDS: DONEPEZIL HCL 10 MG TABLET PO (20:42)
[2023-03-19] VITALS (11 sets, daily range): BP systolic 110–137; BP diastolic 51–63; PULSE 68–81; RESP 16–22; TEMP 36.2–36.8; O2SAT 95–99
[2023-03-19] MEDS: CEFEPIME 1 GM/NS 50 ML 1 GM/50 ML BAG IVPB (00:57)
[2023-03-19] MEDS: ALBUTEROL SULFATE NEB 2.5 MG/3 ML INH INHALATION ×4 (02:43→20:56)
[2023-03-19] MEDS: IPRATROPIUM BR 0.02% INH SOLN 0.5 MG/2.5 ML VIAL INHALATION ×4 (02:43→20:53)
[2023-03-19] MEDS: PHENOL/SOD PHENO SPRAY CHERRY (*BKC) 1 SPRAY MUCOUS MEM ×2 (03:23→04:44)
[2023-03-19] MEDS: CENTRAL LINE FLUSH 20 ML IV PUSH (04:45)
[2023-03-19] MEDS: CENTRAL LINE FLUSH 10 ML IV PUSH ×4 (04:45→21:39)
[2023-03-19] MEDS: LEVOTHYROXINE SODIUM 50 MCG TABLET PO (04:46)
[2023-03-19 04:47] LABS: Basophils Percent Auto 0.3 % (0.2-1.2); Hematocrit 23.3 % (37.0-47.0); Hemoglobin 7.2 g/dL (12.0-15.0); Immature Granulocyte Absolute 0.21 K/mm3 (0.00-0.031); Immature Granulocyte Percent A 6.7 % (0-0.5); Immature Platelet Fraction Pct 6.3 % (0.9-11.2); Lymphocytes Absolute Auto 2.28 K/mm3 (0.9-3.2); Lymphocytes Percent Auto 73.1 % (18.3-44.2); Mean Corpuscular HGB Conc 30.9 g/dl (32-36); Mean Corpuscular Hemoglobin 33.8 pg (26-34); Mean Corpuscular Volume 109.4 fl (80-100); Mean Platelet Volume 11.5 fl (7.4-10.4); Monocytes Absolute Auto 0.1 K/mm3 (0.1-0.6); Monocytes Percent Auto 4.5 % (2.6-8.5); Neutrophils Absolute Auto 0.5 K/mm3 (1.3-6.7); Neutrophils Percent Auto 15.4 % (45.5-73.1); Platelet Count Result 29 k/mm3 (150-375); Red Blood Count 2.13 M/mm3 (4.2-5.4); Red Cell Distribution Width 26.7 % (11.5-14.5); White Blood Count 3.1 K/mm3 (4.5-10.0)
[2023-03-19 04:55] LABS: Estimated CRCL calculation 25 ml/min; Estimated Glomerular Filt Rate 39
[2023-03-19 05:01] LABS: Anisocytosis 3+ (NORMAL); Macrocytosis 1+ (NORMAL); Platelet Estimate Decreased (Adequate)
[2023-03-19 05:02] LABS: Atypical Lymphocytes Present; Schistocytes None Seen (NORMAL)
[2023-03-19] MEDS: guaiFENesin/DEXTROMETHORPHAN 10 ML UDC 5 ML PO ×2 (05:50→17:06)
[2023-03-19] MEDS: LORazepam (*CRX) 0.5 MG TABLET PO (06:24)
--- NOTE | 2023-03-19 08:05 | PM.IMPN ---
Progress Note: A&P Assessment and Plan (1) Acute on chronic anemia: Code(s): D64.9 - Anemia, unspecified Status: Acute Assessment and Plan: Place in observation and regular medical floor Transfuse as needed 03/15: Patient with hgb to 7.2 post transfusion. Goal hgb >=7, would prefer to see 12-24 hours of clinical and lab stability prior to discharge. Repeat labs this afternoon and in the am. This is a chronic problem for this patient (CLL dx) and has outpatient f/u in place, plan to receive procrit in near future. 03/16: Hgb 6.9 this am. Receiving [address] Acosta has been consulted and rec's are appreciated. LDH normal, haptoglobin pending, immature retic fraction 39.0, retic hgb 37.5. May need steroids per oncology. 03/17:Hgb stable 8.4. 03/18: Hgb 7.7/24.8. No s/s of bleeding. 03/19: Progressing pancytopenia, Hgb 7.2/23.3, platelets 29, WBC 3.1----haptoglobin still pending. (2) Febrile: Code(s): R50.9 - Fever, unspecified Status: Acute Assessment and Plan: Fever overnight 03/16 of 102.4, drowsy placed on broad spectrum abx: vanco, cefe, azithromycin pneumonia vs UTI? U/A today has 2+ leuks, WBC 51-100; Cr increased, suspected due to poor intake. Add on procal BP low. Holding PO agents. Giving 1 L NS bolus. 03/18: Procal was 52.4, lactic normal, WBC is still normal, Repeat U/a not convincing of UTI, no new oxygen requirements. Will obtain CT chest. Given her cough I suspect her infection is bacterial pneumonia. Add on nebs Q 12 hours to help with congestion,wheeze. Started on mucinex BID. 03/19: Procal 31.2 today. WBC 3.1. Afebrile since starting antibiotics. Urine culture with no growth, blood cultures with NGTD. CT of her chest only shows small right and moderate left pleural effusions. She received IV lasix and IVF were stopped. She still does not require oxygen. Will add prednisone today for wheezing and continue with nebulizers. (3) MANAN (acute kidney injury): Code(s): N17.9 - Acute kidney failure, unspecified Status: Acute Assessment and Plan: Cr 1.5 on 03/17. Initially I was concerned for pre-renal source as patient was drowsy and not having much PO intake. She was also febrile the evening of 03/16 with low BP. Was started on IVF 03/17 03/18 Cr worsened 2.[address] chest showed pulmonary edema. Stopped IVF, placed chinchilla for I&O and possible obstructive uropathy, and diuresed with Lasix 40 mg. 03/19: Cr is much improved to 1.3. Suspect she may have had some retention and renal congestion from IVFs. Renal ultrasounds is normal. 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 03/16: plt 41, stable. no s/s of bleeding. 03/17: Plt 52. 03/18: Plt 40, stable. no s/s of bleeding. 03/27: Plt 29. No s/s of bleeding. Continue to monitor. If she has bleeding will transfuse platelets. (6) Parkinsons disease: Code(s): G20 - Parkinson's disease Status: Acute Assessment and Plan: Continue home meds 03/15: Family at bedsise and patient is at approximate baseline. (7) GERD (gastroesophageal reflux disease): Code(s): K21.9 - Gastro-esophageal reflux disease without esophagitis Status: Acute Assessment and Plan: PPI 03/15: Stable. (8) CLL (chronic lymphocytic leukemia): Code(s): C91.10 - Chronic lymphocytic leukemia of B-cell type not having achieved remission Status: Acute Assessment and Plan: Follow-up in outpatient setting 03/15
[2023-03-19 08:32] LABS: Anion Gap 9 mmol/L (8-16); Blood Urea Nitrogen 38 mg/dL (7-17); Calcium 7.9 mg/dL (8.4-10.2); Carbon Dioxide 19 mmol/L (22-30); Chloride 108 mmol/L (98-107); Estimated CRCL calculation 25 ml/min; Estimated Glomerular Filt Rate 39; Glucose 130 mg/dL (65-110); Potassium 3.9 mmol/L (3.4-5.0); Sodium 136 mmol/L (137-145)
[2023-03-19 09:09] LABS: Procalcitonin 31.2 ng/mL
[2023-03-19] MEDS: AZITHROMYCIN 250 MG TABLET 500 MG PO (09:25)
[2023-03-19] MEDS: SIMVASTATIN 20 MG TABLET 40 MG PO (09:25)
[2023-03-19] MEDS: POTASSIUM CHLORIDE 10 MEQ ER TABLET PO (09:25)
[2023-03-19] MEDS: PANTOPRAZOLE 40 MG TABLET PO (09:25)
[2023-03-19] MEDS: SERTRALINE HCL 25 MG TABLET PO (09:26)
[2023-03-19] MEDS: BENZONATATE 100 MG CAPSULE 200 MG PO ×3 (09:26→17:07)
[2023-03-19] MEDS: allopurinoL 300 MG TABLET PO (09:26)
[2023-03-19] MEDS: CARBIDOPA/LEVODOPA 25/100 MG CR TABLET 2 TABLET PO ×3 (09:26→17:07)
[2023-03-19] MEDS: guaiFENesin 600 MG/DEXTROMETHORPHAN 30 MG SR TAB 12 HR 1 TAB PO ×2 (09:26→21:39)
[2023-03-19] MEDS: LIDOCAINE 5% PATCH 1 PATCH TRANSDERM (09:27)
[2023-03-19] MEDS: polyethylene glycoL 3350 17 GM POWD.PACK PO (09:28)
--- NOTE | 2023-03-19 15:37 | PC.NURSE ---
Provider aware of current lab values.
[2023-03-19] MEDS: traMADol HCL (*CRX) 50 MG TABLET PO (17:07)
[2023-03-19 17:13] LABS: Vancomycin Random 11.8 ug/mL (10-20)
[2023-03-19] MEDS: VANCOMYCIN 1,250 MG/NS 250 ML 1,250 MG/250 ML BAG 166.67 MG IVPB (17:46)
[2023-03-19] MEDS: DONEPEZIL HCL 10 MG TABLET PO (21:39)
[2023-03-20] VITALS (14 sets, daily range): BP systolic 113–146; BP diastolic 46–73; PULSE 70–88; RESP 16–24; TEMP 36.2–37.2; O2SAT 94–100
[2023-03-20] MEDS: CEFEPIME 1 GM/NS 50 ML 1 GM/50 ML BAG IVPB (01:29)
[2023-03-20] MEDS: IPRATROPIUM BR 0.02% INH SOLN 0.5 MG/2.5 ML VIAL INHALATION ×3 (02:03→21:17)
[2023-03-20] MEDS: SODIUM CHLORIDE 0.9% IV 250 ML 30 ML (02:03)
[2023-03-20] MEDS: ALBUTEROL SULFATE NEB 2.5 MG/3 ML INH INHALATION ×3 (02:05→21:17)
[2023-03-20] MEDS: guaiFENesin/DEXTROMETHORPHAN 10 ML UDC 5 ML PO ×2 (05:34→15:51)
[2023-03-20] MEDS: LEVOTHYROXINE SODIUM 50 MCG TABLET PO (05:34)
[2023-03-20] MEDS: CENTRAL LINE FLUSH 10 ML IV PUSH ×3 (05:35→21:56)
[2023-03-20 06:29] LABS: Basophils Percent Auto 0.4 % (0.2-1.2); Hematocrit 22.9 % (37.0-47.0); Immature Granulocyte Absolute 0.11 K/mm3 (0.00-0.031); Immature Granulocyte Percent A 3.9 % (0-0.5); Immature Platelet Fraction Pct 7.8 % (0.9-11.2); Lymphocytes Absolute Auto 2.23 K/mm3 (0.9-3.2); Lymphocytes Percent Auto 78.2 % (18.3-44.2); Mean Corpuscular HGB Conc 30.1 g/dl (32-36); Mean Corpuscular Hemoglobin 33.7 pg (26-34); Mean Corpuscular Volume 111.7 fl (80-100); Mean Platelet Volume 11.7 fl (7.4-10.4); Monocytes Absolute Auto 0.1 K/mm3 (0.1-0.6); Monocytes Percent Auto 2.8 % (2.6-8.5); Neutrophils Absolute Auto 0.4 K/mm3 (1.3-6.7); Neutrophils Percent Auto 14.7 % (45.5-73.1); Platelet Count Result 30 k/mm3 (150-375); Red Blood Count 2.05 M/mm3 (4.2-5.4); Red Cell Distribution Width 26.8 % (11.5-14.5); White Blood Count 2.9 K/mm3 (4.5-10.0)
[2023-03-20 06:40] LABS: Anion Gap 4 mmol/L (8-16); Blood Urea Nitrogen 26 mg/dL (7-17); Calcium 8.2 mg/dL (8.4-10.2); Carbon Dioxide 23 mmol/L (22-30); Chloride 112 mmol/L (98-107); Estimated CRCL calculation 29 ml/min; Estimated Glomerular Filt Rate 47; Glucose 118 mg/dL (65-110); Sodium 139 mmol/L (137-145)
[2023-03-20 07:22] LABS: Hemoglobin 6.9 g/dL (12.0-15.0)
[2023-03-20 07:23] LABS: Platelet Estimate Decreased (Adequate)
[2023-03-20 07:24] LABS: Anisocytosis 2+ (NORMAL); Hypochromasia 1+ (NORMAL); Tear Drop Cells 1+ (NORMAL)
[2023-03-20 07:25] LABS: Schistocytes None Seen (NORMAL)
[2023-03-20 07:57] LABS: Procalcitonin 14.8 ng/mL
--- NOTE | 2023-03-20 11:42 | PM.IMPN ---
Progress Note: A&P Assessment and Plan (1) Acute on chronic anemia: Code(s): D64.9 - Anemia, unspecified Status: Acute Assessment and Plan: Place in observation and regular medical floor Transfuse as needed 03/15: Patient with hgb to 7.2 post transfusion. Goal hgb >=7, would prefer to see 12-24 hours of clinical and lab stability prior to discharge. Repeat labs this afternoon and in the am. This is a chronic problem for this patient (CLL dx) and has outpatient f/u in place, plan to receive procrit in near future. 03/16: Hgb 6.9 this am. Receiving [address] Acosta has been consulted and rec's are appreciated. LDH normal, haptoglobin pending, immature retic fraction 39.0, retic hgb 37.5. May need steroids per oncology. 03/17:Hgb stable 8.4. 03/18: Hgb 7.7/24.8. No s/s of bleeding. 03/19: Progressing pancytopenia, Hgb 7.2/23.3, platelets 29, WBC 3.1----haptoglobin still pending. 03/20:Hemoglobin 6.9, [id number], White blood cell 2.9, Platelets 30. Consulted Dr. Acosta. 1 unit PRBC ordered. (2) Febrile: Code(s): R50.9 - Fever, unspecified Status: Acute Assessment and Plan: Fever overnight 03/16 of 102.4, drowsy placed on broad spectrum abx: vanco, cefe, azithromycin pneumonia vs UTI? U/A today has 2+ leuks, WBC 51-100; Cr increased, suspected due to poor intake. Add on procal BP low. Holding PO agents. Giving 1 L NS bolus. 03/18: Procal was 52.4, lactic normal, WBC is still normal, Repeat U/a not convincing of UTI, no new oxygen requirements. Will obtain CT chest. Given her cough I suspect her infection is bacterial pneumonia. Add on nebs Q 12 hours to help with congestion,wheeze. Started on mucinex BID. 03/19: Procal 31.2 today. WBC 3.1. Afebrile since starting antibiotics. Urine culture with no growth, blood cultures with NGTD. CT of her chest only shows small right and moderate left pleural effusions. She received IV lasix and IVF were stopped. She still does not require oxygen. Will add prednisone today for wheezing and continue with nebulizers. 03/20: Procal downtrending 14.8 today. Antibiotics deescalated to azithromycin PO for 5 days total and cefepime IV for 7 days total. MRSA negative. Vancomycin stopped. (3) MANAN (acute kidney injury): Code(s): N17.9 - Acute kidney failure, unspecified Status: Acute Assessment and Plan: Cr 1.5 on 03/17. Initially I was concerned for pre-renal source as patient was drowsy and not having much PO intake. She was also febrile the evening of 03/16 with low BP. Was started on IVF 03/17 03/18 Cr worsened 2.[address] chest showed pulmonary edema. Stopped IVF, placed chinchilla for I&O and possible obstructive uropathy, and diuresed with Lasix 40 mg. 03/19: Cr is much improved to 1.3. Suspect she may have had some retention and renal congestion from IVFs. Renal ultrasounds is normal. 03/20: BUN 26, Cr. 1.1, eGFR 47. 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 03/16: plt 41, stable. no s/s of bleeding. 03/17: Plt 52. 03/18: Plt 40, stable. no s/s of bleeding. 03/19: Plt 29. No s/s of bleeding. Continue to monitor. If she has bleeding will transfuse platelets. 03/20: Plt 30. No s/s of bleeding. Dr. Acosta consulted. (6) Parkinsons disease: Code(s): G20 - Parkinson's disease Status: Acute Assessment and Plan: Continue home meds 03/15: Family at bedsise and patient is at approximate baseline. (7) GERD (gastroesophageal reflux disease): Code(s): K21.9 - Gastro-esophage
[2023-03-20] MEDS: POTASSIUM CHLORIDE 10 MEQ ER TABLET PO (12:01)
[2023-03-20] MEDS: AZITHROMYCIN 250 MG TABLET 500 MG PO (12:01)
[2023-03-20] MEDS: SERTRALINE HCL 25 MG TABLET PO (12:01)
[2023-03-20] MEDS: CARBIDOPA/LEVODOPA 25/100 MG CR TABLET 2 TABLET PO ×2 (12:01→18:18)
[2023-03-20] MEDS: PANTOPRAZOLE 40 MG TABLET PO (12:01)
[2023-03-20] MEDS: BENZONATATE 100 MG CAPSULE 200 MG PO ×2 (12:01→18:17)
[2023-03-20] MEDS: guaiFENesin 600 MG/DEXTROMETHORPHAN 30 MG SR TAB 12 HR 1 TAB PO ×2 (12:02→21:56)
[2023-03-20] MEDS: allopurinoL 300 MG TABLET PO (12:02)
[2023-03-20] MEDS: predniSONE 20 MG TABLET 40 MG PO (12:02)
[2023-03-20] MEDS: LIDOCAINE 5% PATCH 1 PATCH TRANSDERM (12:02)
[2023-03-20] MEDS: polyethylene glycoL 3350 17 GM POWD.PACK PO (12:02)
[2023-03-20] MEDS: SIMVASTATIN 20 MG TABLET 40 MG PO (12:02)
[2023-03-20] MEDS: TUBING, BLOOD PLUM PUMP TUBING 1 EACH XX (12:03)
[2023-03-20] MEDS: SODIUM CHLORIDE 0.9% IV 250 ML 30 ML IV CONT (12:03)
[2023-03-20 14:12] LABS: SARS-CoV-2 RNA PCR Negative (Negative)
--- NOTE | 2023-03-20 15:10 | WPDONCPN ---
Progress Note: A/P (1) Anemia Code(s): D64.9 - Anemia, unspecified Status: Acute - Additional Plan Pancytopenia: I have seen this patient for worsening pancytopenia. Labs today are notable for WBC 2.9, Hgb 6.9, Hct 22.9, Plt 30,000. Most recent iron studies were WNL. B 12 >1000. LDH 181, coobs test negative, retic count 37.5, and haptoglobin still pending. Creatinine downtrending from 2.0 to 1.10 and has s/p Procrit injection. I do not believe this to be due hemolytic in nature. Lymphocytes elevated to 78.2% and neutrophils 14.7%. I believe her pancytopenia is due to worsening CLL. She is not a candidate for further treatment due to age and most last Rituxan was declined by insurance in 2021. I believe we will need comfort care and hospice in the near future. Regarding anemia of 6.9, 1 unit of PRBC already ordered. Continue to transfuse to keep Hgb >7. IgG/A/M found to be very worsening due to her history of immunoglobinulin deficiency. I will order IVIG for support. We will follow up in office. This patient's plan of care has been reviewed and approved by Dr. Stephen Acosta. If you have any questions regarding this hematology or oncology evaluation, feel free to contact us for further assistance.?Thank you for allowing us to be a part of this patient's care. Sandy Knowles, [employer] 03/20/23;1520 - Time Spent With Patient Total time spent is greater than 50% in coordination of care (as documented) at patient's floor/unit and/or counseling patient: 15 - 25 minutes Subjective Interval history: Patient is very confused upon exam and unable to provide any information. Nurse states that she has been confused and pulling at her lines. She has also been incontinent of stool. Patient did state she would like to go home and be comfortable. Review of Systems - Review of Systems All systems reviewed & are unremarkable except as noted in HPI and bel Exam Vital signs: Temp Pulse Resp BP Pulse Ox O2 Del Method FiO2 37.2 C 75 18 113/46 L 100 Room Air 0.21 03/20/23 04:39 03/20/23 13:50 03/20/23 13:50 03/20/23 04:39 03/20/23 04:39 03/19/23 20:00 03/19/23 09:00 - Constitutional no acute distress - Routine Neck Exam Absent: lymphadenopathy - Routine Respiratory Exam Comments: crackles - Routine Cardiovascular Exam Cardiovascular: Present: RRR - Routine Abdominal Exam Present: normal bowel sounds - Routine Skin Exam Comments: generalized bruising - Routine Neurological Exam Present: altered mental status - Routine Psychiatric Exam Present: agitated PN: Objective Data - Labs CBC & Chem 7: 03/20/23 06:22 03/20/23 06:22 Labs: Laboratory Results - last 24 hr 03/19/23 03/20/23 03/20/23 16:07 06:22 12:13 WBC 2.9 L RBC 2.05 L Hgb 6.9 L* Hct 22.9 L MCV 111.7 H MCH 33.7 MCHC 30.1 L RDW 26.8 H Plt Count 30 L MPV 11.7 H Immature Gran % (Auto) 3.9 H Neut % (Auto) 14.7 L Lymph % (Auto) 78.2 H [place] % (Auto) 2.8 Eos % (Auto) 0.0 Baso % (Auto) 0.4 Lymph # (Auto) 2.23 [place] # (Auto) 0.1 Eos # (Auto) 0.0 Baso # (Auto) 0.0 Abs Immat Gran (auto) 0.11 H Absolute Neuts (auto) 0.4 L Absolute Nucleated RBC 0.0 Nucleated RBC % 0.0 Platelet Estimate Decreased % Immature Plt Fraction 7.8 Hypochromasia 1+ Anisocytosis 2+ Tear Drop Cells 1+ Schistocytes None seen Sodium 139 Potassium 4.0 Chloride 112 H Carbon Dioxide 23 Anion Gap 4 L BUN 26 H D Creatinine 1.10 H Estim Creat Clear Calc 29 Estimated GFR 47 L Glucose 118 H Calcium 8.2 L Procalcitonin 14.8 Random Vancomycin 11.8 SARS-CoV-2 RNA (RT-PCR) Blood Type A Positive Antibody Screen Negative Crossmatch See Detail 03/20/23 13:29 WBC RBC Hgb Hct MCV MCH MCHC RDW Plt Count MPV Immature Gran % (Auto) Neut % (Auto) Lymph % (Auto) [place] % (Auto) Eos % (Auto) Baso % (
[2023-03-20] MEDS: FUROSEMIDE INJ 40 MG/4 ML VIAL IV PUSH (18:18)
[2023-03-20 20:11] LABS: Haptoglobin 102 mg/dL (43-212)
[2023-03-20] MEDS: DONEPEZIL HCL 10 MG TABLET PO (21:56)
[2023-03-20] MEDS: traMADol HCL (*CRX) 50 MG TABLET PO (23:48)
[2023-03-20] MEDS: PHENOL/SOD PHENO SPRAY CHERRY (*BKC) 1 SPRAY MUCOUS MEM (23:49)
[2023-03-21] VITALS (8 sets, daily range): BP systolic 119–122; BP diastolic 53–61; PULSE 67–78; RESP 18–20; TEMP 36.3–36.5; O2SAT 98–100
[2023-03-21] MEDS: CEFEPIME 1 GM/NS 50 ML 1 GM/50 ML BAG IVPB (01:01)
[2023-03-21] MEDS: ALBUTEROL SULFATE NEB 2.5 MG/3 ML INH INHALATION ×3 (02:35→13:59)
[2023-03-21] MEDS: IPRATROPIUM BR 0.02% INH SOLN 0.5 MG/2.5 ML VIAL INHALATION ×3 (02:35→13:59)
[2023-03-21] MEDS: LEVOTHYROXINE SODIUM 50 MCG TABLET PO (06:27)
[2023-03-21] MEDS: CENTRAL LINE FLUSH 10 ML IV PUSH ×3 (06:28→15:40)
[2023-03-21 06:44] LABS: Anion Gap 7 mmol/L (8-16); Blood Urea Nitrogen 31 mg/dL (7-17); Calcium 8.4 mg/dL (8.4-10.2); Carbon Dioxide 21 mmol/L (22-30); Chloride 107 mmol/L (98-107); Estimated CRCL calculation 25 ml/min; Estimated Glomerular Filt Rate 39; Glucose 113 mg/dL (65-110); Potassium 4.6 mmol/L (3.4-5.0); Sodium 135 mmol/L (137-145)
[2023-03-21 07:03] LABS: Basophils Percent Auto 0.3 % (0.2-1.2); Hemoglobin 7.7 g/dL (12.0-15.0); Immature Granulocyte Absolute 0.03 K/mm3 (0.00-0.031); Immature Granulocyte Percent A 0.8 % (0-0.5); Immature Platelet Fraction Pct 9.2 % (0.9-11.2); Mean Corpuscular HGB Conc 30.8 g/dl (32-36); Mean Corpuscular Hemoglobin 33.5 pg (26-34); Mean Corpuscular Volume 108.7 fl (80-100); Mean Platelet Volume 11.7 fl (7.4-10.4); Monocytes Absolute Auto 0.1 K/mm3 (0.1-0.6); Monocytes Percent Auto 2.3 % (2.6-8.5); Neutrophils Absolute Auto 0.5 K/mm3 (1.3-6.7); Neutrophils Percent Auto 11.6 % (45.5-73.1); Platelet Count Result 33 k/mm3 (150-375); Red Cell Distribution Width 26.2 % (11.5-14.5)
[2023-03-21 07:30] LABS: Procalcitonin 8.2 ng/mL
[2023-03-21 08:50] LABS: Anisocytosis 1+ (NORMAL); Platelet Estimate Decreased (Adequate); Poikilocytosis 1+ (NORMAL)
[2023-03-21 08:51] LABS: Schistocytes None Seen (NORMAL); Tear Drop Cells 1+ (NORMAL)
[2023-03-21] MEDS: AZITHROMYCIN 250 MG TABLET 500 MG PO (09:49)
[2023-03-21] MEDS: guaiFENesin 600 MG/DEXTROMETHORPHAN 30 MG SR TAB 12 HR 1 TAB PO (09:49)
[2023-03-21] MEDS: polyethylene glycoL 3350 17 GM POWD.PACK PO (09:49)
[2023-03-21] MEDS: BENZONATATE 100 MG CAPSULE 200 MG PO ×3 (09:49→17:07)
[2023-03-21] MEDS: SERTRALINE HCL 25 MG TABLET PO (09:49)
[2023-03-21] MEDS: POTASSIUM CHLORIDE 10 MEQ ER TABLET PO (09:49)
[2023-03-21] MEDS: PANTOPRAZOLE 40 MG TABLET PO (09:49)
[2023-03-21] MEDS: SIMVASTATIN 20 MG TABLET 40 MG PO (09:49)
[2023-03-21] MEDS: predniSONE 20 MG TABLET 40 MG PO (09:49)
[2023-03-21] MEDS: CARBIDOPA/LEVODOPA 25/100 MG CR TABLET 2 TABLET PO ×3 (09:49→17:08)
[2023-03-21] MEDS: LIDOCAINE 5% PATCH 1 PATCH TRANSDERM (09:50)
[2023-03-21] MEDS: FUROSEMIDE 20 MG TABLET PO (10:07)
--- NOTE | 2023-03-21 14:59 | PM.DS ---
DS: Admitting Diagnosis Discharge Date 03/21/23 Admitting Diagnosis Acute on chronic anemia CLL DS: Discharge Diagnosis Discharge Diagnosis (1) MANAN (acute kidney injury): Code(s): N17.9 - Acute kidney failure, unspecified Status: Acute (2) CLL (chronic lymphocytic leukemia): Code(s): C91.10 - Chronic lymphocytic leukemia of B-cell type not having achieved remission Status: Acute DS: Summary Hospital Course Hospital Course: This is an 87-year-old female with past medical history significant for CLL, chronic anemia, chronic kidney disease, degenerative joint disease, GERD, generalized anxiety disorder, Lewy body dementia.? Patient was brought for due to fatigue S of breath.? Patient was unable to provide any history due to being hard of hearing.? Preliminary workup was significant for hemoglobin of 4.? Patient is been admitted for blood transfusion. Patient had fever and was treated with Cefepime and Azithromycin, no fever since 03/16, CT chest no infiltrates but showed bilateral pleural effusion, cultures negative. Cr increased to 2.0 and improved to 1.3. Oral intake improving markedly. Renal US normal. Discharged on 4 more days of Levaquin, 750mg q48rs x 4 days. Patient was transfused and Hb 7.7 stable, oncology evaluated and noted that anemia chronic from CLL and they will continue follow up outpatient. Also recommending hospice in near future. Discussed with daughter and she stated that family will discuss decide on hospice later. She was also given IVIG for Selective IgG deficiency. Oncology noted that patient is not a candidate for cancer treatment and CLL is worsening going by worsening pancytopenia, and recommends hsopice in near future which i have discussed with daughter as stated earlier. Plts today 33. Continue other home medications. F/u CBC and CMP, f/u with closely with oncology as instructed F/u with PCP in 3-5 days. Discussed with daughter prior to discharge, [facility] to [facility]. Daughter noted that family will discussed hospice later. Time Spent with Patient Time attestation: Total time spent providing and/or coordinating discharge services: DS: Data Data Completed and Pending Labs on day of discharge: Labs from last 24 hours 03/21/23 03/20/23 03/15/23 06:26 12:13 18:48 WBC 4.0 L RBC 2.30 L Hgb 7.7 L Hct 25.0 L MCV 108.7 H MCH 33.5 MCHC 30.8 L RDW 26.2 H Plt Count 33 L MPV 11.7 H Immature Gran % (Auto) 0.8 H Neut % (Auto) 11.6 L Lymph % (Auto) 85.0 H [place] % (Auto) 2.3 L Eos % (Auto) 0.0 Baso % (Auto) 0.3 Lymph # (Auto) 3.40 H [place] # (Auto) 0.1 Eos # (Auto) 0.0 Baso # (Auto) 0.0 Abs Immat Gran (auto) 0.03 Absolute Neuts (auto) 0.5 L Absolute Nucleated RBC 0.0 Nucleated RBC % 0.0 Platelet Estimate Decreased % Immature Plt Fraction 9.2 Poikilocytosis 1+ Anisocytosis 1+ Tear Drop Cells 1+ Schistocytes None seen Haptoglobin 102 Sodium 135 L Potassium 4.6 Chloride 107 Carbon Dioxide 21 L Anion Gap 7 L BUN 31 H Creatinine 1.30 H Estim Creat Clear Calc 25 Estimated GFR 39 L Glucose 113 H Calcium 8.4 Procalcitonin 8.2 Blood Type A Positive Antibody Screen Negative Crossmatch See Detail Preliminary micro results at discharge 03/16/23 22:31 Blood Culture - Preliminary Blood 03/16/23 22:31 Blood Culture - Preliminary Blood Discharge Plan Discharge Attending physician on discharge: Aruna Govea Consulting providers: Stephen Acosta Discharging Clinician: Aruna Govea Anticipated Discharge Date/Time: 03/21/23 14:45 Patient Disposition: SNF Activity: as tolerated Diet: as tolerated Patient Instructions: Pain Management in Older Adults (DC) Stand Alone Forms: General Discharge Information Follow-up/Referrals: Stephen Acosta MD [Primary Care Provider] - (f/u
[2023-03-21] MEDS: HEPARIN SODIUM LOCK FLUSH 500 UNITS/5 ML SYRINGE IV PUSH (15:40)
[2023-03-27 04:46] LABS: Red Blood Cell Folate 866 ng/mL RBC (>280)
== END 2023-03-21 17:29 | DRG 841 ==
LOC: ANHED 23:22 → ANH3MEDSUR 03-15 00:59
PROVIDERS: Nurse Practitioner; Nurse Practitioner Acute Care; Nurse Practitioner Family; Admitting Provider Internal Medicine; Emergency Provider Preventive Medicine Aerospace Medicine; PCP Internal Medicine Hematology & Oncology; Visit Provider Internal Medicine
DX: C91.10 Chronic lymphocytic leukemia of B-cell type not having achieved remission (principal); D61.818 Other pancytopenia; D80.3 Selective deficiency of immunoglobulin G [IgG] subclasses; N17.9 Acute kidney failure, unspecified; J90 Pleural effusion, not elsewhere classified; N18.4 Chronic kidney disease, stage 4 (severe); D63.0 Anemia in neoplastic disease; D63.1 Anemia in chronic kidney disease; Z11.52 Encounter for screening for COVID-19; K21.9 Gastro-esophageal reflux disease without esophagitis; F41.1 Generalized anxiety disorder; F01.50 Vascular dementia, unspecified severity, without behavioral disturbance, psychotic disturbance, mood disturbance, and anxiety; I70.0 Atherosclerosis of aorta; M19.90 Unspecified osteoarthritis, unspecified site; E03.9 Hypothyroidism, unspecified; G62.9 Polyneuropathy, unspecified; E83.51 Hypocalcemia; M81.0 Age-related osteoporosis without current pathological fracture; G20.A1 Parkinson's disease without dyskinesia, without mention of fluctuations; Z86.16 Personal history of COVID-19; Z86.11 Personal history of tuberculosis; Z90.710 Acquired absence of both cervix and uterus; Z90.722 Acquired absence of ovaries, bilateral; Z98.42 Cataract extraction status, left eye; Z98.41 Cataract extraction status, right eye
CPT/HCPCS: 36415; 36430; 71045; 71250; 76775; 80048; 80053; 80202; 81001; 82274; 82565; 82607; 82747; 82784; 83010; 83540; 83550; 83605; 83615; 84145; 85025; 85027; 85046; 85055; 85610; 86850; 86880; 86900; 86901; 86923; 87040; 87081; 87086; 87088; 87635; 94640; 96372; 99285; A9270; G0378; J0692; J1200; J1459; J1940; J2405; J3370; J7030; J7050; J7512; P9016; Q5106

== ENCOUNTER 2023-06-05 13:51 | Inpatient (IN) | payer MEDICARE, MEDICAID, SELFPAY ==
[2023-06-05] VITALS (24 sets, daily range): BP systolic 114–158; BP diastolic 35–84; PULSE 70–141; RESP 16–44; TEMP 36.4–37.5; O2SAT 96–100
--- NOTE | ~2023-06-05 | XR_ITS ---
MODIFIED ESOPHAGRAM HISTORY: Aspiration pneumonia TECHNIQUE: Modified barium esophagram was performed on 06/17/2023. I administered fluoroscopy and perf ormed the exam with speech pathologist. Patient was seated for lateral fluoroscopic imaging for aubrey stion of thin liquids, pudding, solids and quantified amounts, followed by thin liquids in uncontroll ed amounts. This was recorded on tape. A single fluoroscopic spot image was also recorded. The DAP fo r this procedure was 1.227 Gycm2. The amount of fluoroscopy time used during this procedure was 2.0 m inutes. FINDINGS: Oral stage: Adequate function. Pharyngeal stage: Reduced laryngeal elevation. There is a single episode of laryngeal penetration and aspiration which elicited a cough reflex which occurred following the second swallow of mixed with c racker and pudding consistency and before a subsequent swallow of thin liquid. Cervical/esophageal stage: Adequate function. IMPRESSION: Single episode of laryngeal penetration and aspiration which occurred following the swall ow and which elicited a cough reflex. Please correlate with speech pathologist findings and specific feeding recommendations. Reviewed, dictated and finalized at location A. CONCIERGE IMPRESSION: Single episode of laryngeal penetration and aspiration which occurr ed following the swallow and which elicited a cough reflex. Please correlate w reanna speech pathologist findings and specific feeding recommendations.
--- NOTE | ~2023-06-05 | XR_ITS ---
EXAMINATION: XR chest 1V portable DATE: 06/05/2023 15:32 INDICATION: Cough. Shortness of breath. TECHNIQUE: A single frontal view of the chest was obtained. COMPARISON: Chest single view 03/16/2023, chest CT 03/18/2023 FINDINGS: There is a diffuse interstitial pattern in the lungs, likely mild pulmonary edema. There ar e airspace opacities at left lung base. There is a small left pleural effusion. No pneumothorax. Card iomegaly is noted. There is a left internal jugular port with tip at superior cavoatrial junction. IMPRESSION: 1. Mild pulmonary edema. 2. Airspace opacities at left lung base, consistent with atelectasis versus pneumonia. 3. Small left pleural effusion. 4. Cardiomegaly. Reviewed, dictated and finalized at location E. [employer] IMPRESSION: 1. Mild pulmonary edema. 2. Airspace opacities at left lung base, consistent with atelectasis versus pne umonia. 3. Small left pleural effusion. 4. Cardiomegaly.
--- NOTE | 2023-06-05 15:29 | ED.RECABL ---
HPI - Recheck/Abnormal Lab/Rx General Chief Complaint: Recheck/Abnormal Lab/Rx Stated Complaint: RSV+, weakness, sob Time Seen by Provider: 06/05/23 14:12 History of Present Illness HPI narrative: Patient is an 88-year-old female with a history of Parkinson's, dementia, hypothyroidism, CLL presenting with altered mental status. Patient is coming from a nursing facility. She recently tested positive for RSV and they obtained a chest x-ray that was concerning for bilateral pneumonia so they sent her in for evaluation. Patient is reportedly supposed to be on 2 L nasal cannula but she has been increasingly confused and continues to pull it off. Patient complains of nasal congestion and shortness of breath. She denies any pain. Further history is limited secondary to her underlying dementia. Related Data Home Medications Medication Instructions Recorded Confirmed acetaminophen 650 mg 650 mg PO Q4H PRN Pain 02/16/19 06/05/23 tablet,extended release carbidopa ER 50 mg-levodopa 200 mg 1 tablet PO TID 02/16/19 06/05/23 tablet,extended release levothyroxine 50 mcg capsule 50 mcg PO DAILY 04/07/19 06/05/23 lidocaine-prilocaine 2.5 %-2.5 % 1 applic topical ONCE 04/07/19 06/05/23 topical cream ferrous sulfate 325 mg (65 mg 325 mg PO BID constipation 10/22/19 06/05/23 iron) tablet magnesium hydroxide 400 mg/5 mL 15 ml PO DAILY PRN Indigestion 11/02/19 06/05/23 oral suspension (Milk of Magnesia) multivitamin (Daily-Amy tablet) 1 tablet PO DAILY 11/02/19 06/05/23 sertraline 25 mg tablet 25 mg PO DAILY 11/02/19 06/05/23 donepezil 10 mg tablet 10 mg PO HS 03/27/21 06/05/23 cyanocobalamin (vitamin B-12) 1,000 mcg IM MONTHLY 04/22/22 06/05/23 1,000 mcg/mL injection solution potassium chloride 10 meq PO DAILY 03/15/23 06/05/23 ImproVue 1 drp EACH EYE TID 06/05/23 06/05/23 albuterol sulfate 90 mcg/actuation 2 puff inhalation Q6H PRN sob 06/05/23 06/05/23 aerosol inhaler (Ventolin HFA) tramadol 50 mg tablet 50 mg PO Q6H PRN Pain (Scale Score 06/05/23 06/05/23 4-6) Allergies Allergy/AdvReac Type Severity Reaction Status Date / Time quinapril Allergy Unknown Unknown Verified 09/25/22 09:55 rituximab AdvReac Intermediate Dyspnea / Verified 09/25/22 09:55 SOB cyclobenzaprine AdvReac Mild Unknown Verified 09/25/22 09:55 diclofenac AdvReac Mild Unknown Verified 09/25/22 09:55 zolpidem AdvReac Mild Unknown Verified 09/25/22 09:55 Review of Systems Review of Systems: ROS unobtainable: Yes unobtainable due to medical condition (Underlying dementia) PMFSH Past Medical History Medical History Acute on chronic anemia Aortic atherosclerosis Arthritis Chronic anemia CKD (chronic kidney disease) stage 4, GFR 15-29 ml/min CLL (chronic lymphocytic leukemia) COVID Dark stools DDD (degenerative disc disease) Depression DJD (degenerative joint disease) Essential hypertension Generalized anxiety disorder GERD (gastroesophageal reflux disease) Gout HLD (hyperlipidemia) Hypothyroid Lewy body dementia Osteoporosis Parkinson's disease Peripheral neuropathy Pleural abscess Pneumonia Port-A-Cath in place Pure hypercholesterolemia, unspecified 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 Diana Stallworth is her child who is the durable power contract attorney for healthcare.
[2023-06-05] MEDS: SODIUM CHLORIDE 0.9% IV 1,000 ML 999 ML IV CONT (15:43)
[2023-06-05] MEDS: ALBUTEROL SULFATE NEB 2.5 MG/3 ML INH 10 MG INHALATION ×2 (15:46→21:50)
[2023-06-05] MEDS: IPRATROPIUM BR 0.02% INH SOLN 0.5 MG/2.5 ML VIAL INHALATION ×2 (15:46→20:39)
[2023-06-05 16:25] LABS: Alkaline Phosphatase 73 U/L (38-126); Anion Gap 8 mmol/L (8-16); Aspartate Amino Transferase 16 U/L (14-36); Bilirubin,Total 1.2 mg/dL (0.2-1.3); Blood Urea Nitrogen 38 mg/dL (7-17); Calcium 8.2 mg/dL (8.4-10.2); Carbon Dioxide 19 mmol/L (22-30); Chloride 107 mmol/L (98-107); Estimated CRCL calculation 23 ml/min; Estimated Glomerular Filt Rate 47; Glucose 117 mg/dL (65-110); Potassium 4.3 mmol/L (3.4-5.0); Sodium 134 mmol/L (137-145)
[2023-06-05 16:33] LABS: NT Pro B Type Natriuretic Pept 14300 pg/mL (19.9-100)
[2023-06-05 16:34] LABS: Influenza A QL RT-PCR Negative (Negative); Influenza B QL RT-PCR Negative (Negative); RSV RNA, RT-PCR Positive (Negative); SARS-CoV-2 RNA PCR Negative (Negative)
[2023-06-05 16:58] LABS: Alanine Aminotransferase < 6 U/L (6-35)
[2023-06-05 17:13] LABS: Mean Corpuscular HGB Conc 30.5 g/dl (32-36); Mean Corpuscular Hemoglobin 40.8 pg (26-34); Mean Corpuscular Volume 133.6 fl (80-100); Mean Platelet Volume 11.4 fl (7.4-10.4); Platelet Count Result 41 k/mm3 (150-375); Red Blood Count 1.25 M/mm3 (4.2-5.4); Red Cell Distribution Width 20.6 % (11.5-14.5)
[2023-06-05 17:47] LABS: Appearance Urine Turbid (Clear); Bacteria Urine 4+ /hpf; Bilirubin Urine Negative (Negative); Blood Urine Trace (Negative); Color Urine Yellow (Yellow); Glucose Urine UA Negative (Negative); Ketones Urine Negative (Negative); Leukocyte Esterase Ur 3+ LEU/UL (Negative); Need Manual Microscopic Reviewed; Nitrate Urine Negative (Negative); Protein Urine 1+ mg/dL (Negative); RBC Urine 0-2 /hpf (0-2); Specific Grav Ur 1.014 (1.001-1.035); Squamous Epithelial Cell Urine None seen /hpf (Few); WBC Urine >100 /hpf; pH Urine 5.5 (5.0-9.0)
[2023-06-05 17:51] LABS: Add Urine Microscopic? YES
[2023-06-05 18:04] LABS: Hemoglobin 5.1 g/dL (12.0-15.0)
[2023-06-05 18:05] LABS: Hematocrit 16.7 % (37.0-47.0)
[2023-06-05 18:09] LABS: Band Neutrophils Percent 2 % (0-6); Monocytes Absolute Manual 0.12 K/mm3 (0.1-0.90); Monocytes Percent Manual 1 % (3-9); Neutrophils Absolute Manual 1.68 K/mm3 (1.7-7.2); Neutrophils Percent Manual 12 % (46-73); Platelet Estimate Decreased (Adequate); Total Cells Counted 100
[2023-06-05 18:10] LABS: Schistocytes Rare (NORMAL)
[2023-06-05 18:11] LABS: Anisocytosis 3+ (NORMAL); Hypochromasia 1+ (NORMAL); Microcytosis 2+ (NORMAL)
[2023-06-05] MEDS: AZITHROMYCIN 500 MG/NS 250 ML 500 MG/250 ML BAG 250 MG IVPB (18:22)
--- NOTE | 2023-06-05 20:25 | PC.NURSE ---
Walked in pt room to get her taken upstairs, noticed blood all over floor due to pt ripping IV out. Changed pt and linens and respiratory started a breathing treament.
[2023-06-05] MEDS: ALBUTEROL SULFATE NEB 2.5 MG/3 ML INH INHALATION (20:39)
--- NOTE | 2023-06-05 20:54 | PM.IMHP ---
H&P: HPI History of Present Illness Date/Time: 06/05/23 20:54 Chief Complaint: generalized weakness. Narrative: this is an 88-year-old female with past medical history significant for Parkinson's disease, Parkinson's dementia, CLL, chronic kidney disease, DJD, GERD, essential hypertension, chronic hypoxic respiratory failure. [facility] was brought for evaluation due to generalized weakness altered mental status confusion. patient underwent Rituxan therapy for CLL this was in 2021. Has been seen and evaluated by Hematology-Oncology for profound anemia. preliminary workup was significant for hemoglobin of 5 a chest x-ray showed infiltrates of the lungs. Patient is confused delirious unable to provide any history meaningful to history of present illness. EXAMINATION: XR chest 1V portable DATE: 06/05/2023 15:32 INDICATION: Cough. Shortness of breath. TECHNIQUE: A single frontal view of the chest was obtained. COMPARISON: Chest single view 03/16/2023, chest CT 03/18/2023 FINDINGS: There is a diffuse interstitial pattern in the lungs, likely mild pulmonary edema. There are airspace opacities at left lung base. There is a small left pleural effusion. No pneumothorax. Cardiomegaly is noted. There is a left internal jugular port with tip at superior cavoatrial junction. IMPRESSION: 1. Mild pulmonary edema. 2. Airspace opacities at left lung base, consistent with atelectasis versus pneumonia. 3. Small left pleural effusion. 4. Cardiomegaly. Review of Systems Review of Systems: ROS unobtainable: Yes unobtainable due to mental status ( Confusion) [facility] Past Medical History Medical History Acute on chronic anemia Aortic atherosclerosis Arthritis Chronic anemia CKD (chronic kidney disease) stage 4, GFR 15-29 ml/min CLL (chronic lymphocytic leukemia) COVID Dark stools DDD (degenerative disc disease) Depression DJD (degenerative joint disease) Essential hypertension Generalized anxiety disorder GERD (gastroesophageal reflux disease) Gout HLD (hyperlipidemia) Hypothyroid Lewy body dementia Osteoporosis Parkinson's disease Peripheral neuropathy Pleural abscess Pneumonia Port-A-Cath in place Pure hypercholesterolemia, unspecified 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 Diana Stallworth is her child who is the durable power intern product marketing manager for healthcare. She never smoked. Code status: DNR/DNI Smoking status: Never smoker Second hand tobacco smoke exposure: No Alcohol intake: never Substance use: never Substance use type: does not use Lack of Transportation: No Lack of Food: Never True Current Housing: I Have Housing Concerned About Future Housing: No Difficulty Paying Gas/Electric Bills: No Difficulty Paying for Meds: No Currently Unemployed: No Education: High School Diploma/GED Difficulty w/ Childcare or Family Care: No [facility] arrangements[facility] Gender identity (if verbalized by the patient): Female Spiritual care concerns: No Meds Home Medications and Allergies Home Medications Medication Instructions Recorded Confirmed Type acetaminophen 650 mg 650 mg PO Q4H PRN Pain 02/16/19 06/05/23 History tablet,extended release carbidopa ER 50 mg-levodo
--- NOTE | 2023-06-05 21:22 | ADMGEN ---
This patient, Diana Castano, was admitted to 2 Medical Room 256-. Patient/family oriented to hospital policies and general routines including ID bracelet, bed and alarms, visiting hours, pain management, procedures, bathroom and other care routines, personal items, smoking policy, room service/diet, and visiting hours. Information on how to activate the Rapid Response Team has been discussed. Patient/Family are encouraged to report perceived risks to care and to ask questions if they do not understand what they are told or what they should do.
[2023-06-05] MEDS: MORPHINE SULFATE (*CRX) 2 MG/ML INJ IV PUSH (22:03)
[2023-06-05] MEDS: ACETAMINOPHEN 500 MG TABLET 1000 MG PO (22:09)
[2023-06-05] MEDS: SODIUM CHLORIDE 0.9% IV 250 ML 30 ML IV CONT (23:10)
--- NOTE | 2023-06-05 23:58 | PCRCNOTE ---
Pt was brought up from ED to [address] [place] [address] at about 21:30. Pt had increased respirations and bilateral wheezes on 5L NC. Per Dr Lincoln request a cont nebulizer tx was given. The nebulizer tx helped pt wheezes and respirations, however respirations continued to be increased. RT attempted to contact Dr Lovett regarding potential Bipap machine, Rt was unsuccessful in reaching her. Pt is receiving morphine and blood transfusions currently. Pt respirations have decreased to 20bpm at 2330, pt sleeping comfortably on 5L NC Sp02 100%.
[2023-06-06] VITALS (31 sets, daily range): BP systolic 108–149; BP diastolic 39–59; PULSE 64–141; RESP 18–40; TEMP 36.2–36.8; O2SAT 98–100; BMI 23.2
[2023-06-06] MEDS: METOPROLOL TARTRATE 25 MG TABLET PO (00:20)
[2023-06-06] MEDS: FUROSEMIDE INJ 40 MG/4 ML VIAL 20 MG IV PUSH (02:15)
[2023-06-06] MEDS: ALBUTEROL SULFATE NEB 2.5 MG/3 ML INH INHALATION ×4 (02:50→19:46)
[2023-06-06] MEDS: IPRATROPIUM BR 0.02% INH SOLN 0.5 MG/2.5 ML VIAL INHALATION ×4 (02:50→19:46)
[2023-06-06] MEDS: CEFEPIME 1 GM/NS 50 ML 1 GM/50 ML BAG IVPB (04:53)
[2023-06-06] MEDS: LEVOTHYROXINE SODIUM 50 MCG TABLET PO (05:37)
[2023-06-06] MEDS: ARTIFICIAL TEARS OPHTH SOLN 15 ML BOTTLE 1 DROP EACH EYE ×3 (08:26→17:06)
[2023-06-06] MEDS: FERROUS SULFATE 325 MG TABLET DR BY MOUTH ×2 (08:26→17:06)
[2023-06-06] MEDS: PANTOPRAZOLE 40 MG TABLET PO (08:26)
[2023-06-06] MEDS: CARBIDOPA/LEVODOPA 25/100 MG CR TABLET 1 TABLET PO ×3 (08:26→17:07)
[2023-06-06] MEDS: SERTRALINE HCL 25 MG TABLET PO (08:27)
[2023-06-06] MEDS: allopurinoL 300 MG TABLET PO (08:27)
[2023-06-06 08:35] LABS: Lactate Dehydrogenase 140 U/L (120-246)
[2023-06-06 08:45] LABS: Immunoglobulin G 327 mg/dL (700-1600)
[2023-06-06 08:46] LABS: Immature Platelet Fraction Pct 8.3 % (0.9-11.2); Immature Reticulocyte Fraction 11.9 % (3.0-15.9); Mean Corpuscular HGB Conc 32.7 g/dl (32-36); Mean Corpuscular Hemoglobin 35.4 pg (26-34); Mean Corpuscular Volume 108.3 fl (80-100); Mean Platelet Volume 11.3 fl (7.4-10.4); Red Blood Count 1.92 M/mm3 (4.2-5.4); Reticulocyte Hemoglobin Conten 26.3 pg (28.2-35.7); Reticulocyte Percent 1.73 % (0.7-4.3); Reticulocytes Absolute 0.03 M/mm3 (0.02-0.1); White Blood Count 3.5 K/mm3 (4.5-10.0)
[2023-06-06 08:46] LABS: Immunoglobulin A < 40 mg/dL (70-400); Immunoglobulin M < 25 mg/dL (40-230)
[2023-06-06 08:48] LABS: Iron 94 ug/dL (37-170)
[2023-06-06 08:57] LABS: Percent Iron Saturation 45 % (20-50)
[2023-06-06 08:59] LABS: Hematocrit 20.8 % (37.0-47.0); Hemoglobin 6.8 g/dL (12.0-15.0); Platelet Count Result 25 k/mm3 (150-375)
--- NOTE | 2023-06-06 09:22 | PDONCCN ---
HPI - Date of Consult Date/Time: 06/06/23 17:55 <Stephen Acosta - 06/06/23 17:56> 06/06/23 09:22 <Sandy Knowles - 06/06/23 09:25> Requesting Physician: Aruna Govea MD <Stephen Acosta - 06/06/23 17:56> Aruna Govea MD <Sandy Knowles - 06/06/23 09:25> Primary Care Provider: Stephen Acosta MD <Stephen Acosta - 06/06/23 17:56> Stephen Acosta MD <Sandy Knowles - 06/06/23 09:25> - Consult Narrative Reason for consult: CLL and pancytopenia <Sandy Knowles - 06/06/23 09:25> Narrative: Diana Castano is a 88 year old female <Stephen Acosta - 06/06/23 17:56> Diana Castano is a 88 year old female with diagnosis of Parkinson's disease, dementia, CKD, DJD, GERD, HTN, chronic lymphocytic leukemia status post weekly Rituxan treatment completed June 2021. She was unable to receive any further treatment due to insurance non approval. We last saw her in office in December 2022. Patient also has history of immunoglobulin deficiency. Patient was admitted to the hospital for altered mental status and weakness. Presenting Hgb was 5.0. She received 2 units of PRBC. Repeat CBC shows Hgb 6.8, Plt 25, and WBC 3.5. Chest x-ray shows infiltrates of the lungs and has recent RSV infection. Patient is confused. She is only able to tell me her name and birthday therefore history is limited. <Sandy Knowles - 06/06/23 09:40> Review of Systems - Review of Systems unobtainable due to mental status <Sandy Knowles - 06/06/23 09:35> [facility] Medical History: Medical History (Last Reviewed 06/05/23 @ 15:33 by Marcy Pagan MD) Acute on chronic anemia Aortic atherosclerosis Arthritis Chronic anemia CKD (chronic kidney disease) stage 4, GFR 15-29 ml/min CLL (chronic lymphocytic leukemia) COVID Dark stools DDD (degenerative disc disease) Depression DJD (degenerative joint disease) Essential hypertension Generalized anxiety disorder GERD (gastroesophageal reflux disease) Gout HLD (hyperlipidemia) Hypothyroid Lewy body dementia Osteoporosis Parkinson's disease Peripheral neuropathy Pleural abscess Pneumonia Port-A-Cath in place Pure hypercholesterolemia, unspecified 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 Tuberculosis Ulcer Urge incontinence UTI (urinary tract infection) <Stephen Acosta - 06/06/23 17:56> Medical History (Last Reviewed 06/05/23 @ 15:33 by Marcy Pagan MD) Acute on chronic anemia Aortic atherosclerosis Arthritis Chronic anemia CKD (chronic kidney disease) stage 4, GFR 15-29 ml/min CLL (chronic lymphocytic leukemia) COVID Dark stools DDD (degenerative disc disease) Depression DJD (degenerative joint disease) Essential hypertension Generalized anxiety disorder GERD (gastroesophageal reflux disease) Gout HLD (hyperlipidemia) Hypothyroid Lewy body dementia Osteoporosis Parkinson's disease Peripheral neuropathy Pleural abscess Pneumonia Port-A-Cath in place Pure hypercholesterolemia, unspecified 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 Tuberculosis Ulcer Urge incontinence UTI (urinary tract infection) <Sandy Knowles - 06/06/23 09:25> Surgical History: Surgical History (Last Reviewed 06/05/23 @ 15:33 by Marcy Pagan MD) H/O bilateral cataract extraction History of total hysterectomy with bilateral salpingo-oophorectomy (BSO) <Stephen Acosta - 06/06/23 17:56> Surgical History (Last Reviewed 06/05/23 @ 15:33 by Marcy Pagan MD) H/O bilateral cataract extraction History of total hysterectomy with bilateral salpingo-oophorectomy (BSO) <Sandy Knowles - 06/06/23 09:25> Family History: Family History (Last Updated 06/05/23 @ 21:43 by Jenn Olivera RN) Father Heart failure Mother Unknown family medical history Other Cancer <Stephen Acosta - 06/06/23 17:56> Family Hist
[2023-06-06 09:44] LABS: Folic Acid 10.1 ng/mL (2.76->20); Vitamin B12 > 1000.0 pg/mL (239-931)
[2023-06-06 10:19] LABS: Lymphocytes Absolute Manual 2.83 K/mm3 (1.1-4.5); Lymphocytes Percent Manual 81 % (18-44); Monocytes Absolute Manual 0.03 K/mm3 (0.1-0.90); Monocytes Percent Manual 1 % (3-9); Neutrophils Percent Manual 18 % (46-73); Total Cells Counted 100
[2023-06-06 10:20] LABS: Platelet Estimate Decreased (Adequate); Smudge Cells PRESENT
[2023-06-06 10:21] LABS: Anisocytosis 3+ (NORMAL); Hypochromasia 1+ (NORMAL); Macrocytosis 1+ (NORMAL); Microcytosis 2+ (NORMAL); Schistocytes Rare (NORMAL)
[2023-06-06] MEDS: SODIUM CHLORIDE 0.9% IV 250 ML 30 ML IV CONT (10:25)
--- NOTE | 2023-06-06 13:12 | PC.NURSE ---
On 06/06/23, the student, [Nani Cervantes], provided care and completed [facility] documentation on this patient. I have reviewed the student's documentation and agree with the findings.
--- NOTE | 2023-06-06 13:46 | PM.IMPN ---
Progress Note: A&P Assessment and Plan (1) Acute hypoxic on chronic hypercapnic respiratory failure: Code(s): J96.01 - Acute respiratory failure with hypoxia; J96.12 - Chronic respiratory failure with hypercapnia Status: Acute Assessment and Plan: on supplemental oxygen by nasal cannula Wean oxygen to keep sat greater than 92% Currently on 2 L nasal cannula at 100% continue to monitor (2) Healthcare-associated pneumonia: Code(s): J18.9 - Pneumonia, unspecified organism Status: Acute Assessment and Plan: patient received Rocephin and Zithromax in emergency room Rocephin has been discontinued started cefepime and azithromycin Will get barium swallow tomorrow as the patient's son states that she often coughs with food and fluid and this could be the source of her pneumonia. (3) Urinary tract infection: Code(s): N39.0 - Urinary tract infection, site not specified Status: Acute Assessment and Plan: currently on antibiotics await cultures (4) CLL (chronic lymphocytic leukemia): Code(s): C91.10 - Chronic lymphocytic leukemia of B-cell type not having achieved remission Status: Acute Assessment and Plan: completed treatment with Rituxan, oncology is stating no further treatment options and offered hospice last Oncology following Patient was given 2 units of PRBC Platelet count is 25, we will not transfuse unless it is less than 20 Patient given IgG today Spoke with 2 sons and daughter about options of palliative care /hospice. (5) Parkinsons disease: Code(s): G20 - Parkinson's disease Status: Acute Assessment and Plan: continue carbidopa levodopa (6) Benign hypertension with CKD (chronic kidney disease) stage IV: Code(s): I12.9 - Hypertensive chronic kidney disease with stage 1 through stage 4 chronic kidney disease, or unspecified chronic kidney disease; N18.4 - Chronic kidney disease, stage 4 (severe) Status: Acute Assessment and Plan: holding antihypertensives due to profound anemia Blood pressure is currently ranging 123/53 to 126/53 (7) PSVT (paroxysmal supraventricular tachycardia): Code(s): I47.1 - Supraventricular tachycardia Status: Chronic Assessment and Plan: History of SVT Continuous telemetry monitoring (8) GERD (gastroesophageal reflux disease): Code(s): K21.9 - Gastro-esophageal reflux disease without esophagitis Status: Chronic Assessment and Plan: Protonix ordered (9) Acute on chronic anemia: Code(s): D64.9 - Anemia, unspecified Status: Acute Assessment and Plan: Patient received 2 units of PRBC today for low hemoglobin Continue to trend labs Oncology on board (10) Thrombocytopenia: Code(s): D69.6 - Thrombocytopenia, unspecified Status: Acute Assessment and Plan: avoid heparin products continue to monitor Platelet count today is 25, and will not transfuse unless under 20 per Oncology recommendations (11) Paroxysmal atrial fibrillation: Code(s): I48.0 - Paroxysmal atrial fibrillation Status: Acute Assessment and Plan: History of AFib Metoprolol on hold Not on blood thinners Subjective Date/time seen: 06/06/23 13:46 Interval history: This is an 88 year old with significant past medical history of leukemia here for evaluation of thrombocytopenia and anemia. Work up in the hospital included chest x-ray that shown mild pulmonary edema, airspace opacities at left lung base consistent with pneumonia, small left pleural effusion. Initial labs revealed WBC 12.0, RBC 1.25, Hgb 5.1, Hct 16.7, Platelet 41, Na+ 134, bicarb 19, BUN 38, Creatinine 1.10. UA shown 1+ protein, 3+ leukocytes, >100 urine WBC, 4+ bacteria. Patient was started on Rocephin and Azithromycin. She was given pain medications, breathing treatments and IVF in the ER. On examination today patient is alert and confused. Labs to
--- NOTE | 2023-06-06 14:05 | PC.NURSE ---
On 06/06/23, the student, [Nani Cervantes], provided care and completed [facility] documentation on this patient. I have reviewed the student's documentation and agree with the findings.
[2023-06-06] MEDS: AZITHROMYCIN 500 MG/NS 250 ML 500 MG/250 ML BAG 250 MG IVPB (18:15)
[2023-06-06] MEDS: DONEPEZIL HCL 10 MG TABLET PO (21:05)
[2023-06-07] VITALS (21 sets, daily range): BP systolic 122–151; BP diastolic 48–76; PULSE 61–79; RESP 18–22; TEMP 36–36.4; O2SAT 94–100; BMI 22.8
[2023-06-07] MEDS: CEFEPIME 1 GM/NS 50 ML 1 GM/50 ML BAG IVPB (02:43)
[2023-06-07] MEDS: ALBUTEROL SULFATE NEB 2.5 MG/3 ML INH INHALATION ×4 (03:00→20:10)
[2023-06-07] MEDS: IPRATROPIUM BR 0.02% INH SOLN 0.5 MG/2.5 ML VIAL INHALATION ×4 (03:00→20:10)
[2023-06-07 06:18] LABS: Basophils Percent Auto 0.4 % (0.2-1.2); Hemoglobin 7.7 g/dL (12.0-15.0); Immature Granulocyte Absolute 0.02 K/mm3 (0.00-0.031); Immature Granulocyte Percent A 0.7 % (0-0.5); Immature Platelet Fraction Pct 10.2 % (0.9-11.2); Lymphocytes Absolute Auto 2.17 K/mm3 (0.9-3.2); Lymphocytes Percent Auto 79.8 % (18.3-44.2); Mean Corpuscular HGB Conc 32.1 g/dl (32-36); Mean Corpuscular Hemoglobin 34.4 pg (26-34); Mean Corpuscular Volume 107.1 fl (80-100); Mean Platelet Volume 11.4 fl (7.4-10.4); Monocytes Absolute Auto 0.1 K/mm3 (0.1-0.6); Monocytes Percent Auto 4.8 % (2.6-8.5); Neutrophils Absolute Auto 0.4 K/mm3 (1.3-6.7); Neutrophils Percent Auto 14.3 % (45.5-73.1); Nucleated Red Blood Cells Perc 0.7 % (0.0-0.2); Red Blood Count 2.24 M/mm3 (4.2-5.4); Red Cell Distribution Width 26.5 % (11.5-14.5); White Blood Count 2.7 K/mm3 (4.5-10.0)
[2023-06-07] MEDS: LEVOTHYROXINE SODIUM 50 MCG TABLET PO (06:22)
[2023-06-07 06:24] LABS: Alanine Aminotransferase 9 U/L (6-35); Albumin Level 2.7 g/dL (3.5-5.1); Alkaline Phosphatase 72 U/L (38-126); Anion Gap 6 mmol/L (8-16); Aspartate Amino Transferase 20 U/L (14-36); Bilirubin,Total 1.2 mg/dL (0.2-1.3); Blood Urea Nitrogen 31 mg/dL (7-17); Calcium 8.1 mg/dL (8.4-10.2); Carbon Dioxide 18 mmol/L (22-30); Chloride 110 mmol/L (98-107); Estimated CRCL calculation 31 ml/min; Estimated Glomerular Filt Rate 59; Glucose 107 mg/dL (65-110); Magnesium 1.9 mg/dL (1.6-2.3); Potassium 3.4 mmol/L (3.4-5.0); Sodium 134 mmol/L (137-145)
[2023-06-07 06:37] LABS: Platelet Count Result 19 k/mm3 (150-375)
[2023-06-07] MEDS: SERTRALINE HCL 25 MG TABLET PO (09:20)
[2023-06-07] MEDS: allopurinoL 300 MG TABLET PO (09:20)
[2023-06-07] MEDS: FERROUS SULFATE 325 MG TABLET DR BY MOUTH ×2 (09:20→17:09)
[2023-06-07] MEDS: PANTOPRAZOLE 40 MG TABLET PO (09:20)
[2023-06-07] MEDS: CARBIDOPA/LEVODOPA 25/100 MG CR TABLET 1 TABLET PO ×3 (09:20→17:09)
[2023-06-07] MEDS: SODIUM CHLORIDE 0.9% IV 250 ML 30 ML IV CONT (09:21)
[2023-06-07] MEDS: ARTIFICIAL TEARS OPHTH SOLN 15 ML BOTTLE 1 DROP EACH EYE ×3 (09:21→17:09)
--- NOTE | 2023-06-07 11:54 | PM.IMPN ---
Progress Note: A&P Assessment and Plan (1) Acute hypoxic on chronic hypercapnic respiratory failure: Code(s): J96.01 - Acute respiratory failure with hypoxia; J96.12 - Chronic respiratory failure with hypercapnia Status: Acute Assessment and Plan: on supplemental oxygen by nasal cannula Wean oxygen to keep sat greater than 92% Currently on 2 L nasal cannula at 100% continue to monitor Continue nebulizer treatments. (2) Healthcare-associated pneumonia: Code(s): J18.9 - Pneumonia, unspecified organism Status: Acute Assessment and Plan: patient received Rocephin and Zithromax in emergency room Continue Merrem, Recently changed from Cefepime and Azithromycin Will get barium swallow tomorrow as the patient's son states that she often coughs with food and fluid and this could be the source of her pneumonia. Still pending at this time, will likely not need. (3) Urinary tract infection: Code(s): N39.0 - Urinary tract infection, site not specified Status: Acute Assessment and Plan: Urine cx returned positive for E.coli and after talking to Brian, we have to assume that it is ESBL, so she is changed from Cefepime to Meropenem according to the susceptibility. (4) CLL (chronic lymphocytic leukemia): Code(s): C91.10 - Chronic lymphocytic leukemia of B-cell type not having achieved remission Status: Acute Assessment and Plan: completed treatment with Rituxan, oncology is stating no further treatment options and offered hospice last Oncology following Patient was given 2 units of PRBC yesterday Platelet count is 19, she is to receive 2 units of platelets today. Patient given IgG yesterday. According to Heme/Onc notes, pt is out of treatment options for her CLL. Again, family is considering returning to SNF tomorrow with [facility]. They have yet to sign the papers. (5) Parkinsons disease: Code(s): G20 - Parkinson's disease Status: Acute Assessment and Plan: continue carbidopa levodopa (6) Benign hypertension with CKD (chronic kidney disease) stage IV: Code(s): I12.9 - Hypertensive chronic kidney disease with stage 1 through stage 4 chronic kidney disease, or unspecified chronic kidney disease; N18.4 - Chronic kidney disease, stage 4 (severe) Status: Acute Assessment and Plan: holding antihypertensives due to profound anemia Blood pressure is currently ranging 123/53 to 126/53 (7) PSVT (paroxysmal supraventricular tachycardia): Code(s): I47.1 - Supraventricular tachycardia Status: Chronic Assessment and Plan: History of SVT Continuous telemetry monitoring (8) GERD (gastroesophageal reflux disease): Code(s): K21.9 - Gastro-esophageal reflux disease without esophagitis Status: Chronic Assessment and Plan: Protonix ordered (9) Acute on chronic anemia: Code(s): D64.9 - Anemia, unspecified Status: Acute Assessment and Plan: See Problem #4 (10) Thrombocytopenia: Code(s): D69.6 - Thrombocytopenia, unspecified Status: Acute Assessment and Plan: See Problem #4 Avoid heparin products Monitor for any bleeding. Bleeding precautions. (11) Paroxysmal atrial fibrillation: Code(s): I48.0 - Paroxysmal atrial fibrillation Status: Acute Assessment and Plan: History of AFib Metoprolol on hold Not on blood thinners Time Spent With Patient Time with patient: 25 - 35 minutes Subjective Date/time seen: 06/07/23 11:54 Interval history: This 88 year old female pt with PMH of Parkinson's disease, Dementia, IgG deficiency, CLL status post treatment with no other available options, CKD, DJD, HTN, and chronic hypoxic respiratory failure who resides at a SNF and who was admitted to the hospital on 06/05/23-06/07/23 was examined at the bedside today. She was brought to the hospital for generalized weakness and AMS. Pt was found
--- NOTE | 2023-06-07 13:11 | PCSTNOTE ---
Please refer to the Modified Barium Swallow Evaluation in the EMR.
[2023-06-07] MEDS: MEROPENEM 1 GM/NS 100 ML 1 GM/100 ML BAG IVPB ×2 (13:13→21:42)
[2023-06-07] MEDS: AZITHROMYCIN 500 MG/NS 250 ML 500 MG/250 ML BAG 250 MG IVPB (17:08)
[2023-06-07] MEDS: DONEPEZIL HCL 10 MG TABLET PO (21:40)
[2023-06-08] VITALS (8 sets, daily range): BP systolic 155; BP diastolic 58; PULSE 60–73; RESP 18–20; TEMP 36.3; O2SAT 98–100
[2023-06-08] MEDS: IPRATROPIUM BR 0.02% INH SOLN 0.5 MG/2.5 ML VIAL INHALATION (03:10)
[2023-06-08] MEDS: ALBUTEROL SULFATE NEB 2.5 MG/3 ML INH INHALATION (03:10)
[2023-06-08 05:33] LABS: Basophils Percent Auto 0.4 % (0.2-1.2); Hematocrit 22.9 % (37.0-47.0); Hemoglobin 7.4 g/dL (12.0-15.0); Immature Granulocyte Absolute 0.02 K/mm3 (0.00-0.031); Immature Granulocyte Percent A 0.9 % (0-0.5); Immature Platelet Fraction Pct 6.1 % (0.9-11.2); Lymphocytes Absolute Auto 2.01 K/mm3 (0.9-3.2); Lymphocytes Percent Auto 85.9 % (18.3-44.2); Mean Corpuscular HGB Conc 32.3 g/dl (32-36); Mean Corpuscular Hemoglobin 34.7 pg (26-34); Mean Corpuscular Volume 107.5 fl (80-100); Mean Platelet Volume 11.7 fl (7.4-10.4); Monocytes Absolute Auto 0.1 K/mm3 (0.1-0.6); Monocytes Percent Auto 3.4 % (2.6-8.5); Neutrophils Absolute Auto 0.2 K/mm3 (1.3-6.7); Neutrophils Percent Auto 9.4 % (45.5-73.1); Platelet Count Result 39 k/mm3 (150-375); Red Blood Count 2.13 M/mm3 (4.2-5.4); Red Cell Distribution Width 26.2 % (11.5-14.5); White Blood Count 2.3 K/mm3 (4.5-10.0)
[2023-06-08 05:44] LABS: Alanine Aminotransferase 8 U/L (6-35); Albumin Level 2.7 g/dL (3.5-5.1); Alkaline Phosphatase 73 U/L (38-126); Anion Gap 7 mmol/L (8-16); Aspartate Amino Transferase 26 U/L (14-36); Bilirubin,Total 0.9 mg/dL (0.2-1.3); Blood Urea Nitrogen 28 mg/dL (7-17); Calcium 8.5 mg/dL (8.4-10.2); Carbon Dioxide 20 mmol/L (22-30); Chloride 110 mmol/L (98-107); Estimated CRCL calculation 39 ml/min; Estimated Glomerular Filt Rate > 60; Glucose 115 mg/dL (65-110); Potassium 3.6 mmol/L (3.4-5.0); Sodium 137 mmol/L (137-145)
[2023-06-08 05:51] LABS: Platelet Estimate Decreased (Adequate)
[2023-06-08 05:52] LABS: Schistocytes Rare (NORMAL)
[2023-06-08 05:53] LABS: Anisocytosis 2+ (NORMAL)
[2023-06-08] MEDS: LEVOTHYROXINE SODIUM 50 MCG TABLET PO (06:12)
--- NOTE | 2023-06-08 09:24 | P.DS_ITS ---
DS: Admitting Diagnosis Discharge Date 06/08/2023 Admitting Diagnosis Acute on chronic hypoxic and hypercapnic respiratory failure Pneumonia Urinary tract infection Chronic lymphocytic leukemia Parkinson's disease Hypertension Paroxysmal SVT GERD Acute on chronic anemia Thrombocytopenia Paroxysmal AFib DS: Discharge Diagnosis Discharge Diagnosis (1) Acute hypoxic on chronic hypercapnic respiratory failure: Code(s): J96.01 - Acute respiratory failure with hypoxia; J96.12 - Chronic respiratory failure with hypercapnia Status: Acute Assessment and Plan: * on supplemental oxygen by nasal cannula * + RSV * Wean oxygen to keep sat greater than 92% * Currently on 2 L nasal cannula at 100% * continue to monitor * Continue nebulizer treatments. * 06/08/2023: Date of discharge -patient to be discharged back to senior living facility at this time to hospice service provided by [facility]. She may continue to have p.r.n. oxygen for comfort. (2) Healthcare-associated pneumonia: Code(s): J18.9 - Pneumonia, unspecified organism Status: Acute Assessment and Plan: * patient received Rocephin and Zithromax in emergency room * Continue Merrem, Recently changed from Cefepime and Azithromycin * Will get barium swallow tomorrow as the patient's son states that she often coughs with food and fluid and this could be the source of her pneumonia. Still pending at this time, will likely not need. * 06/08/2023: Date of discharge -patient to be discharged back to senior living facility at this time to hospice service provided by [facility]. She may continue to have as needed oxygen for comfort. Hospice service once papers are signed will prescribe any needed medications for increased work of breathing or discomfort. (3) Urinary tract infection: Code(s): N39.0 - Urinary tract infection, site not specified Status: Acute Assessment and Plan: * Urine cx returned positive for E.coli and after talking to Brian, we have to assume that it is ESBL, so she is changed from Cefepime to Meropenem according to the susceptibility. * 06/08/2023: Date of discharge -patient to be discharged back to senior living facility at this time to hospice service provided by [facility]. She has received a total of 3 days IV antibiotics. (4) CLL (chronic lymphocytic leukemia): Code(s): C91.10 - Chronic lymphocytic leukemia of B-cell type not having achieved remission Status: Acute Assessment and Plan: * completed treatment with Rituxan, oncology is stating no further treatment options and offered hospice last * Oncology following * Patient was given 2 units of PRBC yesterday * Platelet count is 19, she is to receive 2 units of platelets today. * Patient given IgG yesterday. * According to Heme/Onc notes, pt is out of treatment options for her CLL. Again, family is considering returning to SNF tomorrow with [facility]. They have yet to sign the papers. * 06/08/2023: Date of discharge -patient to be discharged back to senior living facility at this time to hospice service provided by [facility]. Family will be meeting the marketing representative from hospice at the senior living and will sign appropriate papers there. (5) Parkinsons disease: Code(s): G20 - Parkinson's disease Status: Acute Assessment and Plan: continue carbidopa levodopa 06/08/2023: Date of discharge -patient to be discharged back to senior living facility at this time to hospice service provided by [facility]. (6) Benign hypertension with CKD (chronic kidney disease) stage IV: [place]
--- NOTE | 2023-06-08 09:24 | PM.DS ---
DS: Admitting Diagnosis Discharge Date 06/08/2023 Admitting Diagnosis Acute on chronic hypoxic and hypercapnic respiratory failure Pneumonia Urinary tract infection Chronic lymphocytic leukemia Parkinson's disease Hypertension Paroxysmal SVT GERD Acute on chronic anemia Thrombocytopenia Paroxysmal AFib DS: Discharge Diagnosis Discharge Diagnosis (1) Acute hypoxic on chronic hypercapnic respiratory failure: Code(s): J96.01 - Acute respiratory failure with hypoxia; J96.12 - Chronic respiratory failure with hypercapnia Status: Acute Assessment and Plan: on supplemental oxygen by nasal cannula + RSV Wean oxygen to keep sat greater than 92% Currently on 2 L nasal cannula at 100% continue to monitor Continue nebulizer treatments. 06/08/2023: Date of discharge -patient to be discharged back to prison facility at this time to hospice service provided by [facility]. She may continue to have p.r.n. oxygen for comfort. (2) Healthcare-associated pneumonia: Code(s): J18.9 - Pneumonia, unspecified organism Status: Acute Assessment and Plan: patient received Rocephin and Zithromax in emergency room Continue Merrem, Recently changed from Cefepime and Azithromycin Will get barium swallow tomorrow as the patient's son states that she often coughs with food and fluid and this could be the source of her pneumonia. Still pending at this time, will likely not need. 06/08/2023: Date of discharge -patient to be discharged back to prison facility at this time to hospice service provided by [facility]. She may continue to have as needed oxygen for comfort. Hospice service once papers are signed will prescribe any needed medications for increased work of breathing or discomfort. (3) Urinary tract infection: Code(s): N39.0 - Urinary tract infection, site not specified Status: Acute Assessment and Plan: Urine cx returned positive for E.coli and after talking to Brian, we have to assume that it is ESBL, so she is changed from Cefepime to Meropenem according to the susceptibility. 06/08/2023: Date of discharge -patient to be discharged back to prison facility at this time to hospice service provided by [facility]. She has received a total of 3 days IV antibiotics. (4) CLL (chronic lymphocytic leukemia): Code(s): C91.10 - Chronic lymphocytic leukemia of B-cell type not having achieved remission Status: Acute Assessment and Plan: completed treatment with Rituxan, oncology is stating no further treatment options and offered hospice last Oncology following Patient was given 2 units of PRBC yesterday Platelet count is 19, she is to receive 2 units of platelets today. Patient given IgG yesterday. According to Heme/Onc notes, pt is out of treatment options for her CLL. Again, family is considering returning to SNF tomorrow with [facility]. They have yet to sign the papers. 06/08/2023: Date of discharge -patient to be discharged back to prison facility at this time to hospice service provided by [facility]. Family will be meeting the healthcare representative from hospice at the prison and will sign appropriate papers there. (5) Parkinsons disease: Code(s): G20 - Parkinson's disease Status: Acute Assessment and Plan: continue carbidopa levodopa 06/08/2023: Date of discharge -patient to be discharged back to prison facility at this time to hospice service provided by [facility]. 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
[2023-06-08] MEDS: IPRATROPIUM 0.5 MG/ALBUTEROL SULFATE 2.5 MG AMPUL.NEB 3 ML INHALATION (09:49)
[2023-06-08] MEDS: FERROUS SULFATE 325 MG TABLET DR BY MOUTH (09:55)
[2023-06-08] MEDS: CARBIDOPA/LEVODOPA 25/100 MG CR TABLET 1 TABLET PO ×2 (09:56→12:40)
[2023-06-08] MEDS: ARTIFICIAL TEARS OPHTH SOLN 15 ML BOTTLE 1 DROP EACH EYE ×2 (09:56→12:40)
[2023-06-08] MEDS: PANTOPRAZOLE 40 MG TABLET PO (09:56)
[2023-06-08] MEDS: allopurinoL 300 MG TABLET PO (09:56)
[2023-06-08] MEDS: SERTRALINE HCL 25 MG TABLET PO (09:56)
[2023-06-08] MEDS: MEROPENEM 1 GM/NS 100 ML 1 GM/100 ML BAG IVPB (09:57)
[2023-06-08 20:24] LABS: Haptoglobin 181 mg/dL (43-212)
[2023-06-09 08:10] LABS: Methylmalonic Acid 234 nmol/L (87-318)
[2023-06-11 14:02] LABS: Soluble Transferrin Receptor 1.27 mg/L (0.76-1.76)
== END 2023-06-08 13:08 | disposition hospice, home (50) | DRG 189 ==
LOC: ANHED 14:13 → ANH3MEDSUR 19:23 → ANH2MED 20:00
PROVIDERS: Internal Medicine; Nurse Practitioner Acute Care; Nurse Practitioner Family; Admitting Provider Internal Medicine; Emergency Provider Emergency Medicine; PCP Internal Medicine Hematology & Oncology; Visit Provider Nurse Practitioner Adult Health
DX: J96.21 Acute and chronic respiratory failure with hypoxia (principal); J18.9 Pneumonia, unspecified organism; N39.0 Urinary tract infection, site not specified; C91.10 Chronic lymphocytic leukemia of B-cell type not having achieved remission; N18.4 Chronic kidney disease, stage 4 (severe); I47.10 Supraventricular tachycardia, unspecified; D80.3 Selective deficiency of immunoglobulin G [IgG] subclasses; D61.818 Other pancytopenia; J96.22 Acute and chronic respiratory failure with hypercapnia; B97.4 Respiratory syncytial virus as the cause of diseases classified elsewhere; B96.20 Unspecified Escherichia coli [E. coli] as the cause of diseases classified elsewhere; G20.A1 Parkinson's disease without dyskinesia, without mention of fluctuations; I12.9 Hypertensive chronic kidney disease with stage 1 through stage 4 chronic kidney disease, or unspecified chronic kidney disease; K21.9 Gastro-esophageal reflux disease without esophagitis; I48.0 Paroxysmal atrial fibrillation; F03.90 Unspecified dementia, unspecified severity, without behavioral disturbance, psychotic disturbance, mood disturbance, and anxiety; M19.90 Unspecified osteoarthritis, unspecified site; E03.9 Hypothyroidism, unspecified; Z20.822 Contact with and (suspected) exposure to COVID-19; Z90.710 Acquired absence of both cervix and uterus; Z98.42 Cataract extraction status, left eye; Z98.41 Cataract extraction status, right eye; Z51.5 Encounter for palliative care
CPT/HCPCS: 36415; 36430; 71045; 80053; 81001; 82607; 82728; 82746; 82784; 83010; 83540; 83550; 83615; 83735; 83880; 83921; 84100; 84238; 85025; 85046; 85055; 86850; 86880; 86900; 86901; 86923; 87040; 87086; 87186; 87637; 88184; 88185; 92611; 94640; 96361; 96365; 96367; 96375; 99285; A9270; G0378; J0456; J0692; J0696; J1459; J1940; J2185; J2270; J7030; J7050; P9016; P9034